=== PATIENT | female | born 1955 | race African-American/Black ===

== ENCOUNTER 2017-11-17 08:52 | Emergency (ER) | payer SELFPAY ==
[2017-11-17] MEDS ORDERED: ALBUTEROL 2.5 MG/3 ML NEB SOL ONE (09:23)
[2017-11-17] MEDS ORDERED: METHYLPREDNISOLONE 125 MG INJ ONE (09:23)
[2017-11-17] MEDS ORDERED: IPRATROPIUM BROM 0.5MG/2.5ML ONE (09:23)
--- NOTE | 2017-11-17 09:52 | RAD REPORT ---
EXAM DESCRIPTION: RAD - Chest Single View - 11/17/2017 9:45 am CLINICAL HISTORY: Cough, shortness of breath. COMPARISON: 10/25/2016 FINDINGS: Portable technique limits examination quality. Mild interstitial pulmonary edema is noted. The heart is mildly prominent in size. No displaced fract ures. IMPRESSION: Mild CHF/ volume overload pattern is suspected.
[2017-11-17 10:31] LABS: Absolute Lymphocytes (CBC) 2.2 K/uL (0.7-4.9); Absolute Monocytes 0.7 K/uL (0.1-1.3); Absolute Neutrophil 4.6 K/uL (1.8-8.0); Basophils % 1.3 % (0-1.3); Eosinophils % 6.4 % (0-4.4); Hematocrit 37.7 % (36.0-45.0); Lymphocytes % 27.1 % (15.3-44.8); MCH 25.3 pg (27.0-35.0); MCV 78.6 fL (80-100); MPV 8.1 fL (7.6-11.3); Monocytes % 8.1 % (3.3-12.3)
[2017-11-17 10:40] LABS: Potassium 3.8 mEq/L (3.6-5.0)
--- NOTE | 2017-11-17 11:04 | ER ---
Nurse's Notes [facility] Name: Bailey Zavala Age: 62 yrs Sex: Female : 1955 Arrival Date: 11/17/2017 Time: 08:55 Bed 16 Private MD: None, None Diagnosis: Asthma;Cough Presentation: 11/17 09:14 Presenting complaint: Patient states: has had pain in legs, hips, back X 2 weeks, has iw hx of arthritis, also has hx of asthma and has had increased SOB and coughing also has swelling in legs, denies hx of CHF. Transition of care: patient was not received from another setting of care. Onset of symptoms was November 01, 2017. Initial Sepsis Screen: Does the patient meet any 2 criteria? No. Patient's initial sepsis screen is negative. Does the patient have a suspected source of infection? No. Patient's initial sepsis screen is negative. Care prior to arrival: None. 09:14 Method Of Arrival: Wheelchair iw 09:14 Acuity: GURPREET 3 iw Triage Assessment: 09:14 General: Appears in no apparent distress. uncomfortable, obese, Behavior is calm, hj cooperative, appropriate for age. Pain: Complains of pain in back, right leg and left leg. EENT: No signs and/or symptoms were reported regarding the EENT system. Neuro: Level of Consciousness is awake, alert, obeys commands, Oriented to person, place, time, situation, Appropriate for age. Cardiovascular: Capillary refill < 3 seconds Patient's skin is warm and dry. Respiratory: Airway is patent Respiratory effort is even, unlabored, Respiratory pattern is regular, symmetrical. GI: No signs and/or symptoms were reported involving the gastrointestinal system. : No signs and/or symptoms were reported regarding the genitourinary system. Derm: No signs and/or symptoms reported regarding the dermatologic system. Musculoskeletal: Circulation, motion, and sensation intact. Range of motion: intact in all extremities, Swelling present in right leg and left leg. Historical: - Allergies: : Iodine (Hives); hj - Home Meds: : Advair Diskus 250-50 mcg/dose Inhl dsdv 1 puff 2 times per day [Active]; albuterol hj sulfate 2.5 mg/0.5 mL Inhl nebu 0.5 mL 4 times per day [Active]; albuterol sulfate 90 mcg/actuation Inhl HFAA 2 puffs every 4 hours [Active]; Breo Ellipta 200-25 mcg/dose inhalation dsdv 1 puff once daily [Active]; Iron CR Oral 320 mg daily [Active]; Lasix 40 mg Oral tab 1 tab once daily [Active]; metformin 500 mg Oral Tb24 1 tab 2 times per day [Active]; potassium chloride 20 mEq Oral TbER 1 tab once daily [Active]; ProAir HFA 90 mcg/actuation inhalation HFAA 1 puff every 4-6 hours [Active]; - PMHx: 09:17 Arthritis; Asthma; Diabetes - NIDDM; hj - PSHx: 09:17 retinal transplant; hj - Immunization history:: Adult Immunizations up to date. - Social history:: Smoking status: Patient/guardian denies using tobacco, Patient/guardian denies using alcohol. Screenin:14 Abuse screen: Denies threats or abuse. Denies injuries from another. Nutritional hj screening: No deficits noted. Tuberculosis screening: No symptoms or risk factors identified. Fall Risk None identified. Assessment: 09:17 Reassessment: see triage assessment;. hj 11:30 Reassessment: Patient and/or family updated on plan of care and expected duration. Pain hj level reassessed. Patient is alert, oriented x 3, equal unlabored respirations, skin warm/dry/pink. D/C instructions given; Patient denies pain at this time. Patient states feeling better. Vital Signs: 09:16 BP 154 / 90; Pulse 89; Resp 22 S; Temp 97.6(TE); Pulse Ox 100% on R/A; iw 09:16 BP 154 / 90; Pulse 88; Resp 18; Temp 97.9(TE); Pulse Ox 100% on R/A; Weight 161.03 kg; hj Height 5 ft. 8 in. (172.72 cm); 11:29 BP 150 / 89; Pulse 85; Resp 18; Pulse Ox 100% on R/A; hj 09:16 Body Mass Index 53.98 (161.03 kg, 172.72 cm) ED Course: 08:55 Patient arrived in ED. mr 08:56 None, None is Private Physician. mr 09:08 Hieu Harper MD is Attending Physician. rn 09:09 Johnathan, Edwar, RN is Primary Nurse. hj 09:15 Arm band placed on left wrist. hj 09:16 Triage completed. iw 09:16 Patient has correct armband on for positive identification. Bed in low position. Call light in reach. Side rails up X2. 09:40 X-ray completed. Portable x-ray completed in exam room. jr1 09:41 XRAY Chest (1 view) In Process Unspecified. EDMS 09:57 EKG done, by composite bond technician. reviewed by Hieu Harper MD. 3 10:15 Initial lab(s) drawn, by ks, sent to lab. Inserted saline lock: 22 gauge in left hj antecubital area, using aseptic technique. Blood collected. 11:26 No provider procedures requiring assistance completed. IV discontinued, intact, hj bleeding controlled, No redness/swelling at site. Pressure dressing applied. Administered Medications: 09:18 Drug: SOLU-Medrol 125 mg Route: IM; Site: left deltoid; 09:28 Follow up: Response: No adverse reaction hj 09:18 Drug: Albuterol 2.5 mg Route: Inhalation; hj 09:18 Drug: AtroVENT Aerosol 0.5 mg Route: Inhalation; Outcome: 11:04 Discharge ordered by . rn 11:26 Discharged to home ambulatory. 11:26 Condition: stable 11:26 Discharge instructions given to patient, Instructed on discharge instructions, follow up and referral plans. medication usage, Demonstrated understanding of instructions, follow-up care, medications, Prescriptions given X 2. 11:30 Patient left the ED. Signatures: Dispatcher [employer] EDPA Edith Bryant mr KimYumiko jr1 Latosha Lopes RN RN iw Nieto, Roman, MD MD rn Joaquin, Henry, RN RN hj Montes, Shakira 3
--- NOTE | 2017-11-17 11:05 | EDPHYS ---
Physician Documentation [facility] Name: Bailey Zavala Age: 62 yrs Sex: Female : 1955 Arrival Date: 11/17/2017 Time: 08:55 Bed 16 Private MD: None, None ED Physician Hieu Harper HPI: 11/17 09:20 This 62 yrs old Black Female presents to ER via Wheelchair with complaints of Leg Pain, rn Back Pain, Asthma Exacerbation. 09:20 The patient has shortness of breath with light activity. Onset: The symptoms/episode rn began/occurred 2 week(s) ago. Duration: The symptoms are intermittent. The patient's shortness of breath is aggravated by coughing, exertion, light activity. Associated signs and symptoms: Pertinent positives: productive cough, Pertinent negatives: fever. Historical: - Allergies: : Iodine (Hives); hj - Home Meds: :17 Advair Diskus 250-50 mcg/dose Inhl dsdv 1 puff 2 times per day [Active]; albuterol hj sulfate 2.5 mg/0.5 mL Inhl nebu 0.5 mL 4 times per day [Active]; albuterol sulfate 90 mcg/actuation Inhl HFAA 2 puffs every 4 hours [Active]; Breo Ellipta 200-25 mcg/dose inhalation dsdv 1 puff once daily [Active]; Iron CR Oral 320 mg daily [Active]; Lasix 40 mg Oral tab 1 tab once daily [Active]; metformin 500 mg Oral Tb24 1 tab 2 times per day [Active]; potassium chloride 20 mEq Oral TbER 1 tab once daily [Active]; ProAir HFA 90 mcg/actuation inhalation HFAA 1 puff every 4-6 hours [Active]; - PMHx: 09:17 Arthritis; Asthma; Diabetes - NIDDM; hj - PSHx: :17 retinal transplant; hj - Immunization history:: Adult Immunizations up to date. - Social history:: Smoking status: Patient/guardian denies using tobacco, Patient/guardian denies using alcohol. ROS: 09:21 Constitutional: Negative for fever, chills, and weight loss, Eyes: Negative for injury, rn pain, redness, and discharge, Neck: Negative for injury, pain, and swelling, Cardiovascular: Negative for chest pain, palpitations, and edema, Respiratory: + sob and cough Abdomen/GI: Negative for abdominal pain, nausea, vomiting, diarrhea, and constipation, Back: Negative for injury and pain, MS/Extremity: + knees/back/hip pain Skin: Negative for injury, rash, and discoloration, Neuro: Negative for headache, weakness, numbness, tingling, and seizure. Exam: 09:21 Constitutional: Overweight woman, laying in bed, smiling Head/Face: Normocephalic, rn atraumatic. Eyes: Pupils equal round and reactive to light, extra-ocular motions intact. Lids and lashes normal. Conjunctiva and sclera are non-icteric and not injected. Cornea within normal limits. Periorbital areas with no swelling, redness, or edema. ENT: Nares patent. No nasal discharge, no septal abnormalities noted. Oropharynx with no redness, swelling, or masses, exudates, or evidence of obstruction, uvula midline. Mucous membranes moist. Cardiovascular: Regular rate and rhythm with a normal S1 and S2. No gallops, murmurs, or rubs. Normal PMI, no JVD. No pulse deficits. Respiratory: Coarse bilateral breath sounds, faint exp wheezing, + mild tachypnea Abdomen/GI: Soft, non-tender, with normal bowel sounds. No distension or tympany. No guarding or rebound. No evidence of tenderness throughout. MS/ Extremity: Pulses equal, no cyanosis. Neurovascular intact. Full, normal range of motion. Equal circumference. Neuro: Awake and alert, GCS 15, oriented to person, place, time, and situation. Cranial nerves II-XII grossly intact. Motor strength 5/5 in all extremities. Sensory grossly intact. Vital Signs: 09:16 BP 154 / 90; Pulse 89; Resp 22 S; Temp 97.6(TE); Pulse Ox 100% on R/A; iw 09:16 BP 154 / 90; Pulse 88; Resp 18; Temp 97.9(TE); Pulse Ox 100% on R/A; Weight 161.03 kg; hj Height 5 ft. 8 in. (172.72 cm); 11:29 BP 150 / 89; Pulse 85; Resp 18; Pulse Ox 100% on R/A; hj 09:16 Body Mass Index 53.98 (161.03 kg, 172.72 cm) MDM: 09:08 Patient medically screened. rn 11:03 Differential diagnosis: Anemia asthma, Pneumothorax pulmonary edema. Data reviewed: rn vital signs, nurses notes, lab test result(s), EKG, radiologic studies, plain films, and as a result, I will discharge patient. Counseling: I had a detailed discussion with the patient and/or guardian regarding: the historical points, exam findings, and any diagnostic results supporting the discharge/admit diagnosis, lab results, radiology results, the need for outpatient follow up, to return to the emergency department if symptoms worsen or persist or if there are any questions or concerns that arise at home. Response to treatment: the patient's symptoms have markedly improved after treatment. Special discussion: I discussed with the patient/guardian in detail that at this point there is no indication for admission to the hospital. It is understood, however, that if the symptoms persist or worsen the patient needs to return immediately for re-evaluation. 11/17 10:04 Order name: CBC with Diff; Complete Time: 10:58 rn 11/17 10:04 Order name: Basic Metabolic Panel; Complete Time: 10:58 rn 11/17 09:18 Order name: XRAY Chest (1 view); Complete Time: 10:00 rn 11/17 10:04 Order name: BNP; Complete Time: 10:58 rn 11/17 10:04 Order name: Troponin (emerg Dept Use Only); Complete Time: 10:58 rn 11/17 09:20 Order name: EKG; Complete Time: 09:20 rn 11/17 09:20 Order name: EKG - Nurse/Tech; Complete Time: 09:44 rn 11/17 10:04 Order name: IV Start; Complete Time: 10:19 rn Administered Medications: :18 Drug: SOLU-Medrol 125 mg Route: IM; Site: left deltoid; 09:28 Follow up: Response: No adverse reaction hj :18 Drug: Albuterol 2.5 mg Route: Inhalation; hj 09:18 Drug: AtroVENT Aerosol 0.5 mg Route: Inhalation; Disposition: 11/17/17 11:04 Discharged to Home. Impression: Asthma, Cough. - Condition is Stable. - Discharge Instructions: Asthma, Acute Bronchospasm. - Prescriptions for Prednisone 20 mg Oral Tablet - take 3 tablet by ORAL route once daily for 5 days; 15 tablet. Zithromax Z- Asad 250 mg Oral Tablet - take 1 tablet by ORAL route as directed for 5 days Day 1 - take two (2) tablets one time. Day 2, 3, 4 , 5 take one (1) tablet once daily.; 6 tablet. - Medication Reconciliation Form, Thank You Letter, Antibiotic Education, Prescription Opioid Use form. - Follow up: Private Physician; When: As needed; Reason: Recheck today's complaints, Re-evaluation by your physician. - Problem is new. - Symptoms have improved. Signatures: Dispatcher [employer] EDIL Hieu Harper MD MD rn Joaquin, Henry, RN RN hj Corrections: (The following items were deleted from the chart) 11:30 11:04 11/17/2017 11:04 Discharged to Home. Impression: Asthma; Cough. Condition is hj Stable. Forms are Medication Reconciliation Form, Thank You Letter, Antibiotic Education, Prescription Opioid Use. Follow up: Private Physician; When: As needed; Reason: Recheck today's complaints, Re-evaluation by your physician. Problem is new. Symptoms have improved. rn
[2017-11-17 11:40] VITALS: BP 150/89; O2SAT 100
[2017-11-17 11:41] VITALS: TEMP 97.6
--- NOTE | 2017-11-17 16:21 | EKG ---
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
== END 2017-11-17 11:30 | disposition home or self-care (01) ==
LOC: ER 08:52
DX: J45.909 Unspecified asthma, uncomplicated (principal); E11.9 Type 2 diabetes mellitus without complications; Z91.048 Other nonmedicinal substance allergy status
CPT/HCPCS: 36415; 71045; 80048; 83880; 84484; 85025; 93005; 96372; 99284; J2930

== ENCOUNTER 2017-12-07 08:58 | Emergency (ER) | payer SELFPAY ==
[2017-12-07] MEDS ORDERED: METHYLPREDNISOLONE 125 MG INJ ONE (09:27)
[2017-12-07] MEDS ORDERED: ALBUTEROL 2.5 MG/3 ML NEB SOL ONE (09:27)
[2017-12-07] MEDS ORDERED: IPRATROPIUM BROM 0.5MG/2.5ML ONE (09:27)
[2017-12-07 09:46] LABS: Absolute Monocytes 0.8 K/uL (0.1-1.3); Absolute Neutrophil 5.8 K/uL (1.8-8.0); Basophils % 0.7 % (0-1.3); Eosinophils % 4.5 % (0-4.4); Hematocrit 38.3 % (36.0-45.0); Lymphocytes % 22.2 % (15.3-44.8); MCH 26.1 pg (27.0-35.0); MCV 78.1 fL (80-100); MPV 7.9 fL (7.6-11.3); Monocytes % 8.4 % (3.3-12.3); RBC Red Blood Cell Count 4.89 M/uL (3.86-4.86)
--- NOTE | 2017-12-07 09:52 | RAD REPORT ---
EXAM DESCRIPTION: [place] Single View12/07/2017 9:37 am CLINICAL HISTORY: Chest pain COMPARISON: November 2017 FINDINGS: Mild interstitial lung opacities probably are chronic. The lungs appear clear of acute in filtrate. The heart is normal size IMPRESSION: No acute abnormalities displayed
[2017-12-07 10:00] LABS: Potassium 3.5 mEq/L (3.6-5.0)
--- NOTE | 2017-12-07 11:11 | ER ---
Nurse's Notes [facility] Name: Bailey Zavala Age: 62 yrs Sex: Female : 1955 Arrival Date: 12/07/2017 Time: 09:02 Bed 3 Private MD: None, None Diagnosis: Asthma;Osteoarthritis, unspecified site Presentation: 12/07 09:21 Risk Assessment: Do you want to hurt yourself or someone else? Patient reports no hb desire to harm self or others. Initial Sepsis Screen: Does the patient meet any 2 criteria? No. Patient's initial sepsis screen is negative. Does the patient have a suspected source of infection? No. Patient's initial sepsis screen is negative. Care prior to arrival: None. 09:21 Presenting complaint: Patient states: SOB x4 days. Transition of care: patient was not jl7 received from another setting of care. Onset of symptoms was December 03, 2017. Care prior to arrival: None. 09:21 Method Of Arrival: Ambulatory jl7 09:21 Acuity: GURPREET 3 jl7 Triage Assessment: 09:20 General: Appears in no apparent distress. uncomfortable, Behavior is calm, cooperative, jl7 appropriate for age. Pain: Complains of pain in bilateral knees and ankles Pain does not radiate. Pain currently is 8 out of 10 on a pain scale. Quality of pain is described as "It's my arthritis." Pain began years ago. Is continuous. EENT: No signs and/or symptoms were reported regarding the EENT system. Neuro: Level of Consciousness is awake, alert, obeys commands, Oriented to person, place, time, situation. Cardiovascular: Heart tones S1 S2 present Patient's skin is warm and dry. Respiratory: Reports shortness of breath since 4-5 days Airway is patent Respiratory effort is even, unlabored, Respiratory pattern is regular, symmetrical, Breath sounds are clear bilaterally. Onset: The symptoms/episode began/occurred at an unknown time. the patient has mild shortness of breath. GI: No signs and/or symptoms were reported involving the gastrointestinal system. : No signs and/or symptoms were reported regarding the genitourinary system. Derm: Skin is dry, Skin is normal, Skin temperature is warm. Musculoskeletal: No signs and/or symptoms reported regarding the musculoskeletal system. Historical: - Allergies: :20 Iodine (Hives); hb - Home Meds: 09:20 Advair Diskus 250-50 mcg/dose Inhl dsdv 1 puff 2 times per day [Active]; albuterol hb sulfate 2.5 mg/0.5 mL Inhl nebu 0.5 mL 4 times per day [Active]; albuterol sulfate 90 mcg/actuation Inhl HFAA 2 puffs every 4 hours [Active]; Breo Ellipta 200-25 mcg/dose inhalation dsdv 1 puff once daily [Active]; Iron CR Oral 320 mg daily [Active]; Lasix 40 mg Oral tab 1 tab once daily [Active]; metformin 500 mg Oral Tb24 1 tab 2 times per day [Active]; potassium chloride 20 mEq Oral TbER 1 tab once daily [Active]; ProAir HFA 90 mcg/actuation inhalation HFAA 1 puff every 4-6 hours [Active]; - PMHx: 09:20 Arthritis; Asthma; Diabetes - NIDDM; hb - PSHx: 09:20 retinal transplant; hb - Immunization history:: Adult Immunizations up to date. - Social history:: Smoking status: Patient/guardian denies using tobacco. - Ebola Screening: : No symptoms or risks identified at this time. - Family history:: not pertinent. - Hospitalizations: : No recent hospitalization is reported. Screenin:18 Abuse screen: Denies threats or abuse. Denies injuries from another. Nutritional hb screening: No deficits noted. Tuberculosis screening: No symptoms or risk factors identified. Fall Risk None identified. Assessment: 09:50 General: see triage assessment. Cardiovascular: Rhythm is regular. jl7 10:49 Reassessment: Patient and/or family updated on plan of care and expected duration. Pain jl7 level reassessed. Patient is alert, oriented x 3, equal unlabored respirations, skin warm/dry/pink. Patient states symptoms have improved. Vital Signs: 09:17 Temp 97.7(TE); hb 09:18 BP 138 / 73; Pulse 89; Resp 20; Pulse Ox 100% on R/A; hb 10:45 BP 136 / 74; Pulse 87; Resp 18; Pulse Ox 98% ; hb ED Course: 09:02 Patient arrived in ED. sb2 09:03 None, None is Private Physician. sb2 09:11 Hieu Harper MD is Attending Physician. rn 09:13 Elaine, Jahala, RN is Primary Nurse. jl7 09:18 Arm band placed on right wrist. hb 09:20 Patient has correct armband on for positive identification. Bed in low position. Call light in reach. Side rails up X 1. 09:22 Triage completed. jl7 09:34 X-ray completed. Portable x-ray completed in exam room. Patient tolerated procedure kp1 well. 09:35 XRAY Chest (1 view) In Process Unspecified. EDMS 09:36 Initial lab(s) drawn, by me, sent to lab. Inserted saline lock: 20 gauge in left 3 antecubital area, using aseptic technique. Blood collected. 11:17 No provider procedures requiring assistance completed. IV discontinued, intact, hb bleeding controlled, No redness/swelling at site. Pressure dressing applied. Administered Medications: 09:25 Drug: Albuterol 2.5 mg Route: Inhalation; jl7 09:25 Drug: AtroVENT Aerosol 0.5 mg Route: Inhalation; jl7 09:50 Drug: SOLU-Medrol 125 mg Route: IVP; Site: left antecubital; jl7 Outcome: 11:10 Discharge ordered by . rn 11:17 Discharged to home ambulatory. hb 11:17 Condition: stable 11:17 Discharge instructions given to patient, Instructed on discharge instructions, follow up and referral plans. medication usage, Demonstrated understanding of instructions, follow-up care, medications, Prescriptions given X 2. 11:22 Patient left the ED. hb Signatures: Dispatcher [employer] EDMS Hieu Harper MD MD rn Baxter, Heather RN RN Avani Hart, RN AMARILYS 7 Francisca Ricardo 1 Joceline Schaefer 3 Kaykay Mancilla 2
--- NOTE | 2017-12-07 11:11 | EDPHYS ---
Physician Documentation [facility] Name: Bailey Zavala Age: 62 yrs Sex: Female : 1955 Arrival Date: 12/07/2017 Time: 09:02 Bed 3 Private MD: None, None ED Physician Hieu Harper HPI: 12/07 09:26 This 62 yrs old Black Female presents to ER via Ambulatory with complaints of Breathing rn Difficulty, Knee Pain, Hip Pain. 09:26 The patient has shortness of breath at rest. Onset: The symptoms/episode began/occurred rn at an unknown time. Duration: The symptoms are intermittent. The patient's shortness of breath is aggravated by exertion, light activity, talking, walking. Associated signs and symptoms: Pertinent positives: non-productive cough, Pertinent negatives: fever, hemoptysis, loss of consciousness, vomiting. Severity of symptoms: At their worst the symptoms were mild in the emergency department the symptoms are unchanged. The patient has experienced similar episodes in the past. The patient has not recently seen a physician. Historical: - Allergies: 09:20 Iodine (Hives); hb - Home Meds: 09:20 Advair Diskus 250-50 mcg/dose Inhl dsdv 1 puff 2 times per day [Active]; albuterol hb sulfate 2.5 mg/0.5 mL Inhl nebu 0.5 mL 4 times per day [Active]; albuterol sulfate 90 mcg/actuation Inhl HFAA 2 puffs every 4 hours [Active]; Breo Ellipta 200-25 mcg/dose inhalation dsdv 1 puff once daily [Active]; Iron CR Oral 320 mg daily [Active]; Lasix 40 mg Oral tab 1 tab once daily [Active]; metformin 500 mg Oral Tb24 1 tab 2 times per day [Active]; potassium chloride 20 mEq Oral TbER 1 tab once daily [Active]; ProAir HFA 90 mcg/actuation inhalation HFAA 1 puff every 4-6 hours [Active]; - PMHx: 09:20 Arthritis; Asthma; Diabetes - NIDDM; hb - PSHx: 09:20 retinal transplant; hb - Immunization history:: Adult Immunizations up to date. - Social history:: Smoking status: Patient/guardian denies using tobacco. - Ebola Screening: : No symptoms or risks identified at this time. - Family history:: not pertinent. - Hospitalizations: : No recent hospitalization is reported. ROS: 09:26 Constitutional: Negative for fever, chills, and weight loss, Eyes: Negative for injury, rn pain, redness, and discharge, Neck: Negative for injury, pain, and swelling, Cardiovascular: Negative for chest pain, palpitations, and edema, Respiratory: Negative for pleuritic chest pain Abdomen/GI: Negative for abdominal pain, nausea, vomiting, diarrhea, and constipation, MS/Extremity: Negative for injury and deformity, Skin: Negative for injury, rash, and discoloration, Neuro: Negative for headache, weakness, numbness, tingling, and seizure. Exam: 09:26 Constitutional: Overweight female, no acute distress Head/Face: Normocephalic, rn atraumatic. Neck: Trachea midline, no thyromegaly or masses palpated, and no cervical lymphadenopathy. Supple, full range of motion without nuchal rigidity, or vertebral point tenderness. No Meningismus. Cardiovascular: Regular rate and rhythm with a normal S1 and S2. No gallops, murmurs, or rubs. Normal PMI, no JVD. No pulse deficits. Respiratory: + diffuse faint exp wheezing, no retractions, mild tachypnea Abdomen/GI: Soft, non-tender, with normal bowel sounds. No distension or tympany. No guarding or rebound. No evidence of tenderness throughout. MS/ Extremity: Pulses equal, no cyanosis. Neurovascular intact. Full, normal range of motion. Equal circumference. 2+ non-pitting edema bilateral lower ext Neuro: Awake and alert, GCS 15, oriented to person, place, time, and situation. Cranial nerves II-XII grossly intact. Motor strength 5/5 in all extremities. Sensory grossly intact. Vital Signs: 09:17 Temp 97.7(TE); hb 09:18 BP 138 / 73; Pulse 89; Resp 20; Pulse Ox 100% on R/A; hb 10:45 BP 136 / 74; Pulse 87; Resp 18; Pulse Ox 98% ; hb MDM: 09:11 Patient medically screened. rn 11:05 Differential diagnosis: asthma, Bronchitis pneumonia, pulmonary edema. Data reviewed: rn vital signs, nurses notes, lab test result(s), EKG, radiologic studies, plain films, and as a result, I will discharge patient. Counseling: I had a detailed discussion with the patient and/or guardian regarding: the historical points, exam findings, and any diagnostic results supporting the discharge/admit diagnosis, lab results, radiology results, the need for outpatient follow up, to return to the emergency department if symptoms worsen or persist or if there are any questions or concerns that arise at home. Medical screen evaluation completed. [facility] emergency medical condition absent. Response to treatment: the patient's symptoms have markedly improved after treatment, and as a result, I will discharge patient. Special discussion: I discussed with the patient/guardian in detail that at this point there is no indication for admission to the hospital. It is understood, however, that if the symptoms persist or worsen the patient needs to return immediately for re-evaluation. Based on the history and exam findings, there is no indication for further emergent testing or inpatient evaluation. I discussed with the patient/guardian the need to see the rough and trueing machine operator for further evaluation of the symptoms. 12/07 09:19 Order name: CBC with Diff; Complete Time: 10:26 rn 12/07 09:19 Order name: Basic Metabolic Panel; Complete Time: 10:26 rn 12/07 09:19 Order name: BNP; Complete Time: 10:26 rn 12/07 09:19 Order name: Troponin (emerg Dept Use Only); Complete Time: 10:26 rn 12/07 09:19 Order name: XRAY Chest (1 view); Complete Time: 09:57 rn 12/07 09:19 Order name: IV Start; Complete Time: 09:36 rn 12/07 09:19 Order name: EKG; Complete Time: 09:19 rn 12/07 09:19 Order name: EKG - Nurse/Tech; Complete Time: 09:42 rn Administered Medications: 09:25 Drug: Albuterol 2.5 mg Route: Inhalation; jl7 09:25 Drug: AtroVENT Aerosol 0.5 mg Route: Inhalation; jl7 09:50 Drug: SOLU-Medrol 125 mg Route: IVP; Site: left antecubital; jl7 Disposition: 12/07/17 11:10 Discharged to Home. Impression: Asthma, Osteoarthritis, unspecified site. - Condition is Stable. - Discharge Instructions: Asthma, Acute Bronchospasm, Asthma Attack Prevention. - Prescriptions for ipratropium bromide 0.02 % Inhalation solution - inhale 2.5 milliliter by INHALATION route 3-4 times daily As needed as needed; 1 box. Prednisone 20 mg Oral Tablet - take 3 tablet by ORAL route once daily for 5 days; 15 tablet. - Medication Reconciliation Form, Thank You Letter, Antibiotic Education, Prescription Opioid Use form. - Follow up: Private Physician; When: As needed; Reason: Recheck today's complaints, Re-evaluation by your physician. - Problem is new. - Symptoms have improved. Signatures: Dispatcher [employer] EDLA Hieu Harper MD MD rn Baxter, Heather, RN RN hb Leal, Jahala, RN RN jl7 Corrections: (The following items were deleted from the chart) 11:22 11:10 12/07/2017 11:10 Discharged to Home. Impression: Asthma; Osteoarthritis, hb unspecified site. Condition is Stable. Forms are Medication Reconciliation Form, Thank You Letter, Antibiotic Education, Prescription Opioid Use. Follow up: Private Physician; When: As needed; Reason: Recheck today's complaints, Re-evaluation by your physician. Problem is new. Symptoms have improved. rn
[2017-12-07 11:25] VITALS: TEMP 97.7
[2017-12-07 11:27] VITALS: BP 136/74; O2SAT 98
--- NOTE | 2017-12-07 13:36 | EKG ---
Test Date: 2017-12-07 Test Time: 09:37:49 Sales Route Driver Helper: MCKAYLA MEASUREMENT RESULTS: Intervals: Rate: 86 WI: 184 QRSD: 76 QT: 374 QTc: 447 [place]: P: 26 WI: 184 QRS: -11 T: 27 INTERPRETIVE STATEMENTS: Normal sinus rhythm Cannot rule out Anterior infarct, age undetermined Abnormal ECG Compared to ECG 11/17/2017 09:44:22 Myocardial infarct finding now present Electronically Signed On 12-07-17 13:36:17 CDT by Phill Rubi
== END 2017-12-07 11:22 | disposition home or self-care (01) ==
LOC: ER 08:58
DX: J45.909 Unspecified asthma, uncomplicated (principal); M19.90 Unspecified osteoarthritis, unspecified site; E11.9 Type 2 diabetes mellitus without complications; Z88.8 Allergy status to other drugs, medicaments and biological substances
CPT/HCPCS: 36415; 71045; 80048; 83880; 84484; 85025; 93005; 96374; 99284; J2930

== ENCOUNTER 2018-01-27 09:54 | Emergency (ER) | payer SELFPAY ==
[2018-01-27] MEDS ORDERED: TRAMADOL HCL 50 MG TAB ONE (10:32)
[2018-01-27] MEDS ORDERED: IPRATROPIUM BROM 0.5MG/2.5ML ONE (10:32)
[2018-01-27] MEDS ORDERED: ALBUTEROL 2.5 MG/3 ML NEB SOL ONE (10:32)
[2018-01-27] MEDS ORDERED: predniSONE 20 MG TAB ONE (10:33)
--- NOTE | 2018-01-27 11:21 | EDPHYS ---
Physician Documentation [facility] Name: Bailey Zavala Age: 62 yrs Sex: Female : 1955 Arrival Date: 01/27/2018 Time: 09:56 Bed 7 Private MD: ED Physician Brandon Goyal HPI: 01/27 10:23 This 62 yrs old Black Female presents to ER via Ambulatory with complaints of jmm Back/Hip/Knee Pain, Asthma Exacerbation. 10:23 The patient presents to the emergency department with wheezing, Current therapy: jmm albuterol inhaler. Onset: The symptoms/episode began/occurred gradually, 2 day(s) ago. Modifying factors: The symptoms are alleviated by inhaler, albuterol, the symptoms are aggravated by. Associated signs and symptoms: Pertinent negatives: fever. This is a 62 year old female with a history of asthma that presents to the ED with cough, and wheezing she attributes to her asthma. Patient also complains of ongoing lower back and hip pain which has worsened since the beginning of her exacerbation. Denies fever or new injury. . Historical: - Allergies: 10:24 Iodine (Hives); ph - Home Meds: 10:24 Advair Diskus 250-50 mcg/dose Inhl dsdv 1 puff 2 times per day [Active]; albuterol ph sulfate 2.5 mg/0.5 mL Inhl nebu 0.5 mL 4 times per day [Active]; albuterol sulfate 90 mcg/actuation Inhl HFAA 2 puffs every 4 hours [Active]; Breo Ellipta 200-25 mcg/dose inhalation dsdv 1 puff once daily [Active]; Iron CR Oral 320 mg daily [Active]; Lasix 40 mg Oral tab 1 tab once daily [Active]; metformin 500 mg Oral Tb24 1 tab 2 times per day [Active]; potassium chloride 20 mEq Oral TbER 1 tab once daily [Active]; ProAir HFA 90 mcg/actuation inhalation HFAA 1 puff every 4-6 hours [Active]; - PMHx: 10:24 Arthritis; Asthma; Diabetes - NIDDM; ph - PSHx: 10:24 retinal transplant; ph - Immunization history:: Adult Immunizations unknown. - Social history:: Smoking status: Patient/guardian denies using tobacco. - Ebola Screening: : No symptoms or risks identified at this time. ROS: 10:23 Constitutional: Negative for fever, chills, and weight loss, Cardiovascular: Negative [facility] for chest pain, palpitations, and edema. 10:23 Respiratory: Positive for shortness of breath. Exam: 10:23 Constitutional: This is a well developed, well nourished patient who is awake, alert, jmm and in no acute distress. Head/Face: atraumatic. Neck: Trachea midline, Supple Chest/axilla: Normal chest wall appearance and motion. Cardiovascular: Regular rate and rhythm. No edema appreciated 10:23 Back: Normal ROM [facility] 10:23 Respiratory: the patient does not display signs of respiratory distress, Respirations: normal, Breath sounds: wheezing: that is mild, is scattered. 10:23 Abdomen/GI: Inspection: obese 10:23 Back: vertebral tenderness, is not appreciated. 10:23 Musculoskeletal/extremity: ROM: intact in all extremities. 10:23 Musculoskeletal/extremity: Extremities: FROM appreciated to the knee and hip joints bilaterally, full dorsalis pedis pulse appreciated bilaterally. , ROM: 10:23 Skin: Appearance: Color: normal in color. 10:23 Neuro: Orientation: is normal, Mentation: is normal, Memory: is normal. 10:23 Psych: Behavior/mood is pleasant, cooperative. Vital Signs: 10:19 BP 117 / 70; Pulse 90; Resp 26; Temp 97.5; Pulse Ox 97% on R/A; ph 11:40 BP 118 / 68; Pulse 100; Resp 22; Temp 97.8; Pulse Ox 98% on R/A; ph MDM: 10:11 Patient medically screened. [facility] 11:19 Data reviewed: vital signs, nurses notes. Counseling: I had a detailed discussion with [facility] the patient and/or guardian regarding: the historical points, exam findings, and any diagnostic results supporting the discharge/admit diagnosis, the need for outpatient follow up, to return to the emergency department if symptoms worsen or persist or if there are any questions or concerns that arise at home. Response to treatment: the patient's symptoms have markedly improved after treatment. Administered Medications: 10:38 Drug: DuoNeb (3:1) (2.5 mg - 0.5 mg) 3 ml Route: Nebulizer; ph 11:39 Follow up: Response: No adverse reaction ph 10:39 Drug: UltRAM 50 mg Route: PO; ph 11:39 Follow up: Response: No adverse reaction ph 10:39 Drug: predniSONE 60 mg Route: PO; ph 11:39 Follow up: Response: No adverse reaction ph Disposition: 01/27/18 11:20 Discharged to Home. Impression: Unspecified asthma with (acute) exacerbation, Pain in unspecified hip, Pain in unspecified knee, Low back pain. - Condition is Stable. - Discharge Instructions: Joint Pain, Asthma, Adult, Chronic Back Pain. - Prescriptions for Prednisone 20 mg Oral Tablet - take 3 tablet by ORAL route once daily for 5 days; 15 tablet. Ultram 50 mg Oral Tablet - take 1 tablet by ORAL route every 6 hours As needed; 12 tablet. - Medication Reconciliation Form, Thank You Letter, Antibiotic Education, Prescription Opioid Use form. - Follow up: Private Physician; When: 2 - 3 days; Reason: Continuance of care. Addendum: 01/30/2018 10:05 Co-signature as Attending Physician, Brandon Goyal MD I agree with the assessment and c martinez plan of care. Signatures: Brandon Goyal MD MD cha Mickail, Joel, PA PA Annie Osorio RN RN ph Corrections: (The following items were deleted from the chart) 01/27 11:41 11:20 01/27/2018 11:20 Discharged to Home. Impression: Unspecified asthma with (acute) ph exacerbation; Pain in unspecified hip; Pain in unspecified knee; Low back pain. Condition is Stable. Forms are Medication Reconciliation Form, Thank You Letter, Antibiotic Education, Prescription Opioid Use. Follow up: Private Physician; When: 2 - 3 days; Reason: Continuance of care. maddie
--- NOTE | 2018-01-27 11:21 | ER ---
Nurse's Notes [facility] Name: Bailey Zavala Age: 62 yrs Sex: Female : 1955 Arrival Date: 01/27/2018 Time: 09:56 Bed 7 Private MD: Diagnosis: Unspecified asthma with (acute) exacerbation;Pain in unspecified hip;Pain in unspecified knee;Low back pain Presentation: 01/27 10:18 Presenting complaint: Patient states: Pt c/o lower back pain, jovan hip pain and jovan knee ph pain, also c/o SOB x 3-4 days that temporarily improves after neb tx then returns, denies fever. Transition of care: patient was not received from another setting of care. Onset of symptoms was January 27, 2018. Risk Assessment: Do you want to hurt yourself or someone else? Patient reports no desire to harm self or others. Initial Sepsis Screen: Does the patient meet any 2 criteria? No. Patient's initial sepsis screen is negative. Does the patient have a suspected source of infection? No. Patient's initial sepsis screen is negative. Care prior to arrival: None. 10:18 Method Of Arrival: Ambulatory ph 10:18 Acuity: GURPREET 4 ph Historical: - Allergies: 10:24 Iodine (Hives); ph - Home Meds: 10:24 Advair Diskus 250-50 mcg/dose Inhl dsdv 1 puff 2 times per day [Active]; albuterol ph sulfate 2.5 mg/0.5 mL Inhl nebu 0.5 mL 4 times per day [Active]; albuterol sulfate 90 mcg/actuation Inhl HFAA 2 puffs every 4 hours [Active]; Breo Ellipta 200-25 mcg/dose inhalation dsdv 1 puff once daily [Active]; Iron CR Oral 320 mg daily [Active]; Lasix 40 mg Oral tab 1 tab once daily [Active]; metformin 500 mg Oral Tb24 1 tab 2 times per day [Active]; potassium chloride 20 mEq Oral TbER 1 tab once daily [Active]; ProAir HFA 90 mcg/actuation inhalation HFAA 1 puff every 4-6 hours [Active]; - PMHx: 10:24 Arthritis; Asthma; Diabetes - NIDDM; ph - PSHx: 10:24 retinal transplant; ph - Immunization history:: Adult Immunizations unknown. - Social history:: Smoking status: Patient/guardian denies using tobacco. - Ebola Screening: : No symptoms or risks identified at this time. Screenin:25 Abuse screen: Denies threats or abuse. Denies injuries from another. Nutritional ph screening: No deficits noted. Tuberculosis screening: No symptoms or risk factors identified. Fall Risk None identified. Assessment: 10:25 General: Appears in no apparent distress. uncomfortable, obese, well groomed, Behavior ph is calm, cooperative, appropriate for age, Denies fever, feeling ill. Pain: Complains of pain in low back, jovan hip, jovan knee. Neuro: Level of Consciousness is awake, alert, obeys commands, Oriented to person, place, time, situation. Cardiovascular: Denies chest pain, lightheadedness, Capillary refill < 3 seconds in bilateral fingers Patient's skin is warm and dry. Respiratory: Reports shortness of breath at rest Airway is patent Respiratory effort is even, unlabored, Respiratory pattern is tachypnea Breath sounds with wheezes bilaterally. GI: No signs and/or symptoms were reported involving the gastrointestinal system. Derm: Skin is intact, is healthy with good turgor, Skin is pink, warm \T\ dry. Musculoskeletal: Circulation, motion, and sensation intact. Range of motion: intact in all extremities. Vital Signs: 10:19 BP 117 / 70; Pulse 90; Resp 26; Temp 97.5; Pulse Ox 97% on R/A; ph 11:40 BP 118 / 68; Pulse 100; Resp 22; Temp 97.8; Pulse Ox 98% on R/A; ph ED Course: 09:56 Patient arrived in ED. as 10:03 Jeffrey Burgess PA is PHCP. jm 10:03 Brandon Goyal MD is Attending Physician. jm 10:09 Annie Zavala RN is Primary Nurse. ph 10:19 Triage completed. ph 10:25 Arm band placed on. ph 10:26 Patient has correct armband on for positive identification. Bed in low position. Call ph light in reach. Side rails up X 1. Pulse ox on. NIBP on. Warm blanket given. 10:54 No provider procedures requiring assistance completed. Patient did not have IV access ph during this emergency room visit. Administered Medications: 10:38 Drug: DuoNeb (3:1) (2.5 mg - 0.5 mg) 3 ml Route: Nebulizer; ph 11:39 Follow up: Response: No adverse reaction ph 10:39 Drug: UltRAM 50 mg Route: PO; ph 11:39 Follow up: Response: No adverse reaction ph 10:39 Drug: predniSONE 60 mg Route: PO; ph 11:39 Follow up: Response: No adverse reaction ph Outcome: 11:20 Discharge ordered by . maddie 11:41 Discharged to home via wheelchair, with family. ph 11:41 Condition: good 11:41 Discharge instructions given to patient, Instructed on discharge instructions, follow up and referral plans. medication usage, Demonstrated understanding of instructions, follow-up care, medications, Prescriptions given X 2. 11:41 Patient left the ED. ph Signatures: Jeffrey Burgess PA PA jmm Martinez, Amelia as Hall, Patricia, RN RN ph
[2018-01-27 11:47] VITALS: BP 118/68; TEMP 97.8; O2SAT 98
== END 2018-01-27 11:41 | disposition home or self-care (01) ==
LOC: ER 09:54
DX: J45.901 Unspecified asthma with (acute) exacerbation (principal); M25.552 Pain in left hip; M25.551 Pain in right hip; M25.562 Pain in left knee; M25.561 Pain in right knee; M54.5 Low back pain
CPT/HCPCS: 94640; 99284; J7512

== ENCOUNTER 2018-03-03 09:55 | Emergency (ER) | payer SELFPAY ==
[2018-03-03] MEDS ORDERED: ALBUTEROL 2.5 MG/3 ML NEB SOL ONE (10:45)
[2018-03-03] MEDS ORDERED: IPRATROPIUM BROM 0.5MG/2.5ML ONE (10:45)
[2018-03-03] MEDS ORDERED: METHYLPREDNISOLONE 125 MG INJ ONE (10:45)
[2018-03-03] MEDS ORDERED: ONDANSETRON 4 MG/2 ML VIAL ONE (11:03)
[2018-03-03 11:10] LABS: Absolute Lymphocytes (CBC) 2.1 K/uL (0.7-4.9); Absolute Monocytes 0.8 K/uL (0.1-1.3); Basophils % 0.3 % (0-1.3); Eosinophils % 3.6 % (0-4.4); Hematocrit 36.4 % (36.0-45.0); MCH 26.6 pg (27.0-35.0); MCV 80.4 fL (80-100); MPV 7.9 fL (7.6-11.3); Monocytes % 8.7 % (3.3-12.3); RBC Red Blood Cell Count 4.53 M/uL (3.86-4.86)
[2018-03-03 11:21] LABS: Potassium 3.9 mmol/L (3.5-5.1)
--- NOTE | 2018-03-03 11:32 | RAD REPORT ---
EXAM DESCRIPTION: Ortiz Pa And Lat (2 Views)03/03/2018 11:24 am CLINICAL HISTORY: COUGH COMPARISON: Chest Single View dated 12/07/2017; FINDINGS: Mild to moderate bilateral interstitial lung opacities are present. The heart is mildly en larged IMPRESSION: Mild CHF
--- NOTE | 2018-03-03 11:33 | RAD REPORT ---
EXAM DESCRIPTION: RAD - Foot Right 2 View - 03/03/2018 11:24 am CLINICAL HISTORY: Right foot pain and swelling FINDINGS: No fracture or dislocation is seen. Mild hallux valgus deformity is seen. Large plantar calcaneal spur is present. The bones are osteoporotic
[2018-03-03] MEDS ORDERED: KETOROLAC 30 MG/ML INJ ONE (11:35)
[2018-03-03 13:00] LABS: NT PRO-BNP 70 pg/mL (<125); Troponin (Emerg Dept Use Only) < 0.02 ng/mL (0.0-0.045)
--- NOTE | 2018-03-03 13:10 | EDPHYS ---
Physician Documentation [facility] Name: Bailey Zavala Age: 62 yrs Sex: Female : 1955 Arrival Date: 03/03/2018 Time: 09:57 Bed 14 Private MD: None, None ED Physician Brandon Goyal HPI: 03/03 11:13 This 62 yrs old Black Female presents to ER via Wheelchair with complaints of Pain All jr8 Over, Asthma Exacerbation. 11:13 The patient has shortness of breath at rest. Onset: The symptoms/episode began/occurred jr8 gradually, 2 week(s) ago. Duration: The symptoms are continuous. The patient's shortness of breath has no apparent modifying factors. Associated signs and symptoms: Pertinent positives: non-productive cough. Severity of symptoms: At their worst the symptoms were mild in the emergency department the symptoms are unchanged. The patient has experienced similar episodes in the past, a few times. The patient has not recently seen a physician. stated that she has chronic arthritic pain as well . Historical: - Allergies: 10:03 Iodine (Hives); aj1 - Home Meds: 10:03 Advair Diskus 250-50 mcg/dose Inhl dsdv 1 puff 2 times per day [Active]; albuterol aj1 sulfate 2.5 mg/0.5 mL Inhl nebu 0.5 mL 4 times per day [Active]; albuterol sulfate 90 mcg/actuation Inhl HFAA 2 puffs every 4 hours [Active]; Breo Ellipta 200-25 mcg/dose inhalation dsdv 1 puff once daily [Active]; Iron CR Oral 320 mg daily [Active]; Lasix 40 mg Oral tab 1 tab once daily [Active]; metformin 500 mg Oral Tb24 1 tab 2 times per day [Active]; potassium chloride 20 mEq Oral TbER 1 tab once daily [Active]; ProAir HFA 90 mcg/actuation inhalation HFAA 1 puff every 4-6 hours [Active]; - PMHx: 10:03 Arthritis; Asthma; Diabetes - NIDDM; aj1 - Immunization history:: Flu vaccine is up to date. - Social history:: Smoking status: Patient/guardian denies using tobacco. - Ebola Screening: : Patient denies travel to an Ebola-affected area in the 21 days before illness onset. ROS: 11:13 Eyes: Negative for injury, pain, redness, and discharge, ENT: Negative for injury, jr8 pain, and discharge, Neck: Negative for injury, pain, and swelling, Cardiovascular: Negative for chest pain, palpitations, and edema, Abdomen/GI: Negative for abdominal pain, nausea, vomiting, diarrhea, and constipation, Back: Negative for injury and pain, MS/Extremity: Negative for injury and deformity, Skin: Negative for injury, rash, and discoloration, Neuro: Negative for headache, weakness, numbness, tingling, and seizure. 11:13 Respiratory: Positive for cough, dyspnea on exertion, shortness of breath, wheezing. Exam: 11:13 Eyes: Pupils equal round and reactive to light, extra-ocular motions intact. Lids and jr8 lashes normal. Conjunctiva and sclera are non-icteric and not injected. Cornea within normal limits. Periorbital areas with no swelling, redness, or edema. ENT: Nares patent. No nasal discharge, no septal abnormalities noted. Tympanic membranes are normal and external auditory canals are clear. Oropharynx with no redness, swelling, or masses, exudates, or evidence of obstruction, uvula midline. Mucous membranes moist. Neck: Trachea midline, no thyromegaly or masses palpated, and no cervical lymphadenopathy. Supple, full range of motion without nuchal rigidity, or vertebral point tenderness. No Meningismus. Cardiovascular: Regular rate and rhythm with a normal S1 and S2. No gallops, murmurs, or rubs. Normal PMI, no JVD. No pulse deficits. Abdomen/GI: Soft, non-tender, with normal bowel sounds. No distension or tympany. No guarding or rebound. No evidence of tenderness throughout. Back: No spinal tenderness. No costovertebral tenderness. Full range of motion. Skin: Warm, dry with normal turgor. Normal color with no rashes, no lesions, and no evidence of cellulitis. MS/ Extremity: Pulses equal, no cyanosis. Neurovascular intact. Full, normal range of motion. Neuro: Awake and alert, GCS 15, oriented to person, place, time, and situation. Cranial nerves II-XII grossly intact. Motor strength 5/5 in all extremities. Sensory grossly intact. Cerebellar exam normal. Normal gait. 11:13 Respiratory: the patient does not display signs of respiratory distress, Respirations: normal, Breath sounds: wheezing: expiratory that is mild, is heard diffusely. Vital Signs: 10:03 BP 140 / 77; Pulse 88; Resp 20; Temp 98.2(TE); Pulse Ox 100% on R/A; Weight 174.63 kg aj1 (R); Height 5 ft. 8 in. (172.72 cm) (R); Pain 8/10; 10:03 Body Mass Index 58.54 (174.63 kg, 172.72 cm) aj1 MDM: 10:14 Patient medically screened. jr8 13:09 Differential diagnosis: asthma, Bronchitis CHF exacerbation, Chronic Obstructive jr8 Pulmonary Disease Myocardial Infarction pneumonia, pulmonary edema, Pulmonary Embolism reactive airway disease. Data reviewed: vital signs, nurses notes, lab test result(s), EKG, radiologic studies, plain films. Data interpreted: Pulse oximetry: on room air is 100 %. Interpretation: normal. Counseling: I had a detailed discussion with the patient and/or guardian regarding: the historical points, exam findings, and any diagnostic results supporting the discharge/admit diagnosis, lab results, radiology results, the need for outpatient follow up, a family practitioner, a casting assistant, to return to the emergency department if symptoms worsen or persist or if there are any questions or concerns that arise at home. Response to treatment: the patient's symptoms have resolved after treatment. 03/03 10:20 Order name: CBC with Diff; Complete Time: :03/03 10:20 Order name: Basic Metabolic Panel; Complete Time: :03/03 10:20 Order name: XRAY Chest Pa And Lat (2 Views); Complete Time: 11:33 03/03 11:34 Order name: NT PRO-BNP; Complete Time: 13:03/03 11:34 Order name: Troponin (emerg Dept Use Only); Complete Time: 13:03/03 10:20 Order name: IV; Complete Time: 11:02 03/03 11:12 Order name: Foot Right 2 View; Complete Time: 11:34 EDMS Administered Medications: 10:45 Drug: SOLU-Medrol 125 mg Route: IVP; Site: left wrist; iw 10:50 Drug: Albuterol - atroVENT (3:1) (2.5 mg - 0.5 mg) 3 ml Route: Nebulizer; em 11:03 Drug: Zofran 4 mg Route: IVP; Site: left wrist; iw 12:12 Drug: TORadol 30 mg Route: IVP; Site: left wrist; iw Disposition: 03/03/18 13:09 Discharged to Home. Impression: Asthma. - Condition is Stable. - Discharge Instructions: Asthma, Acute Bronchospasm. - Prescriptions for ipratropium- albuterol 0.5 mg-3 mg(2.5 mg base)/3 mL Inhalation solution for nebulization - inhale 3 milliliter by NEBULIZATION route 4 times per day; 1 box. Prednisone 20 mg Oral Tablet - take 1 tablet by ORAL route once daily for 5 days; 5 tablet. Mobic 7.5 mg Oral Tablet - take 1 tablet by ORAL route once daily take with food; 20 tablet. - Medication Reconciliation Form, Thank You Letter, Antibiotic Education, Prescription Opioid Use form. - Follow up: Private Physician; When: 5 - 6 days; Reason: Recheck today's complaints, Continuance of care, Re-evaluation by your physician. - Problem is new. - Symptoms have improved. Addendum: 03/07/2018 07:38 Co-signature as Attending Physician, Brandon Goyal MD I agree with the assessment and c martinez plan of care. Signatures: Dispatcher [employer] Sadaf Membreno, AMARILYS RN aj1 Brandon Goyal MD MD cha Munoz, Edgar, SLAB DEPILER OPERATOR SLAB DEPILER OPERATOR em Latosha Lopes RN RN Seth Sheets, AJMES PA jr8 Vanessa Leal eb Corrections: (The following items were deleted from the chart) 03/03 13:30 13:09 03/03/2018 13:09 Discharged to Home. Impression: Asthma. Condition is Stable. eb Forms are Medication Reconciliation Form, Thank You Letter, Antibiotic Education, Prescription Opioid Use. Follow up: Private Physician; When: 5 - 6 days; Reason: Recheck today's complaints, Continuance of care, Re-evaluation by your physician. Problem is new. Symptoms have improved. jr8
--- NOTE | 2018-03-03 13:10 | ER ---
Nurse's Notes [facility] Name: Bailey Zavala Age: 62 yrs Sex: Female : 1955 Arrival Date: 03/03/2018 Time: 09:57 Bed 14 Private MD: None, None Diagnosis: Asthma Presentation: 03/03 09:59 Presenting complaint: Patient states: I'm having pain in my neck, my feet, my back, and aj1 my sides. My arthritis is really bad. My asthma has also been acting up. This has been going on for a week now, I'm taking my meds, but the pain is still really bad. Reports shortness of breath on exertion. Transition of care: patient was not received from another setting of care. Onset of symptoms was February 23, 2018. Risk Assessment: Do you want to hurt yourself or someone else? Patient reports no desire to harm self or others. Initial Sepsis Screen: Does the patient meet any 2 criteria? No. Patient's initial sepsis screen is negative. Does the patient have a suspected source of infection? No. Patient's initial sepsis screen is negative. Care prior to arrival: None. 09:59 Method Of Arrival: Wheelchair aj1 09:59 Acuity: GURPREET 3 aj1 Triage Assessment: 10:03 General: Appears in no apparent distress. uncomfortable, Behavior is calm, cooperative, aj1 appropriate for age. Pain: Complains of pain in anterior aspect of right lateral abdomen, anterior aspect of left lateral abdomen, left hip, right hip, right foot, left foot and neck Pain currently is 8 out of 10 on a pain scale. EENT: Reports ear pain. Neuro: Level of Consciousness is awake, alert, obeys commands, Oriented to person, place, time, situation. Cardiovascular: Patient's skin is warm and dry. Respiratory: Reports shortness of breath on exertion cough that is dry, Airway is patent Respiratory effort is even, unlabored, Respiratory pattern is regular, symmetrical. Historical: - Allergies: 10:03 Iodine (Hives); aj1 - Home Meds: 10:03 Advair Diskus 250-50 mcg/dose Inhl dsdv 1 puff 2 times per day [Active]; albuterol aj1 sulfate 2.5 mg/0.5 mL Inhl nebu 0.5 mL 4 times per day [Active]; albuterol sulfate 90 mcg/actuation Inhl HFAA 2 puffs every 4 hours [Active]; Breo Ellipta 200-25 mcg/dose inhalation dsdv 1 puff once daily [Active]; Iron CR Oral 320 mg daily [Active]; Lasix 40 mg Oral tab 1 tab once daily [Active]; metformin 500 mg Oral Tb24 1 tab 2 times per day [Active]; potassium chloride 20 mEq Oral TbER 1 tab once daily [Active]; ProAir HFA 90 mcg/actuation inhalation HFAA 1 puff every 4-6 hours [Active]; - PMHx: 10:03 Arthritis; Asthma; Diabetes - NIDDM; aj1 - Immunization history:: Flu vaccine is up to date. - Social history:: Smoking status: Patient/guardian denies using tobacco. - Ebola Screening: : Patient denies travel to an Ebola-affected area in the 21 days before illness onset. Screenin:07 Abuse screen: Denies threats or abuse. Denies injuries from another. Nutritional iw screening: No deficits noted. Tuberculosis screening: No symptoms or risk factors identified. Fall Risk IV access (20 points). Assessment: 10:15 General: Appears in no apparent distress. Behavior is calm, cooperative. Pain: iw Complains of pain in left foot and right foot and right hip and left hip. Neuro: Level of Consciousness is awake, alert, obeys commands, Oriented to person, place, time, situation, Moves all extremities. Cardiovascular: Patient's skin is warm and dry. Respiratory: Respiratory effort is even, unlabored, Respiratory pattern is regular. Derm: Skin. Musculoskeletal: Range of motion: intact in all extremities. 11:06 Reassessment: Patient appears in no apparent distress at this time. Patient and/or iw family updated on plan of care and expected duration. Pain level reassessed. Patient is alert, oriented x 3, equal unlabored respirations, skin warm/dry/pink. pt transported to radiology via wheelchair, with tech, breathing tx paused. Vital Signs: 10:03 BP 140 / 77; Pulse 88; Resp 20; Temp 98.2(TE); Pulse Ox 100% on R/A; Weight 174.63 kg aj1 (R); Height 5 ft. 8 in. (172.72 cm) (R); Pain 8/10; 10:03 Body Mass Index 58.54 (174.63 kg, 172.72 cm) aj1 ED Course: 09:57 Patient arrived in ED. mr 09:57 None, None is Private Physician. mr 10:02 Triage completed. aj1 10:03 Arm band placed on Patient placed in an exam room. aj1 10:14 Seth Sheets PA is PHCP. jr8 10:14 Brandon Goyal MD is Attending Physician. jr8 10:15 Patient has correct armband on for positive identification. iw 10:30 No provider procedures requiring assistance completed. Inserted saline lock: 22 gauge iw in left wrist, using aseptic technique. Blood collected. IV inserted by Elias Park LVN. 10:36 Latosha Lopes, RN is Primary Nurse. iw 11:05 Patient moved to radiology via stretcher. jb2 11:21 X-ray completed. Patient tolerated procedure well. Patient moved back from radiology. jb2 11:24 XRAY Chest Pa And Lat (2 Views) In Process Unspecified. EDMS 11:24 Foot Right 2 View In Process Unspecified. EDMS 12:28 Primary Nurse role handed off by Latosha Lopes, AMARILYS sg 12:28 Joseph Machado, RN is Primary Nurse. sg 13:28 IV discontinued, intact, bleeding controlled, No redness/swelling at site. Pressure iw dressing applied. Administered Medications: 10:45 Drug: SOLU-Medrol 125 mg Route: IVP; Site: left wrist; iw 10:50 Drug: Albuterol - atroVENT (3:1) (2.5 mg - 0.5 mg) 3 ml Route: Nebulizer; em 11:03 Drug: Zofran 4 mg Route: IVP; Site: left wrist; iw 12:12 Drug: TORadol 30 mg Route: IVP; Site: left wrist; iw Outcome: 13:09 Discharge ordered by . jr8 13:28 Discharged to home ambulatory. iw 13:28 Condition: good 13:28 Discharge instructions given to patient, Instructed on discharge instructions, follow up and referral plans. medication usage, Demonstrated understanding of instructions, follow-up care, medications, Prescriptions given X 2. 13:30 Patient left the ED. eb Signatures: Dispatcher [employer] Sadaf Membreno RN RN aj1 Joseph Machado, AMARILYS PANDA Edith Bryant Jesse jb2 Elias Park, STOCK SHIPPER STOCK SHIPPER Latosha Rios, AMARILYS RN iw Seth Sheets PA PA jr8 Vanessa Leal
[2018-03-03 13:34] VITALS: BP 140/77; TEMP 98.2; O2SAT 100
== END 2018-03-03 13:30 | disposition home or self-care (01) ==
LOC: ER 09:55
DX: J45.909 Unspecified asthma, uncomplicated (principal); E11.9 Type 2 diabetes mellitus without complications; Z91.048 Other nonmedicinal substance allergy status
CPT/HCPCS: 36415; 71046; 80048; 83880; 84484; 85025; 94640; 96374; 96375; 99284; J2405; J2930

== ENCOUNTER 2018-10-23 17:49 | Emergency (ER) | payer SELFPAY ==
--- OUTSIDE RECORDS SUMMARY | 2018-10-23 17:51 | XMS REPORT ---
:1955 [facility] Address [address] [place] [address] Care Team Providers Name Role Phone Unavailable Unavailable Unavailable Problems This patient has no known problems. Allergies, Adverse Reactions, Alerts This patient has no known allergies or adverse reactions. Medications This patient has no known medications. Results Test Description Test Time Test Comments Text Results Atomic Results Result Comments SCR MAMM BILATERAL BRIGITTE 2018-09-19 09:08:55 - SCR MAMM BILATERAL BRIGITTE CAD CAD DIGITAL DIGITALBILATERAL DIGITAL SCREENING MAMMOGRAM 3D/2D WITH CAD: 09/08/2018CLINICAL: Asymptomatic. Digital breast tomosynthesis was performed in addition to routine CC and MLO views. Current mammographic images were evaluated by either a Letao M-Vu or a [employer] ImageChecker CAD (computer aided detection system). Comparison is made to exam dated 07/29/2016 mammogram - [facility]-Radiology File Room. The tissue of both breasts is predominantly fatty. There is a benign calcification in both breasts. There also are stable masses in the left breast. No suspicious mass, architectural distortion, malignant type calcification, or lymph node abnormality detected. Breast architecture is stable compared to prior exams.IMPRESSION: INCOMPLETE ASSESSMENT: ADDITIONAL IMAGING EVALUATION RECOMMENDEDThere is no mammographic evidence of malignancy. Resume annual screening mammography in one year. Yakov Belcher M.D. et/:09/19/2018 09:08:55 Entry: cc - 09/20/2018 16:06:25Attending Technologist: Mel Pritchard MM, [facility] Link[facility] MammographyImaging Technologist: Virgie Kuo MM, [facility] Mobile Mammographyletter sent: Additional Imaging Mammogram BI-RADS: 0 Indeterminate
[2018-10-23] MEDS ORDERED: KETOROLAC 30 MG/ML INJ ONE (18:57)
[2018-10-23] MEDS ORDERED: ONDANSETRON 4 MG/2 ML VIAL ONE (18:57)
[2018-10-23 19:06] LABS: Absolute Lymphocytes (CBC) 1.2 K/uL (0.7-4.9); Absolute Monocytes 0.3 K/uL (0.1-1.3); Absolute Neutrophil 9.4 K/uL (1.8-8.0); Basophils % 0.6 % (0-1.3); Eosinophils % 1.1 % (0-4.4); Hematocrit 39.8 % (36.0-45.0); Lymphocytes % 10.4 % (15.3-44.8); RBC Red Blood Cell Count 5.08 M/uL (3.86-4.86)
[2018-10-23] MEDS ORDERED: ALBUTEROL 2.5 MG/3 ML NEB SOL ONE (19:06)
[2018-10-23 19:16] LABS: Protime INR 1.05
[2018-10-23 19:26] LABS: ALT/SGPT 66 U/L (12-78); AST/SGOT 115 U/L (15-37); Albumin 3.2 g/dL (3.4-5.0); Alkaline Phosphatase 92 U/L (45-117); BUN Blood Urea Nitrogen 16 mg/dL (7-18); Bicarbonate 31 mmol/L (21-32); Bilirubin Direct 0.6 mg/dL (0-0.2); Bilirubin Total 0.9 mg/dL (0.2-1.0); Glucose Level 115 mg/dL (74-106); NT PRO-BNP 428 pg/mL (<125); Potassium 4.3 mmol/L (3.5-5.1); Protein, Total 7.5 g/dL (6.4-8.2); Sodium Level 144 mmol/L (136-145); Troponin (Emerg Dept Use Only) < 0.02 ng/mL (0.0-0.045)
--- NOTE | 2018-10-23 19:35 | RAD REPORT ---
EXAM DESCRIPTION: RAD - Chest Single View - 10/23/2018 7:01 pm CLINICAL HISTORY: SOB Chest pain. COMPARISON: Chest Pa And Lat (2 Views) dated 03/03/2018; Chest Single View dated 12/07/2017; Chest Sing le View dated 11/17/2017; Chest Single View dated 10/25/2016 FINDINGS: Portable technique limits examination quality. Mild to moderate bilateral pulmonary opacities are present which may represent pulmonary edema or int erstitial pneumonia. The heart is mildly prominent size. No displaced fractures.
[2018-10-23] MEDS ORDERED: MORPHINE 4 MG/ML SYR ONE ×2 (19:53→22:50)
--- NOTE | 2018-10-23 20:09 | RAD REPORT ---
EXAM DESCRIPTION: CT - Chest Abd Pelvis Wo Con - 10/23/2018 7:59 pm CLINICAL HISTORY: Chest and abdomen pain. PAIN COMPARISON: THORAX WO CONTRAST dated 09/03/2010 TECHNIQUE: A limited noncontrast study was performed. All CT scans are performed using dose optimization technique as appropriate and may include automated exposure control or mA/KV adjustment according to patient size. FINDINGS: Substernal thyroid goiter is noted.The lungs demonstrate moderate fibrotic changes with mi ldly reduced lung volumes.No pleural or pericardial effusion.No intrathoracic adenopathy. The liver, spleen, pancreas, adrenal glands and kidneys are within normal limits. The gallbladder is distended. No bowel obstruction, free air, free fluid or abscess. Normal appendix. No pathologic lymphadenopath y in the abdomen or pelvis. Mild lower lumbar degenerative changes. Calcified uterine fibroids noted. IMPRESSION: Prominent gallbladder distension. Fibrotic changes in the lungs. Substernal thyroid goiter.
--- NOTE | 2018-10-23 21:53 | RAD REPORT ---
EXAM DESCRIPTION: US - Abdomen Exam Limited - 10/23/2018 9:45 pm CLINICAL HISTORY: ABD PAIN COMPARISON: Chest Abd Pelvis Wo Con dated 10/23/2018 FINDINGS: The gallbladder demonstrates significant distention. Probable 6 mm nonshadowing stone or p olyp. No pericholecystic fluid or gallbladder wall thickening. The common bile duct is dilated measur ing 11 mm. The liver demonstrates no findings of intrahepatic biliary dilatation. IMPRESSION: Prominent gallbladder distension with dilatation of the CBD. Distal common bile duct st one, stricture or mass is a possibility. Suggest followup MRCP assessment. 6 mm gallbladder polyp versus nonshadowing adherent stone.
[2018-10-23] MEDS ORDERED: METRONIDAZOLE 500mg IVPB 500 MG/100 ML BAG IV ONE (22:36)
[2018-10-23] MEDS ORDERED: Levofloxacin500mg IV 500 MG/100 ML BAG IV ONE (22:36)
--- NOTE | 2018-10-23 22:40 | EDPHYS ---
Physician Documentation [facility] Name: Bailey Zavala Age: 63 yrs Sex: Female : 1955 Arrival Date: 10/23/2018 Time: 17:51 Bed 26 Private MD: None, None ED Physician Julius Small HPI: 10/23 20:57 This 63 yrs old Black Female presents to ER via Ambulatory with complaints of Back wa Pain, Breathing Difficulty, Vomiting. 20:57 The patient presents with abdominal pain in the upper abdomen, back pain. also SOB. wa Onset: The symptoms/episode began/occurred 2 day(s) ago. The symptoms do not radiate. Associated signs and symptoms: Pertinent positives: nausea and vomiting, chest pain, shortness of breath, Pertinent negatives: diarrhea. The symptoms are described as sharp. Modifying factors: The symptoms are alleviated by nothing, the symptoms are aggravated by nothing. Severity of pain: At its worst the pain was moderate in the emergency department the pain is actually worse moderately. The patient has experienced similar episodes in the past, a few times. The patient has not recently seen a physician. states has h/o asthma. . Historical: - Allergies: 18:14 Iodine (Hives); rv - PMHx: 18:14 Arthritis; Asthma; Diabetes - NIDDM; rv - PSHx: 18:14 None; rv - Immunization history:: Adult Immunizations up to date. - Social history:: Smoking status: Patient/guardian denies using tobacco. - Ebola Screening: : No symptoms or risks identified at this time. - Family history:: not pertinent. - Hospitalizations: : No recent hospitalization is reported. ROS: 20:59 Constitutional: Negative for fever, chills, and weight loss, Eyes: Negative for injury, wa pain, redness, and discharge, ENT: Negative for injury, pain, and discharge, Neck: Negative for injury, pain, and swelling, : Negative for injury, bleeding, discharge, and swelling, MS/Extremity: Negative for injury and deformity, Skin: Negative for injury, rash, and discoloration, Neuro: Negative for headache, weakness, numbness, tingling, and seizure, Psych: Negative for depression, anxiety, suicide ideation, homicidal ideation, and hallucinations. 20:59 Cardiovascular: Positive for chest pain, Negative for edema, orthopnea, palpitations. 20:59 Respiratory: Positive for cough, shortness of breath. 20:59 Abdomen/GI: Positive for abdominal pain, nausea and vomiting, Negative for diarrhea. 20:59 All other systems are negative. Exam: 21:00 Constitutional: This is a well developed, well nourished patient who is awake, alert, wa and in no acute distress. Head/Face: Normocephalic, atraumatic. Eyes: Pupils equal round and reactive to light, extra-ocular motions intact. Lids and lashes normal. Conjunctiva and sclera are non-icteric and not injected. Cornea within normal limits. Periorbital areas with no swelling, redness, or edema. ENT: Nares patent. No nasal discharge, no septal abnormalities noted. Tympanic membranes are normal and external auditory canals are clear. Oropharynx with no redness, swelling, or masses, exudates, or evidence of obstruction, uvula midline. Mucous membranes moist. Neck: Trachea midline, no thyromegaly or masses palpated, and no cervical lymphadenopathy. Supple, full range of motion without nuchal rigidity, or vertebral point tenderness. No Meningismus. Chest/axilla: Normal chest wall appearance and motion. Nontender with no deformity. No lesions are appreciated. Back: No spinal tenderness. No costovertebral tenderness. Full range of motion. Skin: Warm, dry with normal turgor. Normal color with no rashes, no lesions, and no evidence of cellulitis. MS/ Extremity: Pulses equal, no cyanosis. Neurovascular intact. Full, normal range of motion. Neuro: Awake and alert, GCS 15, oriented to person, place, time, and situation. Cranial nerves II-XII grossly intact. Motor strength 5/5 in all extremities. Sensory grossly intact. Cerebellar exam normal. Normal gait. 21:00 Cardiovascular: Rate: normal, Rhythm: regular, Pulses: no pulse deficits are appreciated, Heart sounds: normal, Edema: is not appreciated, JVD: is not appreciated. 21:00 Respiratory: the patient does not display signs of respiratory distress, Respirations: normal, Breath sounds: wheezing: that is mild, is scattered, is heard diffusely, Respiratory rate: nml Vital Signs: 18:14 BP 142 / 95 LA Sitting; Pulse 79; Resp 19 S; Temp 97.7(O); Pulse Ox 94% on R/A; Weight rv 176.9 kg; Height 5 ft. 8 in. (172.72 cm); Pain 10/10; 19:36 BP 161 / 92; Pulse 85; Resp 18; Pulse Ox 100% on 2 lpm NC; mg2 23:01 BP 113 / 77; Pulse 90; Resp 18; Temp 98(O); Pulse Ox 99% ; mg2 18:14 Body Mass Index 59.30 (176.90 kg, 172.72 cm) rv MDM: 18:10 Patient medically screened. pa 21:01 Differential diagnosis: acute coronary syndrome, cholecystitis, Cholelithiasis, wa diverticulitis, gastritis, gastroesophageal reflux disease, non-specific abd pain, pancreatitis, Perf. Duodenal Ulcer, Perf. Gastric Ulcer, Pyelonephritis, Ureterolithiasis, urinary tract infection. 21:02 Data reviewed: vital signs, nurses notes. Test interpretation: by ED physician or pa midlevel provider: HR 74. sinus. no zonal ischemic changes. 21:46 Test interpretation: by ED physician or midlevel provider: RUQ US: distended pa gallbladder. 1.1 cm ductal dilatation. 21:56 Response to treatment: the patient's symptoms have mildly improved after treatment. pa Physician consultation: Isaias Julien MD advised by his RESPIRATORY CARE INSTRUCTOR to transfer as they do not do ERCPs. 22:21 Counseling: I had a detailed discussion with the patient and/or guardian regarding: the snw presence of at least one elevated blood pressure reading (>120/80) during this emergency department visit, the need to transfer to another facility, for higher level of care, [facility] does not immediately have the required specialist, Dr. Julien contacted per Dr. Small, no ERCP capability. Plan to transfer pt to higher level of care for GI.. Physician consultation: Dr. Mobley. 22:28 Physician consultation: Dr Baxter was called at 22:29, was contacted at 22:29, regarding snw regarding transfer, to [facility]. 22:35 Physician consultation: Dr. Sahil Baxter kindly accepts pt in transfer. [facility] 10/23 18:43 Order name: Basic Metabolic Panel; Complete Time: 19:38 pa 10/23 18:43 Order name: CBC with Diff; Complete Time: 19:17 pa 10/23 18:43 Order name: LFT's; Complete Time: 19:48 10/23 18:43 Order name: Magnesium; Complete Time: 19:48 10/23 18:43 Order name: NT PRO-BNP; Complete Time: 19:48 10/23 18:43 Order name: PT-INR; Complete Time: 19:48 10/23 18:43 Order name: Troponin (emerg Dept Use Only); Complete Time: 19:48 10/23 18:43 Order name: XRAY Chest (1 view); Complete Time: 19:48 10/23 18:44 Order name: D-Dimer; Complete Time: 19:48 pa 10/23 19:42 Order name: Chest Abd Pelvis Wo Con; Complete Time: 20:55 EDMS 10/23 20:57 Order name: US Abdomen Limited; Complete Time: 21:55 pa 10/23 18:43 Order name: EKG; Complete Time: 18:44 pa 10/23 18:43 Order name: Cardiac monitoring; Complete Time: 18:52 pa 10/23 18:43 Order name: EKG - Nurse/Tech; Complete Time: 18:52 pa 10/23 18:43 Order name: IV Saline Lock; Complete Time: 18:52 pa 10/23 18:43 Order name: Labs collected and sent; Complete Time: 18:52 10/23 18:43 Order name: O2 Per Protocol; Complete Time: 18:52 10/23 18:43 Order name: O2 Sat Monitoring; Complete Time: 18:52 pa Administered Medications: 18:52 Drug: Zofran 4 mg Route: IVP; Site: left antecubital; mg2 19:44 Follow up: Response: No adverse reaction; Marked relief of symptoms mg2 18:52 Drug: TORadol 30 mg Route: IVP; Site: left antecubital; mg2 19:44 Follow up: Response: No adverse reaction; Marked relief of symptoms mg2 18:55 Drug: Albuterol 2.5 mg Route: Inhalation; mg2 21:38 Follow up: Response: No adverse reaction; Marked relief of symptoms mg2 19:44 Drug: morphine 4 mg Route: IVP; Site: left antecubital; mg2 21:38 Follow up: Response: No adverse reaction; Marked relief of symptoms mg2 22:36 Drug: Flagyl 500 mg Volume: 100 ml; Route: IVPB; Rate: 200 ml/hr; Infused Over: 30 mg2 mins; Site: left antecubital; 23:47 Follow up: Response: No adverse reaction; IV Status: Completed infusion; IV Intake: mg2 100ml 23:01 Drug: NS 0.9% 1000 ml Route: IV; Rate: 100 ml/hr; Site: left antecubital; mg2 10/24 00:15 Follow up: Response: No adverse reaction; IV Status: Infusion continued upon transfer; mg2 IV Intake: 100ml 10/23 23:01 Drug: morphine 4 mg Route: IVP; Site: left antecubital; mg2 10/24 00:14 Follow up: Response: No adverse reaction; Marked relief of symptoms mg2 10/23 23:15 Drug: LevaQUIN 500 mg Volume: 100 ml; Route: IVPB; Infused Over: 60 mins; Site: left mg2 antecubital; 10/24 00:15 Follow up: Response: No adverse reaction; IV Status: Infusion continued upon transfer; mg2 IV Intake: 90ml Disposition: 21:15 Co-signature as Attending Physician, Julius Small MD I agree with the assessment and wa plan of care. Disposition: 10/23/18 22:39 Transfer ordered to [facility]. Diagnosis are Choledocolithiasis, Unspecified abdominal pain. - Reason for transfer: Higher level of care. - Accepting physician is Dr. Baxter. - Condition is Stable. - Problem is new. - Symptoms are unchanged. Signatures: Dispatcher [employer] EDNH Stefany Schumacher, CROSSBAR FRAME WIRER-C CROSSBAR FRAME WIRER-Csnw Julius Small MD MD wa Gardose, Michele, RN RN [facility] [place] Jimenez Eduardo RN RN rv Roque, Raymond, AMARILYS RN rr5 Corrections: (The following items were deleted from the chart) 10/23 19:42 19:41 Thorax Wo Con+CT.RAD.BRZ ordered. EDNH EDMS 19:42 19:41 Abdomen Pelvis Wo Con+CT.RAD.BRZ ordered. EDNH EDNH 10/24 00:25 10/23 22:39 10/23/2018 22:39 Transfer ordered to [facility]. rr5 Diagnosis is Choledocolithiasis; Unspecified abdominal pain. Reason for transfer: Higher level of care. Accepting physician is Dr. Baxter. Condition is Stable. Problem is new. Symptoms are unchanged. snw
--- NOTE | 2018-10-23 22:40 | ER ---
Nurse's Notes [facility] Name: Bailey Zavala Age: 63 yrs Sex: Female : 1955 Arrival Date: 10/23/2018 Time: 17:51 Bed 26 Private MD: None, None Diagnosis: Choledocolithiasis;Unspecified abdominal pain Presentation: 10/23 18:11 Presenting complaint: Patient states: VOMITING STARTED 3-4 HOURS AGO. I ATE SOMETHING. rv AND THEN BACK STARTED TO HURT, 10/10 PAIN SCALE. TOOK TYLENOL #3. DID NOT GIVE RELIEF. NO DIARRHEA OR CONSTIPATION. Transition of care: patient was not received from another setting of care. Onset of symptoms was October 23, 2018 at 15:00. Risk Assessment: Do you want to hurt yourself or someone else? Patient reports no desire to harm self or others. Initial Sepsis Screen: Does the patient meet any 2 criteria? No. Patient's initial sepsis screen is negative. Does the patient have a suspected source of infection? No. Patient's initial sepsis screen is negative. Care prior to arrival: None. 18:11 Method Of Arrival: Ambulatory rv 18:11 Acuity: GURPREET 3 rv Triage Assessment: 18:16 General: Appears in no apparent distress. uncomfortable, Behavior is calm, cooperative. rv Pain: Complains of pain in back Pain currently is 10 out of 10 on a pain scale. EENT: No deficits noted. Neuro: Level of Consciousness is awake, alert, obeys commands, Oriented to person, place, time, situation. Cardiovascular: Capillary refill < 3 seconds. Respiratory: Airway is patent. GI: No signs and/or symptoms were reported involving the gastrointestinal system. : No signs and/or symptoms were reported regarding the genitourinary system. Derm: Skin is intact. Musculoskeletal: Reports pain in back. Historical: - Allergies: 18:14 Iodine (Hives); rv - PMHx: 18:14 Arthritis; Asthma; Diabetes - NIDDM; rv - PSHx: 18:14 None; rv - Immunization history:: Adult Immunizations up to date. - Social history:: Smoking status: Patient/guardian denies using tobacco. - Ebola Screening: : No symptoms or risks identified at this time. - Family history:: not pertinent. - Hospitalizations: : No recent hospitalization is reported. Screenin:16 Abuse screen: Denies threats or abuse. Denies injuries from another. Nutritional mg2 screening: No deficits noted. Tuberculosis screening: No symptoms or risk factors identified. 18:19 Fall Risk None identified. rv Assessment: 19:53 Reassessment: sent to ct scan via wheelchair. mg2 23:25 Reassessment: report called to Joyce Avila RN of [facility]. mg2 10/24 00:15 Neuro: No deficits noted. mg2 Vital Signs: 10/23 18:14 BP 142 / 95 LA Sitting; Pulse 79; Resp 19 S; Temp 97.7(O); Pulse Ox 94% on R/A; Weight rv 176.9 kg; Height 5 ft. 8 in. (172.72 cm); Pain 10/10; 19:36 BP 161 / 92; Pulse 85; Resp 18; Pulse Ox 100% on 2 lpm NC; mg2 23:01 BP 113 / 77; Pulse 90; Resp 18; Temp 98(O); Pulse Ox 99% ; mg2 18:14 Body Mass Index 59.30 (176.90 kg, 172.72 cm) rv ED Course: 17:51 Patient arrived in ED. mr 17:51 None, None is Private Physician. mr 18:07 Jimenez Eduardo, AMARILYS is Primary Nurse. rv 18:10 Julius Small MD is Attending Physician. wa 18:13 Triage completed. rv 18:19 Patient has correct armband on for positive identification. Bed in low position. Call rv light in reach. Side rails up X 1. Adult w/ patient. Pulse ox on. NIBP on. 18:19 Patient placed in an exam room, on a stretcher, on pulse oximetry, Patient notified of rv wait time. 18:40 Inserted saline lock: 20 gauge in left antecubital area, using aseptic technique. Blood rv collected. 19:01 XRAY Chest (1 view) In Process Unspecified. EDMS 19:[address] vr 19:44 No provider procedures requiring assistance completed. mg2 19:59 Chest Abd Pelvis Wo Con In Process Unspecified. EDMS 20:00 CT completed. Patient tolerated procedure well. Patient moved back from CT. vr 21:45 US Abdomen Limited In Process Unspecified. EDMS 22:05 Stefany Schumacher FNP-C is PHCP. snw 10/24 00:16 Patient transferred, IV remains in place. mg2 Administered Medications: 10/23 18:52 Drug: Zofran 4 mg Route: IVP; Site: left antecubital; mg2 19:44 Follow up: Response: No adverse reaction; Marked relief of symptoms mg2 18:52 Drug: TORadol 30 mg Route: IVP; Site: left antecubital; mg2 19:44 Follow up: Response: No adverse reaction; Marked relief of symptoms mg2 18:55 Drug: Albuterol 2.5 mg Route: Inhalation; mg2 21:38 Follow up: Response: No adverse reaction; Marked relief of symptoms mg2 19:44 Drug: morphine 4 mg Route: IVP; Site: left antecubital; mg2 21:38 Follow up: Response: No adverse reaction; Marked relief of symptoms mg2 22:36 Drug: Flagyl 500 mg Volume: 100 ml; Route: IVPB; Rate: 200 ml/hr; Infused Over: 30 mg2 mins; Site: left antecubital; 23:47 Follow up: Response: No adverse reaction; IV Status: Completed infusion; IV Intake: mg2 100ml 23:01 Drug: NS 0.9% 1000 ml Route: IV; Rate: 100 ml/hr; Site: left antecubital; mg2 10/24 00:15 Follow up: Response: No adverse reaction; IV Status: Infusion continued upon transfer; mg2 IV Intake: 100ml 10/23 23:01 Drug: morphine 4 mg Route: IVP; Site: left antecubital; mg2 10/24 00:14 Follow up: Response: No adverse reaction; Marked relief of symptoms mg2 10/23 23:15 Drug: LevaQUIN 500 mg Volume: 100 ml; Route: IVPB; Infused Over: 60 mins; Site: left mg2 antecubital; 10/24 00:15 Follow up: Response: No adverse reaction; IV Status: Infusion continued upon transfer; mg2 IV Intake: 90ml Intake: 10/23 23:47 IV: 100ml; Total: 100ml. mg2 10/24 00:15 IV: 100ml; Total: 200ml. mg2 00:15 IV: 90ml; Total: 290ml. mg2 Outcome: 10/23 22:39 ER care complete, transfer ordered by MD. uribe 10/24 00:16 [facility] [facility] [place] [facility] [place] [facility] form completed. mg2 Condition: stable Instructed on the need for transfer, Demonstrated understanding of instructions. 00:25 Patient left the ED. rr5 Signatures: Dispatcher [employer] EDMS Stefany Schumacher, BOTTLE LINE WORKER-C BOTTLE LINE WORKER-Isaiw Ella Bryant mr Velasquez, Julius Box MD MD wa Gardose, Michele, RN RN mg2 Jimenze Eduardo RN RN rv Roque, Raymond, RN RN rr5
[2018-10-23] MEDS ORDERED: NA CHLORIDE 0.9% 1,000 ML ONE (22:50)
[2018-10-24 01:16] VITALS: BP 113/77; TEMP 98; O2SAT 99
--- NOTE | 2018-10-24 07:50 | EKG ---
Test Date: 2018-10-23 Test Time: 18:58:56 Golf Sales Manager: MGG MEASUREMENT RESULTS: Intervals: Rate: 74 NH: 180 QRSD: 82 QT: 394 QTc: 437 [place]: P: 55 NH: 180 QRS: -22 T: 15 INTERPRETIVE STATEMENTS: Normal sinus rhythm Cannot rule out Anterior infarct, age undetermined Abnormal ECG Compared to ECG 12/07/2017 09:37:49 No significant changes Electronically Signed On 10-24-18 07:49:06 CDT by Phill Rubi
== END 2018-10-24 00:25 | disposition short-term general hospital (02) ==
LOC: ER 17:49
DX: K80.50 Calculus of bile duct without cholangitis or cholecystitis without obstruction (principal); J45.909 Unspecified asthma, uncomplicated; E11.9 Type 2 diabetes mellitus without complications; Z88.8 Allergy status to other drugs, medicaments and biological substances
CPT/HCPCS: 36415; 71045; 71250; 74176; 76705; 80048; 80076; 83735; 83880; 84484; 85025; 85379; 85610; 93005; 96365; 96375; 99285; J2405; J7030

== ENCOUNTER 2018-10-31 12:34 | Observation (INO) | payer SELFPAY ==
--- OUTSIDE RECORDS SUMMARY | 2018-10-31 12:56 | XMS REPORT | Clinical Summary ---
:1955 Author Organization [facility] Address [address] [place] [address] Care Team Providers Name Role Phone Pcp, No Primary Care Provider Unavailable Allergies Active Allergy Reactions Severity Noted Date Comments Iodine And Iodide Containing Products Hives High 10/24/2018 Medications Medication Sig Dispensed Refills Start Date End Date Status albuterol HFA Inhale 2 puffs by 0 Active (VENTOLIN HFA) 90 mouth via inhaler mcg/actuation every 4 (four) inhaler hours as needed. BREO ELLIPTA 100-25 Inhale 1 puff by 1 08/29/2018 Active mcg/dose DsDv mouth via inhaler daily. albuterol Take 1 mL by 6 09/20/2018 Active (PROVENTIL) 2.5 nebulization 4 mg/0.5 mL Nebu (four) times nebulizer solution daily. montelukast Take 10 mg by 0 08/29/2018 Active (SINGULAIR) 10 mg mouth daily. tablet metFORMIN Take 500 mg by 0 Active (GLUCOPHAGE) 500 MG mouth 2 (two) tablet times daily. furosemide (LASIX) Take 40 mg by 0 Active 40 MG tablet mouth as needed. potassium chloride Take 10 mEq by 0 08/29/2018 Active (MICRO-K) 10 mEq CR mouth daily. capsule ergocalciferol Take 1 capsule by 1 09/01/2018 Active (ERGOCALCIFEROL) mouth once a 50,000 unit capsule week. ipratropium INHALE 1 vial via 6 10/18/2018 Active (ATROVENT) 0.02 % NEBULIZER EVERY 6 nebulizer solution TO 8 HOURS levoFLOXacin Take 2 tablets 10 tablet 0 10/26/2018 11/01/19 Active (LEVAQUIN) 250 MG (500 mg total) by 19 tablet mouth daily for 5 days. predniSONE Take 1 tablet by 0 08/01/2018 10/27/19 Discontinued (DELTASONE) 10 MG mouth daily. 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 Never 10/24/2018 How many drinks containing alcohol do you have on a typical Not asked day when you are drinking? How often do you have six or more drinks on one occasion? Not asked Sex Assigned at Date Recorded Not on file Job Start Date Occupation Industry Not on file Not on file Not on file Travel History Travel Start Travel End No recent travel history available. Last Filed Vital Signs Vital Sign Reading Time Taken Blood Pressure 132/73 10/26/2018 7:56 AM CDT Pulse 101 10/26/2018 9:32 AM CDT Temperature 36.2 C (97.1 F) 10/26/2018 7:56 AM CDT Respiratory Rate 18 10/26/2018 9:32 AM CDT Oxygen Saturation 98% 10/26/2018 9:32 AM CDT Inhaled Oxygen Concentration - - Weight - - Height - - Body Mass Index - - Plan of Treatment Not on file Procedures Procedure Name Priority Date/Time Associated Comments Diagnosis REPORT OF PROCEDURE - 10/27/2018 11:40 ENDOSCOPY SCAN AM CDT POCT-GLUCOSE METER Routine 10/26/2018 8:00 Results for this AM CDT procedure are in the results section. CBC W/PLT COUNT & AUTO Routine 10/26/2018 4:53 Results for this DIFFERENTIAL AM CDT procedure are in the results section. CBC W/PLT COUNT & AUTO Routine 10/26/2018 4:53 Results for this DIFFERENTIAL AM CDT procedure are in the results section. COMPREHENSIVE METABOLIC Routine 10/26/2018 4:53 Results for this PANEL AM CDT procedure are in the results section. POCT-GLUCOSE METER Routine 10/25/2018 9:37 Results for this PM CDT procedure are in the results section. POCT-GLUCOSE METER Routine 10/25/2018 6:08 Results for this PM CDT procedure are in the results section. CBC W/PLT COUNT & AUTO Routine 10/25/2018 12:31 Results for this DIFFERENTIAL PM CDT procedure are in the results section. COMPREHENSIVE METABOLIC Routine 10/25/2018 12:31 Results for this PANEL PM CDT procedure are in the results section. CBC W/PLT COUNT & AUTO Routine 10/25/2018 12:31 Results for this DIFFERENTIAL PM CDT procedure are in the results section. POCT-GLUCOSE METER Routine 10/25/2018 12:04 Results for this PM CDT procedure are in the results section. POCT-GLUCOSE METER Routine 10/25/2018 5:55 Results for this AM CDT procedure are in the results section. BLOOD CULTURE Routine 10/25/2018 1:19 Results for this AM CDT procedure are in the results section. CBC W/PLT COUNT & AUTO Routine 10/25/2018 1:11 Results for this DIFFERENTIAL AM CDT procedure are in the results section. LIPASE Routine 10/25/2018 1:11 Results for this AM CDT procedure are in the results section. CBC W/PLT COUNT & AUTO Routine 10/25/2018 1:11 Results for this DIFFERENTIAL AM CDT procedure are in the results section. MAGNESIUM Routine 10/25/2018 1:11 Results for this AM CDT procedure are in the results section. COMPREHENSIVE METABOLIC Routine 10/25/2018 1:11 Results for this PANEL AM CDT procedure are in the results section. BLOOD CULTURE Routine 10/25/2018 1:11 Results for this AM CDT procedure are in the results section. POCT-LACTIC ACID, Routine 10/25/2018 12:29 Results for this VENOUS AM CDT procedure are in the results section. POCT-GLUCOSE METER Routine 10/24/2018 11:03 Results for this PM CDT procedure are in the results section. ERCP,BALLOON SWEEPING 10/24/2018 5:30 Gall stones, PM CDT common bile duct ERCP,VISUALIZATION 10/24/2018 5:30 Gall stones, CHOLANGIOSCOPY PM CDT common bile duct ERCP,PAPILLOTOMY 10/24/2018 5:30 Gall stones, PM CDT common bile duct ERCP 10/24/2018 5:30 Gall stones, PM CDT common bile duct PROCEDURE W/ C-ARM 10/24/2018 5:30 Gall stones, PM CDT common bile duct POCT-GLUCOSE METER Routine 10/24/2018 5:17 Results for this PM CDT procedure are in the results section. REPORT OF PROCEDURE - 10/24/2018 3:34 ENDOSCOPY URL PM CDT [place] NEON SIGN SERVICER IN OR 30 Routine 10/24/2018 2:55 Results for this MINUTE INCREMENTS PM CDT procedure are in the results section. POCT-GLUCOSE METER Routine 10/24/2018 1:53 Results for this PM CDT procedure are in the results section. POCT-GLUCOSE METER Routine 10/24/2018 8:47 Results for this AM CDT procedure are in the results section. (CELLAVISION MANUAL CHANA 10/24/2018 8:33 Results for this DIFF) AM CDT procedure are in the results section. CBC W/PLT COUNT & AUTO CHANA 10/24/2018 8:33 Results for this DIFFERENTIAL AM CDT procedure are in the results section. PROTHROMBIN TIME/INR CHANA 10/24/2018 8:33 Results for this AM CDT procedure are in the results section. COMPREHENSIVE METABOLIC CHANA 10/24/2018 8:33 Results for this PANEL AM CDT procedure are in the results section. MAGNESIUM CHANA 10/24/2018 8:33 Results for this AM CDT procedure are in the results section. CBC W/PLT COUNT & AUTO CHANA 10/24/2018 8:33 Results for this DIFFERENTIAL AM CDT procedure are in the results section. after 10/30/2017 Results EKG-SCANNED (10/27/2018 11:40 AM CDT) Narrative Performed At POC-Glucose meter (10/26/2018 8:00 AM CDT)Only the most recent of9 resultswithin the time period is included. POC-Glucose Meter 109Comment: TESTED AT 70 - 110 mg/dL [facility] [address] [facility] [address] Specimen Blood Performing Organization Address City/State/Zipcode Phone Number [facility] [address] [place] [address] [phone] CENTER CBC with platelet count + automated diff (10/26/2018 4:53 AM CDT)Only the most recent of4 resultswithin the time period is included. WBC 9.9 3.5 - 10.5 K/L [facility] RBC 4.20 3.93 - 5.22 M/L [facility] Hemoglobin 10.5 (L) 11.2 - 15.7 GM/DL [facility] Hematocrit 34.0 (L) 34.1 - 44.9 % [facility] MCV 81.0 79.4 - 94.8 fL [facility] MCH 25.0 (L) 25.6 - 32.2 pg [facility] MCHC 30.9 (L) 32.2 - 35.5 GM/DL [facility] RDW 16.3 (H) 11.7 - 14.4 % [facility] Platelets 221 150 - 450 K/CU MM [facility] MPV 9.5 9.4 - 12.3 fL [facility] nRBC 0 0 - 0 /100 WBC [facility] % Neutros 64 % [facility] % Lymphs 17 % [facility] % Monos 14 % [facility] % Eos 4 % [facility] % Baso 0 % [facility] # Neutros 6.32 (H) 1.56 - 6.13 K/L [facility] # Lymphs 1.65 1.18 - 3.74 K/L [facility] # Monos 1.41 (H) 0.24 - 0.36 K/L [facility] # Eos 0.42 (H) 0.04 - 0.36 K/L [facility] # Baso 0.03 0.01 - 0.08 K/L [facility] Immature Granulocytes-Relative 0 0 - 1 % [facility] Specimen Blood Performing Organization Address City/State/Zipcode Phone Number [facility] [address] [place] [address] CENTER Comprehensive metabolic panel (10/26/2018 4:53 AM CDT)Only the most recent of4 resultswithin the time period is included. Protein, Total 6.4 6.0 - 8.3 gm/dL [facility] Albumin 3.2 (L) 3.5 - 5.0 g/dL [facility] Alkaline Phosphatase 91 40 - 150 U/L [facility] Total Bilirubin 0.8 0.2 - 1.2 mg/dL [facility] Sodium 143 136 - 145 meq/L [facility] Potassium 4.1 3.5 - 5.1 meq/L [facility] Chloride 109 (H) 98 - 107 meq/L [facility] CO2 26 22 - 29 meq/L [facility] BUN 11 7 - 21 mg/dL [facility] Creatinine 0.89 0.57 - 1.25 mg/dL [facility] Glucose 119 (H) 70 - 105 mg/dL [facility] Calcium 8.9 8.4 - 10.2 mg/dL [facility] AST 37 (H) 5 - 34 U/L [facility] ALT 59 (H) 6 - 55 U/L [facility] EGFR Comment: INSUFFICIENT mL/min/1.73 sq m [facility] CLINICAL DATA TO [facility] CALCULATE ESTIMATED GFR. Specimen Blood Performing Organization Address City/[facility] Phone Number [address] [address] [place] Blood Culture - Routine (Right Venipuncture) (10/25/2018 1:19 AM CDT)Only the most recent of2 resultswithin the time period is included. Result No growth in 5 days [facility] Specimen Blood Performing Organization Address [facility] Phone Number [address] [address] CENTER Magnesium (10/25/2018 1:11 AM CDT)Only the most recent of2 resultswithin the time period is included. Magnesium 1.7 1.6 - 2.6 mg/dL [facility] Specimen Blood Performing Organization Address [facility] Servicescofl Phone Number [address] [address] [place] Lipase (10/25/2018 1:11 AM CDT) Lipase >1200 (H) 8 - 78 U/L [facility] Specimen Blood Performing Organization Address [facility] Services[facility] Phone Number [address] [address] [phone] [place] POC-Lactic Acid, Venous (10/25/2018 12:29 AM CDT) POC-Lactic Acid, Venous 1.2Comment: TESTED AT 0.9 - 1.7 mmol/L [address] [address] Specimen Blood Performing Organization Address [facility] Services[facility] Phone Number [address] [address] [place] REPORT OF PROCEDURE - ENDOSCOPY URL (10/24/2018 3:34 PM CDT) Narrative Performed At [place] two way radio technician in or 30 minute increments (10/24/2018 2:55 PM CDT) Specimen Narrative Performed At FINAL REPORT GE RIS Examination: ERCP 3 fluoroscopic spot views were obtained during the procedure by the ordering service. Images are nondiagnostic as no radiologist was present at the time of imaging. Fluoroscopic time was 70.6 seconds. Please see the procedure report for details. Signed: Zach Whitley MD Report Verified Date/Time:10/24/2018 22:34:56 Reading Location: [address] Reading Room Procedure Note Interface, External Ris In - 10/24/2018 10:37 PM CDT FINAL REPORT Examination: ERCP 3 fluoroscopic spot views were obtained during the procedure by the ordering service. Images are nondiagnostic as no radiologist was present at the time of imaging. Fluoroscopic time was 70.6 seconds. Please see the procedure report for details. Signed: Zach Whitley MD Report Verified Date/Time: 10/24/2018 22:34:56 Reading Location: [address] Reading Room Performing Organization Address City/State/Zipcode Phone Number GE RIS Manual Differential (10/24/2018 8:33 AM CDT) % Neutros 89 % [facility] % Lymphs 3 % [facility] % Monos 5 % [facility] % Eos 1 % [facility] % Promyelo 1 (H) 0 - 0 % [facility] % Atypical Lymphs 1 (H) 0 - 0 % [facility] # Neutros 18.78 (H) 1.56 - 6.13 K/ul [facility] # Lymphs 0.63 (L) 1.18 - 3.74 K/ul [facility] # Monos 1.06 (H) 0.24 - 0.36 K/uL [facility] # Eos 0.21 0.04 - 0.36 K/uL [facility] # Promyelo 0.21 (H) 0.00 - 0.00 K/uL [facility] # Atypical Lymphs 0.21 (H) 0.00 - 0.00 K/uL [facility] Total Counted 100 [facility] WBC Morphology Normal [facility] Giant Platelet Present [facility] Large Platelet Present [facility] Polychromasia 1+ few [facility] Anisocytosis 2+ moderate [facility] Microcytes 2+ moderate [facility] Poikilocytes 1+ few [facility] Schistocytes 1+ few [facility] Elliptocytes 1+ few [facility] Ovalocytes 1+ few [facility] Tear Drop Cells 1+ few [facility] Platelet Conc Adequate [facility] Specimen Blood Narrative Performed At Received comment: [facility] User comments: Slide comments: WBC: SEGMENTED WITHDOHLE BODIES AND VACUOLES PRESENT Performing Organization Address City/State/Zipcode Phone Number [facility] [address] [place] [address] CENTER Prothrombin time/INR (10/24/2018 8:33 AM CDT) Protime 15.0 (H) 11.7 - 14.7 seconds [facility] INR 1.2 <=5.9 [facility] Specimen Blood Narrative Performed At RECOMMENDED COUMADIN/WARFARIN INR THERAPY [facility] RANGES STANDARD DOSE: 2.0 - 3.0 Includes: PROPHYLAXIS for venous thrombosis, systemic embolization; TREATMENT for venous thrombosis and/or pulmonary embolus. HIGH RISK: Target INR is 2.5-3.5 for patients with mechanical heart valves. Performing Organization Address City/State/Zipcode Phone Number [address] [address] CENTER after 10/30/2017 Advance Directives For more information, please contact:[address] [phone] Code Status Date Activated Date Inactivated Comments Full Code 10/24/2018 4:25 AM 10/26/2018 1:04 PM This code status was determined by: Patient
--- OUTSIDE RECORDS SUMMARY | 2018-10-31 12:57 | XMS REPORT ---
:1955 [facility] [place] [address] Care Team Providers Name Role Phone JERSON TONG Unavailable Unavailable Problems This patient has no known problems. Allergies, Adverse Reactions, Alerts This patient has no known allergies or adverse reactions. Medications This patient has no known medications. Results Test Description Test Time Test Comments Text Results Atomic Results Result Comments BLOOD CULTURE 2018-10-30 08:01:00 Test Item Value Reference Range Comments CULTURE (BEAKER) (test djcf=5839) No growth in 5 days BLOOD [id number] 08:01:00 Test Item Value Reference Range Comments CULTURE (BEAKER) (test kuqw=2575) No growth in 5 days POCT-GLUCOSE [id number] 08:05:00 Test Item Value Reference Range Comments POC-GLUCOSE METER (BEAKER) 109 mg/dL 70-[address] [facility] [address] [facility] (test myhm=6185) [facility] [address] COMPREHENSIVE METABOLIC [id number] 05:49:00 Test Item Value Reference Range Comments TOTAL PROTEIN (BEAKER) 6.4 gm/dL 6.0-8.3 (test bibv=778) ALBUMIN (BEAKER) (test 3.2 g/dL 3.5-5.0 xhaq=2221) ALKALINE PHOSPHATASE 91 U/L 40-150 (BEAKER) (test mnqc=864) BILIRUBIN TOTAL (BEAKER) 0.8 mg/dL 0.2-1.2 (test xwmd=276) SODIUM (BEAKER) (test 143 meq/L 136-145 zrga=077) POTASSIUM (BEAKER) (test 4.1 meq/L 3.5-5.1 pbhi=147) CHLORIDE (BEAKER) (test 109 meq/L 98-107 uhwu=559) CO2 (BEAKER) (test 26 meq/L 22-29 frxi=744) BLOOD UREA NITROGEN 11 mg/dL 7-21 (BEAKER) (test cjle=319) CREATININE (BEAKER) (test 0.89 mg/dL 0.57-1.25 odwr=878) GLUCOSE RANDOM (BEAKER) 119 mg/dL 70-105 (test owqk=479) CALCIUM (BEAKER) (test 8.9 mg/dL 8.4-10.2 tsro=758) AST (SGOT) (BEAKER) (test 37 U/L 5-34 jnaq=063) ALT (SGPT) (BEAKER) (test 59 U/L 6-55 mhto=661) EGFR (BEAKER) (test mL/min/1.73 sq m INSUFFICIENT CLINICAL DATA igsq=1662) TO CALCULATE ESTIMATED GFR. CBC W/PLT COUNT & AUTO [id number] 05:12:00 Test Item Value Reference Range Comments WHITE BLOOD CELL COUNT (BEAKER) (test yyoz=084) 9.9 K/ L 3.5-10.5 RED BLOOD CELL COUNT (BEAKER) (test dcpk=975) 4.20 M/ L 3.93-5.22 HEMOGLOBIN (BEAKER) (test usyp=454) 10.5 GM/DL 11.2-15.7 HEMATOCRIT (BEAKER) (test excl=982) 34.0 % 34.1-44.9 MEAN CORPUSCULAR VOLUME (BEAKER) (test onza=809) 81.0 fL 79.4-94.8 MEAN CORPUSCULAR HEMOGLOBIN (BEAKER) (test 25.0 pg 25.6-32.2 wwbk=427) MEAN CORPUSCULAR HEMOGLOBIN CONC (BEAKER) (test 30.9 GM/DL 32.2-35.5 sktg=914) RED CELL DISTRIBUTION WIDTH (BEAKER) (test 16.3 % 11.7-14.4 wfyq=018) PLATELET COUNT (BEAKER) (test nkje=013) 221 K/CU MM 150-450 MEAN PLATELET VOLUME (BEAKER) (test lhhx=395) 9.5 fL 9.4-12.3 NUCLEATED RED BLOOD CELLS (BEAKER) (test 0 /100 WBC 0-0 wkxn=115) NEUTROPHILS RELATIVE PERCENT (BEAKER) (test 64 % ffhk=908) LYMPHOCYTES RELATIVE PERCENT (BEAKER) (test 17 % bpgx=045) MONOCYTES RELATIVE PERCENT (BEAKER) (test 14 % rxed=181) EOSINOPHILS RELATIVE PERCENT (BEAKER) (test 4 % orih=773) BASOPHILS RELATIVE PERCENT (BEAKER) (test 0 % pnlh=566) NEUTROPHILS ABSOLUTE COUNT (BEAKER) (test 6.32 K/ L 1.56-6.13 cdin=020) LYMPHOCYTES ABSOLUTE COUNT (BEAKER) (test 1.65 K/ L 1.18-3.74 hlpr=203) MONOCYTES ABSOLUTE COUNT (BEAKER) (test 1.41 K/ L 0.24-0.36 kpbz=878) EOSINOPHILS ABSOLUTE COUNT (BEAKER) (test 0.42 K/ L 0.04-0.36 pbum=438) BASOPHILS ABSOLUTE COUNT (BEAKER) (test 0.03 K/ L 0.01-0.08 ebfj=415) IMMATURE GRANULOCYTES-RELATIVE PERCENT (BEAKER) 0 % 0-1 (test hhiq=2565) POCT-GLUCOSE [id number] 21:39:00 Test Item Value Reference Range Comments POC-GLUCOSE METER (BEAKER) 171 mg/dL 70-110 TESTED AT [address] (test vgkq=2413) [place] [id number] POCT-GLUCOSE [id number] 20:41:00 Test Item Value Reference Range Comments POC-GLUCOSE METER (BEAKER) 124 mg/dL 70-110 TESTED AT [address] (test btbs=9744) [place] [id number] COMPREHENSIVE METABOLIC [id number] 13:25:00 Test Item Value Reference Range Comments TOTAL PROTEIN (BEAKER) 6.6 gm/dL 6.0-8.3 Specimen slightly (test nauk=795) hemolyzed ALBUMIN (BEAKER) (test 3.1 g/dL 3.5-5.0 Specimen slightly kmhi=8268) hemolyzed ALKALINE PHOSPHATASE 86 U/L 40-150 (BEAKER) (test wwgn=983) BILIRUBIN TOTAL (BEAKER) 0.8 mg/dL 0.2-1.2 Specimen slightly (test zblo=373) hemolyzed SODIUM (BEAKER) (test 141 meq/L 136-145 hqkv=666) POTASSIUM (BEAKER) (test 4.1 meq/L 3.5-5.1 Specimen slightly jdpr=065) hemolyzed CHLORIDE (BEAKER) (test 106 meq/L 98-107 ezyt=001) CO2 (BEAKER) (test 27 meq/L 22-29 dswc=438) BLOOD UREA NITROGEN 17 mg/dL 7-21 (BEAKER) (test wsuj=096) CREATININE (BEAKER) (test 1.10 mg/dL 0.57-1.25 Specimen slightly kfjs=624) hemolyzed GLUCOSE RANDOM (BEAKER) 181 mg/dL 70-105 (test xhws=732) CALCIUM (BEAKER) (test 8.7 mg/dL 8.4-10.2 hkac=881) AST (SGOT) (BEAKER) (test 63 U/L 5-34 Specimen slightly bdoc=310) hemolyzed ALT (SGPT) (BEAKER) (test 68 U/L 6-55 Specimen slightly wzru=886) hemolyzed EGFR (BEAKER) (test mL/min/1.73 sq m INSUFFICIENT CLINICAL DATA heno=6662) TO CALCULATE ESTIMATED GFR. CBC W/PLT COUNT & AUTO [id number] 13:01:00 Test Item Value Reference Range Comments WHITE BLOOD CELL COUNT (BEAKER) (test akhj=808) 10.0 K/ L 3.5-10.5 RED BLOOD CELL COUNT (BEAKER) (test ledh=833) 4.28 M/ L 3.93-5.22 HEMOGLOBIN (BEAKER) (test oypx=144) 10.7 GM/DL 11.2-15.7 HEMATOCRIT (BEAKER) (test xvcz=971) 34.9 % 34.1-44.9 MEAN CORPUSCULAR VOLUME (BEAKER) (test qlhm=444) 81.5 fL 79.4-94.8 MEAN CORPUSCULAR HEMOGLOBIN (BEAKER) (test 25.0 pg 25.6-32.2 ceqn=401) MEAN CORPUSCULAR HEMOGLOBIN CONC (BEAKER) (test 30.7 GM/DL 32.2-35.5 jxus=522) RED CELL DISTRIBUTION WIDTH (BEAKER) (test 16.6 % 11.7-14.4 aanc=365) PLATELET COUNT (BEAKER) (test dkcv=350) 261 K/CU MM 150-450 MEAN PLATELET VOLUME (BEAKER) (test uodk=472) 10.0 fL 9.4-12.3 NUCLEATED RED BLOOD CELLS (BEAKER) (test 0 /100 WBC 0-0 dlhp=255) NEUTROPHILS RELATIVE PERCENT (BEAKER) (test 67 % jagf=242) LYMPHOCYTES RELATIVE PERCENT (BEAKER) (test 16 % xqrz=980) MONOCYTES RELATIVE PERCENT (BEAKER) (test 13 % ojoq=126) EOSINOPHILS RELATIVE PERCENT (BEAKER) (test 3 % oxzh=729) BASOPHILS RELATIVE PERCENT (BEAKER) (test 0 % dggg=151) NEUTROPHILS ABSOLUTE COUNT (BEAKER) (test 6.73 K/ L 1.56-6.13 oktv=368) LYMPHOCYTES ABSOLUTE COUNT (BEAKER) (test 1.64 K/ L 1.18-3.74 wgmx=606) MONOCYTES ABSOLUTE COUNT (BEAKER) (test 1.29 K/ L 0.24-0.36 nxkh=481) EOSINOPHILS ABSOLUTE COUNT (BEAKER) (test 0.32 K/ L 0.04-0.36 xscj=828) BASOPHILS ABSOLUTE COUNT (BEAKER) (test 0.02 K/ L 0.01-0.08 tpry=148) IMMATURE GRANULOCYTES-RELATIVE PERCENT (BEAKER) 0 % 0-1 (test iypi=6042) POCT-GLUCOSE [id number] 12:43:00 Test Item Value Reference Range Comments POC-GLUCOSE METER (BEAKER) 180 mg/dL 70-110 TESTED AT [address] (test dcor=0053) [place] [id number] POCT-GLUCOSE [id number] 05:58:00 Test Item Value Reference Range Comments POC-GLUCOSE METER (BEAKER) 146 mg/dL 70-110 TESTED AT [address] (test llns=7892) [facility] [address] [id number] 02:30:00 Test Item Value Reference Range Comments LIPASE (BEAKER) (test kfts=333) > U/L 8-78 COMPREHENSIVE METABOLIC [id number] 01:56:00 Test Item Value Reference Range Comments TOTAL PROTEIN (BEAKER) 6.5 gm/dL 6.0-8.3 (test ueje=226) ALBUMIN (BEAKER) (test 3.3 g/dL 3.5-5.0 glou=7089) ALKALINE PHOSPHATASE 90 U/L 40-150 (BEAKER) (test qdnj=646) BILIRUBIN TOTAL (BEAKER) 0.9 mg/dL 0.2-1.2 (test oyqx=355) SODIUM (BEAKER) (test 139 meq/L 136-145 gjog=661) POTASSIUM (BEAKER) (test 4.3 meq/L 3.5-5.1 uhof=591) CHLORIDE (BEAKER) (test 105 meq/L 98-107 pddy=078) CO2 (BEAKER) (test 26 meq/L 22-29 melb=809) BLOOD UREA NITROGEN 16 mg/dL 7-21 (BEAKER) (test irpy=013) CREATININE (BEAKER) (test 1.19 mg/dL 0.57-1.25 wwzc=284) GLUCOSE RANDOM (BEAKER) 185 mg/dL 70-105 (test ueht=988) CALCIUM (BEAKER) (test 9.0 mg/dL 8.4-10.2 kadg=083) AST (SGOT) (BEAKER) (test 57 U/L 5-34 glxk=952) ALT (SGPT) (BEAKER) (test 70 U/L 6-55 mlrp=662) EGFR (BEAKER) (test mL/min/1.73 sq m INSUFFICIENT CLINICAL DATA rqju=4445) TO CALCULATE ESTIMATED GFR. [id number] 01:54:00 Test Item Value Reference Range Comments MAGNESIUM (BEAKER) (test nsbw=035) 1.7 mg/dL 1.6-2.6 CBC W/PLT COUNT & AUTO [id number] 01:46:00 Test Item Value Reference Range Comments WHITE BLOOD CELL COUNT (BEAKER) (test eopi=580) 15.0 K/ L 3.5-10.5 RED BLOOD CELL COUNT (BEAKER) (test quyc=511) 4.27 M/ L 3.93-5.22 HEMOGLOBIN (BEAKER) (test ftlt=486) 10.9 GM/DL 11.2-15.7 HEMATOCRIT (BEAKER) (test lzxa=056) 35.0 % 34.1-44.9 MEAN CORPUSCULAR VOLUME (BEAKER) (test yust=525) 82.0 fL 79.4-94.8 MEAN CORPUSCULAR HEMOGLOBIN (BEAKER) (test 25.5 pg 25.6-32.2 aqza=061) MEAN CORPUSCULAR HEMOGLOBIN CONC (BEAKER) (test 31.1 GM/DL 32.2-35.5 ufhv=431) RED CELL DISTRIBUTION WIDTH (BEAKER) (test 16.4 % 11.7-14.4 bgtv=595) PLATELET COUNT (BEAKER) (test wwxm=269) 281 K/CU MM 150-450 MEAN PLATELET VOLUME (BEAKER) (test itbw=284) 9.8 fL 9.4-12.3 NUCLEATED RED BLOOD CELLS (BEAKER) (test 0 /100 WBC 0-0 hxkh=149) NEUTROPHILS RELATIVE PERCENT (BEAKER) (test 84 % ynbd=277) LYMPHOCYTES RELATIVE PERCENT (BEAKER) (test 8 % wxzm=086) MONOCYTES RELATIVE PERCENT (BEAKER) (test 6 % ioky=719) EOSINOPHILS RELATIVE PERCENT (BEAKER) (test 2 % loli=824) BASOPHILS RELATIVE PERCENT (BEAKER) (test 0 % ejtz=814) NEUTROPHILS ABSOLUTE COUNT (BEAKER) (test 12.50 K/ L 1.56-6.13 avcw=362) LYMPHOCYTES ABSOLUTE COUNT (BEAKER) (test 1.20 K/ L 1.18-3.74 zyow=247) MONOCYTES ABSOLUTE COUNT (BEAKER) (test 0.95 K/ L 0.24-0.36 zysj=868) EOSINOPHILS ABSOLUTE COUNT (BEAKER) (test 0.22 K/ L 0.04-0.36 zdyf=131) BASOPHILS ABSOLUTE COUNT (BEAKER) (test 0.03 K/ L 0.01-0.08 cnve=997) IMMATURE GRANULOCYTES-RELATIVE PERCENT (BEAKER) 0 % 0-1 (test rkip=0794) POCT-LACTIC ACID, [id number] 00:32:00 Test Item Value Reference Range Comments POC-LACTIC ACID, VENOUS 1.2 mmol/L 0.9-1.[address] [facility] [address] [facility] (BEAKER) (test fdvc=8371) [facility] [address] POCT-GLUCOSE [id number] 23:15:00 Test Item Value Reference Range Comments POC-GLUCOSE METER (BEAKER) 122 mg/dL 70-[address] [facility] [address] [facility] (test gbyg=3847) [facility] [address] [place], INSTALLER MOLDING AND TRIM IN OR/30 MINUTE [id number] 22:34:00Intra-op ImagingReason for exam:->ERCPFINAL REPORT Examination : ERCP 3 fluoroscopic spot views were obtained during the procedure by the ordering service. Images are nondiagnostic as no radiologist was present at the time of imaging. Fluoroscopic time was 70.6 seconds. Please see the procedure report for details. Signed: Chiki Whitley MDReport Verified Date/Time : 10/24/2018 22:34:56 Reading Location: [address] Reading Room POCT- GLUCOSE [id number] 18:27:00 Test Item Value Reference Range Comments POC-GLUCOSE METER (BEAKER) 99 mg/dL 70-[address] [facility] [address] [facility] (test bdgr=1972) [facility] [address] POCT-GLUCOSE [id number] 13:55:00 Test Item Value Reference Range Comments POC-GLUCOSE METER (BEAKER) 86 mg/dL 70-110 TESTED AT [address] (test hqce=7282) [facility] [address] COMPREHENSIVE METABOLIC [id number] 09:57:00 Test Item Value Reference Range Comments TOTAL PROTEIN (BEAKER) 6.8 gm/dL 6.0-8.3 (test nhgc=579) ALBUMIN (BEAKER) (test 3.4 g/dL 3.5-5.0 wvci=9093) ALKALINE PHOSPHATASE 88 U/L 40-150 (BEAKER) (test nicf=333) BILIRUBIN TOTAL (BEAKER) 0.8 mg/dL 0.2-1.2 (test vbtt=198) SODIUM (BEAKER) (test 146 meq/L 136-145 zbit=026) POTASSIUM (BEAKER) (test 4.2 meq/L 3.5-5.1 lqrx=987) CHLORIDE (BEAKER) (test 107 meq/L 98-107 ywfy=144) CO2 (BEAKER) (test 33 meq/L 22-29 dnte=692) BLOOD UREA NITROGEN 16 mg/dL 7-21 (BEAKER) (test jggo=188) CREATININE (BEAKER) (test 1.07 mg/dL 0.57-1.25 ecnu=107) GLUCOSE RANDOM (BEAKER) 112 mg/dL 70-105 (test blpm=018) CALCIUM (BEAKER) (test 9.4 mg/dL 8.4-10.2 klza=488) AST (SGOT) (BEAKER) (test 83 U/L 5-34 koee=716) ALT (SGPT) (BEAKER) (test 89 U/L 6-55 kukw=011) EGFR (BEAKER) (test mL/min/1.73 sq m INSUFFICIENT CLINICAL DATA wlsw=9948) TO CALCULATE ESTIMATED GFR. CBC W/PLT COUNT & AUTO [id number] 09:36:00 Test Item Value Reference Range Comments WHITE BLOOD CELL COUNT (BEAKER) (test jhhv=022) 21.1 K/ L 3.5-10.5 RED BLOOD CELL COUNT (BEAKER) (test oloa=320) 4.68 M/ L 3.93-5.22 HEMOGLOBIN (BEAKER) (test lbvx=631) 11.8 GM/DL 11.2-15.7 HEMATOCRIT (BEAKER) (test rwmf=588) 37.9 % 34.1-44.9 MEAN CORPUSCULAR VOLUME (BEAKER) (test ejrp=440) 81.0 fL 79.4-94.8 MEAN CORPUSCULAR HEMOGLOBIN (BEAKER) (test 25.2 pg 25.6-32.2 fhha=363) MEAN CORPUSCULAR HEMOGLOBIN CONC (BEAKER) (test 31.1 GM/DL 32.2-35.5 ejfz=153) RED CELL DISTRIBUTION WIDTH (BEAKER) (test 16.3 % 11.7-14.4 frxq=286) PLATELET COUNT (BEAKER) (test wpwv=249) 262 K/CU MM 150-450 MEAN PLATELET VOLUME (BEAKER) (test swmi=585) 8.9 fL 9.4-12.3 NUCLEATED RED BLOOD CELLS (BEAKER) (test 0 /100 WBC 0-0 edif=087) (CELLAVISION MANUAL DIFF)2018-10-24 09:36:00 Test Item Value Reference Range Comments NEUTROPHILS - REL (CELLAVISION)(BEAKER) (test 89 % eonv=6717) LYMPHOCYTES - REL (CELLAVISION)(BEAKER) (test 3 % pikc=2346) MONOCYTES - REL (CELLAVISION)(BEAKER) (test 5 % dvik=2835) EOSINOPHILS - REL (CELLAVISION)(BEAKER) (test 1 % vida=3664) PROMYELOCYTES - REL (CELLAVSION)(BEAKER) (test 1 % 0-0 njgl=6600) ATYPICAL LYMPHOCYTES - REL (CELLAVISION)(BEAKER) 1 % 0-0 (test zjvm=4790) NEUTROPHILS - ABS (CELLAVISION)(BEAKER) (test 18.78 K/ul 1.56-6.13 ppom=2785) LYMPHOCYTES - ABS (CELLAVISION)(BEAKER) (test 0.63 K/ul 1.18-3.74 efvt=4532) MONOCYTES - ABS (CELLAVISION)(BEAKER) (test 1.06 K/uL 0.24-0.36 riuf=0261) EOSINOPHILS - ABS (CELLAVISION)(BEAKER) (test 0.21 K/uL 0.04-0.36 lzbl=2771) PROMYELOCYTES - ABS (CELLAVISION)(BEAKER) (test 0.21 K/uL 0.00-0.00 zdhg=9173) ATYPICAL LYMPHOCYTES - ABS (CELLAVISION)(BEAKER) 0.21 K/uL 0.00-0.00 (test nkuu=1511) TOTAL COUNTED (BEAKER) (test rpvq=8216) 100 WBC MORPHOLOGY (BEAKER) (test rxrp=089) Normal GIANT PLATELETS (BEAKER) (test nrhy=621) Present LARGE PLT(BEAKER) (test znhq=8425) Present POLYCHROMATOPHILLIC RBCS(BEAKER) (test iqri=524) 1+ few ANISOCYTOSIS (BEAKER) (test ckdj=212) 2+ moderate MICROCYTES (BEAKER) (test cgnj=332) 2+ moderate POIKILOCYTES (BEAKER) (test ddgn=814) 1+ few SCHISTOCYTES (BEAKER) (test pdhl=873) 1+ few ELLIPTOCYTES (BEAKER) (test qchu=148) 1+ few OVALOCYTES (BEAKER) (test vdyg=092) 1+ few TEAR DROP CELLS (BEAKER) (test bjpp=265) 1+ few PLATELET CONCENTRATION (CELLAVISION)(BEAKER) Adequate (test vbcm=3718) Received comment: User comments: Slide comments: WBC: SEGMENTED WITH DOHLE BODIES AND VACUOLES PRESENTPOCT-GLUCOSE [id number] 09:16:00 Test Item Value Reference Range Comments POC-GLUCOSE METER (BEAKER) 99 mg/dL 70-[address] [facility] [address] (test cqlp=7406) [facility] [address] [id number] 09:12:00 Test Item Value Reference Range Comments MAGNESIUM (BEAKER) (test ngpy=855) 1.7 mg/dL 1.6-2.6 PROTHROMBIN [id number] 09:05:00 Test Item Value Reference Range Comments PROTIME (BEAKER) (test zdgf=592) 15.0 seconds 11.7-14.7 INR (BEAKER) (test dahd=301) 1.2 <=5.9 RECOMMENDED COUMADIN/WARFARIN INR THERAPY RANGESSTANDARD DOSE: 2.0 - 3.0 Includes: PROPHYLAXIS forvenous thrombosis, systemic embolization; TREATMENT for venous thrombosis and/or pulmonary embolus.HIGH RISK: Target INR is 2.5-3.5 for patients with mechanical heart valves.SCR MAMM BILATERAL BRIGITTE CAD [id number] 09:08:55 - SCR MAMM BILATERAL BRIGITTE CAD DIGITALBILATERAL DIGITAL SCREENING MAMMOGRAM 3D/2D WITH CAD: 09/08/2018CLINICAL: Asymptomatic. Digital breast tomosynthesis was performed in addition to routine CC and MLOviews. Current mammographic images were evaluated by either a [employer] M-Vu or a [employer] ImageCheckerCAD (computer aided detection system). Comparison is made to exam dated 07/29/2016 mammogram - [facility]-Radiology File Room. The tissue of both [...] evidence of malignancy. Resume annual screening mammography inone year. Yakov Belcher M.D. et/:09/19/2018 09: 08:55 Entry: cc - 09/20/2018 16:06:25Attending Technologist: Mel Pritchard MM, [facility] MammographyImaging Technologist: Virgie Kuo MM, [facility] Mammographyletter sent: Additional Imaging Mammogram BI-RADS: 0 Indeterminate
[2018-10-31] MEDS ORDERED: METHYLPREDNISOLONE 40 MG INJ ONE (13:52)
[2018-10-31] MEDS ORDERED: ALBUTEROL 2.5 MG/3 ML NEB SOL ONE (13:52)
[2018-10-31] MEDS ORDERED: IPRATROPIUM BROM 0.5MG/2.5ML ONE (13:52)
[2018-10-31 14:20] LABS: Absolute Lymphocytes (CBC) 1.7 K/uL (0.7-4.9); Absolute Monocytes 1.2 K/uL (0.1-1.3); Absolute Neutrophil 3.5 K/uL (1.8-8.0); Basophils % 0.7 % (0-1.3); Eosinophils % 8.5 % (0-4.4); Hematocrit 36.9 % (36.0-45.0); Lymphocytes % 24.2 % (15.3-44.8); MPV 8.4 fL (7.6-11.3); Monocytes % 16.8 % (3.3-12.3); RBC Red Blood Cell Count 4.74 M/uL (3.86-4.86)
--- NOTE | 2018-10-31 14:37 | RAD REPORT ---
EXAM DESCRIPTION: RAD - Chest Single View - 10/31/2018 2:22 pm CLINICAL HISTORY: Dyspnea, shortness of breath COMPARISON: October 23, 2018 TECHNIQUE: AP portable chest image was obtained 1405 hours . FINDINGS: Interstitial and patchy alveolar opacities are present in the lower lung jackson. This inte rstitial edema or interstitial pneumonia pattern is not substantially different from October 23. Hear t size is within normal limits. Vasculature within normal limits for portable technique and large bod y habitus. Trachea is midline. No measurable pleural effusion and no pneumothorax. No acute bony abno rmality seen. No acute aortic findings suspected. IMPRESSION: Bilateral lung base interstitial and patchy alveolar opacities similar to comparison. Interstitial edema and interstitial infiltrate are both possible.
[2018-10-31 14:38] LABS: Potassium 3.6 mmol/L (3.5-5.1); Troponin (Emerg Dept Use Only) 0.08 ng/mL (0.0-0.045)
[2018-10-31] MEDS ORDERED: FUROSEMIDE 100 MG/10 ML VIAL IV ONE (15:39)
--- NOTE | 2018-10-31 15:57 | EDPHYS ---
Physician Documentation [facility] Name: Bailey Zavala Age: 63 yrs Sex: Female : 1955 Arrival Date: 10/31/2018 Time: 12:35 Bed 16 Private MD: ED Physician Mendoza Escamilla HPI: 10/31 15:51 This 63 yrs old Black Female presents to ER via Wheelchair with complaints of Fever, gs Shortness Of Breath, Pain All Over. 15:51 The patient has shortness of breath at rest. Onset: The symptoms/episode began/occurred gs 3 day(s) ago. Duration: The symptoms are continuous. The patient's shortness of breath is aggravated by exertion. Associated signs and symptoms: Pertinent positives: non-productive cough. Severity of symptoms: At their worst the symptoms were severe in the emergency department the symptoms are unchanged. The patient has experienced similar episodes in the past, a few times. The patient has not recently seen a physician. Historical: - Allergies: 12:45 Iodine (Hives); tw2 - PMHx: 12:45 Arthritis; Asthma; Diabetes - NIDDM; tw2 - PSHx: 12:45 None; tw2 - Immunization history:: Adult Immunizations up to date. - Social history:: Smoking status: Patient/guardian denies using tobacco. - Ebola Screening: : Patient denies travel to an Ebola-affected area in the 21 days before illness onset. ROS: 15:51 All other systems are negative. gs Exam: 15:51 Head/Face: Normocephalic, atraumatic. Eyes: Pupils equal round and reactive to light, gs extra-ocular motions intact. Lids and lashes normal. Conjunctiva and sclera are non-icteric and not injected. Cornea within normal limits. Periorbital areas with no swelling, redness, or edema. ENT: Nares patent. No nasal discharge, no septal abnormalities noted. Tympanic membranes are normal and external auditory canals are clear. Oropharynx with no redness, swelling, or masses, exudates, or evidence of obstruction, uvula midline. Mucous membranes moist. Neck: Trachea midline, no thyromegaly or masses palpated, and no cervical lymphadenopathy. Supple, full range of motion without nuchal rigidity, or vertebral point tenderness. No Meningismus. Chest/axilla: Normal chest wall appearance and motion. Nontender with no deformity. No lesions are appreciated. 15:51 Abdomen/GI: Soft, non-tender, with normal bowel sounds. No distension or tympany. No guarding or rebound. No evidence of tenderness throughout. Back: No spinal tenderness. No costovertebral tenderness. Full range of motion. Skin: Warm, dry with normal turgor. Normal color with no rashes, no lesions, and no evidence of cellulitis. MS/ Extremity: Pulses equal, no cyanosis. Neurovascular intact. Full, normal range of motion. Neuro: Awake and alert, GCS 15, oriented to person, place, time, and situation. Cranial nerves II-XII grossly intact. Motor strength 5/5 in all extremities. Sensory grossly intact. Cerebellar exam normal. Normal gait. 15:51 Constitutional: The patient appears alert, awake. 15:51 Cardiovascular: Rate: tachycardic, Rhythm: regular, Pulses: no pulse deficits are appreciated, Edema: 2+ edema to level of left midcalf, left ankle, right midcalf and right ankle. 15:51 ECG was reviewed by the Attending Physician. 15:51 Respiratory: moderate respiratory distress is noted, Respirations: tachypnea, Breath sounds: rales, wheezing: Vital Signs: 12:44 BP 147 / 101; Pulse 98; Resp 18; Temp 98.1(O); Pulse Ox 100% on R/A; Weight 172.37 kg tw2 (R); Height 5 ft. 8 in. (172.72 cm) (R); Pain 7/10; 13:44 BP 129 / 87; Pulse 96; Resp 19; Pulse Ox 100% on R/A; rb1 14:44 BP 118 / 65; Pulse 110; Resp 23; Pulse Ox 100% on R/A; rb1 15:40 BP 128 / 76; Pulse 97; Resp 21; Pulse Ox 98% on R/A; rb1 16:40 BP 133 / 91; Pulse 115; Resp 22; Pulse Ox 96% on R/A; rb1 12:44 Body Mass Index 57.78 (172.37 kg, 172.72 cm) tw2 16:40 Pt. had just walked back from the restroom. rb1 MDM: 13:31 Patient medically screened. 15:51 Differential diagnosis: CHF exacerbation, Chronic Obstructive Pulmonary Disease gs Myocardial Infarction pneumonia. Data reviewed: vital signs, nurses notes, lab test result(s), EKG, radiologic studies. Counseling: I had a detailed discussion with the patient and/or guardian regarding: the historical points, exam findings, and any diagnostic results supporting the discharge/admit diagnosis, the need for further work-up and treatment in the hospital. 10/31 13:33 Order name: Flu; Complete Time: 15:21 gs 10/31 13:33 Order name: Basic Metabolic Panel; Complete Time: 15:21 gs 10/31 13:33 Order name: CBC with Diff gs 10/31 13:33 Order name: NT PRO-BNP; Complete Time: 15:21 gs 10/31 13:33 Order name: Troponin (emerg Dept Use Only); Complete Time: 15:21 gs 10/31 17:42 Order name: Glucose, Ancillary Testing; Complete Time: 17:50 EDMS 10/31 13:33 Order name: XRAY Chest (1 view); Complete Time: 15:21 gs 10/31 13:33 Order name: EKG; Complete Time: 13:34 gs 10/31 13:33 Order name: Cardiac monitoring; Complete Time: 14:02 gs 10/31 13:33 Order name: EKG - Nurse/Tech; Complete Time: 14:02 gs 10/31 13:33 Order name: IV Saline Lock; Complete Time: 14:02 gs 10/31 13:33 Order name: Labs collected and sent; Complete Time: 14:03 gs 10/31 13:33 Order name: O2 Per Protocol; Complete Time: 14:03 gs 10/31 13:33 Order name: O2 Sat Monitoring; Complete Time: 14:03 gs EC:51 Rate is 106 beats/min. Rhythm is regular. UT interval is normal. QRS interval is gs normal. QT interval is normal. T waves are Flattened. Clinical impression: NSR w/ Non-specific ST/T Changes. Interpreted by me. Administered Medications: 13:40 Drug: Albuterol 2.5 mg Route: Inhalation; rb1 13:40 Drug: AtroVENT Aerosol 0.5 mg Route: Inhalation; rb1 13:50 Drug: SOLU-Medrol 40 mg Route: IVP; Site: left antecubital; rb1 14:05 Follow up: Response: No adverse reaction rb1 15:35 Drug: Lasix 60 mg Route: IVP; Site: left antecubital; rb1 15:50 Follow up: Response: No adverse reaction rb1 16:16 Drug: Aspirin Chewable Tablet 324 mg Route: PO; rb1 16:39 Follow up: Response: No adverse reaction rb1 Disposition: 15:51 Critical Care:. gs Disposition: 10/31/18 15:56 Hospitalization ordered by Joan Valenzuela for Observation. Preliminary diagnosis is Systolic (congestive) heart failure. - Bed requested for Telemetry/MedSurg (observation). - Status is Observation. rb1 - Condition is Stable. - Problem is an acute exacerbation. - Symptoms have improved. UTI on Admission? No Critical care time excluding procedures: 15:51 Critical care time: Bedside Care: 10 minutes, Consultation: 10 minutes, Family gs Intervention: 10 minutes. Total time: 30 minutes Signatures: Dispatcher [employer] Brenda Young RN RN dw Nakia Estrella, RN RN rb1 Nida Valle RN AMARILYS tw2 Mendoza Escamilla MD MD Corrections: (The following items were deleted from the chart) 16:37 15:56 Hospitalization Ordered by Joan Valenzuela MD for Observation. Preliminary diagnosis dw is Systolic (congestive) heart failure. Bed requested for Telemetry/MedSurg (observation). Status is Observation. Condition is Stable. Problem is an acute exacerbation. Symptoms have improved. UTI on Admission? No. gs 17:52 16:37 10/31/2018 15:56 Hospitalization Ordered by Joan Valenzuela MD for Observation. rb1 Preliminary diagnosis is Systolic (congestive) heart failure. Bed requested for Telemetry/MedSurg (observation). Status is Observation. Condition is Stable. Problem is an acute exacerbation. Symptoms have improved. UTI on Admission? No. dw
--- NOTE | 2018-10-31 15:57 | ER ---
Nurse's Notes [facility] Name: Bailey Zavala Age: 63 yrs Sex: Female : 1955 Arrival Date: 10/31/2018 Time: 12:35 Bed 16 Private MD: Diagnosis: Systolic (congestive) heart failure Presentation: 10/31 12:41 Presenting complaint: Patient states: i think i have been running a fever for 2 days, i tw2 have asthma, i have gallstones and they told me it passed that was last week, and my arthritis in my LEFT foot is more swollen than the right and i feel short of breath. Transition of care: patient was not received from another setting of care. Onset of symptoms was October 31, 2018. Risk Assessment: Do you want to hurt yourself or someone else? Patient reports no desire to harm self or others. Initial Sepsis Screen: Does the patient meet any 2 criteria? No. Patient's initial sepsis screen is negative. Does the patient have a suspected source of infection? No. Patient's initial sepsis screen is negative. Care prior to arrival: None. 12:41 Method Of Arrival: Wheelchair tw2 12:41 Acuity: GURPREET 3 tw2 Triage Assessment: 12:43 General: Appears in no apparent distress. obese, Behavior is calm, cooperative, tw2 appropriate for age. Pain: Complains of pain in "body aches". Respiratory: Reports shortness of breath at rest on exertion cough that is productive, Onset: The symptoms/episode began/occurred 2 days ago, the patient has mild shortness of breath. Historical: - Allergies: 12:45 Iodine (Hives); tw2 - PMHx: 12:45 Arthritis; Asthma; Diabetes - NIDDM; tw2 - PSHx: 12:45 None; tw2 - Immunization history:: Adult Immunizations up to date. - Social history:: Smoking status: Patient/guardian denies using tobacco. - Ebola Screening: : Patient denies travel to an Ebola-affected area in the 21 days before illness onset. Screenin:49 Abuse screen: Denies threats or abuse. Nutritional screening: No deficits noted. rb1 Tuberculosis screening: No symptoms or risk factors identified. Fall Risk None identified. Assessment: 12:49 General: Appears in no apparent distress. comfortable, obese, Behavior is calm, rb1 cooperative. General: Reports fever for 2-3 days, As high as 102 degrees. Pain: Complains of pain in generalized Pain currently is 7 out of 10 on a pain scale. Pain began 2-3 days ago. Neuro: Level of Consciousness is awake, alert, obeys commands, Oriented to person, place, time, situation. Cardiovascular: Capillary refill < 3 seconds is brisk in bilateral fingers. Respiratory: Airway is patent Respiratory effort is even, unlabored, Respiratory pattern is regular, symmetrical. Respiratory: Reports cough that is productive, yellow sputum. GI: No signs and/or symptoms were reported involving the gastrointestinal system. : No signs and/or symptoms were reported regarding the genitourinary system. Derm: Skin is dry, Skin is normal, Skin temperature is warm. Musculoskeletal: Swelling present in right leg and left leg. 12:49 Cardiovascular: Rhythm is regular. rb1 12:49 Respiratory: Breath sounds are diminished bilaterally. in left posterior lower lobe and rb1 right posterior lower lobe. 13:40 Reassessment: Patient appears in no apparent distress at this time. No changes from rb1 previously documented assessment. Family at bedside. 14:40 Reassessment: Patient appears in no apparent distress at this time. Patient and/or rb1 family updated on plan of care and expected duration. Pain level reassessed. Patient is alert, oriented x 3, equal unlabored respirations, skin warm/dry/pink. 15:39 Reassessment: Patient appears in no apparent distress at this time. No changes from rb1 previously documented assessment. 16:30 Reassessment: Patient appears in no apparent distress at this time. Patient and/or rb1 family updated on plan of care and expected duration. Pain level reassessed. Patient is alert, oriented x 3, equal unlabored respirations, skin warm/dry/pink. Family at bedside. 16:42 Reassessment: Dr. Valenzuela at bedside. rb1 16:55 Reassessment: Tried to call report but was left on hold. rb1 17:02 Reassessment: Gave report to AMARILYS Givens. Information from the SBAR was given. All rb1 questions asked and answered. Vital Signs: 12:44 BP 147 / 101; Pulse 98; Resp 18; Temp 98.1(O); Pulse Ox 100% on R/A; Weight 172.37 kg tw2 (R); Height 5 ft. 8 in. (172.72 cm) (R); Pain 7/10; 13:44 BP 129 / 87; Pulse 96; Resp 19; Pulse Ox 100% on R/A; rb1 14:44 BP 118 / 65; Pulse 110; Resp 23; Pulse Ox 100% on R/A; rb1 15:40 BP 128 / 76; Pulse 97; Resp 21; Pulse Ox 98% on R/A; rb1 16:40 BP 133 / 91; Pulse 115; Resp 22; Pulse Ox 96% on R/A; rb1 12:44 Body Mass Index 57.78 (172.37 kg, 172.72 cm) tw2 16:40 Pt. had just walked back from the restroom. rb1 ED Course: 12:35 Patient arrived in ED. as 12:43 Triage completed. tw2 12:44 Arm band placed on. tw2 12:45 Placed in gown. Bed in low position. Call light in reach. Adult w/ patient. tw2 12:46 Nakia Estrella, RN is Primary Nurse. rb1 12:49 Pulse ox on. NIBP on. rb1 12:52 Mendoza Escamilla MD is Attending Physician. gs 13:50 Inserted saline lock: 22 gauge in left antecubital area, using aseptic technique. Blood rb1 collected. 14:03 Flu Sent. rb1 14:23 XRAY Chest (1 view) In Process Unspecified. EDMS 15:56 Joan Valenzuela MD is Hospitalizing Provider. gs 17:15 No provider procedures requiring assistance completed. Patient admitted, IV remains in rb1 place. Administered Medications: 13:40 Drug: Albuterol 2.5 mg Route: Inhalation; rb1 13:40 Drug: AtroVENT Aerosol 0.5 mg Route: Inhalation; rb1 13:50 Drug: SOLU-Medrol 40 mg Route: IVP; Site: left antecubital; rb1 14:05 Follow up: Response: No adverse reaction rb1 15:35 Drug: Lasix 60 mg Route: IVP; Site: left antecubital; rb1 15:50 Follow up: Response: No adverse reaction rb1 16:16 Drug: Aspirin Chewable Tablet 324 mg Route: PO; rb1 16:39 Follow up: Response: No adverse reaction rb1 Outcome: 15:56 Decision to Hospitalize by Provider. gs 17:15 Patient left the ED. rb1 17:15 Admitted to Tele accompanied by tech, family with patient, via wheelchair, room 425, rb1 with chart, Report called to AMARILYS Givens 17:15 Condition: stable 17:15 Instructed on the need for admit. Signatures: Dispatcher [employer] Constance Echevarria Rebecca, RN RN rb1 Nida Valle RN RN tw2 Mendoza Escamilla MD MD gs Corrections: (The following items were deleted from the chart) 19:53 17:52 Patient left the ED. rb1 rb1
[2018-10-31] MEDS ORDERED: ASPIRIN 81 MG CHEWABLE TABLET ONE (16:33)
[2018-10-31] MEDS ORDERED: ONDANSETRON 4 MG/2 ML VIAL IV PRN (17:19)
[2018-10-31] MEDS ORDERED: ACETAMINOPHEN 500 MG TAB PO PRN (17:19)
[2018-10-31] MEDS: FUROSEMIDE 40 MG/4 ML VIAL IV SCH (18:00)
[2018-10-31] MEDS: ENOXAPARIN 40 MG/0.4 ML SQ SCH (18:27)
[2018-10-31] MEDS ORDERED: D50W 25 GM/50 ML SYRINGE IV PRN (18:33)
[2018-10-31] MEDS ORDERED: GLUCAGON 1 MG/VIAL IM PRN (18:33)
[2018-10-31] MEDS: CEFTRIAXONE/SWI 1gm 1 GM/10 ML SYR IVP SCH (18:50)
[2018-10-31] MEDS: AZITHROMYCIN IV 500 MG in NA CHLORIDE 0.9% 250 ML IVPB SCH (18:50)
[2018-10-31] MEDS ORDERED: POTASSIUM CL SA 10 MEQ TAB PO ONE (19:00)
[2018-10-31 19:40] LABS: Blood Morphology Comment NOT SEEN (NOT SEEN); Platelet Estimate ADEQ; Urine White Blood Cell Casts OK
[2018-10-31] MEDS: METOPROLOL TAR 25 MG TAB PO SCH (21:28)
[2018-10-31] MEDS: INSULIN -REGULAR HUMAN 50 UNIT/0.5 ML ML SQ SCH (21:30)
--- NOTE | 2018-10-31 21:39 | EKG ---
Test Date: 2018-10-31 Test Time: 13:42:41 Basket Machine Operator: VANDANA MEASUREMENT RESULTS: Intervals: Rate: 106 CT: 182 QRSD: 78 QT: 332 QTc: 441 [place]: P: 48 CT: 182 QRS: 14 T: -2 INTERPRETIVE STATEMENTS: Sinus tachycardia Nonspecific T wave abnormality Abnormal ECG Compared to ECG 10/23/2018 18:58:56 T-wave abnormality now present Sinus rhythm no longer present Myocardial infarct finding no longer present Electronically Signed On 10-31-18 21:38:20 CDT by Curt Carter
[2018-11-01 04:20] LABS: Absolute Monocytes 0.3 K/uL (0.1-1.3); Absolute Neutrophil 3.6 K/uL (1.8-8.0); Basophils % 0.3 % (0-1.3); Eosinophils % 0.1 % (0-4.4); Hematocrit 36.8 % (36.0-45.0); Lymphocytes % 20.6 % (15.3-44.8); MPV 8.6 fL (7.6-11.3); Monocytes % 5.4 % (3.3-12.3); RBC Red Blood Cell Count 4.75 M/uL (3.86-4.86)
[2018-11-01 04:37] LABS: Albumin 3.1 g/dL (3.4-5.0); Bilirubin Total 0.3 mg/dL (0.2-1.0); Magnesium 1.8 mg/dL (1.8-2.4); Protein, Total 7.4 g/dL (6.4-8.2)
--- NOTE | 2018-11-01 05:05 | HP ---
Date of Admission: 10/31/2018 Code Status: Full code. Chief Complaint: Shortness of breath and peripheral edema. Primary Care Physician: Adelia Eduardo, Elías Eduardo. History Of Present Illness: The patient is a 63-year-old female with past medical history of asthma; congestive heart failure, which patient states had been reversed; diabetes; hypothyroidism; obesity, who was in her usual state of health until several days prior to admission when the patient started having some shortness of breath and worsening peripheral edema. The patient's shortness of breath wa s worse with exertion. The patient's symptoms were constant, moderate, and progressive. She also re ports nonproductive cough and some subjective fevers. The patient therefore came into the ER for fur ther evaluation. The patient's workup revealed normal white blood cell count. Her BNP was elevated at 1288. Her troponin was elevated at 0.08. Her imaging studies showed bilateral lung base intersti tial and patchy alveolar opacities similar to previous interstitial edema and interstitial infiltrate or both possible. The patient was then referred for admission. When seen in the ER, she was awake, alert, oriented x3. Her symptoms had improved slightly with Lasix. Past Medical History: Diabetes, non-insulin requiring; asthma; congestive heart failure that apparen tly had been reversed previously; hypothyroidism. Past Surgical History: Right eye cone vision repair. Allergies: TO IODINE. Medications: List reviewed. Social History: The patient denies any tobacco use, alcohol use, or illicit drug use. The patient i s . Family History: Mother had heart disease, diabetes, and asthma. Father and brother also had diabete s. Brother also had asthma. Review of Systems: An 11-point system reviewed, negative except as per HPI. Physical Examination: Vital Signs: Temperature 98.1, heart rate 98, blood pressure 147/101, respirations 18, O2 of 100% on room air. General: Awake, alert, oriented x3, ill-appearing female, in some mild distress. Morbidly obese, BM I 58.5. HEENT: Normocephalic, atraumatic. PERRLA. EOMI. Moist mucous membranes. Oropharynx is clear. Po or dentition. Conjunctivae anicteric. Neck: Supple. No JVD. Trachea midline. CV: S1, S2. Sinus tachycardia. Peripheral pulses present. No murmurs. Respiratory: Diminished breath sounds, especially at the bases. Some crackles heard. No wheezing o r stridor. No use of accessory muscles. Gastrointestinal: Abdomen is soft, nontender, nondistended. Positive bowel sounds. No guarding or rigidity. Extremities: No clubbing, cyanosis. The patient has 2+ peripheral edema bilaterally. No calf tende rness. Neuro: Cranial nerves 2-12 intact grossly. No focal neurological deficit. Speech is normal. Stren gth is 5/5 bilateral upper and lower extremities. Sensation intact to light touch. Skin: No rashes. Normal skin turgor. Psych: Mood is okay. Affect is full. Insight and judgment are good. Laboratory Data: Sodium 144, potassium 3.6, chloride 107, CO2 30, BUN 4, creatinine 0.97, glucose 89 , calcium 8.8. Troponin 0.08. BNP 1288. WBC 6.9, H and H 12.7 and 36.9, platelets 272, neutrophils 49%. Influenza screen is negative. Chest x-ray shows bilateral lung base interstitial and patchy a lveolar opacities similar to comparison. Interstitial edema and interstitial infiltrate are both pos sible. Assessment: A 63-year-old female with: 1.Acute on chronic congestive heart failure exacerbation, unknown EF. The patient states that her c ongestive heart failure had improved significantly and she was not taking medications for it. She wa s on Lasix previously. We will obtain echocardiogram and start on free fluid and sodium restriction. Monitor I's and O's and daily weights. 2.Acute bronchitis. The patient likely has some acute infiltrates superimposed on the edema. The p atient reports subjective fevers, cough with clear sputum production. We will start on IV antibiotic s. Obtain sputum culture. 3.Diabetes mellitus type 2 non-insulin requiring with hyperglycemia. We will start on sliding scale insulin and monitor blood glucose levels. 4.Morbid obesity. BMI 58.5. 5.Intermittent asthma. We will continue albuterol as needed. Resume home dose of inhalers. 6.Generalized osteoarthritis. 7.Deep venous thrombosis prophylaxis with Lovenox. Plan: Admit the patient to Med-Surg, [facility] as observation. CHERRI Voice ID: [id number]
[2018-11-01] MEDS: INSULIN -REGULAR HUMAN 50 UNIT/0.5 ML ML SQ SCH ×4 (07:30→21:00)
[2018-11-01] MEDS ORDERED: MAGNESIUM SULFATE 1 gm IVPB 1 GM/100 ML BAG IV ONE (08:00)
[2018-11-01] MEDS: ENOXAPARIN 40 MG/0.4 ML SQ SCH (08:17)
[2018-11-01] MEDS: FUROSEMIDE 40 MG/4 ML VIAL IV SCH ×2 (08:18→17:25)
[2018-11-01] MEDS: CEFTRIAXONE/SWI 1gm 1 GM/10 ML SYR IVP SCH (08:18)
[2018-11-01] MEDS: POTASSIUM CL SA 10 MEQ TAB PO SCH (08:18)
[2018-11-01] MEDS: METOPROLOL TAR 25 MG TAB PO SCH ×2 (08:19→21:01)
[2018-11-01] MEDS: LISINOPRIL 10 MG TAB PO SCH (08:19)
[2018-11-01] MEDS: HOME MED 1 EA UNK (Fluticasone/Vilanterol [Breo Ellipta 200-25 Mcg Inh] 1 EACH) IH SCH (08:20)
[2018-11-01] MEDS: MONTELUKAST 10 MG TAB PO SCH (08:20)
[2018-11-01] MEDS: AZITHROMYCIN IV 500 MG in NA CHLORIDE 0.9% 250 ML IVPB SCH (08:55)
[2018-11-01] MEDS: ALBUTEROL 2.5 MG/3 ML NEB SOL IH PRN ×2 (09:00→14:25)
[2018-11-01] MEDS ORDERED: POTASSIUM CHLORIDE 20 MEQ PO SCH (09:00)
[2018-11-01 09:13] LABS: Urine Appearance CLEAR; Urine Bilirubin NEGATIVE (NEG); Urine Blood NEGATIVE (NEG); Urine Color YELLOW; Urine Glucose NEGATIVE (NEG); Urine Protein NEGATIVE (NEG); Urine Urobilinogen 0.2 mg/dL (0.2-1.0); Urine pH 6.5 (5.0-7.0)
[2018-11-01 09:18] LABS: Urine Microscopic Reflex NO UMIC
--- NOTE | 2018-11-01 17:41 | CON ---
Chief Complaint: Shortness of breath. History Of Present Illness: Ms. Zavala has been told in the past she has congestive heart failure mariely t was by an ER doctor, and later when she saw Dr. Ferrari, he did not think she had heart failure and uses Lasix. She has morbid obesity, hypertension. I think her outpatient followup with Dr. Whiteside is fairly sporadic. Medications: Outpatient medications have been albuterol, furosemide, metformin, potassium chloride, Breo Ellipta, and montelukast. Social History: She does not use tobacco. Alcohol use minimal. No illegal drugs. She has lost 29 pounds on a diet in the last 2 months and wants to continue to lose weight. Physical Examination: General: She is 5 feet 8 inches, 369 pounds. Alert, oriented, pleasant, not in distress. HEENT: Normal carotids. No bruit. Lungs: No crackles. Heart: within normal limits. Extremities: 2 to 3+ pitting edema. Impression: The patient probably needs to increase her Lasix. We will do an echocardiogram and see if we can define what kind of edema forming state she has. I suspect it is diastolic dysfunction of the heart and high sodium diet. When she goes home, she really should be on significant doses of Las ix. She has a borderline elevation in troponin, very elevated N-terminal proBNP. So, I suspect this is not an acute coronary syndrome, but volume overload, congestive heart failure, diastolic dysfunction, diuretics and blood pressure control. Restricted sodium intake are a ll likely to be helpful for her. SH/MODL Voice ID: [id number] Report ID: [id number]
[2018-11-02 04:26] VITALS: TEMP 97.5
[2018-11-02 04:38] LABS: Absolute Lymphocytes (CBC) 3.2 K/uL (0.7-4.9); Absolute Monocytes 1.2 K/uL (0.1-1.3); Absolute Neutrophil 4.4 K/uL (1.8-8.0); Basophils % 0.4 % (0-1.3); Hematocrit 35.4 % (36.0-45.0); Lymphocytes % 34.2 % (15.3-44.8); MPV 8.5 fL (7.6-11.3); Monocytes % 12.5 % (3.3-12.3); RBC Red Blood Cell Count 4.58 M/uL (3.86-4.86)
[2018-11-02 04:46] LABS: Bilirubin Total 0.3 mg/dL (0.2-1.0); Magnesium 1.8 mg/dL (1.8-2.4); Potassium 3.4 mmol/L (3.5-5.1); Protein, Total 6.9 g/dL (6.4-8.2)
[2018-11-02 05:21] VITALS: BMI 57.5
[2018-11-02] MEDS: INSULIN -REGULAR HUMAN 50 UNIT/0.5 ML ML SQ SCH (07:30)
[2018-11-02] MEDS: ALBUTEROL 2.5 MG/3 ML NEB SOL IH PRN (08:10)
[2018-11-02] MEDS: CEFTRIAXONE/SWI 1gm 1 GM/10 ML SYR IVP SCH ×2 (09:00)
[2018-11-02] MEDS: MAGNESIUM SULFATE 1 gm IVPB 1 GM/100 ML BAG IV ONE ×2 (09:00→09:07)
[2018-11-02] MEDS ORDERED: POTASSIUM CL SA 10 MEQ TAB PO ONE (09:00)
[2018-11-02] MEDS: HOME MED 1 EA UNK (Fluticasone/Vilanterol [Breo Ellipta 200-25 Mcg Inh] 1 EACH) IH SCH (09:00)
[2018-11-02] MEDS ORDERED: AZITHROMYCIN 250 MG TAB PO SCH (09:00)
[2018-11-02] MEDS: POTASSIUM CL SA 10 MEQ TAB PO SCH (09:07)
[2018-11-02] MEDS: METOPROLOL TAR 25 MG TAB PO SCH (09:07)
[2018-11-02] MEDS: ENOXAPARIN 40 MG/0.4 ML SQ SCH (09:08)
[2018-11-02] MEDS: LISINOPRIL 10 MG TAB PO SCH (09:08)
[2018-11-02] MEDS: FUROSEMIDE 40 MG/4 ML VIAL IV SCH (09:08)
[2018-11-02] MEDS: MONTELUKAST 10 MG TAB PO SCH (09:08)
[2018-11-02 09:09] VITALS: BP 115/55
[2018-11-02] MEDS ORDERED: MAGNESIUM OXIDE 400 MG TAB PO ONE (10:09)
[2018-11-02] MEDS ORDERED: CEFUROXIME 250 MG TAB PO ONE (11:00)
[2018-11-02 12:53] VITALS: O2SAT 97
--- NOTE | 2018-11-02 15:25 | PN ---
Date of Progress Note: 11/01/2018 Seen on 11/01/[address] Rubi for possible diastolic congestive heart failure. The patient today is feeling better. She has diuresed significantly. Her legs showed no edema. Chest still shows ariel e wheezing. She is still having some coughing, but no shortness of breath or fever or chills or ches t pain. Echocardiogram was ordered, but not done because of technical difficulties with the machine. I think nevertheless should she needs to be on beta-blockers, diuresis, probably antibiotics or may be an inhaler for what sounds like bronchitis. She can go home if it is okay with Dr. Valenzuela and I w ill see her in the office in the next couple of weeks. The echo cannot be done here and we could cer tainly do it in the office as an outpatient. She should be also has a stress test as well. Of note, Ms. Zavala does have gallstones as well and she has morbid obesity, but she has lost 25 pounds recent ly and is continuing to try to diet. CAILIN/MICHAEL Voice ID: [id number] Report ID: [id number]
--- NOTE | 2018-11-02 16:40 | DS ---
Date of Discharge: 11/01/2018 [employer] Consultant: Dr. Rubi with Cardiology. Discharge Diagnoses: 1.Acute chronic congestive heart failure exacerbation. 2.Acute bronchitis. 3.Diabetes mellitus type 2 [id number] with hyperglycemia. 4.Morbid obesity, BMI 58. 5.Intermittent asthma. 6.Generalized osteoarthritis. Hospital Course: The patient is a 63-year-old female who comes into the hospital with shortness of b reath and peripheral edema. Chest x-ray showed bilateral lung opacities similar to previous may be i nterstitial edema and interstitial infiltrate. The patient had been reporting some fever, cough, and sputum production. The patient was given Lasix in the ER, felt better. Her BNP was also elevated. The patient's echocardiogram was obtained. She was seen by Cardiology. The patient responded well to IV Lasix. She also was started on antibiotics for her bronchitis. Overall, she did well. Her sy mptoms improved significantly. White count remained stable. Influenza screen was negative. She was not hypoxic, did not require any supplemental oxygen. The patient was able to ambulate without diff iculty. The patient was then cleared for discharge from Cardiology standpoint. Diet: Diabetic diet. Activity: As tolerated. Follow up with primary care physician in 2-3 days. Follow up with cardiolo gist, Dr. Rubi, in 2 weeks. Return to ER for worsening condition. Medications: As per medication reconciliation list. Physical Examination: General: Awake, alert, oriented, in no acute distress. CV: S1, S2. No murmurs. Respiratory: Moving air well bilaterally. Abdomen: Soft, nontender, nondistended. Positive bowel sounds. Extremities: No clubbing, cyanosis, or edema. Neurologic: Nonfocal. SA/MODL Voice ID: [id number] Report ID: [id number]
--- NOTE | 2018-11-02 17:07 | ECHO ---
HEIGHT: 5 ft 8 in WEIGHT: 378 lb 8 oz DATE OF STUDY: 11/02/[address]: Joan Valenzuela MD 2-DIMENSIONAL: YES M.MODE: YES DOPPLER: YES COLOR FLOW: YES TDS: PORTABLE: DEFINITY: BUBBLE STUDY: DIAGNOSIS: CHF CARDIAC HISTORY: CATHERIZATION: NO SURGERY: NO PROSTHETIC VALVE: NO PACEMAKER: NO MEASUREMENTS (cm) DIASTOLIC (NORMALS) SYSTOLIC (NORMALS) IVSd 1.0 (0.6-1.2) LA Diam 3.4 (1.9-4.0) LVEF 70% LVIDd 5.1 (3.5-5.7) LVIDs 3.0 (2.0-3.5) %FS 40% LVPWd 1.0 (0.6-1.2) Ao Diam 2.6 (2.0-3.7) 2 DIMENSIONAL ASSESSMENT: RIGHT ATRIUM: NORMAL LEFT ATRIUM: NORMAL RIGHT VENTRICLE: NORMAL LEFT VENTRICLE: NORMAL TRICUSPID VALVE: NORMAL MITRAL VALVE: NORMAL PULMONIC VALVE: NORMAL AORTIC VALVE: NORMAL PERICARDIAL EFFUSION: NONE AORTIC ROOT: NORMAL LEFT VENTRICULAR WALL MOTION: NORMAL DOPPLER/COLOR FLOW: NORMAL COMMENTS: NORMAL TWO DIMENSIONAL ECHOCARDIOGRAM WITH DOPPLER. TECHNOLOGIST: MAURICE MARTIN
--- NOTE | 2018-11-02 18:07 | PN ---
Date of Progress Note: 11/02/2018 Subjective: The patient is seen and examined. Chart reviewed and case discussed with RN and Dr. Bernardo. The patient overall feels well. No significant shortness of breath. The patient was to be di scharged yesterday; however, echo was incomplete. Echo has now been completed. Medications: List reviewed. Physical Examination: Vital Signs: Temperature 97.5, heart rate 82, blood pressure 115/55, respirations 20, O2 100% on matty m air. General: Awake, alert, oriented x3. No acute distress. Morbidly obese female, BMI 57. CV: S1, S2. No murmurs. Respiratory: Moving air well bilaterally. No wheezing. Abdomen: Soft, nontender, nondistended. Positive bowel sounds. Extremities: No clubbing or cyanosis. Pedal edema present. Neurologic: Nonfocal. Laboratory Data: Sodium 144, potassium 3.4, chloride 108, CO2 of 31, BUN 13, creatinine 0.92, glucos e 115, calcium 8.7, magnesium 1.8. WBC 9.3, H and H 11.6 and 35.4, platelets 292, neutrophils 47%. Assessment And Plan: A 63-year-old female with: 1.Acute on chronic congestive heart failure exacerbation with unknown ejection fraction, likely [place] tolic dysfunction. 2.Acute bronchitis, improved with antibiotics. 3.Diabetes mellitus type 2 non-insulin requiring with hyperglycemia, stable. 4.Morbid obesity. BMI greater than 50. 5.Intermittent asthma, on albuterol p.r.n. 6.Generalized osteoarthritis. Plan: Discharge home. Further workup and evaluation outpatient with Cardiology. Elevated troponin level likely related to congestive heart failure. /MODL Voice ID: [id number] Report ID: [id number]
== END 2018-11-02 12:35 | disposition home or self-care (01) ==
LOC: ER 12:34 → ERHOLD 16:10 → 4TH 17:09
PROVIDERS: ADMIT Family Medicine; ATTEND Family Medicine
DX: I11.0 Hypertensive heart disease with heart failure (principal); I50.9 Heart failure, unspecified; J20.9 Acute bronchitis, unspecified; E11.65 Type 2 diabetes mellitus with hyperglycemia; E66.01 Morbid (severe) obesity due to excess calories; Z68.43 Body mass index [BMI] 50.0-59.9, adult; J45.20 Mild intermittent asthma, uncomplicated; M15.9 Polyosteoarthritis, unspecified
CPT/HCPCS: 36415; 71045; 80048; 80053; 81003; 82962; 83735; 83880; 84484; 85025; 87086; 87088; 87804; 93005; 93306; 94760; 96374; 96375; 99285; G0378; J0456; J0696; J1650; J1940; J2920; J3475

== ENCOUNTER 2020-10-04 12:04 | Emergency (ER) | payer OTHER ==
--- OUTSIDE RECORDS SUMMARY | 2020-10-04 12:08 | XMS REPORT | Continuity of Care Document ---
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 [facility] - fever fever 00:00: Medical 00 [place] Morbid Morbid Disease Active [facility] obesity obesity 4-24 [facility] - 00:[facility]: Medical 00 [place] Choledocho Choledocho Disease Active [facility]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 lithiasis 4-23 [facility] - 00:00: Medical 00 Center Allergies, Adverse Reactions, Alerts Allergy Allergy Status Severity Reaction(s) Onset Inactive Treating Comm ents Source Name Type Date Date Clinician Iodine Propensi Active Hives [facility] And ty to 4-23 [facility] - Iodide adverse 00:00: Medical Containi reaction 00 Center ng s Products Social History Social Habit Start Date Stop Date Quantity Comments Source Sex Assigned At [facility] - [facility] History SDOH [facility] - Alcohol Std Drinks Medica l Center History SDKY [facility] - Alcohol Binge Medical Chasity ter Tobacco use and 2018-10-25 2018-10-25 Never used [facility] - exposure 00:00:00 00:00:00 Medical Center Alcohol intake 2018-10-25 2018-10-25 Current [facility] Lauren es - 00:00:00 00:00:00 non-drinker of Medical Ce nter alcohol (finding) History SDOH 2018-10-24 2018-10-[address] [facility] - Alcohol Frequency 00:00:00 00:00:00 Medical Center Smoking Status Start Date Stop Date Source Never smoker [facility] ed[facility] Center Medications Ordered Filled Start Stop Current Ordering Indication Dosage Frequency Signature Comments Components Source Medication Medication Date Date Medication? Clinician (SIG) Name Name albuterol Yes 2{puff} Inhale [address] HFA 4-25 puffs by [facility] - (VENTOLIN 11:04: mouth via Med ical HFA) 90 00 inhaler Center mcg/actuati every 4 on inhaler (four) hours as needed. metFORMIN Yes 500mg Q.5D Take [address] [address] (GLUCOPHAGE 4-25 mg by [facility] - ) 500 MG 11:04: mouth 2 Medica l tablet 00 (two) Center times daily. furosemide Yes 40mg Take [address] (LASIX) 40 4-25 by mouth [facility] - MG tablet 11:04: as needed. Me dical 00 Center ipratropium Yes INHALE [address] (ATROVENT) 4-17 vial via [facility] - 0.02 % 00:00: NEBULIZER Medica l nebulizer 00 EVERY 6 TO Cent er solution 8 HOURS albuterol Yes 1mL Q.25D Take [address] (PROVENTIL) 3-20 by [facility] - 2.5 mg/0.5 00:00: nebulizati edical mL Nebu 00 on 4 Center nebulizer (four) solution times daily. ergocalcife Yes 1{capsu Q7D Take [address] rol 3-01 le} capsule by [facility] - (ERGOCALCIF 00:00: mouth once Medical AUSTYN) 00 a week. Center 50,000 unit capsule BREO Yes 1{puff} QD Inhale [address] ELLIPTA 2-26 puff by [facility] - 100-25 00:00: mouth via Medica l mcg/dose 00 inhaler Center DsDv daily. montelukast Yes 10mg QD Take [address] (SINGULAIR) 2-26 by mouth Luke s - 10 mg 00:00: daily. Medical tablet 00 Center potassium Yes 10meq QD Take [address] chloride 2-26 mEq by [facility] - (MICRO-K) 00:00: mouth Medical 10 mEq CR 00 daily. Center capsule Procedures This patient has no known procedures. Plan of Care Planned Activity Planned Date Details Comments Source Future Scheduled 2020-03-04 INFLUENZA VACCINE (#1) [facility] - Test 00:00:00 [code = INFLUENZA Medical Ce nter VACCINE (#1)] Future Scheduled 2019 PNEUMOCOCCAL 65+ YRS [facility] - Test 00:00:00 (1 of 1 - Medical Center [id number] PCV13) [code = PNEUMOCOCCAL 65+ YRS (1 of 1 - [id number] PCV13)] Future Scheduled [address] [facility] - Test 00:00:00 (procedure) [code = [facility] [id number]] Future Scheduled [address] [facility] - Test 00:00:00 malignant neoplasm of [facility] cervix (procedure) [code = 272295704] Future Scheduled [address] [facility] [facility] - Test 00:00:00 malignant neoplasm of [facility] breast (procedure) [code = 259482126] Future Scheduled [address] [facility] [address] [facility] - Test 00:00:00 malignant neoplasm of [facility] colon (procedure) [code = 362587415] Results Test Description Test Time Test Comments Results Result Comments Source BLOOD CULTURE 2018-10-30 08:01:00 Test Item Value Reference Range Interpretation Comme nts CULTURE (BEAKER) (test code = 1095) No growth in 5 days BLOOD [id number] 08:01:00 Test Item Value Reference Range Interpretation Comments CULTURE (BEAKER) (test No growth in 5 days code = 1095) POCT-GLUCOSE [id number] 08:05:00 Test Item Value Reference Range Interpretation Comments POC-GLUCOSE METER 109 mg/dL 70-110 TESTED AT [facility] 6720 (BEAKER) (test code = [place] 1538) [id number] COMPREHENSIVE METABOLIC [id number] 05:49:00 Test Item Value Reference Range Interpretation Comments TOTAL PROTEIN 6.4 gm/dL 6.0-8.3 (BEAKER) (test code = 770) ALBUMIN (BEAKER) 3.2 g/dL 3.5-5.0 L (test code = 1145) ALKALINE PHOSPHATASE 91 U/L 40-150 (BEAKER) (test code = 346) BILIRUBIN TOTAL 0.8 mg/dL 0.2-1.2 (BEAKER) (test code = 377) SODIUM (BEAKER) 143 meq/L 136-145 (test code = 381) POTASSIUM (BEAKER) 4.1 meq/L 3.5-5.1 (test code = 379) CHLORIDE (BEAKER) 109 meq/L 98-107 H (test code = 382) CO2 (BEAKER) (test 26 meq/L 22-29 code = 355) BLOOD UREA NITROGEN 11 mg/dL 7-21 (BEAKER) (test code = 354) CREATININE (BEAKER) 0.89 mg/dL 0.57-1.25 (test code = 358) GLUCOSE RANDOM 119 mg/dL 70-105 H (BEAKER) (test code = 652) CALCIUM (BEAKER) 8.9 mg/dL 8.4-10.2 (test code = 697) AST (SGOT) (BEAKER) 37 U/L 5-34 H (test code = 353) ALT (SGPT) (BEAKER) 59 U/L 6-55 H (test code = 347) EGFR (BEAKER) (test mL/min/1.73 INSUFFIC IENT code = 1092) sq m CLINICAL DATA T O CALCULATE ESTIM ATED GFR. CBC W/PLT COUNT & AUTO [id number] 05:12:00 Test Item Value Reference Range Interpretation Comments WHITE BLOOD CELL COUNT (BEAKER) 9.9 K/ L 3.5-10.5 (test code = 775) RED BLOOD CELL COUNT (BEAKER) 4.20 M/ L 3.93-5.22 (test code = 761) HEMOGLOBIN (BEAKER) (test code = 10.5 GM/DL 11.2-15.7 L 410) HEMATOCRIT (BEAKER) (test code = 34.0 % 34.1-44.9 L 411) MEAN CORPUSCULAR VOLUME (BEAKER) 81.0 fL 79.4-94.8 (test code = 753) MEAN CORPUSCULAR HEMOGLOBIN 25.0 pg 25.6-32.2 L (BEAKER) (test code = 751) MEAN CORPUSCULAR HEMOGLOBIN CONC 30.9 GM/DL 32.2-35.5 L (BEAKER) (test code = 752) RED CELL DISTRIBUTION WIDTH 16.3 % 11.7-14.4 H (BEAKER) (test code = 412) PLATELET COUNT (BEAKER) (test 221 K/CU MM 150-450 code = 756) MEAN PLATELET VOLUME (BEAKER) 9.5 fL 9.4-12.3 (test code = 754) NUCLEATED RED BLOOD CELLS 0 /100 WBC 0-0 (BEAKER) (test code = 413) NEUTROPHILS RELATIVE PERCENT 64 % (BEAKER) (test code = 429) LYMPHOCYTES RELATIVE PERCENT 17 % (BEAKER) (test code = 430) MONOCYTES RELATIVE PERCENT 14 % (BEAKER) (test code = 431) EOSINOPHILS RELATIVE PERCENT 4 % (BEAKER) (test code = 432) BASOPHILS RELATIVE PERCENT 0 % (BEAKER) (test code = 437) NEUTROPHILS ABSOLUTE COUNT 6.32 K/ L 1.56-6.13 H (BEAKER) (test code = 670) LYMPHOCYTES ABSOLUTE COUNT 1.65 K/ L 1.18-3.74 (BEAKER) (test code = 414) MONOCYTES ABSOLUTE COUNT (BEAKER) 1.41 K/ L 0.24-0.36 H (test code = 415) EOSINOPHILS ABSOLUTE COUNT 0.42 K/ L 0.04-0.36 H (BEAKER) (test code = 416) BASOPHILS ABSOLUTE COUNT (BEAKER) 0.03 K/ L 0.01-0.08 (test code = 417) IMMATURE GRANULOCYTES-RELATIVE 0 % 0-1 PERCENT (BEAKER) (test code = 2801) POCT-GLUCOSE [id number] 21:39:00 Test Item Value Reference Range Interpretation Comments POC-GLUCOSE METER 171 mg/dL 70-110 H TESTED AT [facility] [address] [facility] (test code = [place] 1538) [id number] POCT-GLUCOSE [id number] 20:41:00 Test Item Value Reference Range Interpretation Comments POC-GLUCOSE METER 124 mg/dL 70-110 H TESTED AT [facility] [address] [facility] (test code = [place] 1538) [id number] COMPREHENSIVE METABOLIC [id number] 13:25:00 Test Item Value Reference Range Interpretation Comments TOTAL PROTEIN 6.6 gm/dL 6.0-8.3 Specimen sligh tly (BEAKER) (test code hemolyze d = 770) ALBUMIN (BEAKER) 3.1 g/dL 3.5-5.0 L Specimen sl ightly (test code = 1145) hemolyzed ALKALINE PHOSPHATASE 86 U/L 40-150 (BEAKER) (test code = 346) BILIRUBIN TOTAL 0.8 mg/dL 0.2-1.2 Specimen sli ghtly (BEAKER) (test code hemolyze d = 377) SODIUM (BEAKER) 141 meq/L 136-145 (test code = 381) POTASSIUM (BEAKER) 4.1 meq/L 3.5-5.1 Specimen slightly (test code = 379) hemolyzed CHLORIDE (BEAKER) 106 meq/L 98-107 (test code = 382) CO2 (BEAKER) (test 27 meq/L 22-29 code = 355) BLOOD UREA NITROGEN 17 mg/dL 7-21 (BEAKER) (test code = 354) CREATININE (BEAKER) 1.10 mg/dL 0.57-1.25 Specimen slightly (test code = 358) hemolyzed GLUCOSE RANDOM 181 mg/dL 70-105 H (BEAKER) (test code = 652) CALCIUM (BEAKER) 8.7 mg/dL 8.4-10.2 (test code = 697) AST (SGOT) (BEAKER) 63 U/L 5-34 H Specimen slightly (test code = 353) hemolyzed ALT (SGPT) (BEAKER) 68 U/L 6-55 H Specimen slightly (test code = 347) hemolyzed EGFR (BEAKER) (test mL/min/1.73 INSUFFIC IENT code = 1092) sq m CLINICAL DATA T O CALCULATE ESTIM ATED GFR. CBC W/PLT COUNT & AUTO [id number] 13:01:00 Test Item Value Reference Range Interpretation Comments WHITE BLOOD CELL COUNT (BEAKER) 10.0 K/ L 3.5-10.5 (test code = 775) RED BLOOD CELL COUNT (BEAKER) 4.28 M/ L 3.93-5.22 (test code = 761) HEMOGLOBIN (BEAKER) (test code = 10.7 GM/DL 11.2-15.7 L 410) HEMATOCRIT (BEAKER) (test code = 34.9 % 34.1-44.9 411) MEAN CORPUSCULAR VOLUME (BEAKER) 81.5 fL 79.4-94.8 (test code = 753) MEAN CORPUSCULAR HEMOGLOBIN 25.0 pg 25.6-32.2 L (BEAKER) (test code = 751) MEAN CORPUSCULAR HEMOGLOBIN CONC 30.7 GM/DL 32.2-35.5 L (BEAKER) (test code = 752) RED CELL DISTRIBUTION WIDTH 16.6 % 11.7-14.4 H (BEAKER) (test code = 412) PLATELET COUNT (BEAKER) (test 261 K/CU MM 150-450 code = 756) MEAN PLATELET VOLUME (BEAKER) 10.0 fL 9.4-12.3 (test code = 754) NUCLEATED RED BLOOD CELLS 0 /100 WBC 0-0 (BEAKER) (test code = 413) NEUTROPHILS RELATIVE PERCENT 67 % (BEAKER) (test code = 429) LYMPHOCYTES RELATIVE PERCENT 16 % (BEAKER) (test code = 430) MONOCYTES RELATIVE PERCENT 13 % (BEAKER) (test code = 431) EOSINOPHILS RELATIVE PERCENT 3 % (BEAKER) (test code = 432) BASOPHILS RELATIVE PERCENT 0 % (BEAKER) (test code = 437) NEUTROPHILS ABSOLUTE COUNT 6.73 K/ L 1.56-6.13 H (BEAKER) (test code = 670) LYMPHOCYTES ABSOLUTE COUNT 1.64 K/ L 1.18-3.74 (BEAKER) (test code = 414) MONOCYTES ABSOLUTE COUNT (BEAKER) 1.29 K/ L 0.24-0.36 H (test code = 415) EOSINOPHILS ABSOLUTE COUNT 0.32 K/ L 0.04-0.36 (BEAKER) (test code = 416) BASOPHILS ABSOLUTE COUNT (BEAKER) 0.02 K/ L 0.01-0.08 (test code = 417) IMMATURE GRANULOCYTES-RELATIVE 0 % 0-1 PERCENT (BEAKER) (test code = 2801) POCT-GLUCOSE [id number] 12:43:00 Test Item Value Reference Range Interpretation Comments POC-GLUCOSE METER 180 mg/dL 70-110 H TESTED AT [facility] 67[address] (BEAKER) (test code = [place] 1538) [id number] POCT-GLUCOSE [id number] 05:58:00 Test Item Value Reference Range Interpretation Comments POC-GLUCOSE METER 146 mg/dL 70-110 H TESTED AT [facility] 67[address] (BEAKER) (test code = [place] 1538) [id number] 02:30:00 Test Item Value Reference Range Interpretation Comments LIPASE (BEAKER) (test code = 749) > U/L 8-78 H COMPREHENSIVE METABOLIC [id number] 01:56:00 Test Item Value Reference Range Interpretation Comments TOTAL PROTEIN 6.5 gm/dL 6.0-8.3 (BEAKER) (test code = 770) ALBUMIN (BEAKER) 3.3 g/dL 3.5-5.0 L (test code = 1145) ALKALINE PHOSPHATASE 90 U/L 40-150 (BEAKER) (test code = 346) BILIRUBIN TOTAL 0.9 mg/dL 0.2-1.2 (BEAKER) (test code = 377) SODIUM (BEAKER) 139 meq/L 136-145 (test code = 381) POTASSIUM (BEAKER) 4.3 meq/L 3.5-5.1 (test code = 379) CHLORIDE (BEAKER) 105 meq/L 98-107 (test code = 382) CO2 (BEAKER) (test 26 meq/L 22-29 code = 355) BLOOD UREA NITROGEN 16 mg/dL 7-21 (BEAKER) (test code = 354) CREATININE (BEAKER) 1.19 mg/dL 0.57-1.25 (test code = 358) GLUCOSE RANDOM 185 mg/dL 70-105 H (BEAKER) (test code = 652) CALCIUM (BEAKER) 9.0 mg/dL 8.4-10.2 (test code = 697) AST (SGOT) (BEAKER) 57 U/L 5-34 H (test code = 353) ALT (SGPT) (BEAKER) 70 U/L 6-55 H (test code = 347) EGFR (BEAKER) (test mL/min/1.73 INSUFFIC IENT code = 1092) sq m CLINICAL DATA T O CALCULATE ESTIM ATED GFR. [id number] 01:54:00 Test Item Value Reference Range Interpretation Comments MAGNESIUM (BEAKER) (test code = 1.7 mg/dL 1.6-2.6 627) CBC W/PLT COUNT & AUTO [id number] 01:46:00 Test Item Value Reference Range Interpretation Comments WHITE BLOOD CELL COUNT (BEAKER) 15.0 K/ L 3.5-10.5 H (test code = 775) RED BLOOD CELL COUNT (BEAKER) 4.27 M/ L 3.93-5.22 (test code = 761) HEMOGLOBIN (BEAKER) (test code = 10.9 GM/DL 11.2-15.7 L 410) HEMATOCRIT (BEAKER) (test code = 35.0 % 34.1-44.9 411) MEAN CORPUSCULAR VOLUME (BEAKER) 82.0 fL 79.4-94.8 (test code = 753) MEAN CORPUSCULAR HEMOGLOBIN 25.5 pg 25.6-32.2 L (BEAKER) (test code = 751) MEAN CORPUSCULAR HEMOGLOBIN CONC 31.1 GM/DL 32.2-35.5 L (BEAKER) (test code = 752) RED CELL DISTRIBUTION WIDTH 16.4 % 11.7-14.4 H (BEAKER) (test code = 412) PLATELET COUNT (BEAKER) (test 281 K/CU MM 150-450 code = 756) MEAN PLATELET VOLUME (BEAKER) 9.8 fL 9.4-12.3 (test code = 754) NUCLEATED RED BLOOD CELLS 0 /100 WBC 0-0 (BEAKER) (test code = 413) NEUTROPHILS RELATIVE PERCENT 84 % (BEAKER) (test code = 429) LYMPHOCYTES RELATIVE PERCENT 8 % (BEAKER) (test code = 430) MONOCYTES RELATIVE PERCENT 6 % (BEAKER) (test code = 431) EOSINOPHILS RELATIVE PERCENT 2 % (BEAKER) (test code = 432) BASOPHILS RELATIVE PERCENT 0 % (BEAKER) (test code = 437) NEUTROPHILS ABSOLUTE COUNT 12.50 K/ L 1.56-6.13 H (BEAKER) (test code = 670) LYMPHOCYTES ABSOLUTE COUNT 1.20 K/ L 1.18-3.74 (BEAKER) (test code = 414) MONOCYTES ABSOLUTE COUNT (BEAKER) 0.95 K/ L 0.24-0.36 H (test code = 415) EOSINOPHILS ABSOLUTE COUNT 0.22 K/ L 0.04-0.36 (BEAKER) (test code = 416) BASOPHILS ABSOLUTE COUNT (BEAKER) 0.03 K/ L 0.01-0.08 (test code = 417) IMMATURE GRANULOCYTES-RELATIVE 0 % 0-1 PERCENT (BANNER) (test code = 2801) POCT-LACTIC ACID, [id number] 00:32:00 Test Item Value Reference Range Interpretation Comments POC-LACTIC ACID, 1.2 mmol/L 0.9-1.7 TESTED AT [facility] [address] ([facility]) ([facility] [place] code = 2805) [address] POCT-GLUCOSE [id number] 23:15:00 Test Item Value Reference Range Interpretation Comments POC-GLUCOSE METER 122 mg/dL 70-110 H TESTED AT [place] [address] ([facility]) (test code = [facility] Marcella [facility] 1538) [address] [place], COMMUNITY HEALTH COORDINATOR IN OR/30 MINUTE [id number] 22:34:00Intra-op ImagingReason for exam:->ERCPFINAL REPORT Examination: ERCP 3 fluoroscopic spot views were obtained during the procedure by the ordering service. Images are nondiagnostic as no radiologist was present at the time of imaging. Fluoroscopic time was 70.6 seconds. Please see the procedure report for details. Signed: Zach Whitley MDRepsantos Verified Date/Time: 10/24/2018 22:34:56 Reading Location: [address] Reading Room POCT- GLUCOSE [id number] 18:27:00 Test Item Value Reference Range Interpretation Comments POC-GLUCOSE METER 99 mg/dL 70-110 TESTED AT [place] [address] ([facility]) (test code = [place] [facility] [address] 1538) POCT-GLUCOSE [id number] 13:55:00 Test Item Value Reference Range Interpretation Comments POC-GLUCOSE METER 86 mg/dL 70-110 TESTED AT [place] [address] ([facility]) (test code = [facility] Marcella [facility] [address] 1538) COMPREHENSIVE METABOLIC [id number] 09:57:00 Test Item Value Reference Range Interpretation Comments TOTAL PROTEIN 6.8 gm/dL 6.0-8.3 ([facility]ANNER) (test code = 770) ALBUMIN ([facility]) 3.4 g/dL 3.5-5.0 L (test code = 1145) ALKALINE PHOSPHATASE 88 U/L 40-150 (BEAKER) (test code = 346) BILIRUBIN TOTAL 0.8 mg/dL 0.2-1.2 (BEAKER) (test code = 377) SODIUM (BEAKER) 146 meq/L 136-145 H (test code = 381) POTASSIUM (BEAKER) 4.2 meq/L 3.5-5.1 (test code = 379) CHLORIDE (BEAKER) 107 meq/L 98-107 (test code = 382) CO2 (BEAKER) (test 33 meq/L 22-29 H code = 355) BLOOD UREA NITROGEN 16 mg/dL 7-21 (BEAKER) (test code = 354) CREATININE (BEAKER) 1.07 mg/dL 0.57-1.25 (test code = 358) GLUCOSE RANDOM 112 mg/dL 70-105 H (BEAKER) (test code = 652) CALCIUM (BEAKER) 9.4 mg/dL 8.4-10.2 (test code = 697) AST (SGOT) (BEAKER) 83 U/L 5-34 H (test code = 353) ALT (SGPT) (BEAKER) 89 U/L 6-55 H (test code = 347) EGFR (BEAKER) (test mL/min/1.73 INSUFFIC IENT code = 1092) sq m CLINICAL DATA T O CALCULATE ESTIM ATED GFR. CBC W/PLT COUNT & AUTO [id number] 09:36:00 Test Item Value Reference Range Interpretation Comments WHITE BLOOD CELL COUNT (BEAKER) 21.1 K/ L 3.5-10.5 H (test code = 775) RED BLOOD CELL COUNT (BEAKER) 4.68 M/ L 3.93-5.22 (test code = 761) HEMOGLOBIN (BEAKER) (test code = 11.8 GM/DL 11.2-15.7 410) HEMATOCRIT (BEAKER) (test code = 37.9 % 34.1-44.9 411) MEAN CORPUSCULAR VOLUME (BEAKER) 81.0 fL 79.4-94.8 (test code = 753) MEAN CORPUSCULAR HEMOGLOBIN 25.2 pg 25.6-32.2 L (BEAKER) (test code = 751) MEAN CORPUSCULAR HEMOGLOBIN CONC 31.1 GM/DL 32.2-35.5 L (BEAKER) (test code = 752) RED CELL DISTRIBUTION WIDTH 16.3 % 11.7-14.4 H (BEAKER) (test code = 412) PLATELET COUNT (BEAKER) (test 262 K/CU MM 150-450 code = 756) MEAN PLATELET VOLUME (BEAKER) 8.9 fL 9.4-12.3 L (test code = 754) NUCLEATED RED BLOOD CELLS 0 /100 WBC 0-0 (BEAKER) (test code = 413) (CELLAVISION MANUAL DIFF)[id number] 09:36:00 Test Item Value Reference Range Interpretation Comments NEUTROPHILS - REL 89 % (CELLAVISION)(BEAKER) (test code = 2816) LYMPHOCYTES - REL 3 % (CELLAVISION)(BEAKER) (test code = 2817) MONOCYTES - REL 5 % (CELLAVISION)(BEAKER) (test code = 2818) EOSINOPHILS - REL 1 % (CELLAVISION)(BEAKER) (test code = 2819) PROMYELOCYTES - REL 1 % 0-0 H (CELLAVSION)(BEAKER) (test code = 2825) ATYPICAL LYMPHOCYTES - REL 1 % 0-0 H (CELLAVISION)(BEAKER) (test code = 2829) NEUTROPHILS - ABS 18.78 K/ul 1.56-6.13 H (CELLAVISION)(BEAKER) (test code = 2830) LYMPHOCYTES - ABS 0.63 K/ul 1.18-3.74 L (CELLAVISION)(BEAKER) (test code = 2831) MONOCYTES - ABS 1.06 K/uL 0.24-0.36 H (CELLAVISION)(BEAKER) (test code = 2832) EOSINOPHILS - ABS 0.21 K/uL 0.04-0.36 (CELLAVISION)(BEAKER) (test code = 2834) PROMYELOCYTES - ABS 0.21 K/uL 0.00-0.00 H (CELLAVISION)(BEAKER) (test code = 2838) ATYPICAL LYMPHOCYTES - ABS 0.21 K/uL 0.00-0.00 H (CELLAVISION)(BEAKER) (test code = 2858) TOTAL COUNTED (BEAKER) (test code 100 = 1351) WBC MORPHOLOGY (BEAKER) (test Normal code = 487) GIANT PLATELETS (BEAKER) (test Present code = 313) LARGE PLT(BEAKER) (test code = Present 2156) POLYCHROMATOPHILLIC RBCS(BEAKER) 1+ few (test code = 478) ANISOCYTOSIS (BEAKER) (test code 2+ moderate = 961) MICROCYTES (BEAKER) (test code = 2+ moderate 965) POIKILOCYTES (BEAKER) (test code 1+ few = 966) SCHISTOCYTES (BEAKER) (test code 1+ few = 765) ELLIPTOCYTES (BEAKER) (test code 1+ few = 962) OVALOCYTES (BEAKER) (test code = 1+ few 477) TEAR DROP CELLS (BEAKER) (test 1+ few code = 481) PLATELET CONCENTRATION Adequate (CELLAVISION)(BEAKER) (test code = 3438) Received comment: User comments: Slide comments: WBC: SEGMENTED WITH DOHLE BODIES AND VACUOLES PRESENTPOCT-GLUCOSE [id number] 09:16:00 Test Item Value Reference Range Interpretation Comments POC-GLUCOSE METER 99 mg/dL 70-110 TESTED AT [facility] 6720 (BEAKER) (test code = [place] [address] 1538) [id number] 09:12:00 Test Item Value Reference Range Interpretation Comments MAGNESIUM (BEAKER) (test code = 1.7 mg/dL 1.6-2.6 627) PROTHROMBIN TIME/[id number] 09:05:00 Test Item Value Reference Range Interpretation Comments PROTIME (BEAKER) (test code = 15.0 seconds 11.7-14.7 H 759) INR (BEAKER) (test code = 370) 1.2 <=5.9 RECOMMENDED COUMADIN/WARFARIN INR THERAPY RANGESSTANDARD DOSE: 2.0 - 3.0 Includes: PROPHYLAXIS forvenous thrombosis, systemic embolization; TREATMENT for venous thrombosis and/or pulmonary embolus.HIGH RISK: Target INR is 2.5-3.5 for patients with mechanical heart valves.SCR MAMM BILATERAL BRIGITTE CAD DIGITAL 2018-09-19 09:08:55 - SCR MAMM BILATERAL BRIGITTE CAD DIGITALBILATERAL DIGITAL SCREENING MAMMOGRAM 3D/2D WITH CAD: 09/08/2018CLINICAL: Asymptomatic. Digital breast tomosynthesis was performed in addition to routine CC and MLOviews. Current mammographic images were evaluated by either a [employer] M-Vu or a [employer] ImageCheckerCAD (computer aided detection system). Comparison is made to exam dated 07/29/2016 mammogram - [facility]-Radiology File Room. The tissue of both breasts [...] mammography inone year. Yakov Belcher M.D. et/:09/19/2018 09:08:55 Entry: cc - 09/20/2018 16:06:25Attending Technologist: Mel Pritchard MM, [facility] [place] [facility] MammographyImaging Technologist: Virgie Kuo MM, [facility] [place] [facility] Mammographyletter sent: Additional Imaging Mammogram BI-RADS: 0 Indeterminate
[2020-10-04] MEDS ORDERED: LEVALBUTEROL 1.25 MG/3 ML NEB ONE (12:59)
[2020-10-04] MEDS ORDERED: METHYLPREDNISOLONE 125 MG INJ ONE (12:59)
[2020-10-04 13:15] LABS: Basophils % 1.3 % (0-1.3); Hematocrit 36.7 % (36.0-45.0); Lymphocytes % 23.6 % (15.3-44.8); RBC Red Blood Cell Count 4.61 M/uL (3.86-4.86)
[2020-10-04] MEDS ORDERED: FAMOTIDINE 20 MG/2 ML VIAL IV ONE (13:17)
[2020-10-04] MEDS ORDERED: ONDANSETRON 4 MG/2 ML VIAL ONE (13:17)
[2020-10-04 13:29] LABS: Potassium 3.7 mmol/L (3.5-5.1)
--- NOTE | 2020-10-04 14:24 | RAD REPORT ---
EXAM DESCRIPTION: [facility] Single View10/04/2020 1:25 pm CLINICAL HISTORY: Shortness of breath COMPARISON: 2019 FINDINGS: Mild bilateral pulmonary opacities appear unchanged likely chronic. The lungs appear clear of acute infiltrate. The heart is normal size IMPRESSION: No acute abnormalities displayed
--- NOTE | 2020-10-04 14:25 | ER ---
Nurse's Notes [facility] Name: Bailey Zavala Age: 65 yrs Sex: Female : 1955 Arrival Date: 10/04/2020 Time: 12:06 Bed 19 Private MD: Julius Leyva E Diagnosis: Unspecified asthma with (acute) exacerbation Presentation: 10/04 12:20 Chief complaint: Patient states: sob and difficulty breathing x3 days history of zb asthma. denies cough, fever, chills, or sx of covid. Pt has had both of her covid vaccination and flu vaccination this year. Coronavirus screen: At this time, the client does not indicate any symptoms associated with coronavirus-19. Ebola Screen: No symptoms or risks identified at this time. Initial Sepsis Screen: Does the patient meet any 2 criteria? No. Patient's initial sepsis screen is negative. Does the patient have a suspected source of infection? No. Patient's initial sepsis screen is negative. Risk Assessment: Do you want to hurt yourself or someone else? Patient reports no desire to harm self or others. Onset of symptoms was October 01, 2020. 12:20 Method Of Arrival: Wheelchair zb 12:20 Acuity: GURPREET 3 zb Triage Assessment: 12:24 General: Appears in no apparent distress. Behavior is calm, cooperative, appropriate zb for age. Pain: Denies pain. Neuro: Level of Consciousness is awake, alert, obeys commands, Oriented to person, place, time. Cardiovascular: Reports shortness of breath, Denies chest pain, diaphoresis, nausea, vomiting, Capillary refill < 3 seconds Patient's skin is warm and dry. Respiratory: Reports shortness of breath at rest Airway is patent Respiratory effort is shallow, Respiratory pattern is tachypnea Breath sounds with crackles in left posterior lower lobe and right posterior lower lobe Breath sounds with wheezes bilaterally. Onset: The symptoms/episode began/occurred 3 days ago , the patient has moderate shortness of breath. GI: Abdomen is round obese. Derm: Skin is intact, is healthy with good turgor, Skin is dry, Skin is normal, Skin temperature is warm. Musculoskeletal: Range of motion: intact in all extremities. Historical: - Allergies: 12:24 Iodine (Hives); zb - PMHx: 12:24 Arthritis; Asthma; Diabetes - NIDDM; right eye surgery; zb - PSHx: 12:24 None; zb - Immunization history:: Adult Immunizations up to date. - Social history:: Smoking status: Patient denies any tobacco usage or history of. Screenin:28 Abuse screen: Denies threats or abuse. Denies injuries from another. Nutritional zb screening: No deficits noted. Tuberculosis screening: No symptoms or risk factors identified. Fall Risk None identified. Assessment: 12:27 Reassessment: ECP at bedside. see triage for assessment. zb 12:50 Reassessment: patient started to experience nausea. notified ECP and medication given. zb 13:00 Reassessment: Patient appears in no apparent distress at this time. Patient and/or zb family updated on plan of care and expected duration. Pain level reassessed. Patient is alert, oriented x 3, equal unlabored respirations, skin warm/dry/pink. Patient states feeling better. 14:02 Reassessment: Patient appears in no apparent distress at this time. Patient and/or zb family updated on plan of care and expected duration. Pain level reassessed. Patient is alert, oriented x 3, equal unlabored respirations, skin warm/dry/pink. pt appears better. talking on the phone with family at this time. 14:16 Reassessment: ECP at bedside discussing care. zb 14:48 Cardiovascular: Rhythm is sinus tachycardia. zb Vital Signs: 12:20 BP 156 / 85; Pulse 111; Resp 24; Temp 97.9; Pulse Ox 94% on R/A; Weight 176.9 kg; zb Height 5 ft. 8 in. (172.72 cm); Pain 0/10; 13:15 BP 134 / 82; Pulse 98; Resp 16; Pulse Ox 99% on 15% Nebulizer Mask; zb 13:58 BP 143 / 93; Pulse 94; Resp 18; Pulse Ox 99% 1 lpm ; zb 12:20 Body Mass Index 59.30 (176.90 kg, 172.72 cm) zb ED Course: 12:06 Patient arrived in ED. am2 12:06 Julius Leyva MD is Private Physician. am2 12:15 Francia Valerio RN is Primary Nurse. zb 12:15 Brandon Livingston PA is PHCP. cp 12:15 Mireya Yap MD is Attending Physician. cp 12:23 Triage completed. zb 12:28 Patient has correct armband on for positive identification. Bed in low position. Call zb light in reach. Pulse ox on. NIBP on. Door closed. Noise minimized. 12:30 Inserted saline lock: 20 gauge in right antecubital area, using aseptic technique. zb Blood collected. 13:25 XRAY Chest (1 view) In Process Unspecified. EDMS 14:47 No provider procedures requiring assistance completed. IV discontinued, intact, zb bleeding controlled, No redness/swelling at site. Pressure dressing applied. 14:48 Arm band placed on. zb Administered Medications: 12:50 Drug: Xopenex (3) 1.25 mg Route: Inhalation; zb 13:20 Follow up: Response: No adverse reaction; Marked relief of symptoms zb 12:50 Drug: SOLU-Medrol 125 mg Route: IVP; Site: right antecubital; zb 14:16 Follow up: Response: No adverse reaction; Marked relief of symptoms zb 13:13 Drug: Zofran (Ondansetron) 4 mg Route: IVP; Site: right antecubital; zb 14:16 Follow up: Response: No adverse reaction; Marked relief of symptoms; Nausea is decreasedzb 13:13 Drug: Pepcid (famotidine) 20 mg Route: IVP; Site: right antecubital; zb 14:16 Follow up: Response: No adverse reaction zb Outcome: 14:25 Discharge ordered by MD. cp 14:48 Discharged to home via wheelchair. zb 14:48 Condition: stable 14:48 Discharge instructions given to patient, Instructed on discharge instructions, follow up and referral plans. medication usage, Demonstrated understanding of instructions, follow-up care, medications, Prescriptions given X 2. 14:48 Patient left the ED. zb Signatures: Dispatcher [employer] EDMS Brandon Livingston PA PA cp Moreno, Amanda am2 Brown, Zipporah, RN RN zb Corrections: (The following items were deleted from the chart) 13:11 12:24 Respiratory: Reports shortness of breath at rest Breath sounds with wheezes zb bilaterally. Onset: The symptoms/episode began/occurred 3 days ago , the patient has moderate shortness of breath zb
--- NOTE | 2020-10-04 14:25 | EDPHYS ---
Physician Documentation [facility] Name: Bailey Zavala Age: 65 yrs Sex: Female : 1955 Arrival Date: 10/04/2020 Time: 12:06 Bed 19 Private MD: Julius Leyva E ED Physician Mireya Yap HPI: 10/04 12:35 This 65 yrs old Black Female presents to ER via Wheelchair with complaints of Asthma cp Exacerbation, Breathing Difficulty, Cough. 12:35 The patient presents to the emergency department with wheezing, Current therapy: cp albuterol inhaler, that began weather, the patient was reported to have audible wheezing, non-productive cough, trouble breathing. Onset: The symptoms/episode began/occurred 3 day(s) ago. Associated signs and symptoms: Pertinent negatives: chest pain, fever, headache, vomiting. 12:35 Patient reports receiving both doses of COVID vaccination. cp Historical: - Allergies: 12:24 Iodine (Hives); zb - PMHx: 12:24 Arthritis; Asthma; Diabetes - NIDDM; right eye surgery; zb - PSHx: 12:24 None; zb - Immunization history:: Adult Immunizations up to date. - Social history:: Smoking status: Patient denies any tobacco usage or history of. ROS: 12:40 Constitutional: Negative for body aches, chills, fever, poor PO intake. cp 12:40 Eyes: Negative for injury, pain, redness, and discharge. cp 12:40 Cardiovascular: Positive for edema, Negative for chest pain, palpitations. 12:40 Respiratory: Positive for cough, shortness of breath, wheezing. 12:40 Abdomen/GI: Negative for abdominal pain, nausea, vomiting, and diarrhea. 12:40 Skin: Negative for rash. 12:40 Neuro: Negative for altered mental status, dizziness, headache, weakness. 12:40 All other systems are negative. Exam: 12:45 Constitutional: The patient appears in no acute distress, alert, awake, cp non-diaphoretic, non-toxic, well developed, well nourished, obese. 12:45 Head/Face: Normocephalic, atraumatic. cp 12:45 Eyes: Periorbital structures: appear normal, Conjunctiva: normal, no exudate, no injection, Sclera: no appreciated abnormality, Lids and lashes: appear normal, bilaterally. 12:45 ENT: External ear(s): are unremarkable, Nose: is normal, Mouth: Lips: moist, Oral mucosa: moist, Posterior pharynx: Airway: no evidence of obstruction, patent. 12:45 Chest/axilla: Inspection: normal, Palpation: is normal, no crepitus, no tenderness. 12:45 Cardiovascular: Rate: tachycardic, Rhythm: regular, Edema: ankle edema, that is very mild, JVD: is not appreciated. 12:45 Respiratory: the patient does not display signs of respiratory distress, Respirations: labored breathing, that is mild, Breath sounds: decreased breath sounds, are not appreciated, stridor, is not appreciated, wheezing: that is mild, is heard diffusely. 12:45 Abdomen/GI: Exam negative for discomfort, distension, guarding, Inspection: obese 12:45 Back: pain, is absent, ROM is normal. 12:45 Neuro: Orientation: to person, place \T\ time. Mentation: is normal, Motor: moves all fours, strength is normal. 12:49 ECG was reviewed by the Attending Physician. cp Vital Signs: 12:20 BP 156 / 85; Pulse 111; Resp 24; Temp 97.9; Pulse Ox 94% on R/A; Weight 176.9 kg; zb Height 5 ft. 8 in. (172.72 cm); Pain 0/10; 13:15 BP 134 / 82; Pulse 98; Resp 16; Pulse Ox 99% on 15% Nebulizer Mask; zb 13:58 BP 143 / 93; Pulse 94; Resp 18; Pulse Ox 99% 1 lpm ; zb 12:20 Body Mass Index 59.30 (176.90 kg, 172.72 cm) zb MDM: 12:28 Patient medically screened. cp 13:00 Differential diagnosis: acute asthma, reactive airway, CHF, URI. cp 14:02 Test interpretation: by ED physician or midlevel provider: chest xray negative for cp infiltrates. 14:25 Data reviewed: vital signs, nurses notes, lab test result(s), EKG, radiologic studies, cp plain films. 14:25 Counseling: I had a detailed discussion with the patient and/or guardian regarding: the cp historical points, exam findings, and any diagnostic results supporting the discharge/admit diagnosis, lab results, radiology results, the need for outpatient follow up, a family practitioner, to return to the emergency department if symptoms worsen or persist or if there are any questions or concerns that arise at home. Response to treatment: the patient's symptoms have markedly improved after treatment, and as a result, I will discharge patient. 10/04 12:31 Order name: CBC with Diff; Complete Time: 13:33 cp 10/04 13:33 Interpretation: Normal except: HGB 11.8; MCV 79.6; MCH 25.6; RDW 16.6; EOSINOPHIL % 5.7.cp 10/04 12:31 Order name: BMP; Complete Time: 13:33 cp 10/04 13:33 Interpretation: Normal except: CL 108; GLUC 119; GFR 74. cp 10/04 12:31 Order name: BNP; Complete Time: 13:33 cp 10/04 12:33 Order name: XRAY Chest (1 view) cp 10/04 12:31 Order name: IV; Complete Time: 13:01 cp 10/04 12:32 Order name: EKG; Complete Time: 12:32 cp 10/04 12:32 Order name: EKG - Nurse/Tech; Complete Time: 12:59 cp EC:49 Rate is 99 beats/min. Rhythm is regular. [place] interval is normal. QRS interval is normal. cp QT interval is normal. T waves are Inverted in lead aVR. Interpreted by me. Reviewed by me. Administered Medications: 12:50 Drug: Xopenex (3) 1.25 mg Route: Inhalation; zb 13:20 Follow up: Response: No adverse reaction; Marked relief of symptoms zb 12:50 Drug: SOLU-Medrol 125 mg Route: IVP; Site: right antecubital; zb 14:16 Follow up: Response: No adverse reaction; Marked relief of symptoms zb 13:13 Drug: Zofran (Ondansetron) 4 mg Route: IVP; Site: right antecubital; zb 14:16 Follow up: Response: No adverse reaction; Marked relief of symptoms; Nausea is decreasedzb 13:13 Drug: Pepcid (famotidine) 20 mg Route: IVP; Site: right antecubital; zb 14:16 Follow up: Response: No adverse reaction zb Disposition: 10/04/20 14:25 Discharged to Home. Impression: Unspecified asthma with (acute) exacerbation. - Condition is Stable. - Discharge Instructions: Asthma, Adult. - Prescriptions for Prednisone 20 mg Oral Tablet - take 3 tablet by ORAL route once daily for 5 days; 15 tablet. Albuterol Sulfate 2.5 mg /3 mL (0.083 %) Inhalation Solution for Nebulization - inhale 1 unit by NEBULIZATION route every 8 hours As needed; 1 box. - Medication Reconciliation Form, Thank You Letter, Antibiotic Education, Prescription Opioid Use form. - Follow up: Private Physician; When: 1 - 2 days; Reason: Recheck today's complaints. - Problem is an acute exacerbation. - Symptoms have improved. Addendum: 10/05/2020 18:42 Co-signature as Attending Physician, Mireya Yap MD. m a2 Signatures: Dispatcher [employer] EDMS Brandon Livingston PA PA cp Alzahri, Mohammad, MD MD ma2 Francia Valerio RN RN zb Corrections: (The following items were deleted from the chart) 10/04 14:48 14:25 10/04/2020 14:25 Discharged to Home. Impression: Unspecified asthma with (acute) zb exacerbation. Condition is Stable. Forms are Medication Reconciliation Form, Thank You Letter, Antibiotic Education, Prescription Opioid Use. Follow up: Private Physician; When: 1 - 2 days; Reason: Recheck today's complaints. Problem is an acute exacerbation. Symptoms have improved. cp
[2020-10-04 18:44] VITALS: TEMP 97.9
[2020-10-04 18:46] VITALS: O2SAT 99
[2020-10-04 18:47] VITALS: BP 143/93
--- NOTE | 2020-10-06 08:58 | EKG ---
Test Date: 2020-10-04 Test Time: 12:43:51 Chef German: SOLEDAD MEASUREMENT RESULTS: Intervals: Rate: 99 ND: 150 QRSD: 78 QT: 358 QTc: 459 [place]: P: 56 ND: 150 QRS: -16 T: 40 INTERPRETIVE STATEMENTS: Normal sinus rhythm Low voltage QRS Borderline ECG Compared to ECG 10/31/2018 13:42:41 Low QRS voltage now present Sinus tachycardia no longer present T-wave abnormality no longer present Electronically Signed On 10-06-20 08:55:27 CDT by Curt Carter
== END 2020-10-04 14:48 | disposition home or self-care (01) ==
LOC: ER 12:04
DX: J45.901 Unspecified asthma with (acute) exacerbation (principal); M19.90 Unspecified osteoarthritis, unspecified site; E11.9 Type 2 diabetes mellitus without complications
CPT/HCPCS: 93005; 85025; 80048; 36415; 83880; 71045; 96375; 96374; 99285; J2930; J2405

== ENCOUNTER 2021-01-05 09:44 | Emergency (ER) | payer OTHER ==
--- OUTSIDE RECORDS SUMMARY | 2021-01-05 10:16 | XMS REPORT | Continuity of Care Document ---
:1955 Author Organization [facility] Address [address] [place] [address] Care Team Providers Name Role Phone SANTI TONG Attending Clinician Unavailable SANTI TONG Admitting Clinician Unavailable Problems This patient has no known problems. Allergies, Adverse Reactions, Alerts This patient has no known allergies or adverse reactions. Medications This patient has no known medications. Procedures This patient has no known procedures. Results Test Description Test Time Test Comments Results Result Comments Source BLOOD CULTURE 2018-10-30 08:01:00 Test Item Value Reference Range Interpretation Comme nts CULTURE (BEAKER) (test code = 1095) No growth in 5 days BLOOD [id number] 08:01:00 Test Item Value Reference Range Interpretation Comments CULTURE (BEAKER) (test No growth in 5 days code = 1095) POCT-GLUCOSE [id number] 08:05:00 Test Item Value Reference Range Interpretation Comments POC-GLUCOSE METER 109 mg/dL 70-[address] [facility] 6720 (BEAKER) (test code = [place] R [facility] 1538) [id number] COMPREHENSIVE METABOLIC [id number] 05:49:00 Test Item Value Reference Range Interpretation [...] ATED GFR. CBC W/PLT COUNT & AUTO [id number] 05:12:00 Test Item Value Reference Range Interpretation [...] PERCENT (BEAKER) (test code = 2801) POCT-GLUCOSE [id number] 21:39:00 Test Item Value Reference Range Interpretation Comments POC-GLUCOSE METER 171 mg/dL 70-110 H TESTED AT [place] [address] [facility] (test code = [facility] 1538) [address] POCT-GLUCOSE [id number] 20:41:00 Test Item Value Reference Range Interpretation Comments POC-GLUCOSE METER 124 mg/dL 70-[address] [facility] 67 ([facility]) (test code = [facility] 1538) [address] COMPREHENSIVE METABOLIC [id number] 13:25:00 Test Item Value Reference Range Interpretation [...] ATED GFR. CBC W/PLT COUNT & AUTO [id number] 13:01:00 Test Item Value Reference Range Interpretation [...] % 0-1 PERCENT (BEAKER) (test code = 2807) POCT-GLUCOSE [id number] 12:43:00 Test Item Value Reference Range Interpretation Comments POC-GLUCOSE METER 180 mg/dL 70-110 H TESTED AT [place] [address] ([facility]) (test code = [place] [facility] 1538) [address] POCT-GLUCOSE [id number] 05:58:00 Test Item Value Reference Range Interpretation Comments POC-GLUCOSE METER 146 mg/dL 70-[address] [facility] 6720 ([facility]) (test code = [place] [facility] 1538) [address] [id number] 02:30:00 Test Item Value Reference Range Interpretation Comments LIPASE (BEAKER) (test code = 749) > U/L 8-78 H COMPREHENSIVE METABOLIC [id number] 01:56:00 Test Item Value Reference Range Interpretation [...] DATA T O CALCULATE ESTIM ATED GFR. [id number] 01:54:00 Test Item Value Reference Range Interpretation Comments MAGNESIUM (BEAKER) (test code = 1.7 mg/dL 1.6-2.6 627) CBC W/PLT COUNT & AUTO [id number] 01:46:00 Test Item Value Reference Range Interpretation [...] 0-1 PERCENT (BEAKER) (test code = 2801) POCT-LACTIC ACID, [id number] 00:32:00 Test Item Value Reference Range Interpretation Comments POC-LACTIC ACID, 1.2 mmol/L 0.9-1.7 TESTED AT [facility] [address] (BEAKER) (test [place] code = 2805) [id number] POCT-GLUCOSE [id number] 23:15:00 Test Item Value Reference Range Interpretation Comments POC-GLUCOSE METER 122 mg/dL 70-110 H TESTED AT [place] [address] ([facility]) (test code = [place] [facility] 1538) [address] [place], LEARNING DEVELOPMENT SPECIALIST IN OR/30 MINUTE [id number] 22:34:00Intra-op ImagingReason for exam:->ERCPFINAL REPORT Examination: ERCP 3 fluoroscopic spot views were obtained during the procedure by the ordering service. Images are nondiagnostic as no radiologist was present at the time of imaging. Fluoroscopic time was 70.6 seconds. Please see the procedure report for details. Signed: Chiki Whitley Verified Date/Time: 10/24/2018 22:34:56 Reading Location: [address] Reading Room POCT- GLUCOSE [id number] 18:27:00 Test Item Value Reference Range Interpretation Comments POC-GLUCOSE METER 99 mg/dL 70-110 TESTED AT [place] [address] ([facility]) ([facility] [place] [facility] [address] 1538) POCT-GLUCOSE [id number] 13:55:00 Test Item Value Reference Range Interpretation Comments POC-GLUCOSE METER 86 mg/dL 70-110 TESTED AT [place] [address] ([facility]) (test [facility] = [facility] [place] [facility] [address] 1538) COMPREHENSIVE METABOLIC [id number] 09:57:00 Test Item Value Reference Range Interpretation Comments TOTAL PROTEIN 6.8 gm/dL 6.0-8.3 (BEAKER) (test code = 770) ALBUMIN (BEAKER) 3.4 g/dL 3.5-5.0 L (test code = [...] ATED GFR. CBC W/PLT COUNT & AUTO [id number] 09:36:00 Test Item Value Reference Range Interpretation [...] SEGMENTED WITH DOHLE BODIES AND VACUOLES PRESENTPOCT-GLUCOSE [id number] 09:16:00 Test Item Value Reference Range Interpretation Comments POC-GLUCOSE METER 99 mg/dL 70-[address] [facility] 6720 (BEAKER) (test code = [place] [address] 1538) [id number] 09:12:00 Test Item Value Reference Range Interpretation Comments MAGNESIUM (BEAKER) (test code = 1.7 mg/dL 1.6-2.6 627) PROTHROMBIN [id number] 09:05:00 Test Item Value Reference Range Interpretation [...] mammographic images were evaluated by either a [employer] or a [employer] Image[employer]erCAD (computer aided detection system). Comparison is made to exam dated 07/29/2016 mammogram - [facility]-Radiology File Room. The tissue of both [...] year. Yakov Belcher M.D. et/:09/19/2018 09:08:55 Entry: - 09/20/2018 16:06:25Attending Technologist: Mel Pritchard MM, [facility] MammographyImaging Technologist: Virgie Kuo MM, [facility] Mammographyletter sent: Additional Imaging Mammogram BI-RADS: 0 Indeterminate
[2021-01-05] MEDS ORDERED: METHYLPREDNISOLONE 125 MG INJ ONE (10:51)
[2021-01-05] MEDS ORDERED: MAGNESIUM SULFATE 1 gm IVPB 1 GM/100 ML BAG IV ONE (10:52)
[2021-01-05] MEDS ORDERED: ONDANSETRON 4 MG/2 ML VIAL ONE (10:52)
--- NOTE | 2021-01-05 10:55 | RAD REPORT ---
EXAM DESCRIPTION: RAD - Chest Single View - 01/05/2021 10:41 am CLINICAL HISTORY: COUGH COMPARISON: October 04 TECHNIQUE: AP portable chest image was obtained 01/05/2021 10:41 am . FINDINGS: Lung volumes are very low large body habitus further limits the examination. No dense mass or consolidations seen. Interstitial opacification is seen in both lower lung jackson could be atelec tasis, mild interstitial infiltrate or artifact of the exam limitations. Heart and vasculature are no rmal. No measurable pleural effusion and no pneumothorax. No acute bony abnormality seen. No acute ao rtic findings suspected. IMPRESSION: Significantly limited chest examination without acute cardiopulmonary process. Interstitial prominence could be edema, infiltrate or atelectasis.
[2021-01-05 11:10] LABS: Absolute Lymphocytes (CBC) 1.9 K/uL (0.7-4.9); Basophils % 0.6 % (0-1.3); Hematocrit 34.9 % (36.0-45.0); Lymphocytes % 22.1 % (15.3-44.8); MPV 8.1 fL (7.6-11.3); RBC Red Blood Cell Count 4.33 M/uL (3.86-4.86)
[2021-01-05 11:38] LABS: Potassium 3.6 mmol/L (3.5-5.1)
--- NOTE | 2021-01-05 12:01 | ER ---
Nurse's Notes [facility] Name: Bailey Zavala Age: 65 yrs Sex: Female : 1955 Arrival Date: 01/05/2021 Time: 09:48 Bed 8 Private MD: Diagnosis: Unspecified asthma with (acute) exacerbation Presentation: 01/05 09:56 Chief complaint: Patient states: "I got wet then I accidently turned on the fan and now jl7 my allergies are acting up and it's going to mess with my asthma." Reports SOB x 2 days, also arthritis pain to left knee. Coronavirus screen: Client denies travel out of the [place] in the last 14 days. shortness of breath, Client presents with at least one sign or symptom that may indicate coronavirus-19. Standard/surgical mask placed on the client. Provider contacted for isolation considerations. Ebola Screen: No symptoms or risks identified at this time. Initial Sepsis Screen: Does the patient meet any 2 criteria? No. Patient's initial sepsis screen is negative. Does the patient have a suspected source of infection? No. Patient's initial sepsis screen is negative. Risk Assessment: Do you want to hurt yourself or someone else? Patient reports no desire to harm self or others. Onset of symptoms was January 03, 2021. 09:56 Method Of Arrival: Ambulatory [facility] 09:56 Acuity: GURPREET 3 jl7 Triage Assessment: 09:59 General: Appears in no apparent distress. uncomfortable, Behavior is calm, cooperative. jl7 Pain: Denies pain. Respiratory: Airway is patent Respiratory effort is even, unlabored, Respiratory pattern is regular, symmetrical. Historical: - Allergies: 09:59 Iodine (Hives); jl7 09:59 toothpaste; jl7 - PMHx: 09:59 Arthritis; Asthma; Diabetes - NIDDM; right eye surgery; jl7 - Immunization history:: Adult Immunizations up to date, Client reports receiving the 2nd dose of the Covid vaccine. - Social history:: Smoking status: Patient denies any tobacco usage or history of. Screenin:20 Abuse screen: Denies threats or abuse. Denies injuries from another. Nutritional ph screening: No deficits noted. Tuberculosis screening: No symptoms or risk factors identified. Fall Risk None identified. Assessment: 10:20 General: Appears in no apparent distress. Behavior is calm, cooperative, appropriate kg for age, quiet. Pain: Complains of pain in Head, chest, Ears. Neuro: No deficits noted. Cardiovascular: No deficits noted. Cardiovascular: Heart tones S1 S2. Respiratory: Reports shortness of breath cough that is Congestion Airway is patent Trachea midline Respiratory effort is even, unlabored, relaxed, Respiratory pattern is regular, Breath sounds are clear bilaterally. GI: No deficits noted. : No deficits noted. : No deficits noted. EENT: No deficits noted. Derm: No deficits noted. Musculoskeletal: No deficits noted. Vital Signs: 09:56 BP 151 / 79; Pulse 105; Resp 19; Temp 98.7; Pulse Ox 96% on R/A; Weight 172.37 kg; jl7 Height 5 ft. 8 in. (172.72 cm); Pain 0/10; 10:30 BP 113 / 75; Pulse 95; Resp 20; Pulse Ox 92% ; kg 10:45 BP 149 / 89; Pulse 104; Resp 21; Pulse Ox 93% on R/A; kg 11:00 BP 113 / 75; Pulse 95; Resp 20; Pulse Ox 92% on R/A; kg 11:30 BP 128 / 79; Pulse 82; Resp 20; Pulse Ox 93% on R/A; kg 12:19 BP 138 / 87; Pulse 84; Resp 18; Temp 98.5; Pulse Ox 100% on Nebulizer Mask; ph 09:56 Body Mass Index 57.78 (172.37 kg, 172.72 cm) jl7 ED Course: 09:48 Patient arrived in ED. as 09:59 Triage completed. jl7 09:59 Arm band placed on right wrist. jl7 10:01 Miya Chiu FNP-C is PHCP. kb 10:01 Brandon Goyal MD is Attending Physician. kb 10:07 Vanessa Amaya, AMARILYS is Primary Nurse. kg 10:41 Chest Single View In Process Unspecified. EDMS 12:20 Patient has correct armband on for positive identification. Placed in gown. Bed in low ph position. Call light in reach. Side rails up X 1. Pulse ox on. NIBP on. Door closed. Noise minimized. 12:20 No provider procedures requiring assistance completed. IV discontinued, intact, ph bleeding controlled, No redness/swelling at site. Pressure dressing applied. Administered Medications: 10:39 Drug: SOLU-Medrol (methylPrednisoLONE) 125 mg Route: IVP; Site: right antecubital; kg 12:07 Follow up: Response: No adverse reaction kg 10:40 Drug: Zofran (Ondansetron) 4 mg Route: IVP; Site: right antecubital; kg 12:08 Follow up: Response: No adverse reaction kg 10:40 Drug: Magnesium Sulfate 1 grams Route: IVPB; Infused Over: 30 mins; Site: right kg antecubital; 11:10 Follow up: Response: No adverse reaction; IV Status: Completed infusion; IV Intake: kg 100ml 11:57 Drug: AtroVENT (ipratropium) Aerosol 0.5 mg Route: Inhalation; kg 12:08 Follow up: Response: No adverse reaction; Marked relief of symptoms kg 11:57 Drug: Xopenex (levalbuterol) (3) 1.25 mg Route: Inhalation; kg 12:08 Follow up: Response: No adverse reaction; Marked relief of symptoms kg Intake: 11:10 IV: 100ml; Total: 100ml. kg Outcome: 12:01 Discharge ordered by . kb 12:20 Discharged to home via wheelchair, with significant other. ph 12:20 Condition: good 12:20 Discharge instructions given to patient, Instructed on discharge instructions, follow up and referral plans. medication usage, Demonstrated understanding of instructions, follow-up care, medications, Prescriptions given X 2. 12:24 Patient left the ED. ph Signatures: Dispatcher [employer] EDVA Miya Chiu FNP-C FNP-Ckb Martinez, Amelia as Hall, Patricia RN AMARILYS Avani Elaine RN RN jl7 Vanessa Amaya RN RN kg
--- NOTE | 2021-01-05 12:01 | EDPHYS ---
Physician Documentation [facility] Name: Bailey Zavala Age: 65 yrs Sex: Female : 1955 Arrival Date: 01/05/2021 Time: 09:48 Bed 8 Private MD: ED Physician Brandon Goyal HPI: 01/05 11:58 This 65 yrs old Black Female presents to ER via Ambulatory with complaints of Allergy kb Symptoms, Asthma Exacerbation, Ear Pain, Knee Pain. 11:58 The patient presents to the emergency department with wheezing, Current therapy: kb albuterol nebs. Onset: The symptoms/episode began/occurred 2 day(s) ago. Modifying factors: The symptoms are alleviated by nothing, the symptoms are aggravated by nothing. Associated signs and symptoms: The patient has no apparent associated signs or symptoms. Severity of symptoms: At their worst the symptoms were mild moderate in the emergency department the symptoms are unchanged. The patient has experienced similar episodes in the past. The patient has not recently seen a physician. Pt reports cough, shortness of breath and wheezing for 2 days. States she did all of the things that normally work at home without relief. "when it gets to this point I know I need to come in for steroids and antibiotics." States she got hot, then wet and slept under a fan which triggers this.. Historical: - Allergies: 09:59 Iodine (Hives); jl7 09:59 toothpaste; jl7 - PMHx: 09:59 Arthritis; Asthma; Diabetes - NIDDM; right eye surgery; jl7 - Immunization history:: Adult Immunizations up to date, Client reports receiving the 2nd dose of the Covid vaccine. - Social history:: Smoking status: Patient denies any tobacco usage or history of. ROS: 11:56 Constitutional: Negative for fever, chills, and weight loss. kb 11:56 Respiratory: Positive for cough, shortness of breath, wheezing. 11:56 All other systems are negative. Exam: 11:56 Constitutional: This is a well developed, well nourished patient who is awake, alert, kb and in no acute distress. Head/Face: Normocephalic, atraumatic. ENT: Moist Mucous membranes Cardiovascular: Regular rate and rhythm with a normal S1 and S2. No gallops, murmurs, or rubs. No pulse deficits. Skin: Warm, dry with normal turgor. Normal color. MS/ Extremity: Pulses equal, no cyanosis. Neurovascular intact. Full, normal range of motion. Neuro: Awake and alert, GCS 15, oriented to person, place, time, and situation. Moves all extremities. Normal gait. Psych: Awake, alert, with orientation to person, place and time. Behavior, mood, and affect are within normal limits. 11:56 Respiratory: the patient does not display signs of respiratory distress, Respirations: labored breathing, that is mild, Breath sounds: wheezing: expiratory that is mild, is heard in the left posterior lower lobe and right posterior lower lobe. Vital Signs: 09:56 BP 151 / 79; Pulse 105; Resp 19; Temp 98.7; Pulse Ox 96% on R/A; Weight 172.37 kg; jl7 Height 5 ft. 8 in. (172.72 cm); Pain 0/10; 10:30 BP 113 / 75; Pulse 95; Resp 20; Pulse Ox 92% ; kg 10:45 BP 149 / 89; Pulse 104; Resp 21; Pulse Ox 93% on R/A; kg 11:00 BP 113 / 75; Pulse 95; Resp 20; Pulse Ox 92% on R/A; kg 11:30 BP 128 / 79; Pulse 82; Resp 20; Pulse Ox 93% on R/A; kg 12:19 BP 138 / 87; Pulse 84; Resp 18; Temp 98.5; Pulse Ox 100% on Nebulizer Mask; ph 09:56 Body Mass Index 57.78 (172.37 kg, 172.72 cm) jl7 MDM: 10:01 Patient medically screened. kb 11:47 Data reviewed: vital signs, nurses notes. Data interpreted: Pulse oximetry: on room air kb is 94 %. Interpretation: normal. Counseling: I had a detailed discussion with the patient and/or guardian regarding: the historical points, exam findings, and any diagnostic results supporting the discharge/admit diagnosis, lab results, radiology results, the need for outpatient follow up, a family practitioner, to return to the emergency department if symptoms worsen or persist or if there are any questions or concerns that arise at home. ED course: Pt reports she is feeling a little better. states it normally takes a course of antibiotics and steroids to get her back to normal. 01/05 10:06 Order name: CBC with Diff kb 01/05 10:06 Order name: Basic Metabolic Panel 01/05 10:06 Order name: CBC with Automated Diff; Complete Time: 11:13 EDMS 01/05 10:06 Order name: Basic Metabolic Panel; Complete Time: 11:40 EDMS 01/05 10:26 Order name: Chest Single View; Complete Time: 11:01 EDMS 01/05 10:06 Order name: IV Start; Complete Time: 10:48 kb Administered Medications: 10:39 Drug: SOLU-Medrol (methylPrednisoLONE) 125 mg Route: IVP; Site: right antecubital; kg 12:07 Follow up: Response: No adverse reaction kg 10:40 Drug: Zofran (Ondansetron) 4 mg Route: IVP; Site: right antecubital; kg 12:08 Follow up: Response: No adverse reaction kg 10:40 Drug: Magnesium Sulfate 1 grams Route: IVPB; Infused Over: 30 mins; Site: right kg antecubital; 11:10 Follow up: Response: No adverse reaction; IV Status: Completed infusion; IV Intake: kg 100ml 11:57 Drug: AtroVENT (ipratropium) Aerosol 0.5 mg Route: Inhalation; kg 12:08 Follow up: Response: No adverse reaction; Marked relief of symptoms kg 11:57 Drug: Xopenex (levalbuterol) (3) 1.25 mg Route: Inhalation; kg 12:08 Follow up: Response: No adverse reaction; Marked relief of symptoms kg Disposition: 13:26 Co-signature as Attending Physician, Brandon Goyal MD I agree with the assessment and ashvin plan of care. Disposition Summary: 01/05/21 12:01 Discharge Ordered Location: Home kb Condition: Stable kb Diagnosis - Unspecified asthma with (acute) exacerbation kb Followup: kb - With: Private Physician - When: 2 - 3 days - Reason: Recheck today's complaints, Continuance of care, Re-evaluation by your physician Followup: kb - With: Emergency Department - When: As needed - Reason: Worsening of condition Discharge Instructions: - Discharge Summary Sheet kb - Asthma, Adult, Qrgv-[id number] kb Forms: - Medication Reconciliation Form kb - Thank You Letter kb - Antibiotic Education kb - Prescription Opioid Use kb Prescriptions: - Prednisone 20 mg Oral Tablet - take 1 tablet by ORAL route once daily for 5 days; 5 tablet; Refills: 0, kb Product Selection Permitted - Zithromax 500 mg Oral Tablet - take 1 tablet by ORAL route once daily for 5 days; 5 tablet; Refills: 0, kb Product Selection Permitted Signatures: Dispatcher [employer] Miya Boone, PUMP MECHANIC-C PUMP MECHANIC-Brandon Jones MD MD cha Leal, Jahala, RN RN jl7 Vanessa Amaya RN RN kg Corrections: (The following items were deleted from the chart) 10:25 10:07 Chest Single View+RAD.RAD.BRZ ordered. EDMS ATIFMS
[2021-01-05] MEDS ORDERED: LEVALBUTEROL 1.25 MG/3 ML NEB ONE (12:11)
[2021-01-05] MEDS ORDERED: IPRATROPIUM BROM 0.5MG/2.5ML ONE (12:12)
[2021-01-05 12:36] VITALS: BP 138/87; TEMP 98.5; O2SAT 100
== END 2021-01-05 12:24 | disposition home or self-care (01) ==
LOC: ER 09:44
DX: J45.901 Unspecified asthma with (acute) exacerbation (principal); Z91.048 Other nonmedicinal substance allergy status
CPT/HCPCS: 96365; 85025; 80048; 36415; 71045; 96375; 99284; J3475; J2930; J2405

== ENCOUNTER 2021-07-09 13:00 | Emergency (ER) | payer OTHER ==
--- OUTSIDE RECORDS SUMMARY | 2021-07-09 13:04 | XMS REPORT | Continuity of Care Document ---
:1955 Author Organization [facility] Address [address] [place] [address] Care Team Providers Name Role Phone SANTI [...] 1095) No growth in 5 days BLOOD [id number] 08:01:00 Test Item Value Reference Range Interpretation Comments CULTURE (BEAKER) (test No growth in 5 days code = 1095) POCT-GLUCOSE [id number] 08:05:00 Test Item Value Reference Range Interpretation Comments POC-GLUCOSE METER 109 mg/dL 70-[address] [facility] 6720 (BEAKER) (test code = [facility] R [facility] 1538) [address] COMPREHENSIVE METABOLIC [id number] 05:49:00 Test Item Value Reference Range Interpretation [...] ATED GFR. CBC W/PLT COUNT & AUTO [id number] 05:12:00 Test Item Value Reference Range Interpretation [...] PERCENT (BEAKER) (test code = 2801) POCT-GLUCOSE [id number] 21:39:00 Test Item Value Reference Range Interpretation Comments POC-GLUCOSE METER 171 mg/dL 70-110 H TESTED AT [place] [address] [facility] (test code = [facility] 1538) [address] POCT-GLUCOSE [id number] 20:41:00 Test Item Value Reference Range Interpretation Comments POC-GLUCOSE METER 124 mg/dL 70-[address] [facility] 67 ([facility]) (test code = [facility] 1538) [address] COMPREHENSIVE METABOLIC [id number] 13:25:00 Test Item Value Reference Range Interpretation [...] ATED GFR. CBC W/PLT COUNT & AUTO [id number] 13:01:00 Test Item Value Reference Range Interpretation [...] PERCENT (BEAKER) (test code = 2801) POCT-GLUCOSE [id number] 12:43:00 Test Item Value Reference Range Interpretation Comments POC-GLUCOSE METER 180 mg/dL 70-110 H TESTED AT [place] [address] ([facility]) (test code = [place] 1538) [address] POCT-GLUCOSE [id number] 05:58:00 Test Item Value Reference Range Interpretation Comments POC-GLUCOSE METER 146 mg/dL 70-[address] [facility] 6720 ([facility]) (test code = [place] 1538) [address] [id number] 02:30:00 Test Item Value Reference Range Interpretation Comments LIPASE (BEAKER) (test code = 749) > U/L 8-78 H COMPREHENSIVE METABOLIC [id number] 01:56:00 Test Item Value Reference Range Interpretation [...] DATA T O CALCULATE ESTIM ATED GFR. [id number] 01:54:00 Test Item Value Reference Range Interpretation Comments MAGNESIUM (BEAKER) (test code = 1.7 mg/dL 1.6-2.6 627) CBC W/PLT COUNT & AUTO [id number] 01:46:00 Test Item Value Reference Range Interpretation [...] (BEAKER) (test code = 2801) POCT-LACTIC ACID, [id number] 00:32:00 Test Item Value Reference Range Interpretation Comments POC-LACTIC ACID, 1.2 mmol/L 0.9-1.7 TESTED AT [facility] [address] (BEAKER) (test [place] code = 2805) [address] POCT-GLUCOSE [id number] 23:15:00 Test Item Value Reference Range Interpretation Comments POC-GLUCOSE METER 122 mg/dL 70-110 H TESTED AT [place] [address] ([facility]) (test code = [place] [facility] 1538) [address] [place], RELOCATION DIRECTOR IN OR/30 MINUTE [id number] 22:34:00Intra-op ImagingReason for exam:->ERCPFINAL REPORT Examination: ERCP 3 fluoroscopic spot views were obtained during the procedure by the ordering service. Images are nondiagnostic as no radiologist was present at the time of imaging. Fluoroscopic time was 70.6 seconds. Please see the procedure report for details. Signed: Chiki Whitley Verified Date/Time: 10/24/2018 22:34:56 Reading Location: [address] Reading Room POCT- GLUCOSE [id number] 18:27:00 Test Item Value Reference Range Interpretation Comments POC-GLUCOSE METER 99 mg/dL 70-110 TESTED AT [place] [address] ([facility]) (test code = [place] [facility] [address] 1538) POCT-GLUCOSE [id number] 13:55:00 Test Item Value Reference Range Interpretation Comments POC-GLUCOSE METER 86 mg/dL 70-110 TESTED AT [place] [address] ([facility]) (test code = [place] [facility] [address] 1538) COMPREHENSIVE METABOLIC [id number] 09:57:00 Test Item Value Reference Range Interpretation [...] ATED GFR. CBC W/PLT COUNT & AUTO [id number] 09:36:00 Test Item Value Reference Range Interpretation [...] SEGMENTED WITH DOHLE BODIES AND VACUOLES PRESENTPOCT-GLUCOSE [id number] 09:16:00 Test Item Value Reference Range Interpretation Comments POC-GLUCOSE METER 99 mg/dL 70-[address] [facility] 6720 (BEAKER) (test code = [place] [address] 1538) [id number] 09:12:00 Test Item Value Reference Range Interpretation Comments MAGNESIUM (BEAKER) (test code = 1.7 mg/dL 1.6-2.6 627) PROTHROMBIN [id number] 09:05:00 Test Item Value Reference Range Interpretation [...] mammographic images were evaluated by either a [employer] M-Vu or a [employer] ImageCheckerCAD (computer aided detection system). Comparison is made to exam dated 07/29/2016 mammogram - [facility]-Radiology File Room. The tissue of [...] 09/20/2018 16:06:25Attending Technologist: Mel Pritchard MM, [facility] MammographyImaging Technologist: Virgie Kuo MM, [facility] Mammographyletter sent: Additional Imaging Mammogram BI-RADS: 0 Indeterminate
[2021-07-09 17:06] LABS: SARS-COV-2 RT PCR POSITIVE (NEGATIVE)
--- NOTE | 2021-07-09 17:15 | EDPHYS ---
Physician Documentation [facility] Name: Bailey Zavala Age: 66 yrs Sex: Female : 1955 Arrival Date: 07/09/2021 Time: 13:05 Bed 10 Private MD: ED Physician Mireya Yap HPI: 07/09 17:13 This 66 yrs old Black Female presents to ER via Wheelchair with complaints of Ear Pain, ma2 Asthma Exacerbation. 17:13 Onset: The symptoms/episode began/occurred gradually, 2 day(s) ago. Associated signs ma2 and symptoms: Pertinent negatives: lightheadedness, sinus trouble, sore throat, tinnitus. Severity of symptoms: At their worst the symptoms were mild in the emergency department the symptoms are unchanged. The patient has not experienced similar symptoms in the past. Historical: - Allergies: 14:56 Iodine (Hives); vg1 14:56 toothpaste; vg1 - Home Meds: 14:56 Pro Air [Active]; Albuterol Inhl [Active]; Trulicity [Active]; vg1 - PMHx: 14:56 Arthritis; Asthma; Diabetes - NIDDM; right eye surgery; vg1 - Immunization history:: Client reports receiving the 2nd dose of the Covid vaccine. - Social history:: Smoking status: Patient denies any tobacco usage or history of. - Family history:: not pertinent. ROS: 17:13 Constitutional: Negative for fever, chills, and weight loss. ma2 17:13 All other systems are negative. Exam: 17:13 Constitutional: This is a well developed, well nourished patient who is awake, alert, ma2 and in no acute distress. ENT: Nares patent. No nasal discharge, no septal abnormalities noted. Tympanic membranes are normal and external auditory canals are clear. Oropharynx with no redness, swelling, or masses, exudates, or evidence of obstruction, uvula midline. Mucous membranes moist. Neck: Trachea midline, no thyromegaly or masses palpated, and no cervical lymphadenopathy. Supple, full range of motion without nuchal rigidity, or vertebral point tenderness. No Meningismus. Chest/axilla: Normal chest wall appearance and motion. Nontender with no deformity. No lesions are appreciated. Cardiovascular: Regular rate and rhythm with a normal S1 and S2. No gallops, murmurs, or rubs. Normal PMI, no JVD. No pulse deficits. Respiratory: Lungs have equal breath sounds bilaterally, clear to auscultation and percussion. No rales, rhonchi or wheezes noted. No increased work of breathing, no retractions or nasal flaring. Abdomen/GI: Soft, non-tender, with normal bowel sounds. No distension or tympany. No guarding or rebound. No evidence of tenderness throughout. Vital Signs: 14:50 BP 150 / 86; Pulse 88; Resp 18; Temp 99.2(O); Pulse Ox 98% ; Weight 176.9 kg; Height 5 vg1 ft. 7 in. (170.18 cm); Pain 10/10; 14:50 Body Mass Index 61.08 (176.90 kg, 170.18 cm) vg1 MDM: 17:06 Patient medically screened. ma2 17:13 Differential diagnosis: Acute bronchitis, pneumonia versus. Differential diagnosis: ma2 Covid. Data reviewed: vital signs, nurses notes, EMS record. Counseling: I had a detailed discussion with the patient and/or guardian regarding: the historical points, exam findings, and any diagnostic results supporting the discharge/admit diagnosis, the presence of at least one elevated blood pressure reading (>120/80) during this emergency department visit, the need for outpatient follow up. Response to treatment: the patient's symptoms have markedly improved after treatment. 07/09 15:00 Order name: COVID-19/FLU A+B (Document "Date of Onset" if Symptomatic); Complete Time: vg1 17:07 Administered Medications: 17:35 Drug: AZITHromycin 500 mg Route: PO; iw 18:00 Follow up: Response: No adverse reaction iw 17:36 Not Given (Duplicate Order): MethylPREDNISolone Sodium Succinate 125 mg IM once iw 17:36 Drug: SOLU-Medrol (methylPrednisoLONE) 125 mg Route: IVP; Site: left antecubital; iw 18:00 Follow up: Response: No adverse reaction iw Disposition Summary: 07/09/21 17:15 Discharge Ordered Location: Home ma2 Condition: Stable ma2 Diagnosis - Coronavirus infection, unspecified ma2 Followup: ma2 - With: Private Physician - When: Tomorrow - Reason: Continuance of care Discharge Instructions: - Discharge Summary Sheet ma2 - COVID-19 ma2 Forms: - Medication Reconciliation Form ma2 - Thank You Letter ma2 - Antibiotic Education ma2 - Prescription Opioid Use ma2 Prescriptions: - Atrovent HFA 17 mcg/actuation Inhalation HFA aerosol inhaler - inhale 2 puff by INHALATION route 4 times per day; 2 Pump; Refills: 0, Product ma2 Selection Permitted - Zofran 4 mg Oral Tablet - take 1 tablet by ORAL route every 12 hours As needed; 20 tablet; Refills: 0, ma2 Product Selection Permitted - Tessalon Perles 100 mg Oral Capsule - take 1 capsule by ORAL route every 8 hours As needed; 15 capsule; Refills: 0, ma2 Product Selection Permitted - Albuterol Sulfate 2.5 mg /3 mL (0.083 %) Inhalation Solution for Nebulization - inhale 1 unit by NEBULIZATION route every 8 hours As needed; 1 box; Refills: 0, ma2 Product Selection Permitted - Zithromax Z-Asad 250 mg Oral Tablet - take 1 tablet by ORAL route as directed for 5 days Day 1 - take two (2) tablets ma2 one time. Day 2, 3, 4 , 5 take one (1) tablet once daily.; 6 tablet; Refills: 0, Product Selection Permitted Signatures: Dispatcher [employer] Latosha Martel, RN AMARILYS iw Mireya Yap MD MD ma2 Harmony Rodriguez RN RN vg1
--- NOTE | 2021-07-09 17:15 | ER ---
Nurse's Notes [facility] Name: Bailey Zavala Age: 66 yrs Sex: Female : 1955 Arrival Date: 07/09/2021 Time: 13:05 Bed 10 Private MD: Diagnosis: Coronavirus infection, unspecified Presentation: 07/09 14:50 Chief complaint: Patient states: cough, Left ear pain, and asthma 'flare ups' x 2 day. vg1 States nausea, denies V/D. Coronavirus screen: Vaccine status: Patient reports receiving the 2nd dose of the covid vaccine. Client denies travel out of the [place] in the last 14 days. Client presents with at least one sign or symptom that may indicate coronavirus-19. Standard/surgical mask placed on the client. Ebola Screen: Patient negative for fever greater than or equal to 101.5 degrees Fahrenheit, and additional compatible Ebola Virus Disease symptoms. Initial Sepsis Screen: Does the patient meet any 2 criteria? No. Patient's initial sepsis screen is negative. Does the patient have a suspected source of infection? No. Patient's initial sepsis screen is negative. Risk Assessment: Do you want to hurt yourself or someone else? Patient reports no desire to harm self or others. Onset of symptoms was July 07, 2021. 14:50 Method Of Arrival: Wheelchair vg1 14:50 Acuity: GURPREET 3 vg1 Triage Assessment: 14:56 General: Appears in no apparent distress. comfortable, Behavior is calm, cooperative. vg1 Pain: Complains of pain in left ear and chest Pain currently is 10 out of 10 on a pain scale. Pain began 2-3 days ago. Neuro: Level of Consciousness is awake, alert, obeys commands, Oriented to person, place, time, situation. Respiratory: Reports cough that is productive, pain with cough. Historical: - Allergies: 14:56 Iodine (Hives); vg1 14:56 toothpaste; vg1 - Home Meds: 14:56 Pro Air [Active]; Albuterol Inhl [Active]; Trulicity [Active]; vg1 - PMHx: 14:56 Arthritis; Asthma; Diabetes - NIDDM; right eye surgery; vg1 - Immunization history:: Client reports receiving the 2nd dose of the Covid vaccine. - Social history:: Smoking status: Patient denies any tobacco usage or history of. - Family history:: not pertinent. Vital Signs: 14:50 BP 150 / 86; Pulse 88; Resp 18; Temp 99.2(O); Pulse Ox 98% ; Weight 176.9 kg; Height 5 vg1 ft. 7 in. (170.18 cm); Pain 10/10; 14:50 Body Mass Index 61.08 (176.90 kg, 170.18 cm) vg1 ED Course: 13:05 Patient arrived in ED. ds1 14:55 Triage completed. vg1 14:56 Arm band placed on. vg1 15:02 COVID swab sent to lab. Flu and/or RSV swab sent to lab. vg1 16:52 Mireya Yap MD is Attending Physician. ma2 17:14 Latosha Lopes, RN is Primary Nurse. iw Administered Medications: 17:35 Drug: AZITHromycin 500 mg Route: PO; iw 18:00 Follow up: Response: No adverse reaction iw 17:36 Not Given (Duplicate Order): MethylPREDNISolone Sodium Succinate 125 mg IM once iw 17:36 Drug: SOLU-Medrol (methylPrednisoLONE) 125 mg Route: IVP; Site: left antecubital; iw 18:00 Follow up: Response: No adverse reaction iw Outcome: 17:15 Discharge ordered by . ma2 17:45 Patient left the ED. iw Signatures: Anne Marie Tomas ds1 Latosha Lopes, RN RN iw Mireya Yap MD MD ma2 Harmony Rodriguez RN RN vg1
[2021-07-09] MEDS ORDERED: METHYLPREDNISOLONE 125 MG INJ ONE (17:21)
[2021-07-09] MEDS ORDERED: AZITHROMYCIN 250 MG TAB ONE (17:21)
[2021-07-09 17:49] VITALS: BP 150/86; TEMP 99.2; O2SAT 98
== END 2021-07-09 17:45 | disposition home or self-care (01) ==
LOC: ER 13:00
DX: U07.1 COVID-19 (principal); J45.909 Unspecified asthma, uncomplicated; E11.9 Type 2 diabetes mellitus without complications; Z91.048 Other nonmedicinal substance allergy status
CPT/HCPCS: 0240U; 96374; 99283; J2930

== ENCOUNTER 2022-05-22 11:21 | Emergency (ER) | payer OTHER ==
--- OUTSIDE RECORDS SUMMARY | 2022-05-22 11:40 | XMS REPORT | Continuity of Care Document ---
:1955 Author Organization [facility] t Address [address] [place] [address] Care Team Providers Name Role Phone No, Pcp [facility] Primary Care Physician Unavailable Mathew Lewis MD Attending Clinician MATHEW LEWIS Attending Clinician Unavailable Only, Adc Test Attending Clinician Unavailable Pob, [facility] Lab Main Attending Clinician Unavailable Doctor Unassigned, [place] Attending Clinician Unavailable JERSON TONG Attending Clinician Unavailable Mathew Lewis MD Admitting Clinician MATHEW LEWIS Admitting Clinician Unavailable JERSON TONG Admitting Clinician Unavailable Payers Payer Name Policy Type Policy Number Effective Date Expiration Date S ource Problems Condition Condition Condition Status Onset Resolution Last Treating Co mments Source Name Details Category Date Date Treatment Clinician Date 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[facility]24 [facility] fever fever [facility] 00 [place] Morbid Morbid Disease Active [facility] obesity obesity 4-24 [facility] 00 [place] Chol[place]o Choledocho Disease Active [facility] lithiasis lithiasis 4-23 [facility] 00[facility] 00 Center Allergies, Adverse Reactions, Alerts Allergy Allergy Status Severity Reaction(s) Onset Inactive Treating Comm ents Source Name Type Date Date Clinician n Propensi Active ty to 6-17 adverse 00:00: reaction 00 to drug Iodine Propensi Active Strong - ty to 3-04 Oral adverse 00:00: reaction 00 to drug Iodine Propensi Active ty to 3-01 adverse 00:00: reaction 00 to drug Iodine Propensi Active Hives [facility] to 10-24 [facility] Iodide adverse 00:[facility]: Medical [facility]i reaction 00 Center ng s Products Iodine Propensi Active Unknown - Unknown Univ ers ty to See comments 09-27 ity of adverse 00:00: [place] reaction 00 Medical s Branch IODINE DRUG Active Unknown-Cmnt Univ ers INGREDI 09-27 ity of 00:00: [place] 00 Medical Branch Social History Social Habit Start Date Stop Date Quantity Comments Source History SDOH [facility]d [facility] Drinks History SDOH [facility] Alcohol Binge Medical [facility] History SDOH [facility] Alcohol Comment Medical C enter Exposure to 2022-02-02 2022-02-12 Not sure [facility] SARS-CoV-2 00:00:00 13:47:00 [facility] (event) Branch Alcohol intake 2018-10-25 2018-10-[address] [address] [facility] 00:00:00 00:00:00 non-drinker of Medical Ce nter alcohol (finding) Tobacco use and 2018-10-24 2018-10-[address] [facility] [address] [facility] exposure 00:00:00 00:00:00 Medical Center History SDOH 2018-10-24 2018-10-[address] [facility] Alcohol Frequency 00:00:00 00:00:00 [facility] Sex Assigned At [address] [facility] 00:00:00 00:00:00 [facility] Smoking Status Start Date Stop Date Source Never smoked tobacco [facility] Medications Ordered Filled Start Stop Current Ordering Indication Dosage Frequency Signature Comments Components Source Medication Medication Date Date Medication? Clinician (SIG) Name Name Dose 2021-07 No Unknown 07-11 00:00: 00 ATROVENT 2021-07 No HFA 17 0-27 MCG/ACT 00:00: AERS 00 Dose 2021-07 No Unknown 0-24 00:00: 00 PREDNISONE 2021-07 No 10 MG TABS 0-24 00:00: 00 FUROSEMIDE 2021-07 No 20 20 MG TABS 0-24 00:00: 00 Dose 2-1 No Unknown 0-24 00:00: 00 PREDNISONE 2022-1 No 10 MG TABS 0-24 00:00: 00 FUROSEMIDE 2-1 No 20 20 MG TABS 0-24 00:00: 00 Dose 2022-1 No 250 Unknown 0-21 00:00: 00 Dose 2022-1 No 250 Unknown 0-21 00:00: 00 TAKE 1 2-1 No 10 TABLET BY 0-14 MOUTH ONCE 00:00: DAILY 00 TAKE 1 2-1 No 10 TABLET BY 0-14 MOUTH ONCE 00:00: DAILY 00 TAKE 1 2-1 No 10 TABLET BY 0-14 MOUTH ONCE 00:00: DAILY 00 TAKE 1 2-1 No TABLET 0-06 DAILY. 00:00: 00 TAKE 1 2-1 No TABLET 0-06 DAILY. 00:00: 00 TAKE 1 2-1 No TABLET 0-06 DAILY. 00:00: 00 INJECT 0.25 2022-0 No MG UNDER 9-20 THE SKIN 00:00: ONCE A WEEK 00 FOR THE FIRST MONTH, AND INCREASE TO 0.5 MG UNDER THE SKIN ONCE A WEEK THEREAFTER INJECT 0.25 2022-0 No MG UNDER 9-20 THE SKIN 00:00: ONCE A WEEK 00 FOR THE FIRST MONTH, AND INCREASE TO 0.5 MG UNDER THE SKIN ONCE A WEEK THEREAFTER INJECT 0.25 2022-0 No MG UNDER 9-20 THE SKIN 00:00: ONCE A WEEK 00 FOR THE FIRST MONTH, AND INCREASE TO 0.5 MG UNDER THE SKIN ONCE A WEEK THEREAFTER Dose 2022-0 No Unknown 9-20 00:00: 00 INHALE 2 2022-0 No PUFFS TWICE 9-16 DAILY FOR 00:00: 30 DAYS 00 INHALE 2 2022-0 No PUFFS TWICE 9-16 DAILY FOR 00:00: 30 DAYS 00 INHALE 2 2022-0 No PUFFS TWICE 9-16 DAILY FOR 00:00: 30 DAYS 00 INHALE 2 2022-0 No PUFFS TWICE 9-16 DAILY FOR 00:00: 30 DAYS 00 Dose 2022-0 No Unknown 9- 00:00: 00 Dose 2022-0 No Unknown 9- 00:00: 00 Dose 2022-0 No Unknown 9- 00:00: 00 Dose 2022-0 No Unknown 9- 00:00: 00 Dose 2022-0 No Unknown 03-16 00:00: 00 Dose 2022-0 No Unknown 03-16 00:00: 00 Dose 2022-0 No Unknown 03-16 00:00: 00 Dose 2022-0 No Unknown 03-16 00:00: 00 Dose 2022-0 No Unknown 03-16 00:00: 00 Dose 2022-0 No Unknown 03-16 00:00: 00 Dose 2022-0 No Unknown 03-16 00:00: 00 Dose 2022-0 No Unknown 03-16 00:00: 00 Dose 2022-0 No Unknown 03-15 00:00: 00 Dose 2022-0 No Unknown 03-15 00:00: 00 Dose 2022-0 No Unknown 03-15 00:00: 00 Dose 2022-0 No Unknown 03-15 00:00: 00 IBUPROFEN 2022-0 No 800 800 MG TABS 03-11 00:00: 00 Dose 2022-0 No Unknown 03-11 00:00: 00 IBUPROFEN 2022-0 No 800 800 MG TABS 03-11 00:00: 00 Dose 2022-0 No Unknown 03-11 00:00: 00 IBUPROFEN 2022-0 No 800 800 MG TABS 03-11 00:00: 00 Dose 2022-0 No Unknown 03-11 00:00: 00 IBUPROFEN 2022-0 No 800 800 MG TABS 03-11 00:00: 00 Dose 2022-0 No Unknown 03-11 00:00: 00 TAKE 1 2-0 No 500 TABLET BY 8-19 MOUTH ONCE 00:00: DAILY FOR 7 DAYS TAKE 1 2-0 No 500 TABLET BY 8-19 MOUTH ONCE 00:00: DAILY FOR 7 DAYS TAKE 1 2022-0 No 500 TABLET BY 8-19 MOUTH ONCE 00:00: DAILY FOR 7 00 DAYS TAKE 1 2-0 No 500 TABLET BY 8-19 MOUTH ONCE 00:00: DAILY FOR 7 DAYS TAKE 1 2-0 No 500 TABLET BY 8-19 MOUTH ONCE 00:00: DAILY FOR 7 00 DAYS Dose 2022-0 No 7 Unknown 8-18 00:00: 00 Dose 2022-0 No 7 Unknown 8-18 00:00: 00 Dose 2022-0 No 7 Unknown 8-18 00:00: 00 Dose 2022-0 No 7 Unknown 8 00:00: 00 Dose 2021-0 No 7 Unknown 02-18 00:00: 00 neomycin-po 2021-0 Yes PRN, Univer s lymyxin-dex 02-17 Starting ity of amethasone 15:16: on Wed [place] (MAXITROL) 00 02/17/22 at [facility] ical 3.5 1016, Branch mg/g-10,000 Until unit/g-0.1 Discontinu % ed, ophthalmic Routine, ointment Intra-op neomycin-po 2021- No PRN, Unive rs lymyxin-dex 02-17 Starting ity of amethasone 15:16: 18:10 [place] ([place] 00 :28 02/17/22 at [facility] ical 3.5 1016, Branch mg/g-10,000 Until Tue unit/g-0.1 02/17/22 at % 1310, ophthalmic Routine, ointment Intra-op sodium Yes PRN, Univers chloride 02-17 Starting ity of (NS) 15:10: on Tue [place] injection 00 02/17/22 at [facility] 1010, Branch Until Discontinu ed, Routine, Intra-op dexamethaso 2021- No PRN, Unive rs ne 02-17 Starting ity of (DECADRON 15:10: 15:38 on Tue [place] PHOSPHATE) 00 :54 02/17/22 at [facility] ical injection 1010, Branch Until Tue02/17/22 at 1038, Routine, Intra-op ceFAZolin 2021- No PRN, Univers (ANCEF) 02-17 Starting ity of injection 15:10: 15:38 on Tue [place] 00 :54 02/17/22 at Medical 1010, Branch Until Tue02/17/22 at 1038, CHANA, Intra-op sodium 2021- No PRN, Univers chloride 02-17 Starting ity of (NS) 15:10: 18:10 on Wed [place] injection 00 :28 02/17/22 at [facility] 1010, Branch Until Tue02/17/22 at 1310, Routine, Intra-op carbachoL 0 2021- No PRN, Univers (MIOSTAT) 02-17 Starting ity o f 0.01 % 15:07: 15:38 on Tue [place] intraocular 00 :54 02/17/22 at Pr dical injection 1007, Branch Until Tue02/17/22 at 1038, Routine, Intra-op EPINEPHrine 2021- No PRN, Unive rs 1:1,000 (1 02-17 Starting ity of mg/mL) 14:45: 15:38 on Tue [place] (ADRENALIN) 00 :54 02/17/22 at Pr dical injection 0945, Branch Until Tue02/17/22 at 1038, Routine, Intra-op chondroitin 2021- No PRN, Unive rs sulf-sod 02-17 Starting ity of hyaluronate 14:45: 15:38 on Tue [place] (DUOVISC 00 :54 02/17/22 at Medic al VISCO 0945, Branch ELASTIC) Until Tue intraocular 02/17/22 at injection 1038, Routine, Intra-op balanced 2021- No PRN, Univers salt irrig 02-17 Starting ity of soln comb1 14:45: 15:38 [place] (BSS PLUS) 00 :54 02/17/22 at [facility] ical ophthalmic 0945, Branch solution Until Tue 500 mL bag 02/17/22 at 1038, Routine, Intra-op water for 2021- No PRN, Univers irrigation 02-17 Starting ity of irrigation 14:41: 15:38 [place] Tue [place] solution 00 :54 02/17/22 at Medic al 0941, Branch Until Tue02/17/22 at 1038, Routine, Intra-op Hyaluronida 2021- No PRN, Unive rs se, Human 02-17 Starting ity o f Recomb. 14:35: 15:38 on Tue [place] (HYLENEX) 00 :54 02/17/22 at [facility] irineo injection 0935, Branch Until Tue02/17/22 at 1038, Routine, Intra-op eye block 2021- No PRN, Univers syringe 11 02-17 Starting ity of mL 14:35: 15:38 on Tue [place] 00 :54 02/17/22 at [facility] 0935, Branch Until Tue02/17/22 at 1038, Intra-op tropicamide 2021- No 1[drp] 1 Drop, Univers (MYDRIACYL) 02-17 Right Eye, i ty of 1 % 13:00: 12:57 ONCE, 1 [place] ophthalmic 00 :00 dose, On Medic al drops 1 Tue Branch Drop 02/17/22 at 0800, Routine, DSU Pre-op phenylephri 2021- No 1[drp] 1 Drop, Univers ne 02-17 Right Eye, ity of (CHARLES-SYNEPH 13:00: 12:57 [place] 1 [place] 2.5 % 00 :00 dose, On Medi irineo ophthalmic Wed Branch drops 02/17/22 at Drop 0800, Routine, DSU Pre-op cyclopentol 2021- No 1[drp] 1 Drop, Univers ate 02-17 Right Eye, ity of (CYCLOGYL) 13:00: 12:58 ONCE, 1 [place] 1 % 00 :00 dose, On Medical ophthalmic Wed Branch drops 02/17/22 at Drop 0800, Routine, DSU Pre-op lactated 2021- No 1000mL at 42 Unive rs ringers IV 02-17 mL/hr, ity of infusion 13:00: 12:56 1,000 mL, [place] 1,000 mL 00 :00 IV Medical Infusion, Branch ONCE, 1 dose, On Tue02/17/22 at 0800, Routine, DSU Pre-op ketorolac 2021- No 1[drp] 1 Drop, Un gela (ACULAR) 02-17 Right Eye, ity of 0.5 % 13:00: 12:57 ONCE, 1 [place] ophthalmic 00 :00 dose, On Medic al solution 1 Tue Branch Drop 02/17/22 at 0800, Routine, DSU Pre-op tropicamide 2021- No 1[drp] 1 Drop, Univers (MYDRIACYL) 02-17 Right Eye, i ty of 1 % 13:00: 12:57 ONCE, 1 [place] ophthalmic 00 :00 dose, On Medic al drops 1 Tue Branch Drop 02/17/22 at 0800, Routine, DSU Pre-op phenylephri 2021- No 1[drp] 1 Drop, Univers ne 02-17 Right Eye, ity of (CHARLES-SYNEPH 13:00: 12:57 ONCE, 1 [place] 2.5 % 00 :00 dose, On Medi irineo ophthalmic Wed Branch drops 1 02/17/22 at Drop 0800, Routine, DSU Pre-op cyclopentol 2021- No 1[drp] 1 Drop, Univers ate 02-17 Right Eye, ity of (CYCLOGYL) 13:00: 12:58 ONCE, 1 [place] 1 % 00 :00 dose, On Medical ophthalmic Wed Branch drops 1 02/17/22 at Drop 0800, Routine, DSU Pre-op lactated No 1000mL at 42 Unive rs ringers IV 02-17 mL/hr, ity of infusion 13:00: 12:56 1,000 mL, [place] 1,000 mL 00 :00 IV Medical Infusion, Branch ONCE, 1 dose, On Tue02/17/22 at 0800, Routine, DSU Pre-op ketorolac 2021- No 1[drp] 1 Drop, Un gela (ACULAR) 02-17 Right Eye, ity of 0.5 % 13:00: 12:57 ONCE, 1 [place] ophthalmic 00 :00 dose, On Medic al solution 1 Tue Branch Drop 02/17/22 at 0800, Routine, DSU Pre-op FLUTICASONE Yes Inhale 2 Un gela /SALMETEROL 02-17 (two) ity of (ADVAIR HFA 11:10: times [place] INHALE) 26 daily. Medical Branch ipratropium Yes 1{ampul Inhale 1 Univers -albuteroL 8-17 e} Ampule as ity of 0.5 mg-3 11:10: needed. [place] mg(2.5 mg 26 Medical base)/3 mL Branch nebulizer solution fluticasone Yes 1{puff} Inhale 1 Univers /umeclidin/ 02-17 Puff as ity o f vilanter 11:10: needed. [place] (TRELEGY 26 Medical ELLIPTA Branch INHALE) furosemide Yes 40mg Take 40 mg U nivers 40 mg 8-17 by mouth ity of tablet 11:10: daily. [address] Branch metFORMIN Yes 500mg Take 500 Uni vers (GLUCOPHAGE 8-17 mg by ity of ) 500 mg 11:10: mouth 2 [place] tablet 26 (two) Medical times Branch daily with meals. albuterol Yes 2{puff} Inhale 2 U nivers 90 8-17 Puffs ity of mcg/actuati 11:10: every 6 [place] on inhaler 26 (six) Medical hours as Branch needed for Wheezing or Shortness of Breath. ALBUTEROL Yes Inhale as Uni vers INHALE 8-17 needed. ity of 11:10: [address] FLUTICASONE Yes Inhale 2 Un gela /SALMETEROL 8-17 (two) ity of (ADVAIR HFA 11:10: times [place] INHALE) 26 daily. Medical Branch ipratropium Yes 1{ampul Inhale 1 Univers -albuteroL 8-17 e} Ampule as ity of 0.5 mg-3 11:10: needed. [place] mg(2.5 mg 26 Medical base)/3 mL Branch nebulizer solution fluticasone Yes 1{puff} Inhale 1 Univers /umeclidin/ 8-17 Puff as ity o f vilanter 11:10: needed. [place] (TRELEGY 26 Medical ELLIPTA Branch INHALE) furosemide Yes 40mg Take 40 mg U nivers 40 mg 8-17 by mouth ity of tablet 11:10: daily. [address] metFORMIN Yes 500mg Take 500 Uni vers (GLUCOPHAGE 8-17 mg by ity of ) 500 mg 11:10: mouth 2 [place] tablet 26 (two) Medical times Branch daily with meals. albuterol Yes 2{puff} Inhale 2 U nivers 90 8-17 Puffs ity of mcg/actuati 11:10: every 6 [place] on inhaler 26 (six) Medical hours as Branch needed for Wheezing or Shortness of Breath. ALBUTEROL Yes Inhale as Uni vers INHALE 8-17 needed. ity of 11:10: [address] INHALE 2 2-0 No PUFFS TWICE 8-17 DAILY FOR 00:00: 30 DAYS 00 INJECT 0.25 2022-0 No 2 MG UNDER 8-17 THE SKIN 00:00: ONCE A WEEK 00 FOR THE FIRST MONTH, AND INCREASE TO 0.5 MG UNDER THE SKIN ONCE A WEEK THEREAFTER INHALE 2 2022-0 No PUFFS TWICE 8-17 DAILY FOR 00:00: 30 DAYS 00 INJECT 0.25 2022-0 No 2 MG UNDER 8-17 THE SKIN 00:00: ONCE A WEEK 00 FOR THE FIRST MONTH, AND INCREASE TO 0.5 MG UNDER THE SKIN ONCE A WEEK THEREAFTER INHALE 2 2022-0 No PUFFS TWICE 8-17 DAILY FOR 00:00: 30 DAYS 00 INJECT 0.25 2022-0 No 2 MG UNDER 8-17 THE SKIN 00:00: ONCE A WEEK 00 FOR THE FIRST MONTH, AND INCREASE TO 0.5 MG UNDER THE SKIN ONCE A WEEK THEREAFTER INHALE 2 2-0 No PUFFS TWICE 8-17 DAILY FOR 00:00: 30 DAYS 00 INJECT 0.25 2022-0 No 2 MG UNDER 8-17 THE SKIN 00:00: ONCE A WEEK 00 FOR THE FIRST MONTH, AND INCREASE TO 0.5 MG UNDER THE SKIN ONCE A WEEK THEREAFTER INHALE 2 2-0 No PUFFS TWICE 8-17 DAILY FOR 00:00: 30 DAYS 00 INJECT 0.25 2022-0 No 2 MG UNDER 8-17 THE SKIN 00:00: ONCE A WEEK 00 FOR THE FIRST MONTH, AND INCREASE TO 0.5 MG UNDER THE SKIN ONCE A WEEK THEREAFTER &lt 2022-0 No 500 8-16 00:00: 00 &lt 2022-0 No 500 8-16 00:00: 00 &lt 2022-0 No 500 8-16 00:00: 00 &lt 2022-0 No 500 8-16 00:00: 00 &lt 2022-0 No 500 8-16 00:00: 00 ipratropium 2021-0 Yes 1{ampul Inhale 1 Univers -albuteroL 02-12 e} Ampule as ity of 0.5 mg-3 13:45: needed. [place] mg(2.5 mg 17 Medical base)/3 mL Branch nebulizer solution fluticasone 2021-0 Yes 1{puff} Inhale 1 Univers /umeclidin/ 8-12 Puff as ity o f vilanter 13:45: needed. [place] (TRELEGY 17 Medical ELLIPTA Branch INHALE) furosemide 0 Yes 40mg Take 40 mg U nivers 40 mg 8-12 by mouth ity of tablet 13:37: daily. [place] 23 Medical Branch metFORMIN 2021-0 Yes 500mg Take 500 Uni vers (GLUCOPHAGE 8-12 mg by ity of ) 500 mg 13:37: mouth 2 [place] tablet 23 (two) Medical times Branch daily with meals. albuterol Yes 2{puff} Inhale 2 U nivers 90 8-12 Puffs ity of mcg/actuati 13:37: every 6 [place] on inhaler 23 (six) Medical hours as Branch needed for Wheezing or Shortness of Breath. ALBUTEROL 0 Yes Inhale as Uni vers INHALE 8-12 needed. ity of 13:37: [place] 23 Medical Branch FLUTICASONE 0 Yes Inhale 2 Un gela /SALMETEROL 8-12 (two) ity of (ADVAIR HFA 13:37: times [place] INHALE) 23 daily. Medical Branch INHALE 3ML 2021-0 No (1 VIAL) 8-11 VIA 00:00: NEBULIZER 00 EVERY 6 HOURS NEEDED &lt 2022-0 No 8-11 00:00: 00 INHALE 3ML 2021-0 No (1 VIAL) 8-11 VIA 00:00: NEBULIZER 00 EVERY 6 HOURS NEEDED &lt 2022-0 No 8-11 00:00: 00 INHALE 3ML 2021-0 No (1 VIAL) 8-11 VIA 00:00: NEBULIZER 00 EVERY 6 HOURS NEEDED &lt 2022-0 No 8-11 00:00: 00 INHALE 3ML 2021-0 No (1 VIAL) 8-11 VIA 00:00: NEBULIZER 00 EVERY 6 HOURS NEEDED &lt 2022-0 No 8-11 00:00: 00 INHALE 3ML 2021-0 No (1 VIAL) 8-11 VIA 00:00: NEBULIZER 00 EVERY 6 HOURS NEEDED &lt 2022-0 No 8-11 00:00: 00 RYBELSUS 14 2021-0 Yes 1{tbl} Take 1 Un gela mg Tab 8-05 tablet by ity of 00:00: mouth [place] 00 daily. Medical Branch [facility] 14 Yes 1{tbl} Take 1 Un gela mg Tab 8-05 tablet by ity of 00:00: mouth 00 daily. Medical Branch [facility] 14 Yes 1{tbl} Take 1 Un gela mg Tab 8-05 tablet by ity of 00:00: mouth 00 daily. Medical Branch TAKE 1 0 No 800 TABLET BY 8-03 MOUTH THREE 00:00: TIMES DAILY 00 WITH FOOD NEEDED FOR PAIN TAKE 0 No 800 TABLET BY 8-03 MOUTH THREE 00:00: TIMES DAILY 00 WITH FOOD NEEDED FOR PAIN TAKE 0 No 800 TABLET BY 8-03 MOUTH THREE 00:00: TIMES DAILY 00 WITH FOOD NEEDED FOR PAIN TAKE 0 No 800 TABLET BY 8-03 MOUTH THREE 00:00: TIMES DAILY 00 WITH FOOD NEEDED FOR PAIN TAKE 0 No 800 TABLET BY 8-03 MOUTH THREE 00:00: TIMES DAILY 00 WITH FOOD NEEDED FOR PAIN &lt 2022-0 No 10 8- 00:00: 00 &lt 2022-0 No 10 8- 00:00: 00 &lt 2022-0 No 10 8- 00:00: 00 &lt 2022-0 No 10 8- 00:00: 00 &lt 2022-0 No 10 8- 00:00: 00 Dose 2022-0 No 20 Unknown 01-29 00:00: 00 Dose 2-0 No 20 Unknown 01-29 00:00: 00 Dose 2022-0 No 20 Unknown 01-29 00:00: 00 Dose 2022-0 No 20 Unknown 01-29 00:00: 00 Dose 2022-0 No 20 Unknown 01-29 00:00: 00 Dose 2022-0 No 4 Unknown 01-21 00:00: 00 &lt 2022-0 No 250 7- 00:00: 00 Dose 2022-0 No 4 Unknown 01-21 00:00: 00 &lt 2022-0 No 250 7- 00:00: 00 Dose 2022-0 No 4 Unknown 01-21 00:00: 00 &lt 2022-0 No 250 7- 00:00: 00 Dose 2022-0 No 4 Unknown 7-21 00:00: 00 &lt 2022-0 No 250 7-21 00:00: 00 Dose 2-0 No 4 Unknown 7-21 00:00: 00 &lt 2022-0 No 250 7-21 00:00: 00 montelukast 2021-0 Yes 10mg Take 10 mg Univers 10 mg 7-14 by mouth ity of tablet 00:00: in the [place] 00 morning. Medical Branch montelukast 2021-0 Yes 10mg Take 10 mg Univers 10 mg 7-14 by mouth ity of tablet 00:00: in the [place] 00 morning. Medical Branch montelukast 2021-0 Yes 10mg Take 10 mg Univers 10 mg 7-14 by mouth ity of tablet 00:00: in the [place] 00 morning. Medical Branch ProAir HFA 2021-0 No 12mcg/a 90 7-14 ctuatio mcg/actuati 00:00: n on aerosol 00 inhaler montelukast 2021-0 No 1mg 10 mg 7-14 tablet 00:00: 00 benzonatate 2021-0 No 1mg 200 mg 7-14 capsule 00:00: 00 &lt 2021-0 No 10 7-14 00:00: 00 Dose 2021-0 No Unknown 7-14 00:00: 00 Dose 2021-0 No Unknown 7-14 00:00: 00 TAKE 2 2021-0 No 250 TABLETS BY 7-14 MOUTH ON 00:00: DAY 1, AND 00 THEN TAKE 1 TABLET BY MOUTH ONCE A DAY ON DAY 2 THROUGH DAY 5 Dose 2021-0 No Unknown 7-14 00:00: 00 INHALE 1 2021-0 No PUFF BY 7-14 MOUTH ONCE 00:00: DAILY 00 INHALE 1 2021-0 No PUFF BY 7-14 MOUTH ONCE 00:00: DAILY 00 &lt 2-0 No 20 7-14 00:00: 00 ProAir HFA 2021-0 No 12mcg/a 90 7-14 ctuatio mcg/actuati 00:00: n on aerosol 00 inhaler montelukast 2021-0 No 1mg 10 mg 7-14 tablet 00:00: 00 benzonatate 2-0 No 1mg 200 mg 7-14 capsule 00:00: 00 &lt 2-0 No 10 7-14 00:00: 00 Dose 2-0 No Unknown 7-14 00:00: 00 Dose 2-0 No Unknown 7-14 00:00: 00 TAKE 2 2-0 No 250 TABLETS BY 7-14 MOUTH ON 00:00: DAY 1, AND 00 THEN TAKE 1 TABLET BY MOUTH ONCE A DAY ON DAY 2 THROUGH DAY 5 Dose 2-0 No Unknown 7-14 00:00: 00 INHALE 1 2021-0 No PUFF BY 7-14 MOUTH ONCE 00:00: DAILY 00 INHALE 1 2021-0 No PUFF BY 7-14 MOUTH ONCE 00:00: DAILY 00 &lt 2-0 No 20 7-14 00:00: 00 ProAir HFA 2021-0 No 12mcg/a 90 7-14 ctuatio mcg/actuati 00:00: n on aerosol 00 inhaler montelukast 2021-0 No 1mg 10 mg 7-14 tablet 00:00: 00 benzonatate 2021-0 No 1mg 200 mg 7-14 capsule 00:00: 00 &lt 2-0 No 10 7-14 00:00: 00 Dose 2-0 No Unknown 7-14 00:00: 00 Dose 2021-0 No Unknown 7-14 00:00: 00 TAKE 2 2021-0 No 250 TABLETS BY 7-14 MOUTH ON 00:00: DAY 1, AND 00 THEN TAKE 1 TABLET BY MOUTH ONCE A DAY ON DAY 2 THROUGH DAY 5 Dose 2021-0 No Unknown 7-14 00:00: 00 INHALE 1 2021-0 No PUFF BY 7-14 MOUTH ONCE 00:00: DAILY 00 INHALE 1 2021-0 No PUFF BY 7-14 MOUTH ONCE 00:00: DAILY 00 &lt 2-0 No 20 7-14 00:00: 00 ProAir HFA 2021-0 No 12mcg/a 90 7-14 ctuatio mcg/actuati 00:00: n on aerosol 00 inhaler montelukast 2021-0 No 1mg 10 mg 7-14 tablet 00:00: 00 benzonatate 2-0 No 1mg 200 mg 7-14 capsule 00:00: 00 &lt 2-0 No 10 7-14 00:00: 00 Dose 2-0 No Unknown 7-14 00:00: 00 Dose 2-0 No Unknown 7-14 00:00: 00 TAKE 2 2-0 No 250 TABLETS BY 7-14 MOUTH ON 00:00: DAY 1, AND 00 THEN TAKE 1 TABLET BY MOUTH ONCE A DAY ON DAY 2 THROUGH DAY 5 Dose 2-0 No Unknown 7-14 00:00: 00 INHALE 1 2-0 No PUFF BY 7-14 MOUTH ONCE 00:00: DAILY 00 INHALE 1 2021-0 No PUFF BY 7-14 MOUTH ONCE 00:00: DAILY 00 &lt 2022-0 No 20 7-14 00:00: 00 ProAir HFA 2021-0 No 12mcg/a 90 7-14 ctuatio mcg/actuati 00:00: n on aerosol 00 inhaler montelukast 2021-0 No 1mg 10 mg 7-14 tablet 00:00: 00 benzonatate 2021-0 No 1mg 200 mg 7-14 capsule 00:00: 00 &lt 2-0 No 10 7-14 00:00: 00 Dose 2-0 No Unknown 7-14 00:00: 00 Dose 2-0 No Unknown 7-14 00:00: 00 TAKE 2 2021-0 No 250 TABLETS BY 7-14 MOUTH ON 00:00: DAY 1, AND 00 THEN TAKE 1 TABLET BY MOUTH ONCE A DAY ON DAY 2 THROUGH DAY 5 Dose 2-0 No Unknown 7-14 00:00: 00 INHALE 1 2-0 No PUFF BY 7-14 MOUTH ONCE 00:00: DAILY 00 INHALE 1 2021-0 No PUFF BY 7-14 MOUTH ONCE 00:00: DAILY 00 &lt 2-0 No 20 7-14 00:00: 00 ProAir HFA 2-0 No 12mcg/a 90 7-14 ctuatio mcg/actuati 00:00: n on aerosol 00 inhaler montelukast 2021-0 No 1mg 10 mg 7-14 tablet 00:00: 00 benzonatate 2-0 No 1mg 200 mg 7-14 capsule 00:00: 00 &lt 2022-0 No 10 7-14 00:00: 00 Dose 2-0 No Unknown 7-14 00:00: 00 Dose 2-0 No Unknown 7-14 00:00: 00 TAKE 2 2-0 No 250 TABLETS BY 7-14 MOUTH ON 00:00: DAY 1, AND 00 THEN TAKE 1 TABLET BY MOUTH ONCE A DAY ON DAY 2 THROUGH DAY 5 Dose 2-0 No Unknown 714 00:00: 00 INHALE 1 2-0 No PUFF BY 7-14 MOUTH ONCE 00:00: DAILY 00 INHALE 1 2-0 No PUFF BY 7-14 MOUTH ONCE 00:00: DAILY 00 &lt 2022-0 No 20 714 00:00: 00 INHALE 3ML 2-0 No (1 VIAL) 7-13 VIA 00:00: NEBULIZER 00 EVERY 6 HOURS NEEDED INSTILL 1 2021-0 No DROP INTO 7-13 RIGHT EYE 00:00: ONCE DAILY 00 TAKE 1 2021-0 No 500 TABLET BY 7-13 MOUTH ONCE 00:00: DAILY 00 TAKE 1 2021-0 No 800 TABLET BY 7-13 MOUTH THREE 00:00: TIMES DAILY 00 WITH FOOD NEEDED FOR PAIN Dose 2-0 No Unknown 01-13 00:00: 00 INHALE 3ML 2-0 No (1 VIAL) 713 VIA 00:00: NEBULIZER 00 EVERY 6 HOURS NEEDED INSTILL 1 2021-0 No DROP INTO 7-13 RIGHT EYE 00:00: ONCE DAILY 00 TAKE 1 2021-0 No 500 TABLET BY 7-13 MOUTH ONCE 00:00: DAILY 00 TAKE 1 2-0 No 800 TABLET BY 7-13 MOUTH THREE 00:00: TIMES DAILY 00 WITH FOOD NEEDED FOR PAIN Dose 2-0 No Unknown 01-13 00:00: 00 INHALE 3ML 2-0 No (1 VIAL) 713 VIA 00:00: NEBULIZER 00 EVERY 6 HOURS NEEDED INSTILL 1 2-0 No DROP INTO 7-13 RIGHT EYE 00:00: ONCE DAILY 00 TAKE 1 2-0 No 500 TABLET BY 7-13 MOUTH ONCE 00:00: DAILY 00 TAKE 1 2-0 No 800 TABLET BY 7-13 MOUTH THREE 00:00: TIMES DAILY 00 WITH FOOD NEEDED FOR PAIN Dose 2-0 No Unknown 01-13 00:00: 00 INHALE 3ML 2-0 No (1 VIAL) 7-13 VIA 00:00: NEBULIZER 00 EVERY 6 HOURS NEEDED INSTILL 1 2-0 No DROP INTO 7-13 RIGHT EYE 00:00: ONCE DAILY 00 TAKE 1 2-0 No 500 TABLET BY 7-13 MOUTH ONCE 00:00: DAILY 00 TAKE 1 2-0 No 800 TABLET BY 7-13 MOUTH THREE 00:00: TIMES DAILY 00 WITH FOOD NEEDED FOR PAIN Dose 2-0 No Unknown 7 00:00: 00 INHALE 3ML 2-0 No (1 VIAL) 13 VIA 00:00: NEBULIZER 00 EVERY 6 HOURS NEEDED INSTILL 1 2021-0 No DROP INTO 7-13 RIGHT EYE 00:00: ONCE DAILY 00 TAKE 1 2-0 No 500 TABLET BY 7-13 MOUTH ONCE 00:00: DAILY 00 TAKE 1 2-0 No 800 TABLET BY 7-13 MOUTH THREE 00:00: TIMES DAILY 00 WITH FOOD NEEDED FOR PAIN Dose 2-0 No Unknown 01-13 00:00: 00 INHALE 3ML 2-0 No (1 VIAL) 01-13 VIA 00:00: NEBULIZER 00 EVERY 6 HOURS NEEDED INSTILL 1 2021-0 No DROP INTO -13 RIGHT EYE 00:00: ONCE DAILY 00 TAKE 1 2-0 No 500 TABLET BY 7-13 MOUTH ONCE 00:00: DAILY 00 TAKE 1 2-0 No 800 TABLET BY 7-13 MOUTH THREE 00:00: TIMES DAILY 00 WITH FOOD NEEDED FOR PAIN Dose 2-0 No Unknown 01-13 00:00: 00 Dose 2022-0 No Unknown 01-11 00:00: 00 Dose 2022-0 No Unknown 01-11 00:00: 00 Dose 2022-0 No Unknown 7 00:00: 00 Dose 2022-0 No Unknown 01-11 00:00: 00 Bromfed DM 2-0 No 10mg/5 2 mg-30 7-11 mL mg-10 mg/5 00:00: mL oral 00 syrup Bromfed DM 2-0 No 10mg/5 2 mg-30 7-11 mL mg-10 mg/5 00:00: mL oral 00 syrup &lt 2-0 No 7 - 00:00: 00 INHALE 3ML 2-0 No (1 VIAL) 01-08 VIA 00:00: NEBULIZER 00 EVERY 6 HOURS NEEDED USE 1 TO 2 2021-0 No SPRAY(S) IN - EACH 00:00: NOSTRIL 00 ONCE DAILY &lt 2022-0 No 7 01-08 00:00: 00 INHALE 3ML 2022-0 No (1 VIAL) 01-08 VIA 00:00: NEBULIZER 00 EVERY 6 HOURS NEEDED USE 1 TO 2 2022-0 No SPRAY(S) IN 01-08 EACH 00:00: NOSTRIL 00 ONCE DAILY &lt 2022-0 No 7 01-08 00:00: 00 INHALE 3ML 2022-0 No (1 VIAL) 01-08 VIA 00:00: NEBULIZER 00 EVERY 6 HOURS NEEDED USE 1 TO 2 2022-0 No SPRAY(S) IN 01-08 EACH 00:00: NOSTRIL 00 ONCE DAILY &lt 2022-0 No 7 01-08 00:00: 00 INHALE 3ML 2022-0 No (1 VIAL) 01-08 VIA 00:00: NEBULIZER 00 EVERY 6 HOURS NEEDED USE 1 TO 2 2022-0 No SPRAY(S) IN 01-08 EACH 00:00: NOSTRIL 00 ONCE DAILY &lt 2022-0 No 7 01-08 00:00: 00 INHALE 3ML 2022-0 No (1 VIAL) 01-08 VIA 00:00: NEBULIZER 00 EVERY 6 HOURS NEEDED USE 1 TO 2 2022-0 No SPRAY(S) IN 01-08 EACH 00:00: NOSTRIL 00 ONCE DAILY &lt 2022-0 No 7 01-08 00:00: 00 INHALE 3ML 2022-0 No (1 VIAL) 01-08 VIA 00:00: NEBULIZER 00 EVERY 6 HOURS NEEDED USE 1 TO 2 2022-0 No SPRAY(S) IN 01-08 EACH 00:00: NOSTRIL 00 ONCE DAILY &lt 2022-0 No 01-07 00:00: 00 TAKE 2022-0 No 4 DIRECTED ON 01-07 PACKAGE 00:00: 00 INSTILL 1 2022-0 No DROP INTO 01-07 RIGHT EYE 00:00: ONCE DAILY 00 &lt 2022-0 No 01-07 00:00: 00 TAKE 2022-0 No 4 DIRECTED ON 01-07 PACKAGE 00:00: 00 INSTILL 1 2022-0 No DROP INTO 01-07 RIGHT EYE 00:00: ONCE DAILY 00 &lt 2022-0 No 01-07 00:00: 00 TAKE 2022-0 No 4 DIRECTED ON 01-07 PACKAGE 00:00: 00 INSTILL 1 2021-0 No DROP INTO 7-07 RIGHT EYE 00:00: ONCE DAILY 00 &lt 2022-0 No 01-07 00:00: 00 TAKE 2-0 No 4 DIRECTED ON 01-07 PACKAGE 00:00: 00 INSTILL 1 2-0 No DROP INTO 7-07 RIGHT EYE 00:00: ONCE DAILY 00 &lt 2022-0 No 01-07 00:00: 00 TAKE 2022-0 No 4 DIRECTED ON 01-07 PACKAGE 00:00: 00 INSTILL 1 2-0 No DROP INTO 7-07 RIGHT EYE 00:00: ONCE DAILY 00 &lt 2022-0 No 01-07 00:00: 00 TAKE 2-0 No 4 DIRECTED ON 01-07 PACKAGE 00:00: 00 INSTILL 1 2021-0 No DROP INTO 7-07 RIGHT EYE 00:00: ONCE DAILY 00 USE 1 TO 2 2021-0 No SPRAY(S) IN 01-05 EACH 00:00: NOSTRIL 00 ONCE DAILY &lt 2022-0 No 7- 00:00: 00 TAKE 1 2-0 No 800 TABLET BY 7-05 MOUTH THREE 00:00: TIMES DAILY 00 WITH FOOD NEEDED FOR PAIN &lt 2-0 No 500 01-05 00:00: 00 TAKE 1 2-0 No 500 TABLET BY 7-05 MOUTH ONCE 00:00: DAILY 00 &lt 2022-0 No 7- 00:00: 00 INHALE 1 2-0 No PUFF BY 7-05 MOUTH ONCE 00:00: DAILY 00 Dose 2022-0 No Unknown 7 00:00: 00 TAKE 1 2-0 No CAPSULE BY 7-05 MOUTH ONCE 00:00: DAILY 00 TAKE 2 2022-0 No 20 TABLETS BY 7-05 MOUTH DAILY 00:00: 00 &lt 2022-0 No 7-05 00:00: 00 Dose 2022-0 No Unknown 7 00:00: 00 &lt 2022-0 No 250 7 00:00: 00 USE 1 TO 2 2022-0 No SPRAY(S) IN 7- EACH 00:00: NOSTRIL 00 ONCE DAILY &lt 2022-0 No 7- 00:00: 00 TAKE 1 2-0 No 800 TABLET BY 7-05 MOUTH THREE 00:00: TIMES DAILY 00 WITH FOOD NEEDED FOR PAIN &lt 2022-0 No 500 7-05 00:00: 00 TAKE 1 2022-0 No 500 TABLET BY 7-05 MOUTH ONCE 00:00: DAILY 00 &lt 2022-0 No 7-05 00:00: 00 INHALE 1 2022-0 No PUFF BY 7-05 MOUTH ONCE 00:00: DAILY 00 Dose 2022-0 No Unknown 7- 00:00: 00 TAKE 1 2022-0 No CAPSULE BY 7-05 MOUTH ONCE 00:00: DAILY 00 TAKE 2 2022-0 No 20 TABLETS BY 7-05 MOUTH DAILY 00:00: 00 &lt 2022-0 No 7-05 00:00: 00 Dose 2022-0 No Unknown 7- 00:00: 00 &lt 2022-0 No 250 7- 00:00: 00 USE 1 TO 2 2022-0 No SPRAY(S) IN 7- EACH 00:00: NOSTRIL 00 ONCE DAILY &lt 2022-0 No 7-05 00:00: 00 TAKE 1 2022-0 No 800 TABLET BY 7-05 MOUTH THREE 00:00: TIMES DAILY 00 WITH FOOD NEEDED FOR PAIN &lt 2022-0 No 500 7- 00:00: 00 TAKE 1 2022-0 No 500 TABLET BY 7-05 MOUTH ONCE 00:00: DAILY 00 &lt 2022-0 No 7-05 00:00: 00 INHALE 1 2022-0 No PUFF BY 7-05 MOUTH ONCE 00:00: DAILY 00 Dose 2022-0 No Unknown 7- 00:00: 00 TAKE 1 2022-0 No CAPSULE BY 7-05 MOUTH ONCE 00:00: DAILY 00 TAKE 2 2022-0 No 20 TABLETS BY 7-05 MOUTH DAILY 00:00: 00 &lt 2022-0 No 7-05 00:00: 00 Dose 2022-0 No Unknown 7- 00:00: 00 &lt 2022-0 No 250 7- 00:00: 00 USE 1 TO 2 2022-0 No SPRAY(S) IN 7-05 EACH 00:00: NOSTRIL 00 ONCE DAILY &lt 2022-0 No 7-05 00:00: 00 TAKE 1 2022-0 No 800 TABLET BY 7-05 MOUTH THREE 00:00: TIMES DAILY 00 WITH FOOD NEEDED FOR PAIN &lt 2022-0 No 500 7-05 00:00: 00 TAKE 1 2022-0 No 500 TABLET BY 7-05 MOUTH ONCE 00:00: DAILY 00 &lt 2022-0 No 7-05 00:00: 00 INHALE 1 2022-0 No PUFF BY 7-05 MOUTH ONCE 00:00: DAILY 00 Dose 2022-0 No Unknown 7- 00:00: 00 TAKE 1 2022-0 No CAPSULE BY 7-05 MOUTH ONCE 00:00: DAILY 00 TAKE 2 2022-0 No 20 TABLETS BY 7-05 MOUTH DAILY 00:00: 00 &lt 2022-0 No 7-05 00:00: 00 Dose 2022-0 No Unknown 7- 00:00: 00 &lt 2022-0 No 250 7- 00:00: 00 USE 1 TO 2 2022-0 No SPRAY(S) IN - EACH 00:00: NOSTRIL 00 ONCE DAILY &lt 2022-0 No 7-05 00:00: 00 TAKE 1 2022-0 No 800 TABLET BY 7-05 MOUTH THREE 00:00: TIMES DAILY 00 WITH FOOD NEEDED FOR PAIN &lt 2022-0 No 500 7-05 00:00: 00 TAKE 1 2022-0 No 500 TABLET BY 7-05 MOUTH ONCE 00:00: DAILY 00 &lt 2022-0 No 7-05 00:00: 00 INHALE 1 2022-0 No PUFF BY 7-05 MOUTH ONCE 00:00: DAILY 00 Dose 2022-0 No Unknown 7- 00:00: 00 TAKE 1 2022-0 No CAPSULE BY 7-05 MOUTH ONCE 00:00: DAILY 00 TAKE 2 2022-0 No 20 TABLETS BY 7-05 MOUTH DAILY 00:00: 00 &lt 2022-0 No 7-05 00:00: 00 Dose 2022-0 No Unknown 7- 00:00: 00 &lt 2022-0 No 250 7- 00:00: 00 USE 1 TO 2 2022-0 No SPRAY(S) IN 7-05 EACH 00:00: NOSTRIL 00 ONCE DAILY &lt 2022-0 No 7-05 00:00: 00 TAKE 1 2022-0 No 800 TABLET BY 7-05 MOUTH THREE 00:00: TIMES DAILY 00 WITH FOOD NEEDED FOR PAIN &lt 2022-0 No 500 7- 00:00: 00 TAKE 1 2022-0 No 500 TABLET BY 7-05 MOUTH ONCE 00:00: DAILY 00 &lt 2022-0 No 7-05 00:00: 00 INHALE 1 2022-0 No PUFF BY 7-05 MOUTH ONCE 00:00: DAILY 00 Dose 2022-0 No Unknown 7- 00:00: 00 TAKE 1 2022-0 No CAPSULE BY 7-05 MOUTH ONCE 00:00: DAILY 00 TAKE 2 2022-0 No 20 TABLETS BY 7-05 MOUTH DAILY 00:00: 00 &lt 2022-0 No 7- 00:00: 00 Dose 2022-0 No Unknown 7 00:00: 00 &lt 2022-0 No 250 7- 00:00: 00 azithromyci 2022-0 No 1mg n 250 mg 7- tablet 00:00: 00 Bromfed DM 2-0 No 10mg/5 2 mg-30 7- mL mg-10 mg/5 00:00: mL oral 00 syrup &lt 2022-0 No 7- 00:00: 00 USE 1 TO 2 2022-0 No SPRAY(S) IN 01-01 EACH 00:00: NOSTRIL 00 ONCE DAILY azithromyci 2-0 No 1mg n 250 mg - tablet 00:00: 00 Bromfed DM 2022-0 No 10mg/5 2 mg-30 7- mL mg-10 mg/5 00:00: mL oral 00 syrup &lt 2022-0 No 7- 00:00: 00 USE 1 TO 2 2022-0 No SPRAY(S) IN 01-01 EACH 00:00: NOSTRIL 00 ONCE DAILY azithromyci 2-0 No 1mg n 250 mg 7- tablet 00:00: 00 Bromfed DM 2022-0 No 10mg/5 2 mg-30 7- mL mg-10 mg/5 00:00: mL oral 00 syrup &lt 2022-0 No 7- 00:00: 00 USE 1 TO 2 2022-0 No SPRAY(S) IN 01-01 EACH 00:00: NOSTRIL 00 ONCE DAILY azithromyci 2022-0 No 1mg n 250 mg 7- tablet 00:00: 00 Bromfed DM 2021-0 No 10mg/5 2 mg-30 7- mL mg-10 mg/5 00:00: mL oral 00 syrup &lt 2021-0 No 7- 00:00: 00 USE 1 TO 2 2021-0 No SPRAY(S) IN 01-01 EACH 00:00: NOSTRIL 00 ONCE DAILY azithromyci 2021-0 No 1mg n 250 mg 01-01 tablet 00:00: 00 Bromfed DM 2021-0 No 10mg/5 2 mg-30 - mL mg-10 mg/5 00:00: mL oral 00 syrup &lt 2021-0 No - 00:00: 00 USE 1 TO 2 2021-0 No SPRAY(S) IN 01-01 EACH 00:00: NOSTRIL 00 ONCE DAILY azithromyci 2021-0 No 1mg n 250 mg 01-01 tablet 00:00: 00 Bromfed DM 0 No 10mg/5 2 mg-30 - mL mg-10 mg/5 00:00: mL oral 00 syrup &lt 2021-0 No - 00:00: 00 USE 1 TO 2 2021-0 No SPRAY(S) IN 01-01 EACH 00:00: NOSTRIL 00 ONCE DAILY ipratropium Yes 1{ampul Inhale 1 [facility] -albuteroL 01-01 e} Ampule as ity of 0.5 mg-3 00:00: needed. [place] mg(2.5 mg 00 [facility])/3 mL [facility] nebulizer solution ipratropium Yes 1{ampul Inhale 1 [facility] -albuteroL 01-01 e} Ampule as ity of 0.5 mg-3 00:00: needed. [place] mg(2.5 mg 00 [facility])/3 mL [facility] nebulizer solution ipratropium Yes 1{ampul Inhale 1 [facility] -albuteroL 01-01 e} Ampule as [facility] of 0.5 mg-3 00:00: needed. [place] mg(2.5 mg 00 [facility])/3 mL [facility] nebulizer solution TAKE 1 No CAPSULE BY 6-29 MOUTH ONCE 00:00: DAILY 00 TAKE No DIRECTED ON - PACKAGE 00:00: 00 TAKE 1 2-0 No CAPSULE BY 6-29 MOUTH ONCE 00:00: DAILY 00 TAKE 2022-0 No DIRECTED ON - PACKAGE 00:00: 00 TAKE 1 2022-0 No CAPSULE BY 6-29 MOUTH ONCE 00:00: DAILY 00 TAKE 2022-0 No DIRECTED ON 12-30 PACKAGE 00:00: 00 TAKE 1 2-0 No CAPSULE BY 6-29 MOUTH ONCE 00:00: DAILY 00 TAKE 2022-0 No DIRECTED ON - PACKAGE 00:00: 00 TAKE 1 2-0 No CAPSULE BY 6-29 MOUTH ONCE 00:00: DAILY 00 TAKE 2022-0 No DIRECTED ON - PACKAGE 00:00: 00 TAKE 1 2-0 No CAPSULE BY 6-29 MOUTH ONCE 00:00: DAILY 00 TAKE 2022-0 No DIRECTED ON 12-30 PACKAGE 00:00: 00 Dose 2-0 No Unknown 12-29 00:00: 00 TAKE 1 2-0 No TABLET BY 6-28 MOUTH THREE 00:00: TIMES DAILY 00 WITH FOOD NEEDED FOR PAIN &lt 2022-0 No -28 00:00: 00 TAKE 1 2-0 No TABLET BY 6-28 MOUTH ONCE 00:00: DAILY 00 TAKE 2 2022-0 No TABLETS BY 6-28 MOUTH ON 00:00: DAY 1, AND 00 THEN TAKE 1 TABLET BY MOUTH ONCE A DAY ON DAY 2 THROUGH DAY 5 TAKE 1 2022-0 No TABLET BY 6-28 MOUTH THREE 00:00: TIMES DAILY 00 WITH FOOD NEEDED FOR PAIN Dose 2022-0 No Unknown 12-29 00:00: 00 Dose 2022-0 No Unknown 12-29 00:00: 00 TAKE 1 2022-0 No TABLET BY 6-28 MOUTH THREE 00:00: TIMES DAILY 00 WITH FOOD NEEDED FOR PAIN &lt 2022-0 No -28 00:00: 00 TAKE 1 2022-0 No TABLET BY 6-28 MOUTH ONCE 00:00: DAILY 00 TAKE 2 2022-0 No TABLETS BY 6-28 MOUTH ON 00:00: DAY 1, AND 00 THEN TAKE 1 TABLET BY MOUTH ONCE A DAY ON DAY 2 THROUGH DAY 5 TAKE 1 2022-0 No TABLET BY 6-28 MOUTH THREE 00:00: TIMES DAILY 00 WITH FOOD NEEDED FOR PAIN Dose 2022-0 No Unknown 12-29 00:00: 00 Dose 2022-0 No Unknown 12-29 00:00: 00 TAKE 1 2022-0 No TABLET BY 6-28 MOUTH THREE 00:00: TIMES DAILY 00 WITH FOOD NEEDED FOR PAIN &lt 2022-0 No 12-29 00:00: 00 TAKE 1 2022-0 No TABLET BY 6-28 MOUTH ONCE 00:00: DAILY 00 TAKE 2 2022-0 No TABLETS BY 6-28 MOUTH ON 00:00: DAY 1, AND 00 THEN TAKE 1 TABLET BY MOUTH ONCE A DAY ON DAY 2 THROUGH DAY 5 TAKE 1 2022-0 No TABLET BY 6-28 MOUTH THREE 00:00: TIMES DAILY 00 WITH FOOD NEEDED FOR PAIN Dose 2022-0 No Unknown 12-29 00:00: 00 Dose 2022-0 No Unknown 12-29 00:00: 00 TAKE 1 2022-0 No TABLET BY 6-28 MOUTH THREE 00:00: TIMES DAILY 00 WITH FOOD NEEDED FOR PAIN &lt 2022-0 No 12-29 00:00: 00 TAKE 1 2022-0 No TABLET BY 6-28 MOUTH ONCE 00:00: DAILY 00 TAKE 2 2022-0 No TABLETS BY 6-28 MOUTH ON 00:00: DAY 1, AND 00 THEN TAKE 1 TABLET BY MOUTH ONCE A DAY ON DAY 2 THROUGH DAY 5 TAKE 1 2022-0 No TABLET BY 6-28 MOUTH THREE 00:00: TIMES DAILY 00 WITH FOOD NEEDED FOR PAIN Dose 2022-0 No Unknown 12-29 00:00: 00 Dose 2022-0 No Unknown 12-29 00:00: 00 TAKE 1 2022-0 No TABLET BY 6-28 MOUTH THREE 00:00: TIMES DAILY 00 WITH FOOD NEEDED FOR PAIN &lt 2022-0 No 12-29 00:00: 00 TAKE 1 2022-0 No TABLET BY 6-28 MOUTH ONCE 00:00: DAILY 00 TAKE 2 2022-0 No TABLETS BY 6-28 MOUTH ON 00:00: DAY 1, AND 00 THEN TAKE 1 TABLET BY MOUTH ONCE A DAY ON DAY 2 THROUGH DAY 5 TAKE 1 2022-0 No TABLET BY 6-28 MOUTH THREE 00:00: TIMES DAILY 00 WITH FOOD NEEDED FOR PAIN Dose 2022-0 No Unknown 12-29 00:00: 00 Dose 2022-0 No Unknown 12-29 00:00: 00 TAKE 1 2022-0 No TABLET BY 6-28 MOUTH THREE 00:00: TIMES DAILY 00 WITH FOOD NEEDED FOR PAIN &lt 2-0 No - 00:00: 00 TAKE 1 2022-0 No TABLET BY 6-28 MOUTH ONCE 00:00: DAILY 00 TAKE 2 2022-0 No TABLETS BY 6-28 MOUTH ON 00:00: DAY 1, AND 00 THEN TAKE 1 TABLET BY MOUTH ONCE A DAY ON DAY 2 THROUGH DAY 5 TAKE 1 2022-0 No TABLET BY 6-28 MOUTH THREE 00:00: TIMES DAILY 00 WITH FOOD NEEDED FOR PAIN Dose 2021-0 No Unknown 12-29 00:00: 00 OZEMPIC 2021-0 Yes .25mg inject [facility] 0.25 mg or 6-27 0.25 mg ity of 0.5 mg(2 00:[place]/1.[place] 00 [facility] PnIj weekly. [facility] OZEMPIC 2021-0 Yes .25mg inject [facility] 0.25 mg or 6-27 0.25 mg ity of 0.5 mg(2 00:[place]/1[place] mL[place] 00 [facility] PnIj weekly. [facility] OZEMPIC 0 Yes .25mg inject [facility] 0.25 mg or 6-27 0.25 mg ity of 0.5 mg(2 00:[place]/1.[place] mL[place] 00 skin [facility] PnIj weekly. [facility] &lt 2022-0 No 6-24 00:00: 00 &lt 2022-0 No 6-24 00:00: 00 &lt 2022-0 No 6-24 00:00: 00 INHALE 1 2022-0 No PUFF BY 6-24 MOUTH ONCE 00:00: DAILY 00 TAKE 1 2022-0 No TABLET BY 6-24 MOUTH DAILY 00:00: 00 &lt 2022-0 No 6-24 00:00: 00 &lt 2022-0 No 6-24 00:00: 00 TAKE 1 2022-0 No TABLET BY 6-24 MOUTH EVERY 00:00: DAY 00 INHALE 2 2022-0 No PUFFS TWICE 6-24 DAILY FOR 00:00: 30 DAYS 00 TAKE 2 2022-0 No TABLETS BY 6-24 MOUTH ON 00:00: DAY 1, AND 00 THEN TAKE 1 TABLET BY MOUTH ONCE A DAY ON DAY 2 THROUGH DAY 5 &lt 2022-0 No 6-24 00:00: 00 &lt 2022-0 No 6-24 00:00: 00 TAKE 2 2022-0 No TABLETS BY 6-24 MOUTH DAILY 00:00: 00 INHALE 1 2022-0 No PUFF BY 6-24 MOUTH ONCE 00:00: DAILY 00 &lt 2022-0 No 6-24 00:00: 00 TAKE 1 2022-0 No TABLET BY 6-24 MOUTH DAILY 00:00: 00 &lt 2022-0 No 6-24 00:00: 00 TAKE 1 2022-0 No CAPSULE BY 6-24 MOUTH ONCE 00:00: DAILY 00 &lt 2022-0 No 6-24 00:00: 00 &lt 2022-0 No 6-24 00:00: 00 INHALE 3ML 2022-0 No (1 VIAL) 6-24 VIA 00:00: NEBULIZER 00 EVERY 6 HOURS NEEDED INJECT 0.25 2022-0 No MG UNDER 6-24 THE SKIN 00:00: ONCE A WEEK 00 FOR THE FIRST MONTH, AND INCREASE TO 0.5 MG UNDER THE SKIN ONCE A WEEK THEREAFTER &lt 2022-0 No 6-24 00:00: 00 &lt 2022-0 No 6-24 00:00: 00 &lt 2022-0 No 6-24 00:00: 00 &lt 2022-0 No 6-24 00:00: 00 INHALE 1 2022-0 No PUFF BY 6-24 MOUTH ONCE 00:00: DAILY 00 TAKE 1 2022-0 No TABLET BY 6-24 MOUTH DAILY 00:00: 00 &lt 2022-0 No 6-24 00:00: 00 &lt 2022-0 No 6-24 00:00: 00 TAKE 1 2022-0 No TABLET BY 6-24 MOUTH EVERY 00:00: DAY 00 INHALE 2 2022-0 No PUFFS TWICE 6-24 DAILY FOR 00:00: 30 DAYS 00 TAKE 2 2022-0 No TABLETS BY 6-24 MOUTH ON 00:00: DAY 1, AND 00 THEN TAKE 1 TABLET BY MOUTH ONCE A DAY ON DAY 2 THROUGH DAY 5 &lt 2022-0 No 6-24 00:00: 00 &lt 2022-0 No 6-24 00:00: 00 TAKE 2 2022-0 No TABLETS BY 6-24 MOUTH DAILY 00:00: 00 INHALE 1 2022-0 No PUFF BY 6-24 MOUTH ONCE 00:00: DAILY 00 &lt 2022-0 No 6-24 00:00: 00 TAKE 1 2022-0 No TABLET BY 6-24 MOUTH DAILY 00:00: 00 &lt 2022-0 No 6-24 00:00: 00 TAKE 1 2022-0 No CAPSULE BY 6-24 MOUTH ONCE 00:00: DAILY 00 &lt 2022-0 No 6-24 00:00: 00 &lt 2022-0 No 6-24 00:00: 00 INHALE 3ML 2022-0 No (1 VIAL) 6-24 VIA 00:00: NEBULIZER 00 EVERY 6 HOURS NEEDED INJECT 0.25 2022-0 No MG UNDER 6-24 THE SKIN 00:00: ONCE A WEEK 00 FOR THE FIRST MONTH, AND INCREASE TO 0.5 MG UNDER THE SKIN ONCE A WEEK THEREAFTER &lt 2022-0 No 6-24 00:00: 00 &lt 2022-0 No 6-24 00:00: 00 &lt 2022-0 No 6-24 00:00: 00 &lt 2022-0 No 6-24 00:00: 00 INHALE 1 2022-0 No PUFF BY 6-24 MOUTH ONCE 00:00: DAILY 00 TAKE 1 2022-0 No TABLET BY 6-24 MOUTH DAILY 00:00: 00 &lt 2022-0 No 6-24 00:00: 00 &lt 2022-0 No 6-24 00:00: 00 TAKE 1 2022-0 No TABLET BY 6-24 MOUTH EVERY 00:00: DAY 00 INHALE 2 2022-0 No PUFFS TWICE 6-24 DAILY FOR 00:00: 30 DAYS 00 TAKE 2 2022-0 No TABLETS BY 6-24 MOUTH ON 00:00: DAY 1, AND 00 THEN TAKE 1 TABLET BY MOUTH ONCE A DAY ON DAY 2 THROUGH DAY 5 &lt 2022-0 No 6-24 00:00: 00 &lt 2022-0 No 6-24 00:00: 00 TAKE 2 2022-0 No TABLETS BY 6-24 MOUTH DAILY 00:00: 00 INHALE 1 2022-0 No PUFF BY 6-24 MOUTH ONCE 00:00: DAILY 00 &lt 2022-0 No 6-24 00:00: 00 &lt 2022-0 No 6-24 00:00: 00 &lt 2022-0 No 6-24 00:00: 00 INHALE 1 2022-0 No PUFF BY 6-24 MOUTH ONCE 00:00: DAILY 00 TAKE 1 2022-0 No TABLET BY 6-24 MOUTH DAILY 00:00: 00 &lt 2022-0 No 6-24 00:00: 00 &lt 2022-0 No 6-24 00:00: 00 &lt 2022-0 No 6-24 00:00: 00 TAKE 1 2022-0 No TABLET BY 6-24 MOUTH EVERY 00:00: DAY 00 INHALE 2 2022-0 No PUFFS TWICE 6-24 DAILY FOR 00:00: 30 DAYS 00 TAKE 2 2022-0 No TABLETS BY 6-24 MOUTH ON 00:00: DAY 1, AND 00 THEN TAKE 1 TABLET BY MOUTH ONCE A DAY ON DAY 2 THROUGH DAY 5 &lt 2022-0 No 6-24 00:00: 00 &lt 2022-0 No 6-24 00:00: 00 TAKE 2 2022-0 No TABLETS BY 6-24 MOUTH DAILY 00:00: 00 INHALE 1 2022-0 No PUFF BY 6-24 MOUTH ONCE 00:00: DAILY 00 &lt 2022-0 No 6-24 00:00: 00 TAKE 1 2022-0 No TABLET BY 6-24 MOUTH DAILY 00:00: 00 &lt 2022-0 No 6-24 00:00: 00 TAKE 1 2022-0 No TABLET BY 6-24 MOUTH DAILY 00:00: 00 TAKE 1 2022-0 No CAPSULE BY 6-24 MOUTH ONCE 00:00: DAILY 00 &lt 2022-0 No 6-24 00:00: 00 &lt 2022-0 No 6-24 00:00: 00 INHALE 3ML 2022-0 No (1 VIAL) 6-24 VIA 00:00: NEBULIZER 00 EVERY 6 HOURS NEEDED INJECT 0.25 2022-0 No MG UNDER 6-24 THE SKIN 00:00: ONCE A WEEK 00 FOR THE FIRST MONTH, AND INCREASE TO 0.5 MG UNDER THE SKIN ONCE A WEEK THEREAFTER &lt 2022-0 No 6-24 00:00: 00 &lt 2022-0 No 6-24 00:00: 00 TAKE 1 2022-0 No CAPSULE BY 6-24 MOUTH ONCE 00:00: DAILY 00 &lt 2022-0 No 6-24 00:00: 00 &lt 2022-0 No 6-24 00:00: 00 INHALE 3ML 2022-0 No (1 VIAL) 6-24 VIA 00:00: NEBULIZER 00 EVERY 6 HOURS NEEDED INJECT 0.25 2022-0 No MG UNDER 6-24 THE SKIN 00:00: ONCE A WEEK 00 FOR THE FIRST MONTH, AND INCREASE TO 0.5 MG UNDER THE SKIN ONCE A WEEK THEREAFTER &lt 2022-0 No 6-24 00:00: 00 &lt 2022-0 No 6-24 00:00: 00 &lt 2022-0 No 6-24 00:00: 00 &lt 2022-0 No 6-24 00:00: 00 INHALE 1 2022-0 No PUFF BY 6-24 MOUTH ONCE 00:00: DAILY 00 TAKE 1 2022-0 No TABLET BY 6-24 MOUTH DAILY 00:00: 00 &lt 2022-0 No 6-24 00:00: 00 &lt 2022-0 No 6-24 00:00: 00 TAKE 1 2022-0 No TABLET BY 6-24 MOUTH EVERY 00:00: DAY 00 INHALE 2 2022-0 No PUFFS TWICE 6-24 DAILY FOR 00:00: 30 DAYS 00 TAKE 2 2022-0 No TABLETS BY 6-24 MOUTH ON 00:00: DAY 1, AND 00 THEN TAKE 1 TABLET BY MOUTH ONCE A DAY ON DAY 2 THROUGH DAY 5 &lt 2022-0 No 6-24 00:00: 00 &lt 2022-0 No 6-24 00:00: 00 TAKE 2 2022-0 No TABLETS BY 6-24 MOUTH DAILY 00:00: 00 INHALE 1 2022-0 No PUFF BY 6-24 MOUTH ONCE 00:00: DAILY 00 &lt 2022-0 No 6-24 00:00: 00 TAKE 1 2022-0 No TABLET BY 6-24 MOUTH DAILY 00:00: 00 &lt 2022-0 No 6-24 00:00: 00 TAKE 1 2022-0 No CAPSULE BY 6-24 MOUTH ONCE 00:00: DAILY 00 &lt 2022-0 No 6-24 00:00: 00 &lt 2022-0 No 6-24 00:00: 00 INHALE 3ML 2022-0 No (1 VIAL) 6-24 VIA 00:00: NEBULIZER 00 EVERY 6 HOURS NEEDED INJECT 0.25 2022-0 No MG UNDER 6-24 THE SKIN 00:00: ONCE A WEEK 00 FOR THE FIRST MONTH, AND INCREASE TO 0.5 MG UNDER THE SKIN ONCE A WEEK THEREAFTER &lt 2022-0 No 6-24 00:00: 00 &lt 2022-0 No 6-24 00:00: 00 &lt 2022-0 No 6-24 00:00: 00 &lt 2022-0 No 6-24 00:00: 00 INHALE 1 2022-0 No PUFF BY 6-24 MOUTH ONCE 00:00: DAILY 00 TAKE 1 2022-0 No TABLET BY 6-24 MOUTH DAILY 00:00: 00 &lt 2022-0 No 6-24 00:00: 00 &lt 2022-0 No 6-24 00:00: 00 TAKE 1 2022-0 No TABLET BY 6-24 MOUTH EVERY 00:00: DAY 00 INHALE 2 2022-0 No PUFFS TWICE 6-24 DAILY FOR 00:00: 30 DAYS 00 TAKE 2 2022-0 No TABLETS BY 6-24 MOUTH ON 00:00: DAY 1, AND 00 THEN TAKE 1 TABLET BY MOUTH ONCE A DAY ON DAY 2 THROUGH DAY 5 &lt 2022-0 No 6-24 00:00: 00 &lt 2022-0 No 6-24 00:00: 00 TAKE 2 2022-0 No TABLETS BY 6-24 MOUTH DAILY 00:00: 00 INHALE 1 2022-0 No PUFF BY 6-24 MOUTH ONCE 00:00: DAILY 00 &lt 2022-0 No 6-24 00:00: 00 TAKE 1 2022-0 No TABLET BY 6-24 MOUTH DAILY 00:00: 00 &lt 2022-0 No 6-24 00:00: 00 TAKE 1 2022-0 No CAPSULE BY 6-24 MOUTH ONCE 00:00: DAILY 00 &lt 2022-0 No 6-24 00:00: 00 &lt 2022-0 No 6-24 00:00: 00 INHALE 3ML 2022-0 No (1 VIAL) -24 VIA 00:00: NEBULIZER 00 EVERY 6 HOURS NEEDED INJECT 0.25 2022-0 No MG UNDER 6-24 THE SKIN 00:00: ONCE A WEEK 00 FOR THE FIRST MONTH, AND INCREASE TO 0.5 MG UNDER THE SKIN ONCE A WEEK THEREAFTER &lt 2022-0 No 6-24 00:00: 00 TAKE 1 2022-0 No TABLET BY 6-20 MOUTH THREE 00:00: TIMES DAILY 00 NEEDED WITH FOOD FOR PAIN &lt 2022-0 No 6-20 00:00: 00 TAKE 1 2022-0 No TABLET BY 6-20 MOUTH THREE 00:00: TIMES DAILY 00 NEEDED WITH FOOD FOR PAIN &lt 2022-0 No 6-20 00:00: 00 TAKE 1 2022-0 No TABLET BY 6-20 MOUTH THREE 00:00: TIMES DAILY 00 NEEDED WITH FOOD FOR PAIN &lt 2022-0 No 6-20 00:00: 00 TAKE 1 2022-0 No TABLET BY 6-20 MOUTH THREE 00:00: TIMES DAILY 00 NEEDED WITH FOOD FOR PAIN &lt 2022-0 No 6-20 00:00: 00 TAKE 1 2-0 No TABLET BY 6-20 MOUTH THREE 00:00: TIMES DAILY 00 NEEDED WITH FOOD FOR PAIN &lt 2022-0 No 6-20 00:00: 00 TAKE 1 2022-0 No TABLET BY 6-20 MOUTH THREE 00:00: TIMES DAILY 00 NEEDED WITH FOOD FOR PAIN &lt 2022-0 No 6-20 00:00: 00 TAKE 2022-0 No DIRECTED ON 6-17 PACKAGE 00:00: 00 TAKE 2022-0 No DIRECTED ON 6-17 PACKAGE 00:00: 00 TAKE 2022-0 No DIRECTED ON 6-17 PACKAGE 00:00: 00 TAKE 2022-0 No DIRECTED ON 6-17 PACKAGE 00:00: 00 TAKE 2022-0 No DIRECTED ON 6-17 PACKAGE 00:00: 00 TAKE 2022-0 No DIRECTED ON 6-17 PACKAGE 00:00: 00 atenoloL-ch 2021-0 Yes 1.5{tbl Take 1.5 [facility] lorthalidon 5-24 } tablets by [facility] y of e 50-25 mg 00:00: mouth in [place] as per tablet 00 the Medical morning. Branch atenoloL-ch 2-0 Yes 1.5{tbl Take 1.5 [facility] lorthalidon 5-24 } tablets by it y of e 50-25 mg 00:00: mouth in [place] as per tablet 00 the Medical morning. Branch atenoloL-ch 2021-0 Yes 1.5{tbl Take 1.5 [facility] lorthalidon 5-24 } tablets by it y of e 50-25 mg 00:00: mouth in [place] as per tablet 00 the Medical morning. Branch ipratropium 2-0 No 3mg 0.5 5-03 base)/3 mg-albutero 00:00: mL l 3 mg (2.5 00 mg base)/3 mL nebulizatio n soln lidocaine 4 2021-0 No 1% % topical 5-03 patch 00:00: 00 chlorthalid 2-0 No 1mg one 50 mg 5-03 tablet 00:00: 00 atenolol 50 2021-0 No 1mg mg tablet 11-03 00:00: 00 Zyrtec 10 2021-0 No 1mg mg tablet 11-03 00:00: 00 benzonatate 2-0 No 1mg 100 mg 5-03 capsule 00:00: 00 ipratropium 2-0 No 3mg 0.5 5-03 base)/3 mg-albutero 00:00: mL l 3 mg (2.5 00 mg base)/3 mL nebulizatio n soln lidocaine 4 2021-0 No 1% % topical 5-03 patch 00:00: 00 chlorthalid 2-0 No 1mg one 50 mg 5-03 tablet 00:00: 00 atenolol 50 2-0 No 1mg mg tablet 11-03 00:00: 00 Zyrtec 10 2021-0 No 1mg mg tablet 11-03 00:00: 00 benzonatate 2022-0 No 1mg 100 mg 5-03 capsule 00:00: 00 ipratropium 2022-0 No 3mg 0.5 5-03 base)/3 mg-albutero 00:00: mL l 3 mg (2.5 00 mg base)/3 mL nebulizatio n soln lidocaine 4 2021-0 No 1% % topical 5-03 patch 00:00: 00 chlorthalid 2022-0 No 1mg one 50 mg 5-03 tablet 00:00: 00 atenolol 50 2-0 No 1mg mg tablet 11-03 00:00: 00 Zyrtec 10 2021-0 No 1mg mg tablet 11-03 00:00: 00 benzonatate 2-0 No 1mg 100 mg -03 capsule 00:00: 00 ipratropium 2-0 No 3mg 0.5 5-03 base)/3 mg-albutero 00:00: mL l 3 mg (2.5 00 mg base)/3 mL nebulizatio n soln lidocaine 4 2021-0 No 1% % topical -03 patch 00:00: 00 chlorthalid 2-0 No 1mg one 50 mg 5-03 tablet 00:00: 00 atenolol 50 2021-0 No 1mg mg tablet 11-03 00:00: 00 Zyrtec 10 2021-0 No 1mg mg tablet 11-03 00:00: 00 benzonatate 2-0 No 1mg 100 mg 11-03 capsule 00:00: 00 ipratropium 2-0 No 3mg 0.5 5-03 base)/3 mg-albutero 00:00: mL l 3 mg (2.5 00 mg base)/3 mL nebulizatio n soln lidocaine 4 2021-0 No 1% % topical -03 patch 00:00: 00 chlorthalid 2-0 No 1mg one 50 mg 5-03 tablet 00:00: 00 atenolol 50 2-0 No 1mg mg tablet 11-03 00:00: 00 Zyrtec 10 2021-0 No 1mg mg tablet 11-03 00:00: 00 benzonatate 2-0 No 1mg 100 mg -03 capsule 00:00: 00 ipratropium 2-0 No 3mg 0.5 5-03 base)/3 mg-albutero 00:00: mL l 3 mg (2.5 00 mg base)/3 mL nebulizatio n soln lidocaine 4 2021-0 No 1% % topical 5-03 patch 00:00: 00 chlorthalid 2-0 No 1mg one 50 mg 5-03 tablet 00:00: 00 atenolol 50 2-0 No 1mg mg tablet 11-03 00:00: 00 Zyrtec 10 2021-0 No 1mg mg tablet 5-03 00:00: 00 benzonatate 2022-0 No 1mg 100 mg 5-03 capsule 00:00: 00 Dose 2022-0 No Unknown 4-12 00:00: 00 Dose 2022-0 No Unknown 4-12 00:00: 00 Dose 2022-0 No Unknown 4-12 00:00: 00 Dose 2022-0 No Unknown 4-12 00:00: 00 Dose 2022-0 No Unknown 4-12 00:00: 00 Dose 2022-0 No Unknown 4-12 00:00: 00 Dose 2022-0 No Unknown 4-12 00:00: 00 Dose 2022-0 No Unknown 4-12 00:00: 00 Dose 2022-0 No Unknown 4-12 00:00: 00 Dose 2022-0 No Unknown 4-12 00:00: 00 Dose 2022-0 No Unknown 4-12 00:00: 00 Dose 2022-0 No Unknown 4-12 00:00: 00 Dose 2022-0 No Unknown 4-12 00:00: 00 Dose 2022-0 No Unknown 4-12 00:00: 00 Dose 2022-0 No Unknown 4-12 00:00: 00 Dose 2022-0 No Unknown 4-12 00:00: 00 Dose 2022-0 No Unknown 4-12 00:00: 00 Dose 2022-0 No Unknown 4-12 00:00: 00 Dose 2022-0 No Unknown 4-12 00:00: 00 Dose 2022-0 No Unknown 4-12 00:00: 00 Dose 2022-0 No Unknown 4-12 00:00: 00 Dose 2022-0 No Unknown 4-12 00:00: 00 Dose 2022-0 No Unknown 4-12 00:00: 00 Dose 2022-0 No Unknown 4-12 00:00: 00 Dose 2022-0 No Unknown 4-12 00:00: 00 Dose 2022-0 No Unknown 4-12 00:00: 00 Dose 2022-0 No Unknown 4-12 00:00: 00 Dose 2022-0 No Unknown 4-12 00:00: 00 Dose 2022-0 No Unknown 4-12 00:00: 00 Dose 2022-0 No Unknown 4-12 00:00: 00 Dose 2022-0 No Unknown 4-12 00:00: 00 Dose 2022-0 No Unknown 4-12 00:00: 00 Dose 2022-0 No Unknown 4-12 00:00: 00 Dose 2022-0 No Unknown 4-12 00:00: 00 Dose 2022-0 No Unknown 4-12 00:00: 00 Dose 2022-0 No Unknown 4-12 00:00: 00 Dose 2022-0 No Unknown 4-12 00:00: 00 Dose 2022-0 No Unknown 4-12 00:00: 00 Dose 2022-0 No Unknown 4-12 00:00: 00 Dose 2022-0 No Unknown 4-12 00:00: 00 Dose 2022-0 No Unknown 4-12 00:00: 00 Dose 2022-0 No Unknown 4-12 00:00: 00 Dose 2022-0 No Unknown 4-12 00:00: 00 Dose 2022-0 No Unknown 4-12 00:00: 00 Dose 2022-0 No Unknown 4-12 00:00: 00 Dose 2022-0 No Unknown 4-12 00:00: 00 Dose 2022-0 No Unknown 4-12 00:00: 00 Dose 2022-0 No Unknown 4-12 00:00: 00 Dose 2022-0 No Unknown 4-12 00:00: 00 Dose 2022-0 No Unknown 4-12 00:00: 00 Dose 2022-0 No Unknown 4-12 00:00: 00 Dose 2022-0 No Unknown 4-12 00:00: 00 Dose 2022-0 No Unknown 4-12 00:00: 00 Dose 2022-0 No Unknown 4-12 00:00: 00 Dose 2022-0 No Unknown 4-12 00:00: 00 Dose 2022-0 No Unknown 4-12 00:00: 00 Dose 2022-0 No Unknown 4-12 00:00: 00 Dose 2022-0 No Unknown 4-12 00:00: 00 Dose 2022-0 No Unknown 4-12 00:00: 00 Dose 2022-0 No Unknown 4-12 00:00: 00 Dose 2022-0 No Unknown 4-12 00:00: 00 Dose 2022-0 No Unknown 4-12 00:00: 00 Dose 2022-0 No Unknown 4-12 00:00: 00 Dose 2022-0 No Unknown 4-12 00:00: 00 Dose 2022-0 No Unknown 4-12 00:00: 00 Dose 2022-0 No Unknown 4-12 00:00: 00 Dose 2022-0 No Unknown 4-12 00:00: 00 Dose 2022-0 No Unknown 4-12 00:00: 00 Dose 2022-0 No Unknown 4-12 00:00: 00 Dose 2022-0 No Unknown 4-12 00:00: 00 Dose 2022-0 No Unknown 4-12 00:00: 00 Dose 2022-0 No Unknown 4-12 00:00: 00 Dose 2022-0 No Unknown 4-12 00:00: 00 Dose 2022-0 No Unknown 4-12 00:00: 00 Dose 2022-0 No Unknown 4-12 00:00: 00 Dose 2022-0 No Unknown 4-12 00:00: 00 Dose 2022-0 No Unknown 4-12 00:00: 00 Dose 2022-0 No Unknown 4-12 00:00: 00 Dose 2022-0 No Unknown 4-12 00:00: 00 Dose 2022-0 No Unknown 4-12 00:00: 00 Dose 2022-0 No Unknown 4-12 00:00: 00 Dose 2022-0 No Unknown 4-12 00:00: 00 Dose 2022-0 No Unknown 4-12 00:00: 00 Dose 2022-0 No Unknown 4-12 00:00: 00 Dose 2022-0 No Unknown 4-12 00:00: 00 Dose 2022-0 No Unknown 4-12 00:00: 00 Dose 2022-0 No Unknown 4-12 00:00: 00 Dose 2022-0 No Unknown 4-12 00:00: 00 Dose 2022-0 No Unknown 4-12 00:00: 00 Dose 2022-0 No Unknown 4-12 00:00: 00 Dose 2022-0 No Unknown 4-12 00:00: 00 Dose 2022-0 No Unknown 4-12 00:00: 00 Dose 2022-0 No Unknown 4-12 00:00: 00 Dose 2022-0 No Unknown 4-12 00:00: 00 Dose 2022-0 No Unknown 4-12 00:00: 00 Dose 2022-0 No Unknown 4-12 00:00: 00 Dose 2022-0 No Unknown 4-12 00:00: 00 Dose 2022-0 No Unknown 4-12 00:00: 00 Dose 2022-0 No Unknown 4-12 00:00: 00 Dose 2022-0 No Unknown 4-12 00:00: 00 Dose 2022-0 No Unknown 4-12 00:00: 00 Dose 2022-0 No Unknown 4-12 00:00: 00 Dose 2022-0 No Unknown 4-12 00:00: 00 Dose 2022-0 No Unknown 4-12 00:00: 00 Dose 2022-0 No Unknown 4-12 00:00: 00 Dose 2022-0 No Unknown 4-12 00:00: 00 Dose 2022-0 No Unknown 4-12 00:00: 00 Dose 2022-0 No Unknown 4-12 00:00: 00 Dose 2022-0 No Unknown 4-12 00:00: 00 Dose 2022-0 No Unknown 4-12 00:00: 00 Dose 2022-0 No Unknown 4-12 00:00: 00 Dose 2022-0 No Unknown 4-12 00:00: 00 Dose 2022-0 No Unknown 4-12 00:00: 00 Dose 2022-0 No Unknown 4-12 00:00: 00 Dose 2022-0 No Unknown 4-12 00:00: 00 Dose 2022-0 No Unknown 4-12 00:00: 00 Dose 2022-0 No Unknown 4-12 00:00: 00 Dose 2022-0 No Unknown 4-12 00:00: 00 Dose 2022-0 No Unknown 4-12 00:00: 00 Dose 2022-0 No Unknown 4-12 00:00: 00 Dose 2022-0 No Unknown 4-12 00:00: 00 Dose 2022-0 No Unknown 4-12 00:00: 00 Dose 2022-0 No Unknown 4-12 00:00: 00 Dose 2022-0 No Unknown 4-12 00:00: 00 Dose 2022-0 No Unknown 4-12 00:00: 00 Dose 2022-0 No Unknown 4-12 00:00: 00 Dose 2022-0 No Unknown 4-12 00:00: 00 Dose 2022-0 No Unknown 4-12 00:00: 00 Dose 2022-0 No Unknown 4-12 00:00: 00 Dose 2022-0 No Unknown 4-12 00:00: 00 Dose 2022-0 No Unknown 4-12 00:00: 00 Dose 2022-0 No Unknown 4-12 00:00: 00 Zyrtec 10 2-0 No 1mg mg tablet 4-08 00:00: 00 atenolol 50 2022-0 No 1mg mg tablet 4-08 00:00: 00 chlorthalid 2022-0 No 1mg one 50 mg 4-08 tablet 00:00: 00 Dose 2022-0 No Unknown 4-08 00:00: 00 Dose 2022-0 No Unknown 4-08 00:00: 00 Zyrtec 10 2-0 No 1mg mg tablet 4-08 00:00: 00 atenolol 50 2022-0 No 1mg mg tablet 4- 00:00: 00 chlorthalid 2022-0 No 1mg one 50 mg 4-08 tablet 00:00: 00 Dose 2022-0 No Unknown 4- 00:00: 00 Dose 2022-0 No Unknown 4- 00:00: 00 Zyrtec 10 2-0 No 1mg mg tablet 4- 00:00: 00 atenolol 50 2022-0 No 1mg mg tablet 4- 00:00: 00 chlorthalid 2022-0 No 1mg one 50 mg 4-08 tablet 00:00: 00 Dose 2022-0 No Unknown 4-08 00:00: 00 Dose 2022-0 No Unknown 4- 00:00: 00 Zyrtec 10 2-0 No 1mg mg tablet 4- 00:00: 00 atenolol 50 2022-0 No 1mg mg tablet 4- 00:00: 00 chlorthalid 2022-0 No 1mg one 50 mg 4-08 tablet 00:00: 00 Dose 2022-0 No Unknown 4-08 00:00: 00 Dose 2022-0 No Unknown 4- 00:00: 00 Zyrtec 10 2-0 No 1mg mg tablet 4- 00:00: 00 atenolol 50 2022-0 No 1mg mg tablet 4- 00:00: 00 chlorthalid 2022-0 No 1mg one 50 mg 4-08 tablet 00:00: 00 Dose 2022-0 No Unknown 4-08 00:00: 00 Dose 2022-0 No Unknown 4-08 00:00: 00 Zyrtec 10 2022-0 No 1mg mg tablet 4-08 00:00: 00 atenolol 50 2-0 No 1mg mg tablet 4 00:00: 00 chlorthalid 2022-0 No 1mg one 50 mg 4-08 tablet 00:00: 00 Dose 2022-0 No Unknown 4-08 00:00: 00 Dose 2022-0 No Unknown 4-08 00:00: 00 metformin 2022-0 No 1mg 500 mg 3-19 tablet 00:00: 00 metformin 2022-0 No 1mg 500 mg 3-19 tablet 00:00: 00 metformin 2022-0 No 1mg 500 mg 3-19 tablet 00:00: 00 metformin 2022-0 No 1mg 500 mg 3-19 tablet 00:00: 00 metformin 2022-0 No 1mg 500 mg 3-19 tablet 00:00: 00 metformin 2022-0 No 1mg 500 mg 3-19 tablet 00:00: 00 furosemide 2022-0 No 1mg 20 mg 3-07 tablet 00:00: 00 potassium 2022-0 No 1mEq chloride ER 3-07 10 mEq 00:00: capsule,ext 00 ended release furosemide 2022-0 No 1mg 20 mg 3-07 tablet 00:00: 00 potassium 2022-0 No 1mEq chloride ER 3-07 10 mEq 00:00: capsule,ext 00 ended release furosemide 2022-0 No 1mg 20 mg 3-07 tablet 00:00: 00 potassium 2022-0 No 1mEq chloride ER 3-07 10 mEq 00:00: capsule,ext 00 ended release furosemide 2022-0 No 1mg 20 mg 3-07 tablet 00:00: 00 potassium 2022-0 No 1mEq chloride ER 3-07 10 mEq 00:00: capsule,ext 00 ended release furosemide 2022-0 No 1mg 20 mg 3-07 tablet 00:00: 00 potassium 2022-0 No 1mEq chloride ER 3-07 10 mEq 00:00: capsule,ext 00 ended release furosemide 2022-0 No 1mg 20 mg 3-07 tablet 00:00: 00 potassium 2022-0 No 1mEq chloride ER 3-07 10 mEq 00:00: capsule,ext 00 ended release ProAir HFA 2-0 No 12mcg/a 90 3-04 ctuatio mcg/actuati 00:00: n on aerosol 00 inhaler ipratropium 2021-0 No 3mg 0.5 3-04 base)/3 mg-albutero 00:00: mL l 3 mg (2.5 00 mg base)/3 mL nebulizatio n soln ibuprofen 2021-0 No 1mg 800 mg 3-04 tablet 00:00: 00 Dose 2021-0 No Unknown 3-04 00:00: 00 Dose 2021-0 No Unknown 3-04 00:00: 00 Dose 2021-0 No Unknown 3-04 00:00: 00 Dose 2021-0 No Unknown 3-04 00:00: 00 Dose 2021-0 No Unknown 3-04 00:00: 00 Dose 2021-0 No Unknown 3-04 00:00: 00 Dose 2021-0 No Unknown 3-04 00:00: 00 Dose 2021-0 No Unknown 3-04 00:00: 00 Dose 2021-0 No Unknown 3-04 00:00: 00 Dose 2021-0 No Unknown 3-04 00:00: 00 Dose 2021-0 No Unknown 3-04 00:00: 00 Dose 2021-0 No Unknown 3-04 00:00: 00 Dose 2021-0 No Unknown 3-04 00:00: 00 Dose 2021-0 No Unknown 3-04 00:00: 00 Dose 2021-0 No Unknown 3-04 00:00: 00 ProAir HFA 2021-0 No 12mcg/a 90 3-04 ctuatio mcg/actuati 00:00: n on aerosol 00 inhaler ipratropium 0 No 3mg 0.5 3-04 base)/3 mg-albutero 00:00: mL l 3 mg (2.5 00 mg base)/3 mL nebulizatio n soln ibuprofen 2021-0 No 1mg 800 mg 3-04 tablet 00:00: 00 Dose 2021-0 No Unknown 3-04 00:00: 00 Dose 2021-0 No Unknown 3-04 00:00: 00 Dose 2021-0 No Unknown 3-04 00:00: 00 Dose 2021-0 No Unknown 3-04 00:00: 00 Dose 2021-0 No Unknown 3-04 00:00: 00 Dose 2021-0 No Unknown 3-04 00:00: 00 Dose 2021-0 No Unknown 3-04 00:00: 00 Dose 2022-0 No Unknown 3-04 00:00: 00 Dose 2022-0 No Unknown 3-04 00:00: 00 Dose 2-0 No Unknown 3-04 00:00: 00 Dose 2-0 No Unknown 3-04 00:00: 00 Dose 2022-0 No Unknown 3-04 00:00: 00 Dose 2022-0 No Unknown 3-04 00:00: 00 Dose 2-0 No Unknown 3-04 00:00: 00 Dose 2-0 No Unknown 3-04 00:00: 00 ProAir HFA 2-0 No 12mcg/a 90 3-04 ctuatio mcg/actuati 00:00: n on aerosol 00 inhaler ipratropium 2021-0 No 3mg 0.5 3-04 base)/3 mg-albutero 00:00: mL l 3 mg (2.5 00 mg base)/3 mL nebulizatio n soln ibuprofen 2021-0 No 1mg 800 mg 3-04 tablet 00:00: 00 Dose 2-0 No Unknown 3-04 00:00: 00 Dose 2-0 No Unknown 3-04 00:00: 00 Dose 2-0 No Unknown 3-04 00:00: 00 Dose 2-0 No Unknown 3-04 00:00: 00 Dose 2-0 No Unknown 3-04 00:00: 00 Dose 2-0 No Unknown 3-04 00:00: 00 Dose 2-0 No Unknown 3-04 00:00: 00 Dose 2-0 No Unknown 3-04 00:00: 00 Dose 2022-0 No Unknown 3-04 00:00: 00 Dose 2022-0 No Unknown 3-04 00:00: 00 Dose 2-0 No Unknown 3-04 00:00: 00 Dose 2022-0 No Unknown 3-04 00:00: 00 Dose 2-0 No Unknown 3-04 00:00: 00 Dose 2-0 No Unknown 3-04 00:00: 00 Dose 2022-0 No Unknown 3-04 00:00: 00 ProAir HFA 2-0 No 12mcg/a 90 3-04 ctuatio mcg/actuati 00:00: n on aerosol 00 inhaler ipratropium 2021-0 No 3mg 0.5 3-04 base)/3 mg-albutero 00:00: mL l 3 mg (2.5 00 mg base)/3 mL nebulizatio n soln ibuprofen 2021-0 No 1mg 800 mg 3-04 tablet 00:00: 00 Dose 2021-0 No Unknown 3-04 00:00: 00 Dose 2021-0 No Unknown 3-04 00:00: 00 Dose 2021-0 No Unknown 3-04 00:00: 00 Dose 2021-0 No Unknown 3-04 00:00: 00 Dose 2021-0 No Unknown 3-04 00:00: 00 Dose 2021-0 No Unknown 3-04 00:00: 00 Dose 2021-0 No Unknown 3-04 00:00: 00 Dose 2021-0 No Unknown 3-04 00:00: 00 Dose 2021-0 No Unknown 3-04 00:00: 00 Dose 2021-0 No Unknown 3-04 00:00: 00 Dose 2021-0 No Unknown 3-04 00:00: 00 Dose 2021-0 No Unknown 3-04 00:00: 00 Dose 2021-0 No Unknown 3-04 00:00: 00 Dose 2021-0 No Unknown 3-04 00:00: 00 Dose 2021-0 No Unknown 3-04 00:00: 00 ProAir HFA 2021-0 No 12mcg/a 90 3-04 ctuatio mcg/actuati 00:00: n on aerosol 00 inhaler ipratropium 2021-0 No 3mg 0.5 3-04 base)/3 mg-albutero 00:00: mL l 3 mg (2.5 00 mg base)/3 mL nebulizatio n soln ibuprofen 2021-0 No 1mg 800 mg 3-04 tablet 00:00: 00 Dose 2021-0 No Unknown 3-04 00:00: 00 Dose 2021-0 No Unknown 3-04 00:00: 00 Dose 2021-0 No Unknown 3-04 00:00: 00 Dose 2021-0 No Unknown 3-04 00:00: 00 Dose 2021-0 No Unknown 3-04 00:00: 00 Dose 2021-0 No Unknown 3-04 00:00: 00 Dose 2021-0 No Unknown 3-04 00:00: 00 Dose 2022-0 No Unknown 3-04 00:00: 00 Dose 2022-0 No Unknown 3-04 00:00: 00 Dose 2-0 No Unknown 3-04 00:00: 00 Dose 2022-0 No Unknown 3-04 00:00: 00 Dose 2022-0 No Unknown 3-04 00:00: 00 Dose 2022-0 No Unknown 3-04 00:00: 00 Dose 2-0 No Unknown 3-04 00:00: 00 Dose 2022-0 No Unknown 3-04 00:00: 00 ProAir HFA 2021-0 No 12mcg/a 90 3-04 ctuatio mcg/actuati 00:00: n on aerosol 00 inhaler ipratropium 2021-0 No 3mg 0.5 3-04 base)/3 mg-albutero 00:00: mL l 3 mg (2.5 00 mg base)/3 mL nebulizatio n soln ibuprofen 2021-0 No 1mg 800 mg 3-04 tablet 00:00: 00 Dose 2022-0 No Unknown 3-04 00:00: 00 Dose 2022-0 No Unknown 3-04 00:00: 00 Dose 2-0 No Unknown 3-04 00:00: 00 Dose 2-0 No Unknown 3-04 00:00: 00 Dose 2-0 No Unknown 3-04 00:00: 00 Dose 2-0 No Unknown 3-04 00:00: 00 Dose 2-0 No Unknown 3-04 00:00: 00 Dose 2-0 No Unknown 3-04 00:00: 00 Dose 2022-0 No Unknown 3-04 00:00: 00 Dose 2022-0 No Unknown 3-04 00:00: 00 Dose 2022-0 No Unknown 3-04 00:00: 00 Dose 2022-0 No Unknown 3-04 00:00: 00 Dose 2-0 No Unknown 3-04 00:00: 00 Dose 2022-0 No Unknown 3-04 00:00: 00 Dose 2022-0 No Unknown 3-04 00:00: 00 Dose 2022-0 No Unknown 2-23 00:00: 00 Dose 2022-0 No Unknown 2-23 00:00: 00 Dose 2022-0 No Unknown 2-23 00:00: 00 Dose 2022-0 No Unknown 2-23 00:00: 00 Dose 2022-0 No Unknown 2-23 00:00: 00 Dose 2-0 No Unknown 2-23 00:00: 00 Dose 2-0 No Unknown 2-23 00:00: 00 Dose 2022-0 No Unknown 2-23 00:00: 00 Dose 2022-0 No Unknown 2-23 00:00: 00 Dose 2022-0 No Unknown 2-23 00:00: 00 Dose 2022-0 No Unknown 2-23 00:00: 00 Dose 2-0 No Unknown 2-23 00:00: 00 Dose 2-0 No Unknown 2-23 00:00: 00 Dose 2-0 No Unknown 2-23 00:00: 00 Dose 2-0 No Unknown 2-23 00:00: 00 Dose 2-0 No Unknown 2-23 00:00: 00 Dose 2-0 No Unknown 2-23 00:00: 00 Dose 2-0 No Unknown 2-23 00:00: 00 Dose 2-0 No Unknown 2-23 00:00: 00 Dose 2-0 No Unknown 2-23 00:00: 00 Dose 2-0 No Unknown 2-23 00:00: 00 Dose 2-0 No Unknown 2-23 00:00: 00 Dose 2-0 No Unknown 2-23 00:00: 00 Dose 2-0 No Unknown 2-23 00:00: 00 Flonase 2-0 No 12mcg/a Allergy 2-19 ctuatio Relief 50 00:00: n mcg/actuati 00 on nasal spray,suspe nsion Flonase 2021-0 No 12mcg/a Allergy 2-19 ctuatio Relief 50 00:00: n mcg/actuati 00 on nasal spray,suspe nsion Flonase 2021-0 No 12mcg/a Allergy 2-19 ctuatio Relief 50 00:00: n mcg/actuati 00 on nasal spray,suspe nsion Flonase 2021-0 No 12mcg/a Allergy 2-19 ctuatio Relief 50 00:00: n mcg/actuati 00 on nasal spray,suspe nsion Flonase 2021-0 No 12mcg/a Allergy 2-19 ctuatio Relief 50 00:00: n mcg/actuati 00 on nasal spray,suspe nsion Flonase 2-0 No 12mcg/a Allergy 2-19 ctuatio Relief 50 00:00: n mcg/actuati 00 on nasal spray,suspe nsion metformin 2022-0 No 1mg 500 mg 2-08 tablet 00:00: 00 metformin 2022-0 No 1mg 500 mg 2-08 tablet 00:00: 00 metformin 2022-0 No 1mg 500 mg 2-08 tablet 00:00: 00 metformin 2022-0 No 1mg 500 mg 2-08 tablet 00:00: 00 metformin 2022-0 No 1mg 500 mg 2-08 tablet 00:00: 00 metformin 2022-0 No 1mg 500 mg 2-08 tablet 00:00: 00 Augmentin 2022-0 No 1mg 875 mg-125 2-01 mg tablet 00:00: 00 prednisone 2022-0 No mg 20 mg 2-01 tablet 00:00: 00 benzonatate 2022-0 No 1mg 100 mg 2-01 capsule 00:00: 00 Augmentin 2022-0 No 1mg 875 mg-125 2-01 mg tablet 00:00: 00 prednisone 2022-0 No mg 20 mg 2-01 tablet 00:00: 00 benzonatate 2022-0 No 1mg 100 mg 2-01 capsule 00:00: 00 Augmentin 2022-0 No 1mg 875 mg-125 2-01 mg tablet 00:00: 00 prednisone 2022-0 No mg 20 mg 2-01 tablet 00:00: 00 benzonatate 2022-0 No 1mg 100 mg 2-01 capsule 00:00: 00 Augmentin 2022-0 No 1mg 875 mg-125 2-01 mg tablet 00:00: 00 prednisone 2022-0 No mg 20 mg 2-01 tablet 00:00: 00 benzonatate 2022-0 No 1mg 100 mg 2-01 capsule 00:00: 00 Augmentin 2022-0 No 1mg 875 mg-125 2-01 mg tablet 00:00: 00 prednisone 2022-0 No mg 20 mg 2-01 tablet 00:00: 00 benzonatate 2022-0 No 1mg 100 mg 2-01 capsule 00:00: 00 Augmentin 2022-0 No 1mg 875 mg-125 2-01 mg tablet 00:00: 00 prednisone 2022-0 No mg 20 mg 2-01 tablet 00:00: 00 benzonatate 2022-0 No 1mg 100 mg 2-01 capsule 00:00: 00 montelukast 2022-0 No 1mg 10 mg 1-13 tablet 00:00: 00 montelukast 2022-0 No 1mg 10 mg 1-13 tablet 00:00: 00 montelukast 2022-0 No 1mg 10 mg 1-13 tablet 00:00: 00 montelukast 2022-0 No 1mg 10 mg 1-13 tablet 00:00: 00 montelukast 2022-0 No 1mg 10 mg 1-13 tablet 00:00: 00 montelukast 2022-0 No 1mg 10 mg 1-13 tablet 00:00: 00 prednisone 2022-0 No mg 20 mg 1-10 tablet 00:00: 00 azithromyci 2022-0 No mg n 250 mg 1-10 tablet 00:00: 00 benzonatate 2022-0 No 1mg 100 mg 1-10 capsule 00:00: 00 prednisone 2022-0 No mg 20 mg 1-10 tablet 00:00: 00 azithromyci 2022-0 No mg n 250 mg 1-10 tablet 00:00: 00 benzonatate 2022-0 No 1mg 100 mg 1-10 capsule 00:00: 00 prednisone 2022-0 No mg 20 mg 1-10 tablet 00:00: 00 azithromyci 2022-0 No mg n 250 mg 1-10 tablet 00:00: 00 benzonatate 2022-0 No 1mg 100 mg 1-10 capsule 00:00: 00 prednisone 2022-0 No mg 20 mg 1-10 tablet 00:00: 00 azithromyci 2022-0 No mg n 250 mg 1-10 tablet 00:00: 00 benzonatate 2022-0 No 1mg 100 mg 1-10 capsule 00:00: 00 prednisone 2022-0 No mg 20 mg 1-10 tablet 00:00: 00 azithromyci 2022-0 No mg n 250 mg 1-10 tablet 00:00: 00 benzonatate 2022-0 No 1mg 100 mg 1-10 capsule 00:00: 00 prednisone 2022-0 No mg 20 mg 1-10 tablet 00:00: 00 azithromyci 2-0 No mg n 250 mg 1-10 tablet 00:00: 00 benzonatate 2-0 No 1mg 100 mg 1-10 capsule 00:00: 00 metformin 2-0 No 1mg 500 mg 1-01 tablet 00:00: 00 metformin 2-0 No 1mg 500 mg 1-01 tablet 00:00: 00 metformin 2-0 No 1mg 500 mg 1-01 tablet 00:00: 00 metformin 2-0 No 1mg 500 mg 1-01 tablet 00:00: 00 metformin 2-0 No 1mg 500 mg 1-01 tablet 00:00: 00 metformin 2-0 No 1mg 500 mg 1-01 tablet 00:00: 00 ipratropium 2020-07 No 3mg 0.5 1-27 base)/3 mg-albutero 00:00: mL l 3 mg (2.5 00 mg base)/3 mL nebulizatio n soln prednisone 2020-07 No 2mg 20 mg 1-27 tablet 00:00: 00 ipratropium 1 No 3mg 0.5 1-27 base)/3 mg-albutero 00:00: mL l 3 mg (2.5 00 mg base)/3 mL nebulizatio n soln prednisone 2020-07 No 2mg 20 mg 1-27 tablet 00:00: 00 Dose 2020-1 No Unknown 07-30 00:00: 00 Dose 2020-1 No Unknown 07-30 00:00: 00 ipratropium 2020-1 No 3mg 0.5 1-27 base)/3 mg-albutero 00:00: mL l 3 mg (2.5 00 mg base)/3 mL nebulizatio n soln prednisone 2020- No 2mg 20 mg 1-27 tablet 00:00: 00 Dose 2020-1 No Unknown 07-30 00:00: 00 ipratropium 2020-1 No 3mg 0.5 1-27 base)/3 mg-albutero 00:00: mL l 3 mg (2.5 00 mg base)/3 mL nebulizatio n soln prednisone 2020- No 2mg 20 mg 1-27 tablet 00:00: 00 Dose 2020-1 No Unknown 07-30 00:00: 00 ipratropium 1-1 No 3mg 0.5 -27 base)/3 mg-albutero 00:00: mL l 3 mg (2.5 00 mg base)/3 mL nebulizatio n soln prednisone 2020-1 No 2mg 20 mg -27 tablet 00:00: 00 Dose 2020-1 No Unknown 07-30 00:00: 00 ipratropium 1-1 No 3mg 0.5 -27 base)/3 mg-albutero 00:00: mL l 3 mg (2.5 00 mg base)/3 mL nebulizatio n soln prednisone 2020- No 2mg 20 mg -27 tablet 00:00: 00 Dose 2020-1 No Unknown 07-30 00:00: 00 prednisone 1-0 No 2mg 20 mg 7-09 tablet 00:00: 00 furosemide 2021-0 No 1mg 20 mg 7-09 tablet 00:00: 00 montelukast 2021-0 No 1mg 10 mg 7-09 tablet 00:00: 00 potassium 2021-0 No 1mEq chloride ER 7-09 10 mEq 00:00: capsule,ext 00 ended release prednisone 1-0 No 2mg 20 mg 7-09 tablet 00:00: 00 furosemide 2021-0 No 1mg 20 mg 7-09 tablet 00:00: 00 montelukast 2021-0 No 1mg 10 mg 7-09 tablet 00:00: 00 potassium 2021-0 No 1mEq chloride ER 7-09 10 mEq 00:00: capsule,ext 00 ended release prednisone 2021-0 No 2mg 20 mg 7-09 tablet 00:00: 00 furosemide 2021-0 No 1mg 20 mg 7-09 tablet 00:00: 00 montelukast 2021-0 No 1mg 10 mg 7-09 tablet 00:00: 00 potassium 2021-0 No 1mEq chloride ER 7-09 10 mEq 00:00: capsule,ext 00 ended release prednisone 2021-0 No 2mg 20 mg 7-09 tablet 00:00: 00 furosemide 2021-0 No 1mg 20 mg 7-09 tablet 00:00: 00 montelukast 2021-0 No 1mg 10 mg 7-09 tablet 00:00: 00 potassium 2021-0 No 1mEq chloride ER 7-09 10 mEq 00:00: capsule,ext 00 ended release prednisone 2021-0 No 2mg 20 mg 7-09 tablet 00:00: 00 furosemide 2021-0 No 1mg 20 mg 7-09 tablet 00:00: 00 montelukast 2021-0 No 1mg 10 mg 7-09 tablet 00:00: 00 potassium 2021-0 No 1mEq chloride ER 7-09 10 mEq 00:00: capsule,ext 00 ended release prednisone 2021-0 No 2mg 20 mg 7-09 tablet 00:00: 00 furosemide 2021-0 No 1mg 20 mg 7-09 tablet 00:00: 00 montelukast 2021-0 No 1mg 10 mg 7-09 tablet 00:00: 00 potassium 2021-0 No 1mEq chloride ER 7-09 10 mEq 00:00: capsule,ext 00 ended release ipratropium 2021-0 No 3mg 0.5 6-23 base)/3 mg-albutero 00:00: mL l 3 mg (2.5 00 mg base)/3 mL nebulizatio n soln ipratropium 1-0 No 3mg 0.5 6-23 base)/3 mg-albutero 00:00: mL l 3 mg (2.5 00 mg base)/3 mL nebulizatio n soln ipratropium 2021-0 No 3mg 0.5 6-23 base)/3 mg-albutero 00:00: mL l 3 mg (2.5 00 mg base)/3 mL nebulizatio n soln ipratropium 2021-0 No 3mg 0.5 6-23 base)/3 mg-albutero 00:00: mL l 3 mg (2.5 00 mg base)/3 mL nebulizatio n soln ipratropium 2021-0 No 3mg 0.5 6-23 base)/3 mg-albutero 00:00: mL l 3 mg (2.5 00 mg base)/3 mL nebulizatio n soln ipratropium 2021-0 No 3mg 0.5 6-23 base)/3 mg-albutero 00:00: mL l 3 mg (2.5 00 mg base)/3 mL nebulizatio n soln prednisone 2021-0 No 2mg 20 mg 5-13 tablet 00:00: 00 prednisone 2021-0 No 2mg 20 mg 5-13 tablet 00:00: 00 prednisone 2021-0 No 2mg 20 mg 5-13 tablet 00:00: 00 prednisone 2021-0 No 2mg 20 mg 5-13 tablet 00:00: 00 prednisone 2021-0 No 2mg 20 mg 5-13 tablet 00:00: 00 prednisone 2021-0 No 2mg 20 mg 5-13 tablet 00:00: 00 ibuprofen 2021-0 No 1mg 600 mg 4-26 tablet 00:00: 00 ibuprofen 2021-0 No 1mg 600 mg 4-26 tablet 00:00: 00 ibuprofen 2021-0 No 1mg 600 mg 4-26 tablet 00:00: 00 ibuprofen 2021-0 No 1mg 600 mg 4-26 tablet 00:00: 00 ibuprofen 2021-0 No 1mg 600 mg 4-26 tablet 00:00: 00 ibuprofen 2021-0 No 1mg 600 mg 4-26 tablet 00:00: 00 ipratropium 2021-0 No 3mg 0.5 2-24 base)/3 mg-albutero 00:00: mL l 3 mg (2.5 00 mg base)/3 mL nebulizatio n soln prednisone 2021-0 No 2mg 20 mg 2-24 tablet 00:00: 00 prednisone 2021-0 No 2mg 20 mg 2-24 tablet 00:00: 00 ibuprofen 2021-0 No 1mg 600 mg 2-24 tablet 00:00: 00 ipratropium 2021-0 No 3mg 0.5 2-24 base)/3 mg-albutero 00:00: mL l 3 mg (2.5 00 mg base)/3 mL nebulizatio n soln prednisone 2021-0 No 2mg 20 mg 2-24 tablet 00:00: 00 prednisone 2021-0 No 2mg 20 mg 2-24 tablet 00:00: 00 ibuprofen 2021-0 No 1mg 600 mg 2-24 tablet 00:00: 00 ipratropium 2021-0 No 3mg 0.5 2-24 base)/3 mg-albutero 00:00: mL l 3 mg (2.5 00 mg base)/3 mL nebulizatio n soln prednisone 2021-0 No 2mg 20 mg 2-24 tablet 00:00: 00 prednisone 2021-0 No 2mg 20 mg 2-24 tablet 00:00: 00 ibuprofen 2021-0 No 1mg 600 mg 2-24 tablet 00:00: 00 ipratropium 2021-0 No 3mg 0.5 2-24 base)/3 mg-albutero 00:00: mL l 3 mg (2.5 00 mg base)/3 mL nebulizatio n soln prednisone 2021-0 No 2mg 20 mg 2-24 tablet 00:00: 00 prednisone 2021-0 No 2mg 20 mg 2-24 tablet 00:00: 00 ibuprofen 2021-0 No 1mg 600 mg 2-24 tablet 00:00: 00 ipratropium 2021-0 No 3mg 0.5 2-24 base)/3 mg-albutero 00:00: mL l 3 mg (2.5 00 mg base)/3 mL nebulizatio n soln prednisone 2021-0 No 2mg 20 mg 2-24 tablet 00:00: 00 prednisone 2021-0 No 2mg 20 mg 2-24 tablet 00:00: 00 ibuprofen 2021-0 No 1mg 600 mg 2-24 tablet 00:00: 00 ipratropium 2021-0 No 3mg 0.5 2-24 base)/3 mg-albutero 00:00: mL l 3 mg (2.5 00 mg base)/3 mL nebulizatio n soln prednisone 2021-0 No 2mg 20 mg 2-24 tablet 00:00: 00 prednisone 2021-0 No 2mg 20 mg 2-24 tablet 00:00: 00 ibuprofen 2021-0 No 1mg 600 mg 2-24 tablet 00:00: 00 prednisone 2021-0 No 2mg 20 mg 1-02 tablet 00:00: 00 gabapentin 2021-0 No 1mg 300 mg 1-02 capsule 00:00: 00 prednisone 2021-0 No 2mg 20 mg 1-02 tablet 00:00: 00 gabapentin 2021-0 No 1mg 300 mg 1-02 capsule 00:00: 00 prednisone 2021-0 No 2mg 20 mg 1-02 tablet 00:00: 00 gabapentin 2021-0 No 1mg 300 mg 1-02 capsule 00:00: 00 prednisone 2021-0 No 2mg 20 mg 1-02 tablet 00:00: 00 gabapentin 2021-0 No 1mg 300 mg 1-02 capsule 00:00: 00 prednisone 2021-0 No 2mg 20 mg 1-02 tablet 00:00: 00 gabapentin 2021-0 No 1mg 300 mg 1-02 capsule 00:00: 00 prednisone 2021-0 No 2mg 20 mg 1-02 tablet 00:00: 00 gabapentin 2021-0 No 1mg 300 mg 1-02 capsule 00:00: 00 ProAir HFA 2019-1 No 12mcg/a 90 1-30 ctuatio mcg/actuati 00:00: n on aerosol 00 inhaler ipratropium 2019-07 No 3mg 0.5 1-30 base)/3 mg-albutero 00:00: mL l 3 mg (2.5 00 mg base)/3 mL nebulizatio n soln montelukast 2019-07 No 1mg 10 mg 1-30 tablet 00:00: 00 prednisone 2019- No 2mg 20 mg 1-30 tablet 00:00: 00 ProAir HFA 2019-07 No 12mcg/a 90 1-30 ctuatio mcg/actuati 00:00: n on aerosol 00 inhaler ipratropium 2019-07 No 3mg 0.5 1-30 base)/3 mg-albutero 00:00: mL l 3 mg (2.5 00 mg base)/3 mL nebulizatio n soln montelukast 2019-07 No 1mg 10 mg 1-30 tablet 00:00: 00 prednisone 2019- No 2mg 20 mg 1-30 tablet 00:00: 00 ProAir HFA 2019-07 No 12mcg/a 90 1-30 ctuatio mcg/actuati 00:00: n on aerosol 00 inhaler ipratropium 2019-07 No 3mg 0.5 1-30 base)/3 mg-albutero 00:00: mL l 3 mg (2.5 00 mg base)/3 mL nebulizatio n soln montelukast 2019- No 1mg 10 mg 1-30 tablet 00:00: 00 prednisone 2019- No 2mg 20 mg 1-30 tablet 00:00: 00 ProAir HFA 2019-07 No 12mcg/a 90 1-30 ctuatio mcg/actuati 00:00: n on aerosol 00 inhaler ipratropium 2019-07 No 3mg 0.5 1-30 base)/3 mg-albutero 00:00: mL l 3 mg (2.5 00 mg base)/3 mL nebulizatio n rah montelukast 2019-07 No 1mg 10 mg 1-30 tablet 00:00: 00 prednisone 2019-07 No 2mg 20 mg 1-30 tablet 00:00: 00 ProAir HFA 2019-07 No 12mcg/a 90 1-30 ctuatio mcg/actuati 00:00: n on aerosol 00 inhaler ipratropium 2019-07 No 3mg 0.5 1-30 base)/3 mg-albutero 00:00: mL l 3 mg (2.5 00 mg base)/3 mL nebulizatio n jarrettn montelukast 2019-07 No 1mg 10 mg 1-30 tablet 00:00: 00 prednisone 2019-07 No 2mg 20 mg 1-30 tablet 00:00: 00 ProAir HFA 2019-07 No 12mcg/a 90 1-30 ctuatio mcg/actuati 00:00: n on aerosol 00 inhaler ipratropium 2019-07 No 3mg 0.5 1-30 base)/3 mg-albutero 00:00: mL l 3 mg (2.5 00 mg base)/3 mL nebulizatio n rah montelukast 2019-07 No 1mg 10 mg 1-30 tablet 00:00: 00 prednisone 2019-07 No 2mg 20 mg 1-30 tablet 00:00: 00 ProAir HFA 2019-07 No 12mcg/a 90 1-28 ctuatio mcg/actuati 00:00: n on aerosol 00 inhaler ProAir HFA 2019-07 No 12mcg/a 90 1-28 ctuatio mcg/actuati 00:00: n on aerosol 00 inhaler ProAir HFA 2019-07 No 12mcg/a 90 1-28 ctuatio mcg/actuati 00:00: n on aerosol 00 inhaler ProAir HFA 2019-07 No 12mcg/a 90 1-28 ctuatio mcg/actuati 00:00: n on aerosol 00 inhaler ProAir HFA 2020-1 No 12mcg/a 90 1-28 ctuatio mcg/actuati 00:00: n on aerosol 00 inhaler ProAir HFA 2020-1 No 12mcg/a 90 1-28 ctuatio mcg/actuati 00:00: n on aerosol 00 inhaler prednisone 2020-1 No 2mg 20 mg 0-29 tablet 00:00: 00 prednisone 2020-1 No 2mg 20 mg 0-29 tablet 00:00: 00 prednisone 2020-1 No 2mg 20 mg 0-29 tablet 00:00: 00 prednisone 2020-1 No 2mg 20 mg 0-29 tablet 00:00: 00 prednisone 2020-1 No 2mg 20 mg 0-29 tablet 00:00: 00 prednisone 2020-1 No 2mg 20 mg 0-29 tablet 00:00: 00 ProAir HFA 2020-0 No 12mcg/a 90 8-17 ctuatio mcg/actuati 00:00: n on aerosol 00 inhaler prednisone 2020-0 No 2mg 20 mg 8-17 tablet 00:00: 00 ProAir HFA 2020-0 No 12mcg/a 90 8-17 ctuatio mcg/actuati 00:00: n on aerosol 00 inhaler prednisone 2020-0 No 2mg 20 mg 8-17 tablet 00:00: 00 ProAir HFA 2020-0 No 12mcg/a 90 8-17 ctuatio mcg/actuati 00:00: n on aerosol 00 inhaler prednisone 2020-0 No 2mg 20 mg 8-17 tablet 00:00: 00 ProAir HFA 2020-0 No 12mcg/a 90 8-17 ctuatio mcg/actuati 00:00: n on aerosol 00 inhaler prednisone 2020-0 No 2mg 20 mg 8-17 tablet 00:00: 00 ProAir HFA 2020-0 No 12mcg/a 90 8-17 ctuatio mcg/actuati 00:00: n on aerosol 00 inhaler prednisone 2020-0 No 2mg 20 mg 8-17 tablet 00:00: 00 ProAir HFA 2020-0 No 12mcg/a 90 8-17 ctuatio mcg/actuati 00:00: n on aerosol 00 inhaler prednisone 2020-0 No 2mg 20 mg 8-17 tablet 00:00: 00 ProAir HFA 2020-0 No 12mcg/a 90 7-14 ctuatio mcg/actuati 00:00: n on aerosol 00 inhaler Breo 2020-0 No 1mcg/do Ellipta 100 7-14 se mcg-25 00:00: mcg/dose 00 powder for inhalation prednisone 2020-0 No 2mg 20 mg 7-14 tablet 00:00: 00 gabapentin 2020-0 No 1mg 300 mg 7-14 capsule 00:00: 00 ProAir HFA 2020-0 No 12mcg/a 90 7-14 ctuatio mcg/actuati 00:00: n on aerosol 00 inhaler Breo 2020-0 No 1mcg/do Ellipta 100 7-14 se mcg-25 00:00: mcg/dose 00 powder for inhalation prednisone 2020-0 No 2mg 20 mg 7-14 tablet 00:00: 00 gabapentin 2020-0 No 1mg 300 mg 7-14 capsule 00:00: 00 ProAir HFA 2020-0 No 12mcg/a 90 7-14 ctuatio mcg/actuati 00:00: n on aerosol 00 inhaler Breo 2020-0 No 1mcg/do Ellipta 100 7-14 se mcg-25 00:00: mcg/dose 00 powder for inhalation prednisone 2020-0 No 2mg 20 mg 7-14 tablet 00:00: 00 gabapentin 2020-0 No 1mg 300 mg 7-14 capsule 00:00: 00 ProAir HFA 2020-0 No 12mcg/a 90 7-14 ctuatio mcg/actuati 00:00: n on aerosol 00 inhaler Breo 2020-0 No 1mcg/do Ellipta 100 7-14 se mcg-25 00:00: mcg/dose 00 powder for inhalation prednisone 2020-0 No 2mg 20 mg 7-14 tablet 00:00: 00 gabapentin 2020-0 No 1mg 300 mg 7-14 capsule 00:00: 00 ProAir HFA 2020-0 No 12mcg/a 90 7-14 ctuatio mcg/actuati 00:00: n on aerosol 00 inhaler Breo 2020-0 No 1mcg/do Ellipta 100 7-14 se mcg-25 00:00: mcg/dose 00 powder for inhalation prednisone 2020-0 No 2mg 20 mg 7-14 tablet 00:00: 00 gabapentin 2020-0 No 1mg 300 mg 7-14 capsule 00:00: 00 ProAir HFA 2020-0 No 12mcg/a 90 7-14 ctuatio mcg/actuati 00:00: n on aerosol 00 inhaler Breo 2020-0 No 1mcg/do Ellipta 100 7-14 se mcg-25 00:00: mcg/dose 00 powder for inhalation prednisone 2020-0 No 2mg 20 mg 7-14 tablet 00:00: 00 gabapentin 2020-0 No 1mg 300 mg 7-14 capsule 00:00: 00 albuterol 2020-0 No 3mg/0.5 sulfate 5-05 mL concentrate 00:00: 2.5 mg/0.5 00 mL solution for nebulizatio n albuterol 2020-0 No 3mg/0.5 sulfate 5-05 mL concentrate 00:00: 2.5 mg/0.5 00 mL solution for nebulizatio n albuterol 2020-0 No 3mg/0.5 sulfate 5-05 mL concentrate 00:00: 2.5 mg/0.5 00 mL solution for nebulizatio n albuterol 2020-0 No 3mg/0.5 sulfate 5-05 mL concentrate 00:00: 2.5 mg/0.5 00 mL solution for nebulizatio n albuterol 2020-0 No 3mg/0.5 sulfate 5-05 mL concentrate 00:00: 2.5 mg/0.5 00 mL solution for nebulizatio n albuterol 2020-0 No 3mg/0.5 sulfate 5-05 mL concentrate 00:00: 2.5 mg/0.5 00 mL solution for nebulizatio n Ventolin 2020-0 No 12mcg/a HFA 90 3-30 ctuatio mcg/actuati 00:00: n on aerosol 00 inhaler Ventolin 2020-0 No 12mcg/a HFA 90 3-30 ctuatio mcg/actuati 00:00: n on aerosol 00 inhaler Ventolin 2020-0 No 12mcg/a HFA 90 3-30 ctuatio mcg/actuati 00:00: n on aerosol 00 inhaler Ventolin 2020-0 No 12mcg/a HFA 90 3-30 ctuatio mcg/actuati 00:00: n on aerosol 00 inhaler Ventolin 2020-0 No 12mcg/a HFA 90 3-30 ctuatio mcg/actuati 00:00: n on aerosol 00 inhaler Ventolin 2020-0 No 12mcg/a HFA 90 3-30 ctuatio mcg/actuati 00:00: n on aerosol 00 inhaler ipratropium 2020-0 No 1mg 0.5 3-21 base)/3 mg-albutero 00:00: mL l 3 mg (2.5 00 mg base)/3 mL nebulizatio n soln ipratropium 2020-0 No 3mg 0.5 3-21 base)/3 mg-albutero 00:00: mL l 3 mg (2.5 00 mg base)/3 mL nebulizatio n soln prednisone 2020-0 No 2mg 20 mg 3-21 tablet 00:00: 00 amoxicillin 2020-0 No 1mg 500 mg 3-21 tablet 00:00: 00 albuterol 2020-0 No 1mg/0.5 sulfate 3-21 mL concentrate 00:00: 2.5 mg/0.5 00 mL solution for nebulizatio n albuterol 2020-0 No 3mg/0.5 sulfate 3-21 mL concentrate 00:00: 2.5 mg/0.5 00 mL solution for nebulizatio n ipratropium 2020-0 No 1mg 0.5 3-21 base)/3 mg-albutero 00:00: mL l 3 mg (2.5 00 mg base)/3 mL nebulizatio n soln ipratropium 2020-0 No 3mg 0.5 3-21 base)/3 mg-albutero 00:00: mL l 3 mg (2.5 00 mg base)/3 mL nebulizatio n soln prednisone 2020-0 No 2mg 20 mg 3-21 tablet 00:00: 00 amoxicillin 2020-0 No 1mg 500 mg 3-21 tablet 00:00: 00 albuterol 2020-0 No 1mg/0.5 sulfate 3-21 mL concentrate 00:00: 2.5 mg/0.5 00 mL solution for nebulizatio n albuterol 2020-0 No 3mg/0.5 sulfate 3-21 mL concentrate 00:00: 2.5 mg/0.5 00 mL solution for nebulizatio n ipratropium 2020-0 No 1mg 0.5 3-21 base)/3 mg-albutero 00:00: mL l 3 mg (2.5 00 mg base)/3 mL nebulizatio n soln ipratropium 2020-0 No 3mg 0.5 3-21 base)/3 mg-albutero 00:00: mL l 3 mg (2.5 00 mg base)/3 mL nebulizatio n soln prednisone 2020-0 No 2mg 20 mg 3-21 tablet 00:00: 00 amoxicillin 2020-0 No 1mg 500 mg 3-21 tablet 00:00: 00 albuterol 2020-0 No 1mg/0.5 sulfate 3-21 mL concentrate 00:00: 2.5 mg/0.5 00 mL solution for nebulizatio n albuterol 2020-0 No 3mg/0.5 sulfate 3-21 mL concentrate 00:00: 2.5 mg/0.5 00 mL solution for nebulizatio n ipratropium 2020-0 No 1mg 0.5 3-21 base)/3 mg-albutero 00:00: mL l 3 mg (2.5 00 mg base)/3 mL nebulizatio n soln ipratropium 2020-0 No 3mg 0.5 3-21 base)/3 mg-albutero 00:00: mL l 3 mg (2.5 00 mg base)/3 mL nebulizatio n soln prednisone 2020-0 No 2mg 20 mg 3-21 tablet 00:00: 00 amoxicillin 2020-0 No 1mg 500 mg 3-21 tablet 00:00: 00 albuterol 2020-0 No 1mg/0.5 sulfate 3-21 mL concentrate 00:00: 2.5 mg/0.5 00 mL solution for nebulizatio n albuterol 2020-0 No 3mg/0.5 sulfate 3-21 mL concentrate 00:00: 2.5 mg/0.5 00 mL solution for nebulizatio n ipratropium 2020-0 No 1mg 0.5 3-21 base)/3 mg-albutero 00:00: mL l 3 mg (2.5 00 mg base)/3 mL nebulizatio n soln ipratropium 2020-0 No 3mg 0.5 3-21 base)/3 mg-albutero 00:00: mL l 3 mg (2.5 00 mg base)/3 mL nebulizatio n soln prednisone 2020-0 No 2mg 20 mg 3-21 tablet 00:00: 00 amoxicillin 2020-0 No 1mg 500 mg 3-21 tablet 00:00: 00 albuterol 2020-0 No 1mg/0.5 sulfate 3-21 mL concentrate 00:00: 2.5 mg/0.5 00 mL solution for nebulizatio n albuterol 2020-0 No 3mg/0.5 sulfate 3-21 mL concentrate 00:00: 2.5 mg/0.5 00 mL solution for nebulizatio n ipratropium 2020-0 No 1mg 0.5 3-21 base)/3 mg-albutero 00:00: mL l 3 mg (2.5 00 mg base)/3 mL nebulizatio n soln ipratropium 2020-0 No 3mg 0.5 3-21 base)/3 mg-albutero 00:00: mL l 3 mg (2.5 00 mg base)/3 mL nebulizatio n soln prednisone 2020-0 No 2mg 20 mg 3-21 tablet 00:00: 00 amoxicillin 2020-0 No 1mg 500 mg 3-21 tablet 00:00: 00 albuterol 2020-0 No 1mg/0.5 sulfate 3-21 mL concentrate 00:00: 2.5 mg/0.5 00 mL solution for nebulizatio n albuterol 2020-0 No 3mg/0.5 sulfate 3-21 mL concentrate 00:00: 2.5 mg/0.5 00 mL solution for nebulizatio n prednisone 2020-0 No 1mg 20 mg 3-09 tablet 00:00: 00 prednisone 2020-0 No 1mg 20 mg 3-09 tablet 00:00: 00 prednisone 2020-0 No 1mg 20 mg 3-09 tablet 00:00: 00 prednisone 2020-0 No 1mg 20 mg 3-09 tablet 00:00: 00 prednisone 2020-0 No 1mg 20 mg 3-09 tablet 00:00: 00 prednisone 2020-0 No 1mg 20 mg 3-09 tablet 00:00: 00 ProAir HFA 2020-0 No 1mcg/ac 90 3-02 tuation mcg/actuati 00:00: on aerosol 00 inhaler Breo 2020-0 No 1mcg/do Ellipta 100 3-02 se mcg-25 00:00: mcg/dose 00 powder for inhalation ipratropium 2020-0 No 1mg 0.5 3-02 base)/3 mg-albutero 00:00: mL l 3 mg (2.5 00 mg base)/3 mL nebulizatio n soln montelukast 2020-0 No 1mg 10 mg 3-02 tablet 00:00: 00 Glucosamine 2020-0 No 1mg 500 mg 3-02 tablet 00:00: 00 furosemide 2020-0 No 1mg 20 mg 3-02 tablet 00:00: 00 Vitamin D2 2020-0 No 1(50,00 1,250 mcg 3-02 0 unit) (50,000 00:00: unit) 00 capsule ProAir HFA 2020-0 No 1mcg/ac 90 3-02 tuation mcg/actuati 00:00: on aerosol 00 inhaler Breo 2020-0 No 1mcg/do Ellipta 100 3-02 se mcg-25 00:00: mcg/dose 00 powder for inhalation ipratropium 2020-0 No 1mg 0.5 3-02 base)/3 mg-albutero 00:00: mL l 3 mg (2.5 00 mg base)/3 mL nebulizatio n soln montelukast 2020-0 No 1mg 10 mg 3-02 tablet 00:00: 00 Glucosamine 2020-0 No 1mg 500 mg 3-02 tablet 00:00: 00 furosemide 2020-0 No 1mg 20 mg 3-02 tablet 00:00: 00 Vitamin D2 2020-0 No 1(50,00 1,250 mcg 3-02 0 unit) (50,000 00:00: unit) 00 capsule ProAir HFA 2020-0 No 1mcg/ac 90 3-02 tuation mcg/actuati 00:00: on aerosol 00 inhaler Breo 2020-0 No 1mcg/do Ellipta 100 3-02 se mcg-25 00:00: mcg/dose 00 powder for inhalation ipratropium 2020-0 No 1mg 0.5 3-02 base)/3 mg-albutero 00:00: mL l 3 mg (2.5 00 mg base)/3 mL nebulizatio n soln montelukast 2020-0 No 1mg 10 mg 3-02 tablet 00:00: 00 Glucosamine 2020-0 No 1mg 500 mg 3-02 tablet 00:00: 00 furosemide 2020-0 No 1mg 20 mg 3-02 tablet 00:00: 00 Vitamin D2 2020-0 No 1(50,00 1,250 mcg 3-02 0 unit) (50,000 00:00: unit) 00 capsule ProAir HFA 2020-0 No 1mcg/ac 90 3-02 tuation mcg/actuati 00:00: on aerosol 00 inhaler Breo 2020-0 No 1mcg/do Ellipta 100 3-02 se mcg-25 00:00: mcg/dose 00 powder for inhalation ipratropium 2020-0 No 1mg 0.5 3-02 base)/3 mg-albutero 00:00: mL l 3 mg (2.5 00 mg base)/3 mL nebulizatio n soln montelukast 2020-0 No 1mg 10 mg 3-02 tablet 00:00: 00 Glucosamine 2020-0 No 1mg 500 mg 3-02 tablet 00:00: 00 furosemide 2020-0 No 1mg 20 mg 3-02 tablet 00:00: 00 Vitamin D2 2020-0 No 1(50,00 1,250 mcg 3-02 0 unit) (50,000 00:00: unit) 00 capsule ProAir HFA 2020-0 No 1mcg/ac 90 3-02 tuation mcg/actuati 00:00: on aerosol 00 inhaler Breo 2020-0 No 1mcg/do Ellipta 100 3-02 se mcg-25 00:00: mcg/dose 00 powder for inhalation ipratropium 2020-0 No 1mg 0.5 3-02 base)/3 mg-albutero 00:00: mL l 3 mg (2.5 00 mg base)/3 mL nebulizatio n soln ProAir HFA 2020-0 No 1mcg/ac 90 3-02 tuation mcg/actuati 00:00: on aerosol 00 inhaler montelukast 2020-0 No 1mg 10 mg 3-02 tablet 00:00: 00 Glucosamine 2020-0 No 1mg 500 mg 3-02 tablet 00:00: 00 furosemide 2020-0 No 1mg 20 mg 3-02 tablet 00:00: 00 Vitamin D2 2020-0 No 1(50,00 1,250 mcg 3-02 0 unit) (50,000 00:00: unit) 00 capsule Breo 2020-0 No 1mcg/do Ellipta 100 3-02 se mcg-25 00:00: mcg/dose 00 powder for inhalation ipratropium 2020-0 No 1mg 0.5 3-02 base)/3 mg-albutero 00:00: mL l 3 mg (2.5 00 mg base)/3 mL nebulizatio n soln montelukast 2020-0 No 1mg 10 mg 3-02 tablet 00:00: 00 Glucosamine 2020-0 No 1mg 500 mg 3-02 tablet 00:00: 00 furosemide 2020-0 No 1mg 20 mg 3-02 tablet 00:00: 00 Vitamin D2 2020-0 No 1(50,00 1,250 mcg 3-02 0 unit) (50,000 00:00: unit) 00 capsule ProAir HFA 2020-0 No 1mcg/ac 90 2-03 tuation mcg/actuati 00:00: on aerosol 00 inhaler prednisone 2020-0 No 1mg 5 mg tablet 2-03 00:00: 00 azithromyci 2020-0 No mg n 250 mg 2-03 tablet 00:00: 00 potassium 2020-0 No 1mEq chloride ER 2-03 10 mEq 00:00: capsule,ext 00 ended release ProAir HFA 2020-0 No 1mcg/ac 90 2-03 tuation mcg/actuati 00:00: on aerosol 00 inhaler prednisone 2020-0 No 1mg 5 mg tablet 2-03 00:00: 00 azithromyci 2020-0 No mg n 250 mg 2-03 tablet 00:00: 00 potassium 2020-0 No 1mEq chloride ER 2-03 10 mEq 00:00: capsule,ext 00 ended release ProAir HFA 2020-0 No 1mcg/ac 90 2-03 tuation mcg/actuati 00:00: on aerosol 00 inhaler prednisone 2020-0 No 1mg 5 mg tablet 2-03 00:00: 00 azithromyci 2020-0 No mg n 250 mg 2-03 tablet 00:00: 00 potassium 2020-0 No 1mEq chloride ER 2-03 10 mEq 00:00: capsule,ext 00 ended release ProAir HFA 2020-0 No 1mcg/ac 90 2-03 tuation mcg/actuati 00:00: on aerosol 00 inhaler prednisone 2020-0 No 1mg 5 mg tablet 2-03 00:00: 00 azithromyci 2020-0 No mg n 250 mg 2-03 tablet 00:00: 00 potassium 2020-0 No 1mEq chloride ER 2-03 10 mEq 00:00: capsule,ext 00 ended release ProAir HFA 2020-0 No 1mcg/ac 90 2-03 tuation mcg/actuati 00:00: on aerosol 00 inhaler prednisone 2020-0 No 1mg 5 mg tablet 2-03 00:00: 00 azithromyci 2020-0 No mg n 250 mg 2-03 tablet 00:00: 00 potassium 2020-0 No 1mEq chloride ER 2-03 10 mEq 00:00: capsule,ext 00 ended release ProAir HFA 2020-0 No 1mcg/ac 90 2-03 tuation mcg/actuati 00:00: on aerosol 00 inhaler prednisone 2020-0 No 1mg 5 mg tablet 2-03 00:00: 00 azithromyci 2020-0 No mg n 250 mg 2-03 tablet 00:00: 00 potassium 2020-0 No 1mEq chloride ER 2-03 10 mEq 00:00: capsule,ext 00 ended release ipratropium 2020-0 No 1mg 0.5 2-01 base)/3 mg-albutero 00:00: mL l 3 mg (2.5 00 mg base)/3 mL nebulizatio n soln montelukast 2020-0 No 1mg 10 mg 2-01 tablet 00:00: 00 prednisone 2020-0 No 1mg 20 mg 2-01 tablet 00:00: 00 ipratropium 2020-0 No 1mg 0.5 2-01 base)/3 mg-albutero 00:00: mL l 3 mg (2.5 00 mg base)/3 mL nebulizatio n soln montelukast 2020-0 No 1mg 10 mg 2-01 tablet 00:00: 00 prednisone 2020-0 No 1mg 20 mg 2-01 tablet 00:00: 00 ipratropium 2020-0 No 1mg 0.5 2-01 base)/3 mg-albutero 00:00: mL l 3 mg (2.5 00 mg base)/3 mL nebulizatio n soln montelukast 2020-0 No 1mg 10 mg 2-01 tablet 00:00: 00 prednisone 2020-0 No 1mg 20 mg 2-01 tablet 00:00: 00 ipratropium 2020-0 No 1mg 0.5 2-01 base)/3 mg-albutero 00:00: mL l 3 mg (2.5 00 mg base)/3 mL nebulizatio n soln montelukast 2020-0 No 1mg 10 mg 2-01 tablet 00:00: 00 prednisone 2020-0 No 1mg 20 mg 2-01 tablet 00:00: 00 ipratropium 2020-0 No 1mg 0.5 2-01 base)/3 mg-albutero 00:00: mL l 3 mg (2.5 00 mg base)/3 mL nebulizatio n soln montelukast 2020-0 No 1mg 10 mg 2-01 tablet 00:00: 00 prednisone 2020-0 No 1mg 20 mg 2-01 tablet 00:00: 00 ipratropium 2020-0 No 1mg 0.5 2-01 base)/3 mg-albutero 00:00: mL l 3 mg (2.5 00 mg base)/3 mL nebulizatio n soln montelukast 2020-0 No 1mg 10 mg 2-01 tablet 00:00: 00 prednisone 2020-0 No 1mg 20 mg 2-01 tablet 00:00: 00 ProAir HFA 2020-0 No 1mcg/ac 90 1-03 tuation mcg/actuati 00:00: on aerosol 00 inhaler loratadine 2020-0 No 1mg 10 mg 1-03 tablet 00:00: 00 Medrol 2020-0 No 1mg (Asad) 4 mg 1-03 tablets in 00:00: a dose pack 00 azithromyci 2020-0 No 1mg n 250 mg 1-03 tablet 00:00: 00 ProAir HFA 2020-0 No 1mcg/ac 90 1-03 tuation mcg/actuati 00:00: on aerosol 00 inhaler loratadine 2020-0 No 1mg 10 mg 1-03 tablet 00:00: 00 Medrol 2020-0 No 1mg (Asad) 4 mg 1-03 tablets in 00:00: a dose pack 00 azithromyci 2020-0 No 1mg n 250 mg 1-03 tablet 00:00: 00 ProAir HFA 2020-0 No 1mcg/ac 90 1-03 tuation mcg/actuati 00:00: on aerosol 00 inhaler loratadine 2020-0 No 1mg 10 mg 1-03 tablet 00:00: 00 Medrol 2020-0 No 1mg (Asad) 4 mg 1-03 tablets in 00:00: a dose pack 00 azithromyci 2020-0 No 1mg n 250 mg 1-03 tablet 00:00: 00 ProAir HFA 2020-0 No 1mcg/ac 90 1-03 tuation mcg/actuati 00:00: on aerosol 00 inhaler loratadine 2020-0 No 1mg 10 mg 1-03 tablet 00:00: 00 Medrol 2020-0 No 1mg (Asad) 4 mg 1-03 tablets in 00:00: a dose pack 00 azithromyci 2020-0 No 1mg n 250 mg 1-03 tablet 00:00: 00 ProAir HFA 2020-0 No 1mcg/ac 90 1-03 tuation mcg/actuati 00:00: on aerosol 00 inhaler loratadine 2020-0 No 1mg 10 mg 1-03 tablet 00:00: 00 Medrol 2020-0 No 1mg (Asad) 4 mg 1-03 tablets in 00:00: a dose pack 00 azithromyci 2020-0 No 1mg n 250 mg 1-03 tablet 00:00: 00 ProAir HFA 2020-0 No 1mcg/ac 90 1-03 tuation mcg/actuati 00:00: on aerosol 00 inhaler loratadine 2020-0 No 1mg 10 mg 1-03 tablet 00:00: 00 Medrol 2020-0 No 1mg (Asad) 4 mg 1-03 tablets in 00:00: a dose pack 00 azithromyci 2020-0 No 1mg n 250 mg 1-03 tablet 00:00: 00 ProAir HFA 2019-1 No 1mcg/ac 90 2-16 tuation mcg/actuati 00:00: on aerosol 00 inhaler ipratropium 2019-1 No 1mg 0.5 2-16 base)/3 mg-albutero 00:00: mL l 3 mg (2.5 00 mg base)/3 mL nebulizatio n soln prednisone 2019- No mg 10 mg 2-16 tablet 00:00: 00 ProAir HFA 2018- No 1mcg/ac 90 2-16 tuation mcg/actuati 00:00: on aerosol 00 inhaler ipratropium 2018- No 1mg 0.5 2-16 base)/3 mg-albutero 00:00: mL l 3 mg (2.5 00 mg base)/3 mL nebulizatio n soln prednisone 2018- No mg 10 mg 2-16 tablet 00:00: 00 ProAir HFA 2018- No 1mcg/ac 90 2-16 tuation mcg/actuati 00:00: on aerosol 00 inhaler ipratropium 2018- No 1mg 0.5 2-16 base)/3 mg-albutero 00:00: mL l 3 mg (2.5 00 mg base)/3 mL nebulizatio n soln prednisone 2018- No mg 10 mg 2-16 tablet 00:00: 00 ProAir HFA 2018-07 No 1mcg/ac 90 2-16 tuation mcg/actuati 00:00: on aerosol 00 inhaler ipratropium 2018- No 1mg 0.5 2-16 base)/3 mg-albutero 00:00: mL l 3 mg (2.5 00 mg base)/3 mL nebulizatio n soln prednisone 2018- No mg 10 mg 2-16 tablet 00:00: 00 ProAir HFA 2018- No 1mcg/ac 90 2-16 tuation mcg/actuati 00:00: on aerosol 00 inhaler ipratropium 2018- No 1mg 0.5 2-16 base)/3 mg-albutero 00:00: mL l 3 mg (2.5 00 mg base)/3 mL nebulizatio n soln prednisone 2019- No mg 10 mg 2-16 tablet 00:00: 00 ProAir HFA 2018- No 1mcg/ac 90 2-16 tuation mcg/actuati 00:00: on aerosol 00 inhaler ipratropium 2018- No 1mg 0.5 2-16 base)/3 mg-albutero 00:00: mL l 3 mg (2.5 00 mg base)/3 mL nebulizatio n soln prednisone 2018- No mg 10 mg 2-16 tablet 00:00: 00 metformin 2018- No 1mg 500 mg 1-18 tablet 00:00: 00 metformin 2018- No 1mg 500 mg 1-18 tablet 00:00: 00 metformin 2018- No 1mg 500 mg 1-18 tablet 00:00: 00 metformin 2018- No 1mg 500 mg 1-18 tablet 00:00: 00 metformin 2018- No 1mg 500 mg 1-18 tablet 00:00: 00 metformin 2018- No 1mg 500 mg 1-18 tablet 00:00: 00 Breo 2018-07 No 1mcg/do Ellipta 100 0-22 se mcg-25 00:00: mcg/dose 00 powder for inhalation prednisone 2018- No mg 10 mg 0-22 tablet 00:00: 00 azithromyci 2018-07 No mg n 250 mg 0-22 tablet 00:00: 00 Breo 2018-07 No 1mcg/do Ellipta 100 0-22 se mcg-25 00:00: mcg/dose 00 powder for inhalation prednisone 2018-07 No mg 10 mg 0-22 tablet 00:00: 00 azithromyci 2018- No mg n 250 mg 0-22 tablet 00:00: 00 Breo 2018-07 No 1mcg/do Ellipta 100 0-22 se mcg-25 00:00: mcg/dose 00 powder for inhalation prednisone 2018- No mg 10 mg 0-22 tablet 00:00: 00 azithromyci 2018- No mg n 250 mg 0-22 tablet 00:00: 00 Bre 2018-07 No 1mcg/do Ellipta 100 0-22 se mcg-25 00:00: mcg/dose 00 powder for inhalation prednisone 2018- No mg 10 mg 0-22 tablet 00:00: 00 azithromyci 2018- No mg n 250 mg 0-22 tablet 00:00: 00 Bre 2018-07 No 1mcg/do Ellipta 100 0-22 se mcg-25 00:00: mcg/dose 00 powder for inhalation prednisone 2018- No mg 10 mg 0-22 tablet 00:00: 00 azithromyci 2018-07 No mg n 250 mg 0-22 tablet 00:00: 00 Breo 2019-1 No 1mcg/do Ellipta 100 0-22 se mcg-25 00:00: mcg/dose 00 powder for inhalation prednisone 2019-1 No mg 10 mg 0-22 tablet 00:00: 00 azithromyci 2019-1 No mg n 250 mg 0-22 tablet 00:00: 00 Glucosamine 2019-0 No 1mg 500 mg 9-16 tablet 00:00: 00 prednisone 2019-0 No 1mg 5 mg tablet 916 00:00: 00 furosemide 2019-0 No 1mg 20 mg 9-16 tablet 00:00: 00 potassium 2019-0 No 1mEq chloride ER 9-16 10 mEq 00:00: capsule,ext 00 ended release Vitamin D2 2019-0 No 1(50,00 1,250 mcg 9-16 0 unit) (50,000 00:00: unit) 00 capsule ipratropium 2019-0 No 25% bromide 9-16 0.02 % 00:00: solution 00 for inhalation Glucosamine 2019-0 No 1mg 500 mg 9-16 tablet 00:00: 00 prednisone 2019-0 No 1mg 5 mg tablet 916 00:00: 00 furosemide 2019-0 No 1mg 20 mg 9-16 tablet 00:00: 00 potassium 2019-0 No 1mEq chloride ER 9-16 10 mEq 00:00: capsule,ext 00 ended release Vitamin D2 2019-0 No 1(50,00 1,250 mcg 9-16 0 unit) (50,000 00:00: unit) 00 capsule ipratropium 2019-0 No 25% bromide 9-16 0.02 % 00:00: solution 00 for inhalation Glucosamine 2019-0 No 1mg 500 mg 9-16 tablet 00:00: 00 prednisone 2019-0 No 1mg 5 mg tablet 916 00:00: 00 furosemide 2019-0 No 1mg 20 mg 9-16 tablet 00:00: 00 potassium 2019-0 No 1mEq chloride ER 9-16 10 mEq 00:00: capsule,ext 00 ended release Vitamin D2 2019-0 No 1(50,00 1,250 mcg 9-16 0 unit) (50,000 00:00: unit) 00 capsule ipratropium 2019-0 No 25% bromide 9-16 0.02 % 00:00: solution 00 for inhalation Glucosamine 2019-0 No 1mg 500 mg 9-16 tablet 00:00: 00 prednisone 2019-0 No 1mg 5 mg tablet 9-16 00:00: 00 furosemide 2019-0 No 1mg 20 mg 9-16 tablet 00:00: 00 potassium 2019-0 No 1mEq chloride ER 9-16 10 mEq 00:00: capsule,ext 00 ended release Vitamin D2 2019-0 No 1(50,00 1,250 mcg 9-16 0 unit) (50,000 00:00: unit) 00 capsule ipratropium 2019-0 No 25% bromide 9-16 0.02 % 00:00: solution 00 for inhalation Glucosamine 2019-0 No 1mg 500 mg 9-16 tablet 00:00: 00 prednisone 2019-0 No 1mg 5 mg tablet 9-16 00:00: 00 furosemide 2019-0 No 1mg 20 mg 9-16 tablet 00:00: 00 potassium 2019-0 No 1mEq chloride ER 9-16 10 mEq 00:00: capsule,ext 00 ended release Vitamin D2 2019-0 No 1(50,00 1,250 mcg 9-16 0 unit) (50,000 00:00: unit) 00 capsule ipratropium 2019-0 No 25% bromide 9-16 0.02 % 00:00: solution 00 for inhalation Glucosamine 2019-0 No 1mg 500 mg 9-16 tablet 00:00: 00 prednisone 2019-0 No 1mg 5 mg tablet 9-16 00:00: 00 furosemide 2019-0 No 1mg 20 mg 9-16 tablet 00:00: 00 potassium 2019-0 No 1mEq chloride ER 9-16 10 mEq 00:00: capsule,ext 00 ended release Vitamin D2 2019-0 No 1(50,00 1,250 mcg 9-16 0 unit) (50,000 00:00: unit) 00 capsule ipratropium 2019-0 No 25% bromide 9-16 0.02 % 00:00: solution 00 for inhalation amoxicillin 2019-0 No 1mg 500 mg 7-30 capsule 00:00: 00 amoxicillin 2019-0 No 1mg 500 mg 7-30 capsule 00:00: 00 amoxicillin 2019-0 No 1mg 500 mg 7-30 capsule 00:00: 00 amoxicillin 2019-0 No 1mg 500 mg 7-30 capsule 00:00: 00 amoxicillin 2019-0 No 1mg 500 mg 7-30 capsule 00:00: 00 amoxicillin 2019-0 No 1mg 500 mg 7-30 capsule 00:00: 00 prednisone 2019-0 No 1mg 20 mg 7- tablet 00:00: 00 prednisone 2019-0 No 1mg 5 mg tablet 01-29 00:00: 00 ipratropium 2019-0 No 25% bromide 7 0.02 % 00:00: solution 00 for inhalation albuterol 2019-0 No 1mg/0.5 sulfate 729 mL concentrate 00:00: 2.5 mg/0.5 00 mL solution for nebulizatio n prednisone 2019-0 No 1mg 20 mg 7- tablet 00:00: 00 prednisone 2019-0 No 1mg 5 mg tablet 01-29 00:00: 00 ipratropium 2019-0 No 25% bromide 01-29 0.02 % 00:00: solution 00 for inhalation albuterol 2019-0 No 1mg/0.5 sulfate 7 mL concentrate 00:00: 2.5 mg/0.5 00 mL solution for nebulizatio n prednisone 2019-0 No 1mg 20 mg - tablet 00:00: 00 prednisone 2019-0 No 1mg 5 mg tablet 01-29 00:00: 00 ipratropium 2019-0 No 25% bromide 01-29 0.02 % 00:00: solution 00 for inhalation albuterol 2019-0 No 1mg/0.5 sulfate 01-29 mL concentrate 00:00: 2.5 mg/0.5 00 mL solution for nebulizatio n prednisone 2019-0 No 1mg 20 mg - tablet 00:00: 00 prednisone 2019-0 No 1mg 5 mg tablet 01-29 00:00: 00 ipratropium 2019-0 No 25% bromide 01-29 0.02 % 00:00: solution 00 for inhalation albuterol 2019-0 No 1mg/0.5 sulfate 729 mL concentrate 00:00: 2.5 mg/0.5 00 mL solution for nebulizatio n prednisone 2019-0 No 1mg 20 mg 7-29 tablet 00:00: 00 prednisone 2019-0 No 1mg 5 mg tablet 01-29 00:00: 00 ipratropium 2019-0 No 25% bromide 01-29 0.02 % 00:00: solution 00 for inhalation albuterol 2019-0 No 1mg/0.5 sulfate 729 mL concentrate 00:00: 2.5 mg/0.5 00 mL solution for nebulizatio n prednisone 0 No 1mg 20 mg 01-29 tablet 00:00: 00 prednisone 0 No 1mg 5 mg tablet 01-29 00:00: 00 ipratropium 2018-0 No 25% bromide 01-29 0.02 % 00:00: solution 00 for inhalation albuterol No 1mg/0.5 sulfate 01-29 mL concentrate 00:00: 2.5 mg/0.5 00 mL solution for nebulizatio n prednisone No 1mg 5 mg tablet 6 00:00: 00 Vitamin D2 20190 No 1unit 50,000 unit 6-10 capsule 00:00: 00 prednisone 0 No 1mg 5 mg tablet 6 00:00: 00 Vitamin D2 0 No 1unit 50,000 unit 6-10 capsule 00:00: 00 prednisone 0 No 1mg 5 mg tablet 610 00:00: 00 Vitamin D2 0 No 1unit 50,000 unit 6-10 capsule 00:00: 00 prednisone 20190 No 1mg 5 mg tablet 610 00:00: 00 Vitamin D2 0 No 1unit 50,000 unit 6-10 capsule 00:00: 00 prednisone 2019-0 No 1mg 5 mg tablet 610 00:00: 00 Vitamin D2 2018-0 No 1unit 50,000 unit 6-10 capsule 00:00: 00 prednisone 0 No 1mg 5 mg tablet 610 00:00: 00 Vitamin D2 2018-0 No 1unit 50,000 unit 6-10 capsule 00:00: 00 albuterol 0 Yes 2{puff} Inhale [address] [facility] HFA 4-25 puffs by [facility] (VENTOLIN 11:04: mouth via Med ical HFA) 90 00 inhaler [facility] mcg/actuati every 4 on inhaler (four) hours as needed. metFORMIN Yes 500mg Q.5D Take [address] [facility] (GLUCOPHAGE 4-25 mg by [facility] ) 500 MG 11:04: mouth 2 [facility] tablet 00 (two) Center times daily. furosemide Yes 40mg Take [address] [facility] (LASIX) 40 4-25 by [facility] MG tablet 11:04: as needed. Me dical 00 Center albuterol Yes 2{puff} Inhale [address] HFA 4-25 puffs by [facility] (VENTOLIN 11:04: mouth via Med ical HFA) 90 00 inhaler Center mcg/actuati every 4 on inhaler (four) hours as needed. metFORMIN 2018- Yes 500mg Q.5D Take [address] [facility] (GLUCOPHAGE 4-25 mg by [facility] ) 500 MG 11:04: mouth 2 [facility] tablet 00 (two) Center times daily. furosemide Yes 40mg Take [address] [facility] (LASIX) 40 4-25 [facility] tablet 11:04: as needed. Pr dical 00 Center ipratropium Yes INHALE [address] [facility] [address] [facility] (ATROVENT) 4-17 vial [facility] 0.02 % 00:00: NEBULIZER Medica l nebulizer 00 EVERY 6 TO Cent er solution 8 HOURS ipratropium Yes INHALE [address] [facility] [address] [facility] (ATROVENT) 4-17 vial [facility] 0.02 % 00:00: NEBULIZER Medica l nebulizer 00 EVERY 6 TO Cent er solution 8 HOURS albuterol Yes 1mL Q.25D Take [address] [facility] (PROVENTIL) 3-20 [facility] 2.5 mg/0.5 00:00: nebulizati M edical mL Nebu 00 on 4 Center nebulizer (four) solution times daily. albuterol Yes 1mL Q.25D Take [address] [facility] (PROVENTIL) 3-20 [facility] 2.[facility] mg/0.5 00:00: nebulizati M edical mL Nebu 00 on 4 Center nebulizer (four) solution times daily. prednisone 0 No 1mg 5 mg tablet 3- 00:00: 00 prednisone 2019-0 No 1mg 5 mg tablet 3- 00:00: 00 prednisone 2019-0 No 1mg 5 mg tablet 3- 00:00: 00 prednisone 2019-0 No 1mg 5 mg tablet 3- 00:00: 00 prednisone 2018-0 No 1mg 5 mg tablet 3- 00:00: 00 prednisone 2018-0 No 1mg 5 mg tablet 3- 00:00: 00 ergocalcife 2018-0 Yes 1{capsu Q7D Take [address] [facility] rol 3- le} capsule by [facility] (ERGOCALCIF 00:00: mouth once Medical [facility]) 00 a week. Center 50,000 unit capsule ProAir HFA 2019-0 No 1mcg/ac 90 3- tuation mcg/actuati 00:00: on aerosol 00 inhaler prednisone 2019-0 No 1mg 5 mg tablet 3 00:00: 00 Vitamin D2 2019-0 No 1unit 50,000 unit 3- capsule 00:00: 00 ipratropium 2019-0 No 1% bromide 3-01 0.02 % 00:00: solution 00 for inhalation albuterol 2019-0 No 1mg/0.5 sulfate 3-01 mL concentrate 00:00: 2.5 mg/0.5 00 mL solution for nebulizatio n ProAir HFA 2019-0 No 1mcg/ac 90 3 tuation mcg/actuati 00:00: on aerosol 00 inhaler prednisone 2019-0 No 1mg 5 mg tablet 09-01 00:00: 00 Vitamin D2 2019-0 No 1unit 50,000 unit 3 capsule 00:00: 00 ipratropium 2019-0 No 1% bromide 3-01 0.02 % 00:00: solution 00 for inhalation albuterol 2019-0 No 1mg/0.5 sulfate 3-01 mL concentrate 00:00: 2.5 mg/0.5 00 mL solution for nebulizatio n ProAir HFA 2019-0 No 1mcg/ac 90 3 tuation mcg/actuati 00:00: on aerosol 00 inhaler prednisone 2019-0 No 1mg 5 mg tablet 09-01 00:00: 00 Vitamin D2 2019-0 No 1unit 50,000 unit 3- capsule 00:00: 00 ipratropium 2019-0 No 1% bromide 3-01 0.02 % 00:00: solution 00 for inhalation albuterol 2019-0 No 1mg/0.5 sulfate 3-01 mL concentrate 00:00: 2.5 mg/0.5 00 mL solution for nebulizatio n ProAir HFA 2019-0 No 1mcg/ac 90 3-01 tuation mcg/actuati 00:00: on aerosol 00 inhaler prednisone 2019-0 No 1mg 5 mg tablet 3 00:00: 00 Vitamin D2 0 No 1unit 50,000 unit 3- capsule 00:00: 00 ipratropium 2018-0 No 1% bromide 3-01 0.02 % 00:00: solution 00 for inhalation albuterol No 1mg/0.5 sulfate 3-01 mL concentrate 00:00: 2.5 mg/0.5 00 mL solution for nebulizatio n ProAir HFA No 1mcg/ac 90 3 tuation mcg/actuati 00:00: on aerosol 00 inhaler prednisone No 1mg 5 mg tablet 09-01 00:00: 00 Vitamin D2 No 1unit 50,000 unit 3 capsule 00:00: 00 ipratropium 0 No 1% bromide 3 0.02 % 00:00: solution 00 for inhalation albuterol No 1mg/0.5 sulfate 3-01 mL concentrate 00:00: 2.5 mg/0.5 00 mL solution for nebulizatio n ProAir HFA No 1mcg/ac 90 3-01 tuation mcg/actuati 00:00: on aerosol 00 inhaler prednisone 0 No 1mg 5 mg tablet 09-01 00:00: 00 Vitamin D2 0 No 1unit 50,000 unit 3 capsule 00:00: 00 ipratropium 0 No 1% bromide 3 0.02 % 00:00: solution 00 for inhalation albuterol No 1mg/0.5 sulfate 3-01 mL concentrate 00:00: 2.5 mg/0.5 00 mL solution for nebulizatio n ergocalcife Yes 1{capsu Q7D Take [address] [facility] rol 3- le} [facility] (ERGOCALCIF 00:00: mouth once Medical [facility]) 00 a week. [place] 50,000 unit capsule montelukast Yes 10mg QD Take [address] [facility] (SINGULAIR) 2-26 [facility] 10 mg 00:00: daily. Medical tablet 00 Center potassium Yes 10meq QD Take [address] [facility] chloride 2-26 mEq by [facility] (MICRO-K) 00:00: mouth Medical 10 mEq CR 00 daily. Center capsule BREO 2019-0 Yes 1{puff} QD Inhale [address] [facility] ELLIPTA 2-26 puff by [facility] 100-25 00:00: mouth via Medica l mcg/dose 00 inhaler Center DsDv daily. montelukast 2019-0 Yes 10mg QD Take [address] [facility] (SINGULAIR) 2-26 by [facility] 10 mg 00:00: daily. Medical tablet 00 Center potassium 2018-0 Yes 10meq QD Take [address] [facility] chloride 2-26 mEq by [facility] (MICRO-K) 00:00: mouth Medical 10 mEq CR 00 daily. [place] capsule furosemide 2019-0 No 1mg 20 mg 2-26 tablet 00:00: 00 metformin 2019-0 No 1mg 500 mg 2-26 tablet 00:00: 00 potassium 2019-0 No 1mEq chloride ER 2-26 10 mEq 00:00: capsule,ext 00 ended release furosemide 2019-0 No 1mg 20 mg 2-26 tablet 00:00: 00 metformin 2019-0 No 1mg 500 mg 2-26 tablet 00:00: 00 potassium 2019-0 No 1mEq chloride ER 2-26 10 mEq 00:00: capsule,ext 00 ended release furosemide 2019-0 No 1mg 20 mg 2-26 tablet 00:00: 00 metformin 2019-0 No 1mg 500 mg 2-26 tablet 00:00: 00 potassium 2019-0 No 1mEq chloride ER 2-26 10 mEq 00:00: capsule,ext 00 ended release furosemide 2019-0 No 1mg 20 mg 2-26 tablet 00:00: 00 metformin 2019-0 No 1mg 500 mg 2-26 tablet 00:00: 00 potassium 2019-0 No 1mEq chloride ER 2-26 10 mEq 00:00: capsule,ext 00 ended release furosemide 2019-0 No 1mg 20 mg 2-26 tablet 00:00: 00 metformin 2019-0 No 1mg 500 mg 2-26 tablet 00:00: 00 potassium 2019-0 No 1mEq chloride ER 2-26 10 mEq 00:00: capsule,ext 00 ended release furosemide 2019-0 No 1mg 20 mg 2-26 tablet 00:00: 00 metformin 2019-0 No 1mg 500 mg 2-26 tablet 00:00: 00 potassium 2019-0 No 1mEq chloride ER 2-26 10 mEq 00:00: capsule,ext 00 ended release BREO 2019-0 Yes 1{puff} QD Inhale [address] [facility] ELLIPTA 2-26 puff [facility] 00:[facility]: mouth via Medica l mcg/dose 00 inhaler Center DsDv daily. Ventolin 2019-0 No 1mcg/ac HFA 90 1-29 tuation mcg/actuati 00:00: on aerosol 00 inhaler prednisone 2019-0 No mg 10 mg 1-29 tablet 00:00: 00 furosemide 2019-0 No 1mg 20 mg 1-29 tablet 00:00: 00 potassium 2019-0 No 1mEq chloride ER 1-29 10 mEq 00:00: capsule,ext 00 ended release ipratropium 2019-0 No 1% bromide 1-29 0.02 % 00:00: solution 00 for inhalation albuterol 2019-0 No 1mg/0.5 sulfate 1-29 mL concentrate 00:00: 2.5 mg/0.5 00 mL solution for nebulizatio n Ventolin 2019-0 No 1mcg/ac HFA 90 1-29 tuation mcg/actuati 00:00: on aerosol 00 inhaler prednisone 2019-0 No mg 10 mg 1-29 tablet 00:00: 00 furosemide 2019-0 No 1mg 20 mg 1-29 tablet 00:00: 00 potassium 2019-0 No 1mEq chloride ER 1-29 10 mEq 00:00: capsule,ext 00 ended release ipratropium 2019-0 No 1% bromide 1-29 0.02 % 00:00: solution 00 for inhalation albuterol 2019-0 No 1mg/0.5 sulfate 1-29 mL concentrate 00:00: 2.5 mg/0.5 00 mL solution for nebulizatio n Ventolin 2019-0 No 1mcg/ac HFA 90 1-29 tuation mcg/actuati 00:00: on aerosol 00 inhaler prednisone 2019-0 No mg 10 mg 1-29 tablet 00:00: 00 furosemide 2019-0 No 1mg 20 mg 1-29 tablet 00:00: 00 potassium 2019-0 No 1mEq chloride ER 1-29 10 mEq 00:00: capsule,ext 00 ended release ipratropium 2019-0 No 1% bromide 1-29 0.02 % 00:00: solution 00 for inhalation albuterol 2019-0 No 1mg/0.5 sulfate 1-29 mL concentrate 00:00: 2.5 mg/0.5 00 mL solution for nebulizatio n Ventolin 2019-0 No 1mcg/ac HFA 90 1-29 tuation mcg/actuati 00:00: on aerosol 00 inhaler prednisone 2019-0 No mg 10 mg 1-29 tablet 00:00: 00 furosemide 2019-0 No 1mg 20 mg 1-29 tablet 00:00: 00 potassium 2019-0 No 1mEq chloride ER 1-29 10 mEq 00:00: capsule,ext 00 ended release ipratropium 2019-0 No 1% bromide 1-29 0.02 % 00:00: solution 00 for inhalation albuterol 2019-0 No 1mg/0.5 sulfate 1-29 mL concentrate 00:00: 2.5 mg/0.5 00 mL solution for nebulizatio n Ventolin 2019-0 No 1mcg/ac HFA 90 1-29 tuation mcg/actuati 00:00: on aerosol 00 inhaler prednisone 2019-0 No mg 10 mg 1-29 tablet 00:00: 00 furosemide 2019-0 No 1mg 20 mg 1-29 tablet 00:00: 00 potassium 2019-0 No 1mEq chloride ER 1-29 10 mEq 00:00: capsule,ext 00 ended release ipratropium 2019-0 No 1% bromide 1-29 0.02 % 00:00: solution 00 for inhalation albuterol 2019-0 No 1mg/0.5 sulfate 1-29 mL concentrate 00:00: 2.5 mg/0.5 00 mL solution for nebulizatio n Ventolin 2019-0 No 1mcg/ac HFA 90 1-29 tuation mcg/actuati 00:00: on aerosol 00 inhaler prednisone 2019-0 No mg 10 mg 1-29 tablet 00:00: 00 furosemide 2019-0 No 1mg 20 mg 1-29 tablet 00:00: 00 potassium 2019-0 No 1mEq chloride ER 1-29 10 mEq 00:00: capsule,ext 00 ended release ipratropium 2019-0 No 1% bromide 1-29 0.02 % 00:00: solution 00 for inhalation albuterol 2019-0 No 1mg/0.5 sulfate 1-29 mL concentrate 00:00: 2.5 mg/0.5 00 mL solution for nebulizatio n Ventolin 2018-1 No 1mcg/ac HFA 90 2-03 tuation mcg/actuati 00:00: on aerosol 00 inhaler prednisone 2017-07 No mg 10 mg 2-03 tablet 00:00: 00 furosemide 2017- No 1mg 20 mg 2-03 tablet 00:00: 00 metformin 2017- No 1mg 500 mg 2-03 tablet 00:00: 00 Vitamin D2 2017-07 No 1unit 50,000 unit 2-03 capsule 00:00: 00 ipratropium 2017-07 No 1% bromide 2-03 0.02 % 00:00: solution 00 for inhalation albuterol 2017-07 No 1mg/0.5 sulfate 2-03 mL concentrate 00:00: 2.5 mg/0.5 00 mL solution for nebulizatio n Ventolin 2017-07 No 1mcg/ac HFA 90 2-03 tuation mcg/actuati 00:00: on aerosol 00 inhaler prednisone 2017-07 No mg 10 mg 2-03 tablet 00:00: 00 furosemide 2017-07 No 1mg 20 mg 2-03 tablet 00:00: 00 metformin 2017-07 No 1mg 500 mg 2-03 tablet 00:00: 00 Vitamin D2 2017-07 No 1unit 50,000 unit 2-03 capsule 00:00: 00 ipratropium 2017-07 No 1% bromide 2-03 0.02 % 00:00: solution 00 for inhalation albuterol 2017-07 No 1mg/0.5 sulfate 2-03 mL concentrate 00:00: 2.5 mg/0.5 00 mL solution for nebulizatio n Ventolin 2017-07 No 1mcg/ac HFA 90 2-03 tuation mcg/actuati 00:00: on aerosol 00 inhaler prednisone 2017-07 No mg 10 mg 2-03 tablet 00:00: 00 furosemide 2017-07 No 1mg 20 mg 2-03 tablet 00:00: 00 metformin 2017-07 No 1mg 500 mg 2-03 tablet 00:00: 00 Vitamin D2 2017-07 No 1unit 50,000 unit 2-03 capsule 00:00: 00 ipratropium 2017- No 1% bromide 2-03 0.02 % 00:00: solution 00 for inhalation albuterol 2017-07 No 1mg/0.5 sulfate 2-03 mL concentrate 00:00: 2.5 mg/0.5 00 mL solution for nebulizatio n Ventolin 2017-07 No 1mcg/ac HFA 90 2-03 tuation mcg/actuati 00:00: on aerosol 00 inhaler prednisone 2017- No mg 10 mg 2-03 tablet 00:00: 00 furosemide 2017- No 1mg 20 mg 2-03 tablet 00:00: 00 metformin 2017-07 No 1mg 500 mg 2-03 tablet 00:00: 00 Vitamin D2 2017-07 No 1unit 50,000 unit 2-03 capsule 00:00: 00 ipratropium 2017-07 No 1% bromide 2-03 0.02 % 00:00: solution 00 for inhalation albuterol 2017-07 No 1mg/0.5 sulfate 2-03 mL concentrate 00:00: 2.5 mg/0.5 00 mL solution for nebulizatio n Ventolin 2017-07 No 1mcg/ac HFA 90 2-03 tuation mcg/actuati 00:00: on aerosol 00 inhaler prednisone 2017-07 No mg 10 mg 2-03 tablet 00:00: 00 furosemide 2017-07 No 1mg 20 mg 2-03 tablet 00:00: 00 metformin 2017-07 No 1mg 500 mg 2-03 tablet 00:00: 00 Vitamin D2 2017-07 No 1unit 50,000 unit 2-03 capsule 00:00: 00 ipratropium 2017- No 1% bromide 2-03 0.02 % 00:00: solution 00 for inhalation albuterol 2017-07 No 1mg/0.5 sulfate 2-03 mL concentrate 00:00: 2.5 mg/0.5 00 mL solution for nebulizatio n Ventolin 2017-07 No 1mcg/ac HFA 90 2-03 tuation mcg/actuati 00:00: on aerosol 00 inhaler prednisone 2017-07 No mg 10 mg 2-03 tablet 00:00: 00 furosemide 2017-07 No 1mg 20 mg 2-03 tablet 00:00: 00 metformin 2017-07 No 1mg 500 mg 2-03 tablet 00:00: 00 Vitamin D2 2017- No 1unit 50,000 unit 2-03 capsule 00:00: 00 ipratropium 2017- No 1% bromide 2-03 0.02 % 00:00: solution 00 for inhalation albuterol 2017-07 No 1mg/0.5 sulfate 2-03 mL concentrate 00:00: 2.5 mg/0.5 00 mL solution for nebulizatio n Ventolin 2017-07 No 1mcg/ac HFA 90 1-19 tuation mcg/actuati 00:00: on aerosol 00 inhaler Ventolin 2017-07 No 1mcg/ac HFA 90 1-19 tuation mcg/actuati 00:00: on aerosol 00 inhaler Ventolin 2017-07 No 1mcg/ac HFA 90 1-19 tuation mcg/actuati 00:00: on aerosol 00 inhaler Ventolin 2017-07 No 1mcg/ac HFA 90 1-19 tuation mcg/actuati 00:00: on aerosol 00 inhaler Ventolin 2017-07 No 1mcg/ac HFA 90 1-19 tuation mcg/actuati 00:00: on aerosol 00 inhaler Ventolin 2017-07 No 1mcg/ac HFA 90 1-19 tuation mcg/actuati 00:00: on aerosol 00 inhaler prednisone 2017-07 No mg 10 mg 1-05 tablet 00:00: 00 ipratropium 2017-07 No 1% bromide 1-05 0.02 % 00:00: solution 00 for inhalation albuterol 2017-07 No 1mg/0.5 sulfate 1-05 mL concentrate 00:00: 2.5 mg/0.5 00 mL solution for nebulizatio n prednisone 2017-07 No mg 10 mg 1-05 tablet 00:00: 00 ipratropium 2017-07 No 1% bromide 1-05 0.02 % 00:00: solution 00 for inhalation albuterol 2017-07 No 1mg/0.5 sulfate 1-05 mL concentrate 00:00: 2.5 mg/0.5 00 mL solution for nebulizatio n prednisone 2017-07 No mg 10 mg 1-05 tablet 00:00: 00 ipratropium 2017-07 No 1% bromide 1-05 0.02 % 00:00: solution 00 for inhalation albuterol 2017-07 No 1mg/0.5 sulfate 1-05 mL concentrate 00:00: 2.5 mg/0.5 00 mL solution for nebulizatio n prednisone 2017-07 No mg 10 mg 1-05 tablet 00:00: 00 ipratropium 2017-07 No 1% bromide 1-05 0.02 % 00:00: solution 00 for inhalation albuterol 2017-07 No 1mg/0.5 sulfate 1-05 mL concentrate 00:00: 2.5 mg/0.5 00 mL solution for nebulizatio n prednisone 2017-07 No mg 10 mg 1-05 tablet 00:00: 00 ipratropium 2017-07 No 1% bromide 1-05 0.02 % 00:00: solution 00 for inhalation albuterol 2017-07 No 1mg/0.5 sulfate 1-05 mL concentrate 00:00: 2.5 mg/0.5 00 mL solution for nebulizatio n prednisone 2017-07 No mg 10 mg 1-05 tablet 00:00: 00 ipratropium 2017-07 No 1% bromide 1-05 0.02 % 00:00: solution 00 for inhalation albuterol 2017-07 No 1mg/0.5 sulfate 1-05 mL concentrate 00:00: 2.5 mg/0.5 00 mL solution for nebulizatio n prednisone 2017-07 No 1mg 10 mg 0-15 tablet 00:00: 00 amoxicillin 2017-07 No 1mg 500 mg 0-15 tablet 00:00: 00 albuterol 2017-07 No 1/3 mL sulfate 2.5 0-15 (0.083 mg/3 mL 00:00: %) (0.083 %) 00 solution for nebulizatio n prednisone 2017-07 No 1mg 10 mg 0-15 tablet 00:00: 00 amoxicillin 2017-07 No 1mg 500 mg 0-15 tablet 00:00: 00 albuterol 2017-07 No 1/3 mL sulfate 2.5 0-15 (0.083 mg/3 mL 00:00: %) (0.083 %) 00 solution for nebulizatio n prednisone 2017-07 No 1mg 10 mg 0-15 tablet 00:00: 00 amoxicillin 2017-07 No 1mg 500 mg 0-15 tablet 00:00: 00 albuterol 2017-07 No 1/3 mL sulfate 2.5 0-15 (0.083 mg/3 mL 00:00: %) (0.083 %) 00 solution for nebulizatio n prednisone 2017-07 No 1mg 10 mg 0-15 tablet 00:00: 00 amoxicillin 2017-07 No 1mg 500 mg 0-15 tablet 00:00: 00 albuterol 2017-07 No 1/3 mL sulfate 2.5 0-15 (0.083 mg/3 mL 00:00: %) (0.083 %) 00 solution for nebulizatio n prednisone 2017-07 No 1mg 10 mg 0-15 tablet 00:00: 00 amoxicillin 2017-07 No 1mg 500 mg 0-15 tablet 00:00: 00 albuterol 2017-07 No 1/3 mL sulfate 2.5 0-15 (0.083 mg/3 mL 00:00: %) (0.083 %) 00 solution for nebulizatio n prednisone 2017-07 No 1mg 10 mg 0-15 tablet 00:00: 00 amoxicillin 2017-07 No 1mg 500 mg 0-15 tablet 00:00: 00 albuterol 2017-07 No 1/3 mL sulfate 2.5 0-15 (0.083 mg/3 mL 00:00: %) (0.083 %) 00 solution for nebulizatio n ProAir HFA 2017-07 No 2mcg/ac 90 0-01 tuation mcg/actuati 00:00: on aerosol 00 inhaler meloxicam 2017-07 No 1mg 15 mg 0-01 tablet 00:00: 00 metformin 2017-07 No 1mg 500 mg 0-01 tablet 00:00: 00 amoxicillin 2017-07 No 1mg 500 mg 0-01 tablet 00:00: 00 prednisone 2017-07 No 1mg 20 mg 0-01 tablet 00:00: 00 ipratropium 2017-07 No 1% bromide 0-01 0.02 % 00:00: solution 00 for inhalation ProAir HFA 2017-07 No 2mcg/ac 90 0-01 tuation mcg/actuati 00:00: on aerosol 00 inhaler meloxicam 2017-07 No 1mg 15 mg 0-01 tablet 00:00: 00 metformin 2017-07 No 1mg 500 mg 0-01 tablet 00:00: 00 amoxicillin 2017-07 No 1mg 500 mg 0-01 tablet 00:00: 00 prednisone 2017-07 No 1mg 20 mg 0-01 tablet 00:00: 00 ipratropium 2017-07 No 1% bromide 0-01 0.02 % 00:00: solution 00 for inhalation ProAir HFA 2017-07 No 2mcg/ac 90 0-01 tuation mcg/actuati 00:00: on aerosol 00 inhaler ProAir HFA 2018- No 2mcg/ac 90 0-01 tuation mcg/actuati 00:00: on aerosol 00 inhaler meloxicam 2018-1 No 1mg 15 mg 0-01 tablet 00:00: 00 metformin 2018-1 No 1mg 500 mg 0-01 tablet 00:00: 00 amoxicillin 2018-1 No 1mg 500 mg 0-01 tablet 00:00: 00 prednisone 2018-1 No 1mg 20 mg 0-01 tablet 00:00: 00 ipratropium 2018-1 No 1% bromide 0-01 0.02 % 00:00: solution 00 for inhalation meloxicam 2018- No 1mg 15 mg 0-01 tablet 00:00: 00 metformin 2018-1 No 1mg 500 mg 0-01 tablet 00:00: 00 amoxicillin 2018-1 No 1mg 500 mg 0-01 tablet 00:00: 00 prednisone 2018-1 No 1mg 20 mg 0-01 tablet 00:00: 00 ipratropium 2018-1 No 1% bromide 0-01 0.02 % 00:00: solution 00 for inhalation ProAir HFA 2017- No 2mcg/ac 90 0-01 tuation mcg/actuati 00:00: on aerosol 00 inhaler meloxicam 2018-1 No 1mg 15 mg 0-01 tablet 00:00: 00 metformin 2018-1 No 1mg 500 mg 0-01 tablet 00:00: 00 amoxicillin 2018-1 No 1mg 500 mg 0-01 tablet 00:00: 00 prednisone 2018-1 No 1mg 20 mg 0-01 tablet 00:00: 00 ipratropium 2018-1 No 1% bromide 0-01 0.02 % 00:00: solution 00 for inhalation ProAir HFA 2017- No 2mcg/ac 90 0-01 tuation mcg/actuati 00:00: on aerosol 00 inhaler meloxicam 2018-1 No 1mg 15 mg 0-01 tablet 00:00: 00 metformin 2018-1 No 1mg 500 mg 0-01 tablet 00:00: 00 amoxicillin 2018-1 No 1mg 500 mg 0-01 tablet 00:00: 00 prednisone 2018-1 No 1mg 20 mg 0-01 tablet 00:00: 00 ipratropium 2018-1 No 1% bromide 0-01 0.02 % 00:00: solution 00 for inhalation ProAir HFA 2018-0 No 12mcg/a 90 1-11 ctuatio mcg/actuati 00:00: n on aerosol 00 inhaler benzonatate 2018-0 No 12mg 100 mg 1-11 capsule 00:00: 00 ProAir HFA 2018-0 No 12mcg/a 90 1-11 ctuatio mcg/actuati 00:00: n on aerosol 00 inhaler benzonatate 2018-0 No 12mg 100 mg 1-11 capsule 00:00: 00 ProAir HFA 2018-0 No 12mcg/a 90 1-11 ctuatio mcg/actuati 00:00: n on aerosol 00 inhaler benzonatate 2018-0 No 12mg 100 mg 1-11 capsule 00:00: 00 ProAir HFA 2018-0 No 12mcg/a 90 1-11 ctuatio mcg/actuati 00:00: n on aerosol 00 inhaler benzonatate 2018-0 No 12mg 100 mg 1-11 capsule 00:00: 00 ProAir HFA 2018-0 No 12mcg/a 90 1-11 ctuatio mcg/actuati 00:00: n on aerosol 00 inhaler benzonatate 2018-0 No 12mg 100 mg 1-11 capsule 00:00: 00 ProAir HFA 2018-0 No 12mcg/a 90 1-11 ctuatio mcg/actuati 00:00: n on aerosol 00 inhaler benzonatate 2018-0 No 12mg 100 mg 1-11 capsule 00:00: 00 prednisone 2017- No 2mg 20 mg 2-14 tablet 00:00: 00 Singulair 2016-07 No 1mg 10 mg 2-14 tablet 00:00: 00 ProAir HFA 2016-07 No 2mcg/ac 90 2-14 tuation mcg/actuati 00:00: on aerosol 00 inhaler ProAir HFA 2016-1 No 12mcg/a 90 2-14 ctuatio mcg/actuati 00:00: n on aerosol 00 inhaler ipratropium 2017-1 No 1% bromide 2-14 0.02 % 00:00: solution 00 for inhalation prednisone 2016- No 2mg 20 mg 2-14 tablet 00:00: 00 Singulair 2017- No 1mg 10 mg 2-14 tablet 00:00: 00 meloxicam 2016-07 No 1mg 15 mg 2-14 tablet 00:00: 00 metformin 2016-07 No 1mg 500 mg 2-14 tablet 00:00: 00 Cipro 500 2016-07 No 1mg mg tablet 2-14 00:00: 00 prednisone 2016-07 No 1mg 20 mg 2-14 tablet 00:00: 00 albuterol 2016-07 No 1/3 mL sulfate 2.5 2-14 (0.083 mg/3 mL 00:00: %) (0.083 %) 00 solution for nebulizatio n meloxicam 2016-07 No 1mg 15 mg 2-14 tablet 00:00: 00 metformin 2016-07 No 1mg 500 mg 2-14 tablet 00:00: 00 Cipro 500 2016-07 No 1mg mg tablet 2-14 00:00: 00 prednisone 2016-07 No 1mg 20 mg 2-14 tablet 00:00: 00 ProAir HFA 2016-07 No 2mcg/ac 90 2-14 tuation mcg/actuati 00:00: on aerosol 00 inhaler ProAir HFA 2016-07 No 12mcg/a 90 2-14 ctuatio mcg/actuati 00:00: n on aerosol 00 inhaler ipratropium 2016-07 No 1% bromide 2-14 0.02 % 00:00: solution 00 for inhalation prednisone 2016-07 No 2mg 20 mg 2-14 tablet 00:00: 00 Singulair 2016-07 No 1mg 10 mg 2-14 tablet 00:00: 00 meloxicam 2016-07 No 1mg 15 mg 2-14 tablet 00:00: 00 metformin 2016-07 No 1mg 500 mg 2-14 tablet 00:00: 00 Cipro 500 2016-07 No 1mg mg tablet 2-14 00:00: 00 prednisone 2016-07 No 1mg 20 mg 2-14 tablet 00:00: 00 albuterol 2016-07 No 1/3 mL sulfate 2.5 2-14 (0.083 mg/3 mL 00:00: %) (0.083 %) 00 solution for nebulizatio n albuterol 2016-07 No 1/3 mL sulfate 2.5 2-14 (0.083 mg/3 mL 00:00: %) (0.083 %) 00 solution for nebulizatio n ProAir HFA 2016-07 No 2mcg/ac 90 2-14 tuation mcg/actuati 00:00: on aerosol 00 inhaler ProAir HFA 2016-07 No 12mcg/a 90 2-14 ctuatio mcg/actuati 00:00: n on aerosol 00 inhaler ipratropium 2016-07 No 1% bromide 2-14 0.02 % 00:00: solution 00 for inhalation prednisone 2016-07 No 2mg 20 mg 2-14 tablet 00:00: 00 Singulair 2016-07 No 1mg 10 mg 2-14 tablet 00:00: 00 meloxicam 2016-07 No 1mg 15 mg 2-14 tablet 00:00: 00 metformin 2016-07 No 1mg 500 mg 2-14 tablet 00:00: 00 Cipro 500 2016-07 No 1mg mg tablet 2-14 00:00: 00 prednisone 2016-07 No 1mg 20 mg 2-14 tablet 00:00: 00 albuterol 2016-07 No 1/3 mL sulfate 2.5 2-14 (0.083 mg/3 mL 00:00: %) (0.083 %) 00 solution for nebulizatio n ProAir HFA 2016-07 No 2mcg/ac 90 2-14 tuation mcg/actuati 00:00: on aerosol 00 inhaler ProAir HFA 2016-07 No 12mcg/a 90 2-14 ctuatio mcg/actuati 00:00: n on aerosol 00 inhaler ipratropium 2016-07 No 1% bromide 2-14 0.02 % 00:00: solution 00 for inhalation prednisone 2016-07 No 2mg 20 mg 2-14 tablet 00:00: 00 Singulair 2016-07 No 1mg 10 mg 2-14 tablet 00:00: 00 meloxicam 2016-07 No 1mg 15 mg 2-14 tablet 00:00: 00 metformin 2016-07 No 1mg 500 mg 2-14 tablet 00:00: 00 Cipro 500 2016-07 No 1mg mg tablet 2-14 00:00: 00 prednisone 2016-07 No 1mg 20 mg 2-14 tablet 00:00: 00 albuterol 2016-07 No 1/3 mL sulfate 2.5 2-14 (0.083 mg/3 mL 00:00: %) (0.083 %) 00 solution for nebulizatio n ProAir HFA 2016-07 No 2mcg/ac 90 2-14 tuation mcg/actuati 00:00: on aerosol 00 inhaler ProAir HFA 2016-07 No 2mcg/ac 90 2-14 tuation mcg/actuati 00:00: on aerosol 00 inhaler ProAir HFA 2016-07 No 12mcg/a 90 2-14 ctuatio mcg/actuati 00:00: n on aerosol 00 inhaler ipratropium 2016-07 No 1% bromide 2-14 0.02 % 00:00: solution 00 for inhalation prednisone 2016-07 No 2mg 20 mg 2-14 tablet 00:00: 00 Singulair 2016-07 No 1mg 10 mg 2-14 tablet 00:00: 00 meloxicam 2016-07 No 1mg 15 mg 2-14 tablet 00:00: 00 metformin 2016-07 No 1mg 500 mg 2-14 tablet 00:00: 00 Cipro 500 2016-07 No 1mg mg tablet 2-14 00:00: 00 prednisone 2016-07 No 1mg 20 mg 2-14 tablet 00:00: 00 albuterol 2016-07 No 1/3 mL sulfate 2.5 2-14 (0.083 mg/3 mL 00:00: %) (0.083 %) 00 solution for nebulizatio n ProAir HFA 2016-07 No 12mcg/a 90 2-14 ctuatio mcg/actuati 00:00: n on aerosol 00 inhaler ipratropium 2016-07 No 1% bromide 2-14 0.02 % 00:00: solution 00 for inhalation meloxicam 0 No 1mg 15 mg 1-15 tablet 00:00: 00 meloxicam 0 No 1mg 15 mg 1-15 tablet 00:00: 00 meloxicam 0 No 1mg 15 mg 1-15 tablet 00:00: 00 meloxicam 2015-0 No 1mg 15 mg 1-15 tablet 00:00: 00 meloxicam 0 No 1mg 15 mg 1-15 tablet 00:00: 00 meloxicam 0 No 1mg 15 mg 1-15 tablet 00:00: 00 furosemide 2015-0 Yes 40mg Take 40 mg U nivers (LASIX) 40 3-27 by mouth ity o f mg tablet 15:45: daily. [address] metFORMIN 0 Yes 500mg Take 500 Uni vers (GLUCOPHAGE 3-27 mg by ity of ) 500 mg 15:45: mouth 2 [place] tablet 32 (two) Medical times Branch daily with meals. albuterol Yes 2{puff} Inhale 2 U nivers (PROAIR 3-27 Puffs ity of HFA) 90 15:45: every 6 [place] mcg/actuati 32 (six) Medical on inhaler hours as Branc h needed for Wheezing or Shortness of Breath. ALBUTEROL Yes Inhale as Uni vers INHALE 3-27 needed. ity of 15:45: [address] FLUTICASONE Yes Inhale 2 Un gela /SALMETEROL 3-27 (two) ity of (ADVAIR HFA 15:45: times [place] INHALE) 32 daily. Medical Branch furosemide Yes 40mg Take 40 mg U nivers (LASIX) 40 3-27 by mouth ity o f mg tablet 15:45: daily. [address] metFORMIN Yes 500mg Take 500 Uni vers (GLUCOPHAGE 3-27 mg by ity of ) 500 mg 15:45: mouth 2 [place] tablet 32 (two) Medical times Branch daily with meals. albuterol Yes 2{puff} Inhale 2 U nivers (PROAIR 3-27 Puffs ity of HFA) 90 15:45: every 6 [place] mcg/actuati 32 (six) Medical on inhaler hours as Branc h needed for Wheezing or Shortness of Breath. ALBUTEROL Yes Inhale as Uni vers INHALE 3-27 needed. ity of 15:45: [address] FLUTICASONE 0 Yes Inhale 2 Un gela /SALMETEROL 3-27 (two) ity of (ADVAIR HFA 15:45: times [place] INHALE) 32 daily. [facility] Branch Immunizations Ordered Immunization Filled Immunization Date Status Commen ts Source Name Name Jeannie COVID-19 2021-08-06 Completed Vaccine 00:00:00 Moderna COVID-19 2021-08-06 Completed Vaccine 00:00:00 Moderna COVID-19 2021-08-06 Completed Vaccine 00:00:00 Moderna COVID-19 2021-08-06 Completed Vaccine 00:00:00 Moderna COVID-19 2021-08-06 Completed Vaccine 00:00:00 Moderna COVID-19 2021-08-06 Completed Vaccine 00:00:00 Moderna COVID-19 2020-10-02 Completed Vaccine 00:00:00 Moderna COVID-19 2020-10-02 Completed Vaccine 00:00:00 Moderna COVID-19 2020-10-02 Completed Vaccine 00:00:00 Moderna COVID-19 2020-10-02 Completed Vaccine 00:00:00 Moderna COVID-19 2020-10-02 Completed Vaccine 00:00:00 Moderna COVID-19 2020-10-02 Completed Vaccine 00:00:00 Moderna COVID-19 2020-09-03 Completed Vaccine 00:00:00 Moderna COVID-19 2020-09-03 Completed Vaccine 00:00:00 Moderna COVID-19 2020-09-03 Completed Vaccine 00:00:00 Moderna COVID-19 2020-09-03 Completed Vaccine 00:00:00 Moderna COVID-19 2020-09-03 Completed Vaccine 00:00:00 Moderna COVID-19 2020-09-03 Completed Vaccine 00:00:00 Vital Signs Vital Name Observation Time Observation Value Comments Source Heart rate 2022-02-17 15:44:00 77 /min [facility] Respiratory rate 2022-02-17 15:44:00 19 /min [facility] Oxygen saturation in 2022-02-17 15:44:00 97 /min [facility] Arterial blood by [facility] Pulse oximetry Branch Systolic blood 2022-02-17 15:41:00 115 mm[Hg] Univer sity of pressure [facility] Diastolic blood 2022-02-17 15:41:00 76 mm[Hg] Unive [facility] of pressure [facility] Body temperature 2022-02-17 15:22:00 36.39 Teresa [facility] Body height 2022-02-03 18:55:00 172.7 cm [facility] Body weight 2022-02-03 18:55:00 170 kg [facility] BMI 2022-02-03 18:55:00 56.99 kg/m2 [facility] Oxygen saturation in 2022-02-17 13:01:00 98 /min [facility] Arterial blood by [facility] Pulse oximetry Branch Systolic blood 2022-02-17 12:58:00 117 mm[Hg] Univer sity of pressure [facility] Diastolic blood 2022-02-17 12:58:00 76 mm[Hg] Unive rsity of [facility] Heart rate 2022-02-17 12:58:00 83 /min Universi ty [facility] Body temperature 2022-02-17 12:58:00 36.17 [facility] Respiratory rate 2022-02-17 12:58:00 20 /min [facility] Body height 2022-02-03 18:55:00 [facility] Body weight 2022-02-03 18:55:00 170 kg [facility] BMI 2022-02-03 18:55:00 56.99 kg/m2 [facility] BP Systolic 2022-05-11 09:29:00 BP Diastolic 2022-05-11 09:29:00 Weight Measured 2022-05-11 09:29:00 362.00 pounds Height Measured 2022-05-11 09:29:00 68.00 inches Body Temperature 2022-05-11 09:29:00 Heart Rate 2022-05-11 09:29:00 Respiratory Rate 2022-05-11 09:29:00 BP Systolic 2022-04-28 08:11:00 113 mm[Hg] BP Diastolic 2022-04-28 08:11:00 78 mm[Hg] Weight Measured 2022-04-28 08:11:00 362.00 pounds Height Measured 2022-04-28 08:11:00 68.00 inches Body Temperature 2022-04-28 08:11:00 98.00 degrees Heart Rate 2022-04-28 08:11:00 76.00 /min Respiratory Rate 2022-04-28 08:11:00 17.00 /min BP Systolic 2022-03-23 08:45:00 159 mm[Hg] BP Diastolic 2022-03-23 08:45:00 84 mm[Hg] Weight Measured 2022-03-23 08:45:00 356.80 pounds Height Measured 2022-03-23 08:45:00 68.00 inches Body Temperature 2022-03-23 08:45:00 98.10 degrees Heart Rate 2022-03-23 08:45:00 89.00 /min Respiratory Rate 2022-03-23 08:45:00 17.00 /min BP Systolic 2021-10-09 17:00:00 162 mm[Hg] BP Diastolic 2021-10-09 17:00:00 109 mm[Hg] Weight Measured 2021-10-09 17:00:00 379.20 pounds Height Measured 2021-10-09 17:00:00 68.00 inches Body Temperature 2021-10-09 17:00:00 98.10 degrees Heart Rate 2021-10-09 17:00:00 93.00 /min Respiratory Rate 2021-10-09 17:00:00 16.00 /min BP Systolic 2021-09-04 16:00:00 123 mm[Hg] BP Diastolic 2021-09-04 16:00:00 87 mm[Hg] Weight Measured 2021-09-04 16:00:00 389.20 pounds Height Measured 2021-09-04 16:00:00 68.00 inches Body Temperature 2021-09-04 16:00:00 98.60 degrees Heart Rate 2021-09-04 16:00:00 100.00 /min Respiratory Rate 2021-09-04 16:00:00 BP Systolic 2021-01-09 15:05:00 145 mm[Hg] BP Diastolic 2021-01-09 15:05:00 81 mm[Hg] Weight Measured 2021-01-09 15:05:00 389.60 pounds Height Measured 2021-01-09 15:05:00 68.00 inches Body Temperature 2021-01-09 15:05:00 97.90 degrees Heart Rate 2021-01-09 15:05:00 98.00 /min Respiratory Rate 2021-01-09 15:05:00 25.00 /min BP Systolic 2020-10-27 16:31:00 150 mm[Hg] BP Diastolic 2020-10-27 16:31:00 94 mm[Hg] Weight Measured 2020-10-27 16:31:00 389.60 pounds Height Measured 2020-10-27 16:31:00 68.00 inches Body Temperature 2020-10-27 16:31:00 98.80 degrees Heart Rate 2020-10-27 16:31:00 110.00 /min Respiratory Rate 2020-10-27 16:31:00 22.00 /min BP Systolic 2020-08-27 13:42:00 152 mm[Hg] BP Diastolic 2020-08-27 13:42:00 88 mm[Hg] Weight Measured 2020-08-27 13:42:00 384.80 pounds Height Measured 2020-08-27 13:42:00 68.00 inches Body Temperature 2020-08-27 13:42:00 98.40 degrees Heart Rate 2020-08-27 13:42:00 94.00 /min Respiratory Rate 2020-08-27 13:42:00 17.00 /min BP Systolic 2020-07-05 11:23:00 132 mm[Hg] BP Diastolic 2020-07-05 11:23:00 76 mm[Hg] Weight Measured 2020-07-05 11:23:00 383.20 pounds Height Measured 2020-07-05 11:23:00 68.00 inches Body Temperature 2020-07-05 11:23:00 98.30 degrees Heart Rate 2020-07-05 11:23:00 93.00 /min Respiratory Rate 2020-07-05 11:23:00 17.00 /min BP Systolic 2020-05-01 13:19:00 163 mm[Hg] BP Diastolic 2020-05-01 13:19:00 106 mm[Hg] Weight Measured 2020-05-01 13:19:00 374.40 pounds Height Measured 2020-05-01 13:19:00 68.00 inches Body Temperature 2020-05-01 13:19:00 98.50 degrees Heart Rate 2020-05-01 13:19:00 112.00 /min Respiratory Rate 2020-05-01 13:19:00 17.00 /min BP Systolic 2020-05-01 13:18:00 163 mm[Hg] BP Diastolic 2020-05-01 13:18:00 106 mm[Hg] Weight Measured 2020-05-01 13:18:00 374.40 pounds Height Measured 2020-05-01 13:18:00 68.00 inches Body Temperature 2020-05-01 13:18:00 98.50 degrees Heart Rate 2020-05-01 13:18:00 112.00 /min Respiratory Rate 2020-05-01 13:18:00 17.00 /min BP Systolic 2020-02-18 10:49:00 156 mm[Hg] BP Diastolic 2020-02-18 10:49:00 94 mm[Hg] Weight Measured 2020-02-18 10:49:00 384.20 pounds Height Measured 2020-02-18 10:49:00 68.00 inches Body Temperature 2020-02-18 10:49:00 98.00 degrees Heart Rate 2020-02-18 10:49:00 88.00 /min Respiratory Rate 2020-02-18 10:49:00 18.00 /min BP Systolic 2020-01-15 16:04:00 160 mm[Hg] BP Diastolic 2020-01-15 16:04:00 99 mm[Hg] Weight Measured 2020-01-15 16:04:00 390.00 pounds Height Measured 2020-01-15 16:04:00 68.00 inches Body Temperature 2020-01-15 16:04:00 98.00 degrees Heart Rate 2020-01-15 16:04:00 100.00 /min Respiratory Rate 2020-01-15 16:04:00 18.00 /min Procedures Procedure Date / Time Performing Source Performed Clinician PHACOEMULSIFICATION OF 2022-02-17 Mathew Lewis [facility] CATARACT WITH INTRAOCULAR 14:21:00 Medica l Branch LENS IMPLANT POCT GLUCOSE (AUTOMATED) 2022-02-17 Mathew Lewis [facility] 12:55:00 Medical Branch POCT GLUCOSE (AUTOMATED) 2022-02-17 Mathew Lewis [facility] 12:55:00 Medical Branch ASSIGNMENT OF BENEFITS 2022-02-10 Doctor Unassigned, [facility] 15:58:03 [place] [facility] Plan of Care Planned Activity Planned Date Details Comments Source Goal Plan of Care Note [code = 66976-4] Goal Plan of Care Note [code = 11392-9] Goal Plan of Care Note [code = 42732-9] Goal Plan of Care Note [code = 57379-3] Goal Plan of Care Note [code = 22094-7] Goal Plan of Care Note [code = 81422-0] Goal Plan of Care Note [code = 36580-5] Goal Plan of Care Note [code = 80152-0] Goal Plan of Care Note [code = 99906-0] Goal Plan of Care Note [code = 52185-5] Goal Plan of Care Note [code = 89495-5] Goal Plan of Care Note [code = 96957-8] Goal Plan of Care Note [code = 67815-7] Goal Plan of Care Note [code = 65014-0] Goal Plan of Care Note [code = 92475-2] Goal Plan of Care Note [code = 84946-2] Goal Plan of Care Note [code = 54751-2] Goal Plan of Care Note [code = 15163-4] Goal Plan of Care Note [code = 46449-3] Goal Plan of Care Note [code = 94992-0] Goal Plan of Care Note [code = 18699-1] Goal Plan of Care Note [code = 12427-5] Goal Plan of Care Note [code = 37488-5] Goal Plan of Care Note [code = 61495-8] Goal Plan of Care Note [code = 44289-0] Goal Plan of Care Note [code = 60152-7] Goal Plan of Care Note [code = 41048-0] Goal Plan of Care Note [code = 47505-2] Goal Plan of Care Note [code = 97571-7] Goal Plan of Care Note [code = 63050-6] Goal Plan of Care Note [code = 62224-4] Goal Plan of Care Note [code = 90298-0] Goal Plan of Care Note [code = 81984-6] Goal Plan of Care Note [code = 85866-3] Goal Plan of Care Note [code = 65081-9] Goal Plan of Care Note [code = 60429-8] Goal Plan of Care Note [code = 67153-5] Goal Plan of Care Note [code = 74238-2] Goal Plan of Care Note [code = 52857-9] Goal Plan of Care Note [code = 13763-8] Goal Plan of Care Note [code = 14843-4] Goal Plan of Care Note [code = 92211-4] Goal Plan of Care Note [code = 44229-1] Goal Plan of Care Note [code = 79424-8] Goal Plan of Care Note [code = 85767-5] Goal Plan of Care Note [code = 96997-6] Goal Plan of Care Note [code = 36896-8] Goal Plan of Care Note [code = 80814-2] Goal Plan of Care Note [code = 24428-8] Goal Plan of Care Note [code = 18557-6] Goal Plan of Care Note [code = 68552-7] Goal Plan of Care Note [code = 20082-1] Goal Plan of Care Note [code = 13621-6] Goal Plan of Care Note [code = 01155-1] Goal Plan of Care Note [code = 38832-9] Goal Plan of Care Note [code = 29815-2] Goal Plan of Care Note [code = 55040-2] Goal Plan of Care Note [code = 41871-0] Goal Plan of Care Note [code = 38234-6] Goal Plan of Care Note [code = 55874-7] Goal Plan of Care Note [code = 19519-4] Goal Plan of Care Note [code = 01889-3] Goal Plan of Care Note [code = 94466-9] Goal Plan of Care Note [code = 73988-0] Goal Plan of Care Note [code = 09599-7] Goal Plan of Care Note [code = 41057-1] Goal Plan of Care Note [code = 09960-0] Goal Plan of Care Note [code = 05561-6] Goal Plan of Care Note [code = 06877-3] Goal Plan of Care Note [code = 56088-3] Goal Plan of Care Note [code = 82641-8] Goal Plan of Care Note [code = 75088-2] Goal Plan of Care Note [code = 28903-0] Goal Plan of Care Note [code = 88869-2] Goal Plan of Care Note [code = 10452-4] Goal Plan of Care Note [code = 28363-8] Goal Plan of Care Note [code = 40896-8] Goal Plan of Care Note [code = 65337-3] Goal Plan of Care Note [code = 92779-3] Goal Plan of Care Note [code = 73033-6] Goal Plan of Care Note [code = 38475-5] Goal Plan of Care Note [code = 43955-9] Goal Plan of Care Note [code = 00458-1] Goal Plan of Care Note [code = 24154-8] Goal Plan of Care Note [code = 85397-0] Goal Plan of Care Note [code = 05563-1] Goal Plan of Care Note [code = 10401-6] Goal Plan of Care Note [code = 62097-5] Goal Plan of Care Note [code = 27145-9] Goal Plan of Care Note [code = 01693-9] Goal Plan of Care Note [code = 10929-9] Goal Plan of Care Note [code = 49635-2] Goal Plan of Care Note [code = 86223-0] Goal Plan of Care Note [code = 16639-9] Goal Plan of Care Note [code = 38506-1] Goal Plan of Care Note [code = 04814-4] Goal Plan of Care Note [code = 42320-9] Goal Plan of Care Note [code = 80824-8] Goal Plan of Care Note [code = 91941-7] Goal Plan of Care Note [code = 85914-3] Goal Plan of Care Note [code = 33951-0] Goal Plan of Care Note [code = 81105-0] Goal Plan of Care Note [code = 21568-5] Goal Plan of Care Note [code = 67363-6] Goal Plan of Care Note [code = 01370-9] Goal Plan of Care Note [code = 71665-2] Goal Plan of Care Note [code = 91193-3] Goal Plan of Care Note [code = 87912-3] Goal Plan of Care Note [code = 92936-9] Goal Plan of Care Note [code = 49250-0] Goal Plan of Care Note [code = 92288-0] Goal Plan of Care Note [code = 07280-8] Goal Plan of Care Note [code = 91051-9] Goal Plan of Care Note [code = 72432-5] Goal Plan of Care Note [code = 99447-9] Goal Plan of Care Note [code = 42997-5] Goal Plan of Care Note [code = 82325-7] Goal Plan of Care Note [code = 41241-2] Goal Plan of Care Note [code = 71612-5] Goal Plan of Care Note [code = 38794-8] Goal Plan of Care Note [code = 66562-8] Goal Plan of Care Note [code = 09879-2] Goal Plan of Care Note [code = 91883-8] Goal Plan of Care Note [code = 70095-4] Goal Plan of Care Note [code = 66859-1] Goal Plan of Care Note [code = 12292-4] Goal Plan of Care Note [code = 03181-2] Goal Plan of Care Note [code = 45918-7] Goal Plan of Care Note [code = 52714-4] Goal Plan of Care Note [code = 86375-2] Goal Plan of Care Note [code = 70653-2] Goal Plan of Care Note [code = 55100-4] Goal Plan of Care Note [code = 99132-8] Goal Plan of Care Note [code = 45080-2] Goal Plan of Care Note [code = 32762-5] Goal Plan of Care Note [code = 88682-9] Goal Plan of Care Note [code = 25745-3] Goal Plan of Care Note [code = 80801-6] Goal Plan of Care Note [code = 90175-4] Goal Plan of Care Note [code = 78574-0] Goal Plan of Care Note [code = 69162-2] Goal Plan of Care Note [code = 73972-9] Goal Plan of Care Note [code = 68912-2] Goal Plan of Care Note [code = 12095-6] Goal Plan of Care Note [code = 32873-0] Goal Plan of Care Note [code = 51952-7] Goal Plan of Care Note [code = 39106-9] Goal Plan of Care Note [code = 92987-0] Goal Plan of Care Note [code = 58165-0] Goal Plan of Care Note [code = 99883-3] Goal Plan of Care Note [code = 91840-5] Goal Plan of Care Note [code = 63562-5] Goal Plan of Care Note [code = 34322-4] Goal Plan of Care Note [code = 56430-5] Goal Plan of Care Note [code = 88537-6] Goal Plan of Care Note [code = 85848-9] Goal Plan of Care Note [code = 88118-1] Goal Plan of Care Note [code = 99682-2] Goal Plan of Care Note [code = 35848-0] Goal Plan of Care Note [code = 10756-0] Goal Plan of Care Note [code = 34581-9] Goal Plan of Care Note [code = 72554-3] Goal Plan of Care Note [code = 08379-7] Goal Plan of Care Note [code = 46318-6] Goal Plan of Care Note [code = 90895-9] Goal Plan of Care Note [code = 59581-8] Goal Plan of Care Note [code = 54012-0] Goal Plan of Care Note [code = 96888-9] Goal Plan of Care Note [code = 94605-7] Goal Plan of Care Note [code = 81950-3] Goal Plan of Care Note [code = 42310-4] Goal Plan of Care Note [code = 72468-5] Goal Plan of Care Note [code = 02135-7] Goal Plan of Care Note [code = 90706-8] Goal Plan of Care Note [code = 78525-1] Goal Plan of Care Note [code = 23048-9] Goal Plan of Care Note [code = 57339-5] Goal Plan of Care Note [code = 52483-2] Goal Plan of Care Note [code = 59222-2] Goal Plan of Care Note [code = 66480-2] Goal Plan of Care Note [code = 62282-6] Goal Plan of Care Note [code = 46376-2] Goal Plan of Care Note [code = 96920-2] Goal Plan of Care Note [code = 31592-9] Goal Plan of Care Note [code = 19998-7] Goal Plan of Care Note [code = 81481-3] Goal Plan of Care Note [code = 31187-1] Goal Plan of Care Note [code = 95465-5] Goal Plan of Care Note [code = 56310-7] Goal Plan of Care Note [code = 90140-0] Goal Plan of Care Note [code = 96534-8] Goal Plan of Care Note [code = 61213-5] Goal Plan of Care Note [code = 55304-4] Goal Plan of Care Note [code = 53016-3] Goal Plan of Care Note [code = 75296-7] Goal Plan of Care Note [code = 95842-9] Goal Plan of Care Note [code = 97495-9] Goal Plan of Care Note [code = 84012-2] Goal Plan of Care Note [code = 98780-4] Goal Plan of Care Note [code = 08801-1] Goal Plan of Care Note [code = 52828-4] Goal Plan of Care Note [code = 00948-3] Goal Plan of Care Note [code = 49681-5] Goal Plan of Care Note [code = 31657-2] Goal Plan of Care Note [code = 11013-9] Goal Plan of Care Note [code = 89314-9] Goal Plan of Care Note [code = 12377-5] Goal Plan of Care Note [code = 69229-0] Goal Plan of Care Note [code = 30315-8] Goal Plan of Care Note [code = 56418-8] Goal Plan of Care Note [code = 37123-0] Goal Plan of Care Note [code = 02285-0] Goal Plan of Care Note [code = 28922-5] Goal Plan of Care Note [code = 30929-3] Goal Plan of Care Note [code = 46945-6] Goal Plan of Care Note [code = 85138-5] Goal Plan of Care Note [code = 78354-2] Goal Plan of Care Note [code = 18919-2] Goal Plan of Care Note [code = 85465-1] Goal Plan of Care Note [code = 35524-2] Goal Plan of Care Note [code = 80677-7] Goal Plan of Care Note [code = 34988-7] Goal Plan of Care Note [code = 61485-3] Goal Plan of Care Note [code = 18708-8] Goal Plan of Care Note [code = 97688-0] Goal Plan of Care Note [code = 35449-5] Goal Plan of Care Note [code = 02184-9] Goal Plan of Care Note [code = 58708-5] Encounters Start End Encounter Admission Attending Care Care Encounter Source Date/Time Date/Time Type Type Clinicians Facility Department ID 2022-05-11 2022-05-11 Outpatient [id number] 00:00:00 00:00:00 Visit 17n0-9tj8 1l6-5rp2-3 -61n5-3e4 0w5-8u2052 [id number] 2022-04-28 2022-04-28 Outpatient PERRY SFA [id number] Luci Mckinley 08:02:27 08:02:27 1026 F Asher 2022-04-28 2022-04-28 Outpatient [id number] 00:00:00 00:00:00 Visit 1024-44f2 024-44f2-b -c1c2-1t7 5w5-7f9lo7 qt39h8c7k 9f2c1b 2022-03-23 2022-03-23 Outpatient [id number] 00:00:00 00:00:00 Visit x096-4867 820-4099-8 -8916-f09 916-f09dd9 io369rv52 96fa67 2022-02-18 2022-02-18 Outpatient [id number] dy0574-8 00:00:00 00:00:00 Visit 687d-48f9 87d-48f9-8 -4c77-yyj m17-aldpks tokv82406 z46763 2022-02-17 2022-02-17 [facility] [id number] [facility] 07:48:00 10:51:00 Encounter Mathew HAN 350.1.13.10 [facility] [place] [id number] [facility] [address] 2022-02-17 2022-02-17 [facility] [id number] Univers 07:48:00 10:51:00 MATHEW gutierrez [facility] 2022-02-17 2022-02-17 Surgery General acute hospital 12.840.114 [id number] [facility] 08:59:00 09:32:00 Mathew HAN 350.1.13.10 [facility] [place] [id number] [facility] [address] 2022-02-15 2022-02-15 Laboratory Only, Adc Test [facility] 1.2.840. 114 [id number] Univers 13:15:00 13:30:00 Only Mathew Lewis GUILLE 350.1.13.1 0 [facility] [place] [id number] [address] 2022-02-15 2022-02-15 [facility] [id number] Univers 13:15:00 13:15:00 MATHEW [facility] 2022-02-10 2022-02-10 Resource Analyst Angie, Adc Lab Main [facility] 1.2.8 40.114 [id number] Univers 11:00:00 11:15:00 Visit Mathew Lewis GUILLE 350.1.13.1 0 ity [facility] [place] [facility] [id number] [address] 2022-02-10 2022-02-10 Outpatient Marcella [facility] [id number] Univers 11:00:00 11:00:00 MATHEW [facility] 2022-02-10 2022-02-10 Orders Doctor FREDDIE 1.2.840.114 [id number] Univers 00:00:00 00:00:00 Only Unassigned, RUDY 350.1.13.10 ity of [place] [facility] 4.2.7.2.686 [place] [id number] [address] 2022-01-14 2022-01-14 Outpatient [id number] 00:00:00 00:00:00 Visit 9a01-82gu r14-99ip-s -s86p-16f 09a-38cfc3 yp916h0r9 15b9a7 2022-01-01 2022-01-01 Outpatient [id number] 00:00:00 00:00:00 Visit 9420-3119 595-4405-9 -5j1v-425 n3w-782321 8612m33nw 4d00eb Results Test Description Test Time Test Comments Results Result Comments Source HEMOGLOBIN A1c 2022-03-24 08:52:27 Test Item Value Reference Range Interpretation Comme nts HEMOGLOBIN A1c (test code = 7.2 % 4.2-5.6 H [employer] 50601) GUIDELINES FOR HGB A1C: PREDIABETES/INC REASED RISK . . . . . . . 5.7-6.4% DIAGNO SIS OF DIABETES . . . . . . . . . >=6.5% WITH CONFIRMATION OR APPROPRIATE SYM PTOMS NOTE: ASSAY MAY BE AFFECTED BY HEM OGLOBINOPATHIES (SICKLE CELL ANEMIA, S- C DISEASE, OTHERS) OR ARTIFICIALLY LO WERED BY DECREASED RED CELL SURVIVAL ( HEMOLYTIC ANEMIAS, BLOOD LOSS, ETC.). CO NSIDER ALTERNATE TESTING OR LABORATORY C ONSULTATION. CBC W/AUTO DIFF WITH [id number] 07:43:36 Test Item Value Reference Range Interpretation Comments WBC (test code = 10.2 K/UL 3.5-11.0 1001) RBC (test code = 5.28 M/UL 3.80-5.40 1002) HEMOGLOBIN (test code 14.2 G/DL 11.5-15.5 = 1003) HEMATOCRIT (test code 42.2 % 34.0-45.0 = 1004) MCV (test code = 79.9 fL 80.0-99.0 L 1005) MCH (test code = 26.9 PG 25.0-33.0 1006) MCHC (test code = 33.6 G/DL 31.0-36.0 1007) RDW (test code = 15.1 % 11.5-15.0 H 1038) NEUTROPHILS (test 60.0 % code = 1008) LYMPHOCYTES (test 28.6 % code = 1010) MONOCYTES (test code 8.0 % = 1011) EOSINOPHILS (test 2.7 % code = 1012) BASOPHILS (test code 0.4 % = 1013) IMMATURE GRANULOCYTES 0.3 % (test code = 1036) NUCLEATED RBCS (test 0.0 /100 WBC'S See_Comment [Aut omated code = 1065) message] The sy stem which generated this result transmitted reference range : 0.0. The refere nce range was not u sed to interpret th is result as normal/abnormal . PLATELET COUNT (test 398 K/UL 130-400 code = 1015) ABSOLUTE NEUTROPHILS 6.10 K/UL 1.50-7.50 (test code = 1066) ABSOLUTE LYMPHOCYTES 2.90 K/UL 1.00-4.00 (test code = 1067) ABSOLUTE MONOCYTES 0.81 K/UL 0.20-1.00 (test code = 1068) ABSOLUTE EOSINOPHILS 0.27 K/UL 0.00-0.50 (test code = 1040) ABSOLUTE BASOPHILS 0.04 K/UL 0.00-0.20 (test code = 1069) ABS IMMATURE 0.03 K/UL 0.00-0.10 GRANULOCYTES (test code = 1020) ABS NUCLEATED RBCS 0.00 K/UL 0.00-0.11 (test code = 25712) TSH, THIRD [id number] 06:51:16 Test Item Value Reference Range Interpretation Comments TSH, THIRD GENERATION (test code 2.040 UIU/ML 0.400-4.100 = 2821) VITAMIN D, 25 [id number] 06:09:41 Test Item Value Reference Range Interpretation Comments VITAMIN D, 25 OH 29 NG/ML SEE BELOW L NOTE: 25-H YDROXYVITAMIN D (test code = 4958) ASSAY INC LUDES 25-HYDROXYVITAM IN D2 AND D3. METHODOLOGY IS CHEMILUMINESCEN T IMMUNOASSAY. INTERPRETIVE RA NGES PEDIATRIC (<17 YEARS) . . . . . . . . . . . NG/ML 20-100ADULT: IN SUFFICIENT . . . . . . . . . . . . . . NG/ML <20 SUBOP TIMAL . . . . . . . . . . . . . . . NG/ML 20-29 OPT IMAL . . . . . . . . . . . . . . . . . NG/ML 30-100 UN LESS OTHERWISE INDIC ATED, ALL TESTING PERFORM ED [facility], [place]. [address] [facility] [place] [address] LABORATORY DIRE CTOR: Ani TELLO. JENNIFERIA NUMBER [id number] CAP ACCREDITATION N O. [id number] COMPREHENSIVE METABOLIC [id number] 04:57:13 Test Item Value Reference Range Interpretation Comments GLUCOSE (test code = 112 MG/DL 70-99 H 2216) BUN (test code = 14 MG/DL -23 2208) CREATININE (test 1.01 MG/DL 0.60-1.30 code = 221) eGFR (2020 CKD-EPI) 61 ML/MIN/1.73 >60 (test code = 44762) CALC BUN/CREAT (test 14 RATIO 6-28 code = 2235) SODIUM (test code = 141 MEQ/L 624-998 2778) POTASSIUM (test code 3.5 MEQ/L 3.5-5.4 = 2227) CHLORIDE (test code 96 MEQ/L 95-107 = 2214) CARBON DIOXIDE (test 31 MEQ/L 19-31 code = 2205) CALCIUM (test code = 10.7 MG/DL 8.5-10.5 H 2208) PROTEIN, TOTAL (test 7.5 G/DL 6.1-8.3 code = 2228) ALBUMIN (test code = 4.0 G/DL 3.5-5.2 2200) CALC GLOBULIN (test 3.5 G/DL 1.9-3.7 code = 2239) CALC A/G RATIO (test 1.1 RATIO 1.0-2.6 code = 2233) BILIRUBIN, TOTAL 0.4 MG/DL See_Comment [Automated message] (test code = 220) The syste m which generated this result transmit diana reference range : <=1.2. The refe rence range was not u sed to interpret th is result as normal/abnormal . ALKALINE PHOSPHATASE 65 U/L 40-142 (test code = 220) AST (test code = 11 U/L 9-40 2217) ALT (test code = 13 U/L 5-40 2218) LIPID PANEL WITH REFLEX DIRECT [id number] 04:57:13 Test Item Value Reference Range Interpretation Comments CHOLESTEROL (test 202 MG/DL <200 H code = 2210) TRIGLYCERIDES (test 149 MG/DL <150 code = 2232) HDL CHOLESTEROL (test 59 MG/DL >39 code = 2220) CALC LDL CHOL (test 117 MG/DL <100 H NOTE: C ALCULATED LDL code = 2237) IS BASED ON KAYLA-FERNANDEZ METHOD WHICHINCLUDES ADJUSTABLE TRIGLYCERIDE:VL DL CHOLESTEROL RAT IO.THIS FACTOR VARIES B Y MEASURED TRIGLY CERIDE AND NON-HDLCHOL ESTEROL CONCENTRATIONS WITH INCREASED CALCU LATED LDL SEENIN HIGH ER TRIGLYCERIDE OR LOWER NON-HDL SPECIME NS. FOR MOREINFORMATION , SEE CLIENT ANNOUNCE MENT AT [email or web address] RATIO LDL/HDL 1.98 RATIO <3.22 (test code = 2238) CBC W/AUTO [id number] 00:00:00 Test Item Value Reference Range Interpretation Comments WBC (test code = 1001) 10.2 K/UL RBC (test code = 1002) 5.28 M/UL HEMOGLOBIN (test code = 1003) 14.2 G/DL HEMATOCRIT (test code = 1004) 42.2 % MCV (test code = 1005) 79.9 fL MCH (test code = 1006) 26.9 PG MCHC (test code = 1007) 33.6 G/DL RDW (test code = 1038) 15.1 % NEUTROPHILS (test code = 1008) 60.0 % LYMPHOCYTES (test code = 1010) 28.6 % MONOCYTES (test code = 1011) 8.0 % EOSINOPHILS (test code = 1012) 2.7 % BASOPHILS (test code = 1013) 0.4 % IMMATURE GRANULOCYTES (test 0.3 % code = 1036) NUCLEATED RBCS (test code = 0.0 /100WBC'S 1065) PLATELET COUNT (test code = 398 K/UL 1015) ABSOLUTE NEUTROPHILS (test code 6.10 K/UL = 1066) ABSOLUTE LYMPHOCYTES (test code 2.90 K/UL = 1067) ABSOLUTE MONOCYTES (test code = 0.81 K/UL 1068) ABSOLUTE EOSINOPHILS (test code 0.27 K/UL = 1040) ABSOLUTE BASOPHILS (test code = 0.04 K/UL 1069) ABS IMMATURE GRANULOCYTES (test 0.03 K/UL code = 1020) ABS NUCLEATED RBCS (test code = 0.00 K/UL 80763) CBC W/AUTO [id number] 00:00:00 Test Item Value Reference Range Interpretation Comments WBC (test code = 1001) 10.2 K/UL RBC (test code = 1002) 5.28 M/UL HEMOGLOBIN (test code = 1003) 14.2 G/DL HEMATOCRIT (test code = 1004) 42.2 % MCV (test code = 1005) 79.9 fL MCH (test code = 1006) 26.9 PG MCHC (test code = 1007) 33.6 G/DL RDW (test code = 1038) 15.1 % NEUTROPHILS (test code = 1008) 60.0 % LYMPHOCYTES (test code = 1010) 28.6 % MONOCYTES (test code = 1011) 8.0 % EOSINOPHILS (test code = 1012) 2.7 % BASOPHILS (test code = 1013) 0.4 % IMMATURE GRANULOCYTES (test 0.3 % code = 1036) NUCLEATED RBCS (test code = 0.0 /100WBC'S 1065) PLATELET COUNT (test code = 398 K/UL 1015) ABSOLUTE NEUTROPHILS (test code 6.10 K/UL = 1066) ABSOLUTE LYMPHOCYTES (test code 2.90 K/UL = 1067) ABSOLUTE MONOCYTES (test code = 0.81 K/UL 1068) ABSOLUTE EOSINOPHILS (test code 0.27 K/UL = 1040) ABSOLUTE BASOPHILS (test code = 0.04 K/UL 1069) ABS IMMATURE GRANULOCYTES (test 0.03 K/UL code = 1020) ABS NUCLEATED RBCS (test code = 0.00 K/UL 21579) CBC W/AUTO [id number] 00:00:00 Test Item Value Reference Range Interpretation Comments WBC (test code = 1001) 10.2 K/UL RBC (test code = 1002) 5.28 M/UL HEMOGLOBIN (test code = 1003) 14.2 G/DL HEMATOCRIT (test code = 1004) 42.2 % MCV (test code = 1005) 79.9 fL MCH (test code = 1006) 26.9 PG MCHC (test code = 1007) 33.6 G/DL RDW (test code = 1038) 15.1 % NEUTROPHILS (test code = 1008) 60.0 % LYMPHOCYTES (test code = 1010) 28.6 % MONOCYTES (test code = 1011) 8.0 % EOSINOPHILS (test code = 1012) 2.7 % BASOPHILS (test code = 1013) 0.4 % IMMATURE GRANULOCYTES (test 0.3 % code = 1036) NUCLEATED RBCS (test code = 0.0 /100WBC'S 1065) PLATELET COUNT (test code = 398 K/UL 1015) ABSOLUTE NEUTROPHILS (test code 6.10 K/UL = 1066) ABSOLUTE LYMPHOCYTES (test code 2.90 K/UL = 1067) ABSOLUTE MONOCYTES (test code = 0.81 K/UL 1068) ABSOLUTE EOSINOPHILS (test code 0.27 K/UL = 1040) ABSOLUTE BASOPHILS (test code = 0.04 K/UL 1069) ABS IMMATURE GRANULOCYTES (test 0.03 K/UL code = 1020) ABS NUCLEATED RBCS (test code = 0.00 K/UL 02804) COMPREHENSIVE METABOLIC [id number] 00:00:00 Test Item Value Reference Range Interpretation Comments GLUCOSE (test code = 2217) 112 MG/DL BUN (test code = 2208) 14 MG/DL CREATININE (test code = 2214) 1.01 MG/DL eGFR (2020 CKD-EPI) (test code 61 ML/MIN/1.73 = 23281) CALC BUN/CREAT (test code = 14 RATIO 2235) SODIUM (test code = 2231) 141 MEQ/L POTASSIUM (test code = 2228) 3.5 MEQ/L CHLORIDE (test code = 2215) 96 MEQ/L CARBON DIOXIDE (test code = 31 MEQ/L 220) CALCIUM (test code = 2209) 10.7 MG/DL PROTEIN, TOTAL (test code = 7.5 G/DL 2228) ALBUMIN (test code = 2201) 4.0 G/DL CALC GLOBULIN (test code = 3.5 G/DL 2240) CALC A/G RATIO (test code = 1.1 RATIO 2234) BILIRUBIN, TOTAL (test code = 0.4 MG/DL 2206) ALKALINE PHOSPHATASE (test 65 U/L code = 2204) AST (test code = 2218) 11 U/L ALT (test code = 2219) 13 U/L COMPREHENSIVE METABOLIC [id number] 00:00:00 Test Item Value Reference Range Interpretation Comments GLUCOSE (test code = 2217) 112 MG/DL BUN (test code = 2208) 14 MG/DL CREATININE (test code = 2214) 1.01 MG/DL eGFR (2020 CKD-EPI) (test code 61 ML/MIN/1.73 = 80460) CALC BUN/CREAT (test code = 14 RATIO 2235) SODIUM (test code = 2231) 141 MEQ/L POTASSIUM (test code = 2228) 3.5 MEQ/L CHLORIDE (test code = 2215) 96 MEQ/L CARBON DIOXIDE (test code = 31 MEQ/L 220) CALCIUM (test code = 2209) 10.7 MG/DL PROTEIN, TOTAL (test code = 7.5 G/DL 2228) ALBUMIN (test code = 2201) 4.0 G/DL CALC GLOBULIN (test code = 3.5 G/DL 2240) CALC A/G RATIO (test code = 1.1 RATIO 2234) BILIRUBIN, TOTAL (test code = 0.4 MG/DL 2206) ALKALINE PHOSPHATASE (test 65 U/L code = 2204) AST (test code = 2218) 11 U/L ALT (test code = 2219) 13 U/L LIPID PANEL WITH REFLEX DIRECT [id number] 00:00:00 Test Item Value Reference Range Interpretation Comments CHOLESTEROL (test code = 2210) 202 MG/DL TRIGLYCERIDES (test code = 2232) 149 MG/DL HDL CHOLESTEROL (test code = 2220) 59 MG/DL CALC LDL CHOL (test code = 2237) 117 MG/DL RISK RATIO LDL/HDL (test code = 1.98 RATIO 2238) LIPID PANEL WITH REFLEX DIRECT [id number] 00:00:00 Test Item Value Reference Range Interpretation Comments CHOLESTEROL (test code = 2210) 202 MG/DL TRIGLYCERIDES (test code = 2232) 149 MG/DL HDL CHOLESTEROL (test code = 2220) 59 MG/DL CALC LDL CHOL (test code = 2237) 117 MG/DL RISK RATIO LDL/HDL (test code = 1.98 RATIO 2238) TSH, THIRD [id number] 00:00:00 Test Item Value Reference Range Interpretation Comments TSH, THIRD GENERATION (test code 2.040 UIU/ML = 2821) TSH, THIRD [id number] 00:00:00 Test Item Value Reference Range Interpretation Comments TSH, THIRD GENERATION (test code 2.040 UIU/ML = 2821) TSH, THIRD [id number] 00:00:00 Test Item Value Reference Range Interpretation Comments TSH, THIRD GENERATION (test code 2.040 UIU/ML = 2821) HEMOGLOBIN [id number] 00:00:00 Test Item Value Reference Range Interpretation Comments HEMOGLOBIN A1c (test code = 97134) 7.2 % HEMOGLOBIN [id number] 00:00:00 Test Item Value Reference Range Interpretation Comments HEMOGLOBIN A1c (test code = 41567) 7.2 % HEMOGLOBIN [id number] 00:00:00 Test Item Value Reference Range Interpretation Comments HEMOGLOBIN A1c (test code = 35548) 7.2 % VITAMIN D, 25 [id number] 00:00:00 Test Item Value Reference Range Interpretation Comments VITAMIN D, 25 OH (test code = 4958) 29 NG/ML VITAMIN D, 25 [id number] 00:00:00 Test Item Value Reference Range Interpretation Comments VITAMIN D, 25 OH (test code = 4958) 29 NG/ML CBC W/AUTO [id number] 00:00:00 Test Item Value Reference Range Interpretation Comments WBC (test code = 1001) 10.2 K/UL RBC (test code = 1002) 5.28 M/UL HEMOGLOBIN (test code = 1003) 14.2 G/DL HEMATOCRIT (test code = 1004) 42.2 % MCV (test code = 1005) 79.9 fL MCH (test code = 1006) 26.9 PG MCHC (test code = 1007) 33.6 G/DL RDW (test code = 1038) 15.1 % NEUTROPHILS (test code = 1008) 60.0 % LYMPHOCYTES (test code = 1010) 28.6 % MONOCYTES (test code = 1011) 8.0 % EOSINOPHILS (test code = 1012) 2.7 % BASOPHILS (test code = 1013) 0.4 % IMMATURE GRANULOCYTES (test 0.3 % code = 1036) NUCLEATED RBCS (test code = 0.0 /100WBC'S 1065) PLATELET COUNT (test code = 398 K/UL 1015) ABSOLUTE NEUTROPHILS (test code 6.10 K/UL = 1066) ABSOLUTE LYMPHOCYTES (test code 2.90 K/UL = 1067) ABSOLUTE MONOCYTES (test code = 0.81 K/UL 1068) ABSOLUTE EOSINOPHILS (test code 0.27 K/UL = 1040) ABSOLUTE BASOPHILS (test code = 0.04 K/UL 1069) ABS IMMATURE GRANULOCYTES (test 0.03 K/UL code = 1020) ABS NUCLEATED RBCS (test code = 0.00 K/UL 18801) CBC W/AUTO [id number] 00:00:00 Test Item Value Reference Range Interpretation Comments WBC (test code = 1001) 10.2 K/UL RBC (test code = 1002) 5.28 M/UL HEMOGLOBIN (test code = 1003) 14.2 G/DL HEMATOCRIT (test code = 1004) 42.2 % MCV (test code = 1005) 79.9 fL MCH (test code = 1006) 26.9 PG MCHC (test code = 1007) 33.6 G/DL RDW (test code = 1038) 15.1 % NEUTROPHILS (test code = 1008) 60.0 % LYMPHOCYTES (test code = 1010) 28.6 % MONOCYTES (test code = 1011) 8.0 % EOSINOPHILS (test code = 1012) 2.7 % BASOPHILS (test code = 1013) 0.4 % IMMATURE GRANULOCYTES (test 0.3 % code = 1036) NUCLEATED RBCS (test code = 0.0 /100WBC'S 1065) PLATELET COUNT (test code = 398 K/UL 1015) ABSOLUTE NEUTROPHILS (test code 6.10 K/UL = 1066) ABSOLUTE LYMPHOCYTES (test code 2.90 K/UL = 1067) ABSOLUTE MONOCYTES (test code = 0.81 K/UL 1068) ABSOLUTE EOSINOPHILS (test code 0.27 K/UL = 1040) ABSOLUTE BASOPHILS (test code = 0.04 K/UL 1069) ABS IMMATURE GRANULOCYTES (test 0.03 K/UL code = 1020) ABS NUCLEATED RBCS (test code = 0.00 K/UL 58544) CBC W/AUTO [id number] 00:00:00 Test Item Value Reference Range Interpretation Comments WBC (test code = 1001) 10.2 K/UL RBC (test code = 1002) 5.28 M/UL HEMOGLOBIN (test code = 1003) 14.2 G/DL HEMATOCRIT (test code = 1004) 42.2 % MCV (test code = 1005) 79.9 fL MCH (test code = 1006) 26.9 PG MCHC (test code = 1007) 33.6 G/DL RDW (test code = 1038) 15.1 % NEUTROPHILS (test code = 1008) 60.0 % LYMPHOCYTES (test code = 1010) 28.6 % MONOCYTES (test code = 1011) 8.0 % EOSINOPHILS (test code = 1012) 2.7 % BASOPHILS (test code = 1013) 0.4 % IMMATURE GRANULOCYTES (test 0.3 % code = 1036) NUCLEATED RBCS (test code = 0.0 /100WBC'S 1065) PLATELET COUNT (test code = 398 K/UL 1015) ABSOLUTE NEUTROPHILS (test code 6.10 K/UL = 1066) ABSOLUTE LYMPHOCYTES (test code 2.90 K/UL = 1067) ABSOLUTE MONOCYTES (test code = 0.81 K/UL 1068) ABSOLUTE EOSINOPHILS (test code 0.27 K/UL = 1040) ABSOLUTE BASOPHILS (test code = 0.04 K/UL 1069) ABS IMMATURE GRANULOCYTES (test 0.03 K/UL code = 1020) ABS NUCLEATED RBCS (test code = 0.00 K/UL 88207) COMPREHENSIVE METABOLIC [id number] 00:00:00 Test Item Value Reference Range Interpretation Comments GLUCOSE (test code = 2217) 112 MG/DL BUN (test code = 2208) 14 MG/DL CREATININE (test code = 2214) 1.01 MG/DL eGFR (2020 CKD-EPI) (test code 61 ML/MIN/1.73 = 72682) CALC BUN/CREAT (test code = 14 RATIO 2235) SODIUM (test code = 2231) 141 MEQ/L POTASSIUM (test code = 2228) 3.5 MEQ/L CHLORIDE (test code = 2215) 96 MEQ/L CARBON DIOXIDE (test code = 31 MEQ/L 2205) CALCIUM (test code = 2209) 10.7 MG/DL PROTEIN, TOTAL (test code = 7.5 G/DL 2228) ALBUMIN (test code = 2201) 4.0 G/DL CALC GLOBULIN (test code = 3.5 G/DL 2240) CALC A/G RATIO (test code = 1.1 RATIO 2234) BILIRUBIN, TOTAL (test code = 0.4 MG/DL 2206) ALKALINE PHOSPHATASE (test 65 U/L code = 2204) AST (test code = 2218) 11 U/L ALT (test code = 2219) 13 U/L COMPREHENSIVE METABOLIC [id number] 00:00:00 Test Item Value Reference Range Interpretation Comments GLUCOSE (test code = 2217) 112 MG/DL BUN (test code = 2208) 14 MG/DL CREATININE (test code = 2214) 1.01 MG/DL eGFR (2020 CKD-EPI) (test code 61 ML/MIN/1.73 = 49393) CALC BUN/CREAT (test code = 14 RATIO 2235) SODIUM (test code = 2231) 141 MEQ/L POTASSIUM (test code = 2228) 3.5 MEQ/L CHLORIDE (test code = 2215) 96 MEQ/L CARBON DIOXIDE (test code = 31 MEQ/L 2205) CALCIUM (test code = 2209) 10.7 MG/DL PROTEIN, TOTAL (test code = 7.5 G/DL 2228) ALBUMIN (test code = 2201) 4.0 G/DL CALC GLOBULIN (test code = 3.5 G/DL 2240) CALC A/G RATIO (test code = 1.1 RATIO 2234) BILIRUBIN, TOTAL (test code = 0.4 MG/DL 2206) ALKALINE PHOSPHATASE (test 65 U/L code = 2204) AST (test code = 2218) 11 U/L ALT (test code = 2219) 13 U/L LIPID PANEL WITH REFLEX DIRECT [id number] 00:00:00 Test Item Value Reference Range Interpretation Comments CHOLESTEROL (test code = 2210) 202 MG/DL TRIGLYCERIDES (test code = 2232) 149 MG/DL HDL CHOLESTEROL (test code = 2220) 59 MG/DL CALC LDL CHOL (test code = 2237) 117 MG/DL RISK RATIO LDL/HDL (test code = 1.98 RATIO 2238) LIPID PANEL WITH REFLEX DIRECT [id number] 00:00:00 Test Item Value Reference Range Interpretation Comments CHOLESTEROL (test code = 2210) 202 MG/DL TRIGLYCERIDES (test code = 2232) 149 MG/DL HDL CHOLESTEROL (test code = 2220) 59 MG/DL CALC LDL CHOL (test code = 2237) 117 MG/DL RISK RATIO LDL/HDL (test code = 1.98 RATIO 2238) TSH, THIRD [id number] 00:00:00 Test Item Value Reference Range Interpretation Comments TSH, THIRD GENERATION (test code 2.040 UIU/ML = 2821) TSH, THIRD [id number] 00:00:00 Test Item Value Reference Range Interpretation Comments TSH, THIRD GENERATION (test code 2.040 UIU/ML = 2821) TSH, THIRD [id number] 00:00:00 Test Item Value Reference Range Interpretation Comments TSH, THIRD GENERATION (test code 2.040 UIU/ML = 2821) HEMOGLOBIN [id number] 00:00:00 Test Item Value Reference Range Interpretation Comments HEMOGLOBIN A1c (test code = 27295) 7.2 % HEMOGLOBIN [id number] 00:00:00 Test Item Value Reference Range Interpretation Comments HEMOGLOBIN A1c (test code = 35442) 7.2 % HEMOGLOBIN [id number] 00:00:00 Test Item Value Reference Range Interpretation Comments HEMOGLOBIN A1c (test code = 50909) 7.2 % VITAMIN D, 25 [id number] 00:00:00 Test Item Value Reference Range Interpretation Comments VITAMIN D, 25 OH (test code = 4958) 29 NG/ML VITAMIN D, 25 [id number] 00:00:00 Test Item Value Reference Range Interpretation Comments VITAMIN D, 25 OH (test code = 4958) 29 NG/ML CBC W/AUTO [id number] 00:00:00 Test Item Value Reference Range Interpretation Comments WBC (test code = 1001) 10.2 K/UL RBC (test code = 1002) 5.28 M/UL HEMOGLOBIN (test code = 1003) 14.2 G/DL HEMATOCRIT (test code = 1004) 42.2 % MCV (test code = 1005) 79.9 fL MCH (test code = 1006) 26.9 PG MCHC (test code = 1007) 33.6 G/DL RDW (test code = 1038) 15.1 % NEUTROPHILS (test code = 1008) 60.0 % LYMPHOCYTES (test code = 1010) 28.6 % MONOCYTES (test code = 1011) 8.0 % EOSINOPHILS (test code = 1012) 2.7 % BASOPHILS (test code = 1013) 0.4 % IMMATURE GRANULOCYTES (test 0.3 % code = 1036) NUCLEATED RBCS (test code = 0.0 /100WBC'S 1065) PLATELET COUNT (test code = 398 K/UL 1015) ABSOLUTE NEUTROPHILS (test code 6.10 K/UL = 1066) ABSOLUTE LYMPHOCYTES (test code 2.90 K/UL = 1067) ABSOLUTE MONOCYTES (test code = 0.81 K/UL 1068) ABSOLUTE EOSINOPHILS (test code 0.27 K/UL = 1040) ABSOLUTE BASOPHILS (test code = 0.04 K/UL 1069) ABS IMMATURE GRANULOCYTES (test 0.03 K/UL code = 1020) ABS NUCLEATED RBCS (test code = 0.00 K/UL 93689) CBC W/AUTO [id number] 00:00:00 Test Item Value Reference Range Interpretation Comments WBC (test code = 1001) 10.2 K/UL RBC (test code = 1002) 5.28 M/UL HEMOGLOBIN (test code = 1003) 14.2 G/DL HEMATOCRIT (test code = 1004) 42.2 % MCV (test code = 1005) 79.9 fL MCH (test code = 1006) 26.9 PG MCHC (test code = 1007) 33.6 G/DL RDW (test code = 1038) 15.1 % NEUTROPHILS (test code = 1008) 60.0 % LYMPHOCYTES (test code = 1010) 28.6 % MONOCYTES (test code = 1011) 8.0 % EOSINOPHILS (test code = 1012) 2.7 % BASOPHILS (test code = 1013) 0.4 % IMMATURE GRANULOCYTES (test 0.3 % code = 1036) NUCLEATED RBCS (test code = 0.0 /100WBC'S 1065) PLATELET COUNT (test code = 398 K/UL 1015) ABSOLUTE NEUTROPHILS (test code 6.10 K/UL = 1066) ABSOLUTE LYMPHOCYTES (test code 2.90 K/UL = 1067) ABSOLUTE MONOCYTES (test code = 0.81 K/UL 1068) ABSOLUTE EOSINOPHILS (test code 0.27 K/UL = 1040) ABSOLUTE BASOPHILS (test code = 0.04 K/UL 1069) ABS IMMATURE GRANULOCYTES (test 0.03 K/UL code = 1020) ABS NUCLEATED RBCS (test code = 0.00 K/UL 97796) CBC W/AUTO [id number] 00:00:00 Test Item Value Reference Range Interpretation Comments WBC (test code = 1001) 10.2 K/UL RBC (test code = 1002) 5.28 M/UL HEMOGLOBIN (test code = 1003) 14.2 G/DL HEMATOCRIT (test code = 1004) 42.2 % MCV (test code = 1005) 79.9 fL MCH (test code = 1006) 26.9 PG MCHC (test code = 1007) 33.6 G/DL RDW (test code = 1038) 15.1 % NEUTROPHILS (test code = 1008) 60.0 % LYMPHOCYTES (test code = 1010) 28.6 % MONOCYTES (test code = 1011) 8.0 % EOSINOPHILS (test code = 1012) 2.7 % BASOPHILS (test code = 1013) 0.4 % IMMATURE GRANULOCYTES (test 0.3 % code = 1036) NUCLEATED RBCS (test code = 0.0 /100WBC'S 1065) PLATELET COUNT (test code = 398 K/UL 1015) ABSOLUTE NEUTROPHILS (test code 6.10 K/UL = 1066) ABSOLUTE LYMPHOCYTES (test code 2.90 K/UL = 1067) ABSOLUTE MONOCYTES (test code = 0.81 K/UL 1068) ABSOLUTE EOSINOPHILS (test code 0.27 K/UL = 1040) ABSOLUTE BASOPHILS (test code = 0.04 K/UL 1069) ABS IMMATURE GRANULOCYTES (test 0.03 K/UL code = 1020) ABS NUCLEATED RBCS (test code = 0.00 K/UL 05190) COMPREHENSIVE METABOLIC [id number] 00:00:00 Test Item Value Reference Range Interpretation Comments GLUCOSE (test code = 2217) 112 MG/DL BUN (test code = 2208) 14 MG/DL CREATININE (test code = 2214) 1.01 MG/DL eGFR (2020 CKD-EPI) (test code 61 ML/MIN/1.73 = 07060) CALC BUN/CREAT (test code = 14 RATIO 2235) SODIUM (test code = 2231) 141 MEQ/L POTASSIUM (test code = 2228) 3.5 MEQ/L CHLORIDE (test code = 2215) 96 MEQ/L CARBON DIOXIDE (test code = 31 MEQ/L 2206) CALCIUM (test code = 2209) 10.7 MG/DL PROTEIN, TOTAL (test code = 7.5 G/DL 2228) ALBUMIN (test code = 2201) 4.0 G/DL CALC GLOBULIN (test code = 3.5 G/DL 2240) CALC A/G RATIO (test code = 1.1 RATIO 2234) BILIRUBIN, TOTAL (test code = 0.4 MG/DL 2206) ALKALINE PHOSPHATASE (test 65 U/L code = 2204) AST (test code = 2218) 11 U/L ALT (test code = 2219) 13 U/L COMPREHENSIVE METABOLIC [id number] 00:00:00 Test Item Value Reference Range Interpretation Comments GLUCOSE (test code = 2217) 112 MG/DL BUN (test code = 2208) 14 MG/DL CREATININE (test code = 2214) 1.01 MG/DL eGFR (2020 CKD-EPI) (test code 61 ML/MIN/1.73 = 10461) CALC BUN/CREAT (test code = 14 RATIO 2235) SODIUM (test code = 2231) 141 MEQ/L POTASSIUM (test code = 2228) 3.5 MEQ/L CHLORIDE (test code = 2215) 96 MEQ/L CARBON DIOXIDE (test code = 31 MEQ/L 2205) CALCIUM (test code = 2209) 10.7 MG/DL PROTEIN, TOTAL (test code = 7.5 G/DL 2228) ALBUMIN (test code = 2201) 4.0 G/DL CALC GLOBULIN (test code = 3.5 G/DL 2240) CALC A/G RATIO (test code = 1.1 RATIO 2234) BILIRUBIN, TOTAL (test code = 0.4 MG/DL 2206) ALKALINE PHOSPHATASE (test 65 U/L code = 2204) AST (test code = 2218) 11 U/L ALT (test code = 2219) 13 U/L LIPID PANEL WITH REFLEX DIRECT [id number] 00:00:00 Test Item Value Reference Range Interpretation Comments CHOLESTEROL (test code = 2210) 202 MG/DL TRIGLYCERIDES (test code = 2232) 149 MG/DL HDL CHOLESTEROL (test code = 2220) 59 MG/DL CALC LDL CHOL (test code = 2237) 117 MG/DL RISK RATIO LDL/HDL (test code = 1.98 RATIO 2238) LIPID PANEL WITH REFLEX DIRECT [id number] 00:00:00 Test Item Value Reference Range Interpretation Comments CHOLESTEROL (test code = 2210) 202 MG/DL TRIGLYCERIDES (test code = 2232) 149 MG/DL HDL CHOLESTEROL (test code = 2220) 59 MG/DL CALC LDL CHOL (test code = 2237) 117 MG/DL RISK RATIO LDL/HDL (test code = 1.98 RATIO 2238) TSH, THIRD [id number] 00:00:00 Test Item Value Reference Range Interpretation Comments TSH, THIRD GENERATION (test code 2.040 UIU/ML = 2821) TSH, THIRD [id number] 00:00:00 Test Item Value Reference Range Interpretation Comments TSH, THIRD GENERATION (test code 2.040 UIU/ML = 2821) TSH, THIRD [id number] 00:00:00 Test Item Value Reference Range Interpretation Comments TSH, THIRD GENERATION (test code 2.040 UIU/ML = 2821) HEMOGLOBIN [id number] 00:00:00 Test Item Value Reference Range Interpretation Comments HEMOGLOBIN A1c (test code = 20523) 7.2 % HEMOGLOBIN [id number] 00:00:00 Test Item Value Reference Range Interpretation Comments HEMOGLOBIN A1c (test code = 83531) 7.2 % HEMOGLOBIN [id number] 00:00:00 Test Item Value Reference Range Interpretation Comments HEMOGLOBIN A1c (test code = 92967) 7.2 % VITAMIN D, 25 [id number] 00:00:00 Test Item Value Reference Range Interpretation Comments VITAMIN D, 25 OH (test code = 4958) 29 NG/ML VITAMIN D, 25 [id number] 00:00:00 Test Item Value Reference Range Interpretation Comments VITAMIN D, 25 OH (test code = 4958) 29 NG/ML CBC W/AUTO [id number] 00:00:00 Test Item Value Reference Range Interpretation Comments WBC (test code = 1001) 10.2 K/UL RBC (test code = 1002) 5.28 M/UL HEMOGLOBIN (test code = 1003) 14.2 G/DL HEMATOCRIT (test code = 1004) 42.2 % MCV (test code = 1005) 79.9 fL MCH (test code = 1006) 26.9 PG MCHC (test code = 1007) 33.6 G/DL RDW (test code = 1038) 15.1 % NEUTROPHILS (test code = 1008) 60.0 % LYMPHOCYTES (test code = 1010) 28.6 % MONOCYTES (test code = 1011) 8.0 % EOSINOPHILS (test code = 1012) 2.7 % BASOPHILS (test code = 1013) 0.4 % IMMATURE GRANULOCYTES (test 0.3 % code = 1036) NUCLEATED RBCS (test code = 0.0 /100WBC'S 1065) PLATELET COUNT (test code = 398 K/UL 1015) ABSOLUTE NEUTROPHILS (test code 6.10 K/UL = 1066) ABSOLUTE LYMPHOCYTES (test code 2.90 K/UL = 1067) ABSOLUTE MONOCYTES (test code = 0.81 K/UL 1068) ABSOLUTE EOSINOPHILS (test code 0.27 K/UL = 1040) ABSOLUTE BASOPHILS (test code = 0.04 K/UL 1069) ABS IMMATURE GRANULOCYTES (test 0.03 K/UL code = 1020) ABS NUCLEATED RBCS (test code = 0.00 K/UL 52833) CBC W/AUTO [id number] 00:00:00 Test Item Value Reference Range Interpretation Comments WBC (test code = 1001) 10.2 K/UL RBC (test code = 1002) 5.28 M/UL HEMOGLOBIN (test code = 1003) 14.2 G/DL HEMATOCRIT (test code = 1004) 42.2 % MCV (test code = 1005) 79.9 fL MCH (test code = 1006) 26.9 PG MCHC (test code = 1007) 33.6 G/DL RDW (test code = 1038) 15.1 % NEUTROPHILS (test code = 1008) 60.0 % LYMPHOCYTES (test code = 1010) 28.6 % MONOCYTES (test code = 1011) 8.0 % EOSINOPHILS (test code = 1012) 2.7 % BASOPHILS (test code = 1013) 0.4 % IMMATURE GRANULOCYTES (test 0.3 % code = 1036) NUCLEATED RBCS (test code = 0.0 /100WBC'S 1065) PLATELET COUNT (test code = 398 K/UL 1015) ABSOLUTE NEUTROPHILS (test code 6.10 K/UL = 1066) ABSOLUTE LYMPHOCYTES (test code 2.90 K/UL = 1067) ABSOLUTE MONOCYTES (test code = 0.81 K/UL 1068) ABSOLUTE EOSINOPHILS (test code 0.27 K/UL = 1040) ABSOLUTE BASOPHILS (test code = 0.04 K/UL 1069) ABS IMMATURE GRANULOCYTES (test 0.03 K/UL code = 1020) ABS NUCLEATED RBCS (test code = 0.00 K/UL 44455) CBC W/AUTO [id number] 00:00:00 Test Item Value Reference Range Interpretation Comments WBC (test code = 1001) 10.2 K/UL RBC (test code = 1002) 5.28 M/UL HEMOGLOBIN (test code = 1003) 14.2 G/DL HEMATOCRIT (test code = 1004) 42.2 % MCV (test code = 1005) 79.9 fL MCH (test code = 1006) 26.9 PG MCHC (test code = 1007) 33.6 G/DL RDW (test code = 1038) 15.1 % NEUTROPHILS (test code = 1008) 60.0 % LYMPHOCYTES (test code = 1010) 28.6 % MONOCYTES (test code = 1011) 8.0 % EOSINOPHILS (test code = 1012) 2.7 % BASOPHILS (test code = 1013) 0.4 % IMMATURE GRANULOCYTES (test 0.3 % code = 1036) NUCLEATED RBCS (test code = 0.0 /100WBC'S 1065) PLATELET COUNT (test code = 398 K/UL 1015) ABSOLUTE NEUTROPHILS (test code 6.10 K/UL = 1066) ABSOLUTE LYMPHOCYTES (test code 2.90 K/UL = 1067) ABSOLUTE MONOCYTES (test code = 0.81 K/UL 1068) ABSOLUTE EOSINOPHILS (test code 0.27 K/UL = 1040) ABSOLUTE BASOPHILS (test code = 0.04 K/UL 1069) ABS IMMATURE GRANULOCYTES (test 0.03 K/UL code = 1020) ABS NUCLEATED RBCS (test code = 0.00 K/UL 53808) COMPREHENSIVE METABOLIC [id number] 00:00:00 Test Item Value Reference Range Interpretation Comments GLUCOSE (test code = 2217) 112 MG/DL BUN (test code = 2208) 14 MG/DL CREATININE (test code = 2214) 1.01 MG/DL eGFR (2020 CKD-EPI) (test code 61 ML/MIN/1.73 = 48668) CALC BUN/CREAT (test code = 14 RATIO 2235) SODIUM (test code = 2231) 141 MEQ/L POTASSIUM (test code = 2228) 3.5 MEQ/L CHLORIDE (test code = 2215) 96 MEQ/L CARBON DIOXIDE (test code = 31 MEQ/L 220) CALCIUM (test code = 2209) 10.7 MG/DL PROTEIN, TOTAL (test code = 7.5 G/DL 2228) ALBUMIN (test code = 2201) 4.0 G/DL CALC GLOBULIN (test code = 3.5 G/DL 2240) CALC A/G RATIO (test code = 1.1 RATIO 2234) BILIRUBIN, TOTAL (test code = 0.4 MG/DL 2206) ALKALINE PHOSPHATASE (test 65 U/L code = 2204) AST (test code = 2218) 11 U/L ALT (test code = 2219) 13 U/L COMPREHENSIVE METABOLIC [id number] 00:00:00 Test Item Value Reference Range Interpretation Comments GLUCOSE (test code = 2217) 112 MG/DL BUN (test code = 2208) 14 MG/DL CREATININE (test code = 2214) 1.01 MG/DL eGFR (2020 CKD-EPI) (test code 61 ML/MIN/1.73 = 61225) CALC BUN/CREAT (test code = 14 RATIO 2235) SODIUM (test code = 2231) 141 MEQ/L POTASSIUM (test code = 2228) 3.5 MEQ/L CHLORIDE (test code = 2215) 96 MEQ/L CARBON DIOXIDE (test code = 31 MEQ/L 2205) CALCIUM (test code = 2209) 10.7 MG/DL PROTEIN, TOTAL (test code = 7.5 G/DL 2228) ALBUMIN (test code = 2201) 4.0 G/DL CALC GLOBULIN (test code = 3.5 G/DL 2239) CALC A/G RATIO (test code = 1.1 RATIO 2233) BILIRUBIN, TOTAL (test code = 0.4 MG/DL 2206) ALKALINE PHOSPHATASE (test 65 U/L code = 2204) AST (test code = 2218) 11 U/L ALT (test code = 2219) 13 U/L LIPID PANEL WITH REFLEX DIRECT [id number] 00:00:00 Test Item Value Reference Range Interpretation Comments CHOLESTEROL (test code = 2210) 202 MG/DL TRIGLYCERIDES (test code = 2232) 149 MG/DL HDL CHOLESTEROL (test code = 2220) 59 MG/DL CALC LDL CHOL (test code = 2237) 117 MG/DL RISK RATIO LDL/HDL (test code = 1.98 RATIO 2238) LIPID PANEL WITH REFLEX DIRECT [id number] 00:00:00 Test Item Value Reference Range Interpretation Comments CHOLESTEROL (test code = 2210) 202 MG/DL TRIGLYCERIDES (test code = 2232) 149 MG/DL HDL CHOLESTEROL (test code = 2220) 59 MG/DL CALC LDL CHOL (test code = 2237) 117 MG/DL RISK RATIO LDL/HDL (test code = 1.98 RATIO 2238) TSH, THIRD [id number] 00:00:00 Test Item Value Reference Range Interpretation Comments TSH, THIRD GENERATION (test code 2.040 UIU/ML = 2821) TSH, THIRD [id number] 00:00:00 Test Item Value Reference Range Interpretation Comments TSH, THIRD GENERATION (test code 2.040 UIU/ML = 2821) TSH, THIRD [id number] 00:00:00 Test Item Value Reference Range Interpretation Comments TSH, THIRD GENERATION (test code 2.040 UIU/ML = 2821) HEMOGLOBIN [id number] 00:00:00 Test Item Value Reference Range Interpretation Comments HEMOGLOBIN A1c (test code = 71756) 7.2 % HEMOGLOBIN [id number] 00:00:00 Test Item Value Reference Range Interpretation Comments HEMOGLOBIN A1c (test code = 79009) 7.2 % HEMOGLOBIN [id number] 00:00:00 Test Item Value Reference Range Interpretation Comments HEMOGLOBIN A1c (test code = 00380) 7.2 % VITAMIN D, 25 [id number] 00:00:00 Test Item Value Reference Range Interpretation Comments VITAMIN D, 25 OH (test code = 4958) 29 NG/ML VITAMIN D, 25 [id number] 00:00:00 Test Item Value Reference Range Interpretation Comments VITAMIN D, 25 OH (test code = 4958) 29 NG/ML POCT GLUCOSE (AUTOMATED)2022-02-17 13:32:36 Test Item Value Reference Range Interpretation Comments POCT GLU (test code = 4645601865) 110 mg/dL 70-110 Lab Interpretation (test code = Normal 92804-1) [facility] 13:32:36 Test Item Value Reference Range Interpretation Comments POCT GLU (test code = 9115633607) 110 mg/dL 70-110 Lab Interpretation (test code = Normal 81336-1) [facility] [id number] 02:45:51 Test Item Value Reference Range Interpretation Comments CHOLESTEROL (test 180 MG/DL <200 code = 2210) TRIGLYCERIDES (test 108 MG/DL <150 code = 2232) HDL CHOLESTEROL (test 62 MG/DL >39 code = 2220) CALC LDL CHOL (test 98 MG/DL <100 NOTE: C ALCULATED LDL code = 2237) IS BASED ON KAYLA-FERNANDEZ METHOD WHICHINCLUDES ADJUSTABLE TRIGLYCERIDE:VL DL CHOLESTEROL RAT IO.THIS FACTOR VARIES B Y MEASURED TRIGLY CERIDE AND NON-HDLCHOL ESTEROL CONCENTRATIONS WITH INCREASED CALCU LATED LDL SEENIN HIGH ER TRIGLYCERIDE OR LOWER NON-HDL SPECIME NS. FOR MOREINFORMATION , SEE CLIENT ANNOUNCE MENT AT [email or web address] RISK RATIO LDL/HDL 1.58 RATIO <3.22 (test code = 2238) COMPREHENSIVE METABOLIC [id number] 02:45:51 Test Item Value Reference Range Interpretation Comments GLUCOSE (test code = 145 MG/DL 70-99 H 2216) BUN (test code = 14 MG/DL 8-23 2207) CREATININE (test 0.91 MG/DL 0.60-1.30 code = 221) eGFR (2020 CKD-EPI) 69 ML/MIN/1.73 >60 (test code = 83741) CALC BUN/CREAT (test 15 RATIO 6-28 code = 2235) SODIUM (test code = 141 MEQ/L 883-140 2037) POTASSIUM (test code 4.3 MEQ/L 3.5-5.4 = 2227) CHLORIDE (test code 101 MEQ/L 95-107 = 2214) CARBON DIOXIDE (test 25 MEQ/L 19-31 code = 2205) CALCIUM (test code = 9.9 MG/DL 8.5-10.5 2208) PROTEIN, TOTAL (test 7.5 G/DL 6.1-8.3 code = 2228) ALBUMIN (test code = 4.2 G/DL 3.5-5.2 2200) CALC GLOBULIN (test 3.3 G/DL 1.9-3.7 code = 2240) CALC A/G RATIO (test 1.3 RATIO 1.0-2.6 code = 2234) BILIRUBIN, TOTAL 0.2 MG/DL See_Comment [Automated message] (test code = 220) The syste m which generated this result transmit diana reference range : <=1.2. The refe rence range was not u sed to interpret th is result as normal/abnormal . ALKALINE PHOSPHATASE 69 U/L 40-142 (test code = 220) AST (test code = 14 U/L 9-40 2217) ALT (test code = 11 U/L 5-40 2218) [id number] 01:49:05 Test Item Value Reference Range Interpretation Comments NT-proBNP 68 PG/ML SEE BELOW If NT-ProBNP i s less than 300 (test code = PG/ML, heart fa ilure is unlikely 11167) for allages. Age............ .....Heart Failure Likely <50 Years.......... .>=450 PG/ML 50-75 Years.... .....>=900 PG/ML > 75 Years..... .....>=1800 PG/ML Methodology: Ro henri Roberto Carlos Electrochemilum inescense Immunoassay UNL ESS OTHERWISE INDICATED, ALL TESTING PERFORMED [facility], [facility]. [address] [place] [address] 4 [employer] MARKETING SPECIALIST: Kieran TELLOBREE CUEVAS Marcella [id number] CAP ACCREDITATION N O. [id number] LIPID [id number] 00:00:00 Test Item Value Reference Range Interpretation Comments CHOLESTEROL (test code = 2210) 180 MG/DL TRIGLYCERIDES (test code = 2232) 108 MG/DL HDL CHOLESTEROL (test code = 2220) 62 MG/DL CALC LDL CHOL (test code = 2237) 98 MG/DL RISK RATIO LDL/HDL (test code = 1.58 RATIO 2238) LIPID [id number] 00:00:00 Test Item Value Reference Range Interpretation Comments CHOLESTEROL (test code = 2210) 180 MG/DL TRIGLYCERIDES (test code = 2232) 108 MG/DL HDL CHOLESTEROL (test code = 2220) 62 MG/DL CALC LDL CHOL (test code = 2237) 98 MG/DL RISK RATIO LDL/HDL (test code = 1.58 RATIO 2238) COMPREHENSIVE METABOLIC [id number] 00:00:00 Test Item Value Reference Range Interpretation Comments GLUCOSE (test code = 2217) 145 MG/DL BUN (test code = 2208) 14 MG/DL CREATININE (test code = 2214) 0.91 MG/DL eGFR (2020 CKD-EPI) (test code 69 ML/MIN/1.73 = 65447) CALC BUN/CREAT (test code = 15 RATIO 2235) SODIUM (test code = 2231) 141 MEQ/L POTASSIUM (test code = 2228) 4.3 MEQ/L CHLORIDE (test code = 2215) 101 MEQ/L CARBON DIOXIDE (test code = 25 MEQ/L 2205) CALCIUM (test code = 2209) 9.9 MG/DL PROTEIN, TOTAL (test code = 7.5 G/DL 2228) ALBUMIN (test code = 2201) 4.2 G/DL CALC GLOBULIN (test code = 3.3 G/DL 2240) CALC A/G RATIO (test code = 1.3 RATIO 2234) BILIRUBIN, TOTAL (test code = 0.2 MG/DL 2206) ALKALINE PHOSPHATASE (test 69 U/L code = 2204) AST (test code = 2218) 14 U/L ALT (test code = 2219) 11 U/L COMPREHENSIVE METABOLIC [id number] 00:00:00 Test Item Value Reference Range Interpretation Comments GLUCOSE (test code = 2217) 145 MG/DL BUN (test code = 2208) 14 MG/DL CREATININE (test code = 2214) 0.91 MG/DL eGFR (2020 CKD-EPI) (test code 69 ML/MIN/1.73 = 43445) CALC BUN/CREAT (test code = 15 RATIO 2235) SODIUM (test code = 2231) 141 MEQ/L POTASSIUM (test code = 2228) 4.3 MEQ/L CHLORIDE (test code = 2215) 101 MEQ/L CARBON DIOXIDE (test code = 25 MEQ/L 2205) CALCIUM (test code = 2209) 9.9 MG/DL PROTEIN, TOTAL (test code = 7.5 G/DL 2228) ALBUMIN (test code = 2201) 4.2 G/DL CALC GLOBULIN (test code = 3.3 G/DL 2240) CALC A/G RATIO (test code = 1.3 RATIO 2234) BILIRUBIN, TOTAL (test code = 0.2 MG/DL 2206) ALKALINE PHOSPHATASE (test 69 U/L code = 2204) AST (test code = 2218) 14 U/L ALT (test code = 2219) 11 U/L [id number] 00:00:00 Test Item Value Reference Range Interpretation Comments NT-proBNP (test code = 55678) 68 PG/ML [id number] 00:00:00 Test Item Value Reference Range Interpretation Comments NT-proBNP (test code = 07708) 68 PG/ML [id number] 00:00:00 Test Item Value Reference Range Interpretation Comments NT-proBNP (test code = 65678) 68 PG/ML LIPID [id number] 00:00:00 Test Item Value Reference Range Interpretation Comments CHOLESTEROL (test code = 2210) 180 MG/DL TRIGLYCERIDES (test code = 2232) 108 MG/DL HDL CHOLESTEROL (test code = 2220) 62 MG/DL CALC LDL CHOL (test code = 2237) 98 MG/DL RISK RATIO LDL/HDL (test code = 1.58 RATIO 2238) LIPID [id number] 00:00:00 Test Item Value Reference Range Interpretation Comments CHOLESTEROL (test code = 2210) 180 MG/DL TRIGLYCERIDES (test code = 2232) 108 MG/DL HDL CHOLESTEROL (test code = 2220) 62 MG/DL CALC LDL CHOL (test code = 2237) 98 MG/DL RISK RATIO LDL/HDL (test code = 1.58 RATIO 2238) COMPREHENSIVE METABOLIC [id number] 00:00:00 Test Item Value Reference Range Interpretation Comments GLUCOSE (test code = 2217) 145 MG/DL BUN (test code = 2208) 14 MG/DL CREATININE (test code = 2214) 0.91 MG/DL eGFR (2020 CKD-EPI) (test code 69 ML/MIN/1.73 = 33840) CALC BUN/CREAT (test code = 15 RATIO 2235) SODIUM (test code = 2231) 141 MEQ/L POTASSIUM (test code = 2228) 4.3 MEQ/L CHLORIDE (test code = 2215) 101 MEQ/L CARBON DIOXIDE (test code = 25 MEQ/L 2205) CALCIUM (test code = 2209) 9.9 MG/DL PROTEIN, TOTAL (test code = 7.5 G/DL 2228) ALBUMIN (test code = 2201) 4.2 G/DL CALC GLOBULIN (test code = 3.3 G/DL 2240) CALC A/G RATIO (test code = 1.3 RATIO 2234) BILIRUBIN, TOTAL (test code = 0.2 MG/DL 2206) ALKALINE PHOSPHATASE (test 69 U/L code = 2204) AST (test code = 2218) 14 U/L ALT (test code = 2219) 11 U/L COMPREHENSIVE METABOLIC [id number] 00:00:00 Test Item Value Reference Range Interpretation Comments GLUCOSE (test code = 2217) 145 MG/DL BUN (test code = 2208) 14 MG/DL CREATININE (test code = 2214) 0.91 MG/DL eGFR (2020 CKD-EPI) (test code 69 ML/MIN/1.73 = 14042) CALC BUN/CREAT (test code = 15 RATIO 2235) SODIUM (test code = 2231) 141 MEQ/L POTASSIUM (test code = 2228) 4.3 MEQ/L CHLORIDE (test code = 2215) 101 MEQ/L CARBON DIOXIDE (test code = 25 MEQ/L 2205) CALCIUM (test code = 2209) 9.9 MG/DL PROTEIN, TOTAL (test code = 7.5 G/DL 2228) ALBUMIN (test code = 2201) 4.2 G/DL CALC GLOBULIN (test code = 3.3 G/DL 2239) CALC A/G RATIO (test code = 1.3 RATIO 223) BILIRUBIN, TOTAL (test code = 0.2 MG/DL 2206) ALKALINE PHOSPHATASE (test 69 U/L code = 2204) AST (test code = 2218) 14 U/L ALT (test code = 2219) 11 U/L [id number] 00:00:00 Test Item Value Reference Range Interpretation Comments NT-proBNP (test code = 41888) 68 PG/ML [id number] 00:00:00 Test Item Value Reference Range Interpretation Comments NT-proBNP (test code = 41147) 68 PG/ML [id number] 00:00:00 Test Item Value Reference Range Interpretation Comments NT-proBNP (test code = 30999) 68 PG/ML LIPID [id number] 00:00:00 Test Item Value Reference Range Interpretation Comments CHOLESTEROL (test code = 2210) 180 MG/DL TRIGLYCERIDES (test code = 2232) 108 MG/DL HDL CHOLESTEROL (test code = 2220) 62 MG/DL CALC LDL CHOL (test code = 2237) 98 MG/DL RISK RATIO LDL/HDL (test code = 1.58 RATIO 2238) LIPID [id number] 00:00:00 Test Item Value Reference Range Interpretation Comments CHOLESTEROL (test code = 2210) 180 MG/DL TRIGLYCERIDES (test code = 2232) 108 MG/DL HDL CHOLESTEROL (test code = 2220) 62 MG/DL CALC LDL CHOL (test code = 2237) 98 MG/DL RISK RATIO LDL/HDL (test code = 1.58 RATIO 2238) COMPREHENSIVE METABOLIC [id number] 00:00:00 Test Item Value Reference Range Interpretation Comments GLUCOSE (test code = 2217) 145 MG/DL BUN (test code = 2208) 14 MG/DL CREATININE (test code = 2214) 0.91 MG/DL eGFR (2020 CKD-EPI) (test code 69 ML/MIN/1.73 = 48092) CALC BUN/CREAT (test code = 15 RATIO 2235) SODIUM (test code = 2231) 141 MEQ/L POTASSIUM (test code = 2228) 4.3 MEQ/L CHLORIDE (test code = 2215) 101 MEQ/L CARBON DIOXIDE (test code = 25 MEQ/L 2206) CALCIUM (test code = 2209) 9.9 MG/DL PROTEIN, TOTAL (test code = 7.5 G/DL 2228) ALBUMIN (test code = 2201) 4.2 G/DL CALC GLOBULIN (test code = 3.3 G/DL 2240) CALC A/G RATIO (test code = 1.3 RATIO 2234) BILIRUBIN, TOTAL (test code = 0.2 MG/DL 2206) ALKALINE PHOSPHATASE (test 69 U/L code = 2204) AST (test code = 2218) 14 U/L ALT (test code = 2219) 11 U/L COMPREHENSIVE METABOLIC [id number] 00:00:00 Test Item Value Reference Range Interpretation Comments GLUCOSE (test code = 2217) 145 MG/DL BUN (test code = 2208) 14 MG/DL CREATININE (test code = 2214) 0.91 MG/DL eGFR (2020 CKD-EPI) (test code 69 ML/MIN/1.73 = 64543) CALC BUN/CREAT (test code = 15 RATIO 2235) SODIUM (test code = 2231) 141 MEQ/L POTASSIUM (test code = 2228) 4.3 MEQ/L CHLORIDE (test code = 2215) 101 MEQ/L CARBON DIOXIDE (test code = 25 MEQ/L 2205) CALCIUM (test code = 2209) 9.9 MG/DL PROTEIN, TOTAL (test code = 7.5 G/DL 2228) ALBUMIN (test code = 2201) 4.2 G/DL CALC GLOBULIN (test code = 3.3 G/DL 2240) CALC A/G RATIO (test code = 1.3 RATIO 2234) BILIRUBIN, TOTAL (test code = 0.2 MG/DL 2206) ALKALINE PHOSPHATASE (test 69 U/L code = 2204) AST (test code = 2218) 14 U/L ALT (test code = 2219) 11 U/L [id number] 00:00:00 Test Item Value Reference Range Interpretation Comments NT-proBNP (test code = 77915) 68 PG/ML [id number] 00:00:00 Test Item Value Reference Range Interpretation Comments NT-proBNP (test code = 70771) 68 PG/ML [id number] 00:00:00 Test Item Value Reference Range Interpretation Comments NT-proBNP (test code = 15341) 68 PG/ML LIPID [id number] 00:00:00 Test Item Value Reference Range Interpretation Comments CHOLESTEROL (test code = 2210) 180 MG/DL TRIGLYCERIDES (test code = 2232) 108 MG/DL HDL CHOLESTEROL (test code = 2220) 62 MG/DL CALC LDL CHOL (test code = 2237) 98 MG/DL RISK RATIO LDL/HDL (test code = 1.58 RATIO 2238) LIPID [id number] 00:00:00 Test Item Value Reference Range Interpretation Comments CHOLESTEROL (test code = 2210) 180 MG/DL TRIGLYCERIDES (test code = 2232) 108 MG/DL HDL CHOLESTEROL (test code = 2220) 62 MG/DL CALC LDL CHOL (test code = 2237) 98 MG/DL RISK RATIO LDL/HDL (test code = 1.58 RATIO 2238) COMPREHENSIVE METABOLIC [id number] 00:00:00 Test Item Value Reference Range Interpretation Comments GLUCOSE (test code = 2217) 145 MG/DL BUN (test code = 2208) 14 MG/DL CREATININE (test code = 2214) 0.91 MG/DL eGFR (2020 CKD-EPI) (test code 69 ML/MIN/1.73 = 22677) CALC BUN/CREAT (test code = 15 RATIO 2235) SODIUM (test code = 2231) 141 MEQ/L POTASSIUM (test code = 2228) 4.3 MEQ/L CHLORIDE (test code = 2215) 101 MEQ/L CARBON DIOXIDE (test code = 25 MEQ/L 2205) CALCIUM (test code = 2209) 9.9 MG/DL PROTEIN, TOTAL (test code = 7.5 G/DL 2228) ALBUMIN (test code = 2201) 4.2 G/DL CALC GLOBULIN (test code = 3.3 G/DL 2239) CALC A/G RATIO (test code = 1.3 RATIO 2234) BILIRUBIN, TOTAL (test code = 0.2 MG/DL 2206) ALKALINE PHOSPHATASE (test 69 U/L code = 2204) AST (test code = 2218) 14 U/L ALT (test code = 2219) 11 U/L COMPREHENSIVE METABOLIC [id number] 00:00:00 Test Item Value Reference Range Interpretation Comments GLUCOSE (test code = 2217) 145 MG/DL BUN (test code = 2208) 14 MG/DL CREATININE (test code = 2214) 0.91 MG/DL eGFR (2020 CKD-EPI) (test code 69 ML/MIN/1.73 = 41688) CALC BUN/CREAT (test code = 15 RATIO 2235) SODIUM (test code = 2231) 141 MEQ/L POTASSIUM (test code = 2228) 4.3 MEQ/L CHLORIDE (test code = 2215) 101 MEQ/L CARBON DIOXIDE (test code = 25 MEQ/L 2205) CALCIUM (test code = 2209) 9.9 MG/DL PROTEIN, TOTAL (test code = 7.5 G/DL 2228) ALBUMIN (test code = 2201) 4.2 G/DL CALC GLOBULIN (test code = 3.3 G/DL 2239) CALC A/G RATIO (test code = 1.3 RATIO 2234) BILIRUBIN, TOTAL (test code = 0.2 MG/DL 2206) ALKALINE PHOSPHATASE (test 69 U/L code = 2204) AST (test code = 2218) 14 U/L ALT (test code = 2219) 11 U/L [id number] 00:00:00 Test Item Value Reference Range Interpretation Comments NT-proBNP (test code = 19133) 68 PG/ML [id number] 00:00:00 Test Item Value Reference Range Interpretation Comments NT-proBNP (test code = 93671) 68 PG/ML [id number] 00:00:00 Test Item Value Reference Range Interpretation Comments NT-proBNP (test code = 06784) 68 PG/ML LIPID [id number] 00:00:00 Test Item Value Reference Range Interpretation Comments CHOLESTEROL (test code = 2210) 180 MG/DL TRIGLYCERIDES (test code = 2232) 108 MG/DL HDL CHOLESTEROL (test code = 2220) 62 MG/DL CALC LDL CHOL (test code = 2237) 98 MG/DL RISK RATIO LDL/HDL (test code = 1.58 RATIO 2238) COMPREHENSIVE METABOLIC [id number] 00:00:00 Test Item Value Reference Range Interpretation Comments GLUCOSE (test code = 2217) 145 MG/DL BUN (test code = 2208) 14 MG/DL CREATININE (test code = 2214) 0.91 MG/DL eGFR (2020 CKD-EPI) (test code 69 ML/MIN/1.73 = 85198) CALC BUN/CREAT (test code = 15 RATIO 2235) SODIUM (test code = 2231) 141 MEQ/L POTASSIUM (test code = 2228) 4.3 MEQ/L CHLORIDE (test code = 2215) 101 MEQ/L CARBON DIOXIDE (test code = 25 MEQ/L 2205) CALCIUM (test code = 2209) 9.9 MG/DL PROTEIN, TOTAL (test code = 7.5 G/DL 2228) ALBUMIN (test code = 2201) 4.2 G/DL CALC GLOBULIN (test code = 3.3 G/DL 2239) CALC A/G RATIO (test code = 1.3 RATIO 4) BILIRUBIN, TOTAL (test code = 0.2 MG/DL 2206) ALKALINE PHOSPHATASE (test 69 U/L code = 2204) AST (test code = 2218) 14 U/L ALT (test code = 2219) 11 U/L [id number] 00:00:00 Test Item Value Reference Range Interpretation Comments NT-proBNP (test code = 35129) 68 PG/ML [id number] 00:00:00 Test Item Value Reference Range Interpretation Comments NT-proBNP (test code = 28857) 68 PG/ML LIPID [id number] 00:00:00 Test Item Value Reference Range Interpretation Comments CHOLESTEROL (test code = 2210) 180 MG/DL TRIGLYCERIDES (test code = 2232) 108 MG/DL HDL CHOLESTEROL (test code = 2220) 62 MG/DL CALC LDL CHOL (test code = 2237) 98 MG/DL RISK RATIO LDL/HDL (test code = 1.58 RATIO 2238) LIPID [id number] 00:00:00 Test Item Value Reference Range Interpretation Comments CHOLESTEROL (test code = 2210) 180 MG/DL TRIGLYCERIDES (test code = 2232) 108 MG/DL HDL CHOLESTEROL (test code = 2220) 62 MG/DL CALC LDL CHOL (test code = 2237) 98 MG/DL RISK RATIO LDL/HDL (test code = 1.58 RATIO 2238) COMPREHENSIVE METABOLIC [id number] 00:00:00 Test Item Value Reference Range Interpretation Comments GLUCOSE (test code = 2217) 145 MG/DL BUN (test code = 2208) 14 MG/DL CREATININE (test code = 2214) 0.91 MG/DL eGFR (2020 CKD-EPI) (test code 69 ML/MIN/1.73 = 34036) CALC BUN/CREAT (test code = 15 RATIO 2235) SODIUM (test code = 2231) 141 MEQ/L POTASSIUM (test code = 2228) 4.3 MEQ/L CHLORIDE (test code = 2215) 101 MEQ/L CARBON DIOXIDE (test code = 25 MEQ/L 2205) CALCIUM (test code = 2209) 9.9 MG/DL PROTEIN, TOTAL (test code = 7.5 G/DL 2228) ALBUMIN (test code = 2201) 4.2 G/DL CALC GLOBULIN (test code = 3.3 G/DL 224) CALC A/G RATIO (test code = 1.3 RATIO 2233) BILIRUBIN, TOTAL (test code = 0.2 MG/DL 2206) ALKALINE PHOSPHATASE (test 69 U/L code = 2204) AST (test code = 2218) 14 U/L ALT (test code = 2219) 11 U/L COMPREHENSIVE METABOLIC [id number] 00:00:00 Test Item Value Reference Range Interpretation Comments GLUCOSE (test code = 2217) 145 MG/DL BUN (test code = 2208) 14 MG/DL CREATININE (test code = 2214) 0.91 MG/DL eGFR (2020 CKD-EPI) (test code 69 ML/MIN/1.73 = 81331) CALC BUN/CREAT (test code = 15 RATIO 2235) SODIUM (test code = 2231) 141 MEQ/L POTASSIUM (test code = 2228) 4.3 MEQ/L CHLORIDE (test code = 2215) 101 MEQ/L CARBON DIOXIDE (test code = 25 MEQ/L 2205) CALCIUM (test code = 2209) 9.9 MG/DL PROTEIN, TOTAL (test code = 7.5 G/DL 2228) ALBUMIN (test code = 2201) 4.2 G/DL CALC GLOBULIN (test code = 3.3 G/DL 2240) CALC A/G RATIO (test code = 1.3 RATIO 2234) BILIRUBIN, TOTAL (test code = 0.2 MG/DL 2207) ALKALINE PHOSPHATASE (test 69 U/L code = 2204) AST (test code = 2218) 14 U/L ALT (test code = 2219) 11 U/L [id number] 00:00:00 Test Item Value Reference Range Interpretation Comments NT-proBNP (test code = 93568) 68 PG/ML [id number] 00:00:00 Test Item Value Reference Range Interpretation Comments NT-proBNP (test code = 99968) 68 PG/ML [id number] 00:00:00 Test Item Value Reference Range Interpretation Comments NT-proBNP (test code = 11916) 68 PG/ML CBC W/AUTO DIFF WITH [id number] 02:53:27 Test Item Value Reference Range Interpretation Comments WBC (test code = 10.7 K/UL 3.5-11.0 1001) RBC (test code = 4.87 M/UL 3.80-5.40 1002) HEMOGLOBIN (test code 12.7 G/DL 11.5-15.5 = 1003) HEMATOCRIT (test code 39.3 % 34.0-45.0 = 1004) MCV (test code = 80.7 fL 80.0-99.0 1005) MCH (test code = 26.1 PG 25.0-33.0 1006) MCHC (test code = 32.3 G/DL 31.0-36.0 1007) RDW (test code = 16.0 % 11.5-15.0 H 1038) NEUTROPHILS (test 79.7 % code = 1008) LYMPHOCYTES (test 14.1 % code = 1010) MONOCYTES (test code 4.5 % = 1011) EOSINOPHILS (test 0.9 % code = 1012) BASOPHILS (test code 0.4 % = 1013) IMMATURE GRANULOCYTES 0.4 % (test code = 1036) NUCLEATED RBCS (test 0.0 /100 WBC'S See_Comment [Aut omated code = 1065) message] The sy stem which generated this result transmitted reference range : 0.0. The refere nce range was not u sed to interpret th is result as normal/abnormal . PLATELET COUNT (test 437 K/UL 130-400 H code = 1015) ABSOLUTE NEUTROPHILS 8.57 K/UL 1.50-7.50 H (test code = 1066) ABSOLUTE LYMPHOCYTES 1.51 K/UL 1.00-4.00 (test code = 1067) ABSOLUTE MONOCYTES 0.48 K/UL 0.20-1.00 (test code = 1068) ABSOLUTE EOSINOPHILS 0.10 K/UL 0.00-0.50 (test code = 1040) ABSOLUTE BASOPHILS 0.04 K/UL 0.00-0.20 (test code = 1069) ABS IMMATURE 0.04 K/UL 0.00-0.10 GRANULOCYTES (test code = 1020) ABS NUCLEATED RBCS 0.00 K/UL 0.00-0.11 (test code = 90381) CBC W/AUTO [id number] 00:00:00 Test Item Value Reference Range Interpretation Comments WBC (test code = 1001) 10.7 K/UL RBC (test code = 1002) 4.87 M/UL HEMOGLOBIN (test code = 1003) 12.7 G/DL HEMATOCRIT (test code = 1004) 39.3 % MCV (test code = 1005) 80.7 fL MCH (test code = 1006) 26.1 PG MCHC (test code = 1007) 32.3 G/DL RDW (test code = 1038) 16.0 % NEUTROPHILS (test code = 1008) 79.7 % LYMPHOCYTES (test code = 1010) 14.1 % MONOCYTES (test code = 1011) 4.5 % EOSINOPHILS (test code = 1012) 0.9 % BASOPHILS (test code = 1013) 0.4 % IMMATURE GRANULOCYTES (test 0.4 % code = 1036) NUCLEATED RBCS (test code = 0.0 /100WBC'S 1065) PLATELET COUNT (test code = 437 K/UL 1015) ABSOLUTE NEUTROPHILS (test code 8.57 K/UL = 1066) ABSOLUTE LYMPHOCYTES (test code 1.51 K/UL = 1067) ABSOLUTE MONOCYTES (test code = 0.48 K/UL 1068) ABSOLUTE EOSINOPHILS (test code 0.10 K/UL = 1040) ABSOLUTE BASOPHILS (test code = 0.04 K/UL 1069) ABS IMMATURE GRANULOCYTES (test 0.04 K/UL code = 1020) ABS NUCLEATED RBCS (test code = 0.00 K/UL 48957) CBC W/AUTO [id number] 00:00:00 Test Item Value Reference Range Interpretation Comments WBC (test code = 1001) 10.7 K/UL RBC (test code = 1002) 4.87 M/UL HEMOGLOBIN (test code = 1003) 12.7 G/DL HEMATOCRIT (test code = 1004) 39.3 % MCV (test code = 1005) 80.7 fL MCH (test code = 1006) 26.1 PG MCHC (test code = 1007) 32.3 G/DL RDW (test code = 1038) 16.0 % NEUTROPHILS (test code = 1008) 79.7 % LYMPHOCYTES (test code = 1010) 14.1 % MONOCYTES (test code = 1011) 4.5 % EOSINOPHILS (test code = 1012) 0.9 % BASOPHILS (test code = 1013) 0.4 % IMMATURE GRANULOCYTES (test 0.4 % code = 1036) NUCLEATED RBCS (test code = 0.0 /100WBC'S 1065) PLATELET COUNT (test code = 437 K/UL 1015) ABSOLUTE NEUTROPHILS (test code 8.57 K/UL = 1066) ABSOLUTE LYMPHOCYTES (test code 1.51 K/UL = 1067) ABSOLUTE MONOCYTES (test code = 0.48 K/UL 1068) ABSOLUTE EOSINOPHILS (test code 0.10 K/UL = 1040) ABSOLUTE BASOPHILS (test code = 0.04 K/UL 1069) ABS IMMATURE GRANULOCYTES (test 0.04 K/UL code = 1020) ABS NUCLEATED RBCS (test code = 0.00 K/UL 95772) CBC W/AUTO [id number] 00:00:00 Test Item Value Reference Range Interpretation Comments WBC (test code = 1001) 10.7 K/UL RBC (test code = 1002) 4.87 M/UL HEMOGLOBIN (test code = 1003) 12.7 G/DL HEMATOCRIT (test code = 1004) 39.3 % MCV (test code = 1005) 80.7 fL MCH (test code = 1006) 26.1 PG MCHC (test code = 1007) 32.3 G/DL RDW (test code = 1038) 16.0 % NEUTROPHILS (test code = 1008) 79.7 % LYMPHOCYTES (test code = 1010) 14.1 % MONOCYTES (test code = 1011) 4.5 % EOSINOPHILS (test code = 1012) 0.9 % BASOPHILS (test code = 1013) 0.4 % IMMATURE GRANULOCYTES (test 0.4 % code = 1036) NUCLEATED RBCS (test code = 0.0 /100WBC'S 1065) PLATELET COUNT (test code = 437 K/UL 1015) ABSOLUTE NEUTROPHILS (test code 8.57 K/UL = 1066) ABSOLUTE LYMPHOCYTES (test code 1.51 K/UL = 1067) ABSOLUTE MONOCYTES (test code = 0.48 K/UL 1068) ABSOLUTE EOSINOPHILS (test code 0.10 K/UL = 1040) ABSOLUTE BASOPHILS (test code = 0.04 K/UL 1069) ABS IMMATURE GRANULOCYTES (test 0.04 K/UL code = 1020) ABS NUCLEATED RBCS (test code = 0.00 K/UL 91642) CBC W/AUTO [id number] 00:00:00 Test Item Value Reference Range Interpretation Comments WBC (test code = 1001) 10.7 K/UL RBC (test code = 1002) 4.87 M/UL HEMOGLOBIN (test code = 1003) 12.7 G/DL HEMATOCRIT (test code = 1004) 39.3 % MCV (test code = 1005) 80.7 fL MCH (test code = 1006) 26.1 PG MCHC (test code = 1007) 32.3 G/DL RDW (test code = 1038) 16.0 % NEUTROPHILS (test code = 1008) 79.7 % LYMPHOCYTES (test code = 1010) 14.1 % MONOCYTES (test code = 1011) 4.5 % EOSINOPHILS (test code = 1012) 0.9 % BASOPHILS (test code = 1013) 0.4 % IMMATURE GRANULOCYTES (test 0.4 % code = 1036) NUCLEATED RBCS (test code = 0.0 /100WBC'S 1065) PLATELET COUNT (test code = 437 K/UL 1015) ABSOLUTE NEUTROPHILS (test code 8.57 K/UL = 1066) ABSOLUTE LYMPHOCYTES (test code 1.51 K/UL = 1067) ABSOLUTE MONOCYTES (test code = 0.48 K/UL 1068) ABSOLUTE EOSINOPHILS (test code 0.10 K/UL = 1040) ABSOLUTE BASOPHILS (test code = 0.04 K/UL 1069) ABS IMMATURE GRANULOCYTES (test 0.04 K/UL code = 1020) ABS NUCLEATED RBCS (test code = 0.00 K/UL 81388) CBC W/AUTO [id number] 00:00:00 Test Item Value Reference Range Interpretation Comments WBC (test code = 1001) 10.7 K/UL RBC (test code = 1002) 4.87 M/UL HEMOGLOBIN (test code = 1003) 12.7 G/DL HEMATOCRIT (test code = 1004) 39.3 % MCV (test code = 1005) 80.7 fL MCH (test code = 1006) 26.1 PG MCHC (test code = 1007) 32.3 G/DL RDW (test code = 1038) 16.0 % NEUTROPHILS (test code = 1008) 79.7 % LYMPHOCYTES (test code = 1010) 14.1 % MONOCYTES (test code = 1011) 4.5 % EOSINOPHILS (test code = 1012) 0.9 % BASOPHILS (test code = 1013) 0.4 % IMMATURE GRANULOCYTES (test 0.4 % code = 1036) NUCLEATED RBCS (test code = 0.0 /100WBC'S 1065) PLATELET COUNT (test code = 437 K/UL 1015) ABSOLUTE NEUTROPHILS (test code 8.57 K/UL = 1066) ABSOLUTE LYMPHOCYTES (test code 1.51 K/UL = 1067) ABSOLUTE MONOCYTES (test code = 0.48 K/UL 1068) ABSOLUTE EOSINOPHILS (test code 0.10 K/UL = 1040) ABSOLUTE BASOPHILS (test code = 0.04 K/UL 1069) ABS IMMATURE GRANULOCYTES (test 0.04 K/UL code = 1020) ABS NUCLEATED RBCS (test code = 0.00 K/UL 48556) CBC W/AUTO [id number] 00:00:00 Test Item Value Reference Range Interpretation Comments WBC (test code = 1001) 10.7 K/UL RBC (test code = 1002) 4.87 M/UL HEMOGLOBIN (test code = 1003) 12.7 G/DL HEMATOCRIT (test code = 1004) 39.3 % MCV (test code = 1005) 80.7 fL MCH (test code = 1006) 26.1 PG MCHC (test code = 1007) 32.3 G/DL RDW (test code = 1038) 16.0 % NEUTROPHILS (test code = 1008) 79.7 % LYMPHOCYTES (test code = 1010) 14.1 % MONOCYTES (test code = 1011) 4.5 % EOSINOPHILS (test code = 1012) 0.9 % BASOPHILS (test code = 1013) 0.4 % IMMATURE GRANULOCYTES (test 0.4 % code = 1036) NUCLEATED RBCS (test code = 0.0 /100WBC'S 1065) PLATELET COUNT (test code = 437 K/UL 1015) ABSOLUTE NEUTROPHILS (test code 8.57 K/UL = 1066) ABSOLUTE LYMPHOCYTES (test code 1.51 K/UL = 1067) ABSOLUTE MONOCYTES (test code = 0.48 K/UL 1068) ABSOLUTE EOSINOPHILS (test code 0.10 K/UL = 1040) ABSOLUTE BASOPHILS (test code = 0.04 K/UL 1069) ABS IMMATURE GRANULOCYTES (test 0.04 K/UL code = 1020) ABS NUCLEATED RBCS (test code = 0.00 K/UL 76659) CBC W/AUTO [id number] 00:00:00 Test Item Value Reference Range Interpretation Comments WBC (test code = 1001) 10.7 K/UL RBC (test code = 1002) 4.87 M/UL HEMOGLOBIN (test code = 1003) 12.7 G/DL HEMATOCRIT (test code = 1004) 39.3 % MCV (test code = 1005) 80.7 fL MCH (test code = 1006) 26.1 PG MCHC (test code = 1007) 32.3 G/DL RDW (test code = 1038) 16.0 % NEUTROPHILS (test code = 1008) 79.7 % LYMPHOCYTES (test code = 1010) 14.1 % MONOCYTES (test code = 1011) 4.5 % EOSINOPHILS (test code = 1012) 0.9 % BASOPHILS (test code = 1013) 0.4 % IMMATURE GRANULOCYTES (test 0.4 % code = 1036) NUCLEATED RBCS (test code = 0.0 /100WBC'S 1065) PLATELET COUNT (test code = 437 K/UL 1015) ABSOLUTE NEUTROPHILS (test code 8.57 K/UL = 1066) ABSOLUTE LYMPHOCYTES (test code 1.51 K/UL = 1067) ABSOLUTE MONOCYTES (test code = 0.48 K/UL 1068) ABSOLUTE EOSINOPHILS (test code 0.10 K/UL = 1040) ABSOLUTE BASOPHILS (test code = 0.04 K/UL 1069) ABS IMMATURE GRANULOCYTES (test 0.04 K/UL code = 1020) ABS NUCLEATED RBCS (test code = 0.00 K/UL 60506) CBC W/AUTO [id number] 00:00:00 Test Item Value Reference Range Interpretation Comments WBC (test code = 1001) 10.7 K/UL RBC (test code = 1002) 4.87 M/UL HEMOGLOBIN (test code = 1003) 12.7 G/DL HEMATOCRIT (test code = 1004) 39.3 % MCV (test code = 1005) 80.7 fL MCH (test code = 1006) 26.1 PG MCHC (test code = 1007) 32.3 G/DL RDW (test code = 1038) 16.0 % NEUTROPHILS (test code = 1008) 79.7 % LYMPHOCYTES (test code = 1010) 14.1 % MONOCYTES (test code = 1011) 4.5 % EOSINOPHILS (test code = 1012) 0.9 % BASOPHILS (test code = 1013) 0.4 % IMMATURE GRANULOCYTES (test 0.4 % code = 1036) NUCLEATED RBCS (test code = 0.0 /100WBC'S 1065) PLATELET COUNT (test code = 437 K/UL 1015) ABSOLUTE NEUTROPHILS (test code 8.57 K/UL = 1066) ABSOLUTE LYMPHOCYTES (test code 1.51 K/UL = 1067) ABSOLUTE MONOCYTES (test code = 0.48 K/UL 1068) ABSOLUTE EOSINOPHILS (test code 0.10 K/UL = 1040) ABSOLUTE BASOPHILS (test code = 0.04 K/UL 1069) ABS IMMATURE GRANULOCYTES (test 0.04 K/UL code = 1020) ABS NUCLEATED RBCS (test code = 0.00 K/UL 20192) CBC W/AUTO [id number] 00:00:00 Test Item Value Reference Range Interpretation Comments WBC (test code = 1001) 10.7 K/UL RBC (test code = 1002) 4.87 M/UL HEMOGLOBIN (test code = 1003) 12.7 G/DL HEMATOCRIT (test code = 1004) 39.3 % MCV (test code = 1005) 80.7 fL MCH (test code = 1006) 26.1 PG MCHC (test code = 1007) 32.3 G/DL RDW (test code = 1038) 16.0 % NEUTROPHILS (test code = 1008) 79.7 % LYMPHOCYTES (test code = 1010) 14.1 % MONOCYTES (test code = 1011) 4.5 % EOSINOPHILS (test code = 1012) 0.9 % BASOPHILS (test code = 1013) 0.4 % IMMATURE GRANULOCYTES (test 0.4 % code = 1036) NUCLEATED RBCS (test code = 0.0 /100WBC'S 1065) PLATELET COUNT (test code = 437 K/UL 1015) ABSOLUTE NEUTROPHILS (test code 8.57 K/UL = 1066) ABSOLUTE LYMPHOCYTES (test code 1.51 K/UL = 1067) ABSOLUTE MONOCYTES (test code = 0.48 K/UL 1068) ABSOLUTE EOSINOPHILS (test code 0.10 K/UL = 1040) ABSOLUTE BASOPHILS (test code = 0.04 K/UL 1069) ABS IMMATURE GRANULOCYTES (test 0.04 K/UL code = 1020) ABS NUCLEATED RBCS (test code = 0.00 K/UL 09977) CBC W/AUTO [id number] 00:00:00 Test Item Value Reference Range Interpretation Comments WBC (test code = 1001) 10.7 K/UL RBC (test code = 1002) 4.87 M/UL HEMOGLOBIN (test code = 1003) 12.7 G/DL HEMATOCRIT (test code = 1004) 39.3 % MCV (test code = 1005) 80.7 fL MCH (test code = 1006) 26.1 PG MCHC (test code = 1007) 32.3 G/DL RDW (test code = 1038) 16.0 % NEUTROPHILS (test code = 1008) 79.7 % LYMPHOCYTES (test code = 1010) 14.1 % MONOCYTES (test code = 1011) 4.5 % EOSINOPHILS (test code = 1012) 0.9 % BASOPHILS (test code = 1013) 0.4 % IMMATURE GRANULOCYTES (test 0.4 % code = 1036) NUCLEATED RBCS (test code = 0.0 /100WBC'S 1065) PLATELET COUNT (test code = 437 K/UL 1015) ABSOLUTE NEUTROPHILS (test code 8.57 K/UL = 1066) ABSOLUTE LYMPHOCYTES (test code 1.51 K/UL = 1067) ABSOLUTE MONOCYTES (test code = 0.48 K/UL 1068) ABSOLUTE EOSINOPHILS (test code 0.10 K/UL = 1040) ABSOLUTE BASOPHILS (test code = 0.04 K/UL 1069) ABS IMMATURE GRANULOCYTES (test 0.04 K/UL code = 1020) ABS NUCLEATED RBCS (test code = 0.00 K/UL 12669) CBC W/AUTO [id number] 00:00:00 Test Item Value Reference Range Interpretation Comments WBC (test code = 1001) 10.7 K/UL RBC (test code = 1002) 4.87 M/UL HEMOGLOBIN (test code = 1003) 12.7 G/DL HEMATOCRIT (test code = 1004) 39.3 % MCV (test code = 1005) 80.7 fL MCH (test code = 1006) 26.1 PG MCHC (test code = 1007) 32.3 G/DL RDW (test code = 1038) 16.0 % NEUTROPHILS (test code = 1008) 79.7 % LYMPHOCYTES (test code = 1010) 14.1 % MONOCYTES (test code = 1011) 4.5 % EOSINOPHILS (test code = 1012) 0.9 % BASOPHILS (test code = 1013) 0.4 % IMMATURE GRANULOCYTES (test 0.4 % code = 1036) NUCLEATED RBCS (test code = 0.0 /100WBC'S 1065) PLATELET COUNT (test code = 437 K/UL 1015) ABSOLUTE NEUTROPHILS (test code 8.57 K/UL = 1066) ABSOLUTE LYMPHOCYTES (test code 1.51 K/UL = 1067) ABSOLUTE MONOCYTES (test code = 0.48 K/UL 1068) ABSOLUTE EOSINOPHILS (test code 0.10 K/UL = 1040) ABSOLUTE BASOPHILS (test code = 0.04 K/UL 1069) ABS IMMATURE GRANULOCYTES (test 0.04 K/UL code = 1020) ABS NUCLEATED RBCS (test code = 0.00 K/UL 62055) CBC W/AUTO [id number] 00:00:00 Test Item Value Reference Range Interpretation Comments WBC (test code = 1001) 10.7 K/UL RBC (test code = 1002) 4.87 M/UL HEMOGLOBIN (test code = 1003) 12.7 G/DL HEMATOCRIT (test code = 1004) 39.3 % MCV (test code = 1005) 80.7 fL MCH (test code = 1006) 26.1 PG MCHC (test code = 1007) 32.3 G/DL RDW (test code = 1038) 16.0 % NEUTROPHILS (test code = 1008) 79.7 % LYMPHOCYTES (test code = 1010) 14.1 % MONOCYTES (test code = 1011) 4.5 % EOSINOPHILS (test code = 1012) 0.9 % BASOPHILS (test code = 1013) 0.4 % IMMATURE GRANULOCYTES (test 0.4 % code = 1036) NUCLEATED RBCS (test code = 0.0 /100WBC'S 1065) PLATELET COUNT (test code = 437 K/UL 1015) ABSOLUTE NEUTROPHILS (test code 8.57 K/UL = 1066) ABSOLUTE LYMPHOCYTES (test code 1.51 K/UL = 1067) ABSOLUTE MONOCYTES (test code = 0.48 K/UL 1068) ABSOLUTE EOSINOPHILS (test code 0.10 K/UL = 1040) ABSOLUTE BASOPHILS (test code = 0.04 K/UL 1069) ABS IMMATURE GRANULOCYTES (test 0.04 K/UL code = 1020) ABS NUCLEATED RBCS (test code = 0.00 K/UL 20109) CBC W/AUTO [id number] 00:00:00 Test Item Value Reference Range Interpretation Comments WBC (test code = 1001) 10.7 K/UL RBC (test code = 1002) 4.87 M/UL HEMOGLOBIN (test code = 1003) 12.7 G/DL HEMATOCRIT (test code = 1004) 39.3 % MCV (test code = 1005) 80.7 fL MCH (test code = 1006) 26.1 PG MCHC (test code = 1007) 32.3 G/DL RDW (test code = 1038) 16.0 % NEUTROPHILS (test code = 1008) 79.7 % LYMPHOCYTES (test code = 1010) 14.1 % MONOCYTES (test code = 1011) 4.5 % EOSINOPHILS (test code = 1012) 0.9 % BASOPHILS (test code = 1013) 0.4 % IMMATURE GRANULOCYTES (test 0.4 % code = 1036) NUCLEATED RBCS (test code = 0.0 /100WBC'S 1065) PLATELET COUNT (test code = 437 K/UL 1015) ABSOLUTE NEUTROPHILS (test code 8.57 K/UL = 1066) ABSOLUTE LYMPHOCYTES (test code 1.51 K/UL = 1067) ABSOLUTE MONOCYTES (test code = 0.48 K/UL 1068) ABSOLUTE EOSINOPHILS (test code 0.10 K/UL = 1040) ABSOLUTE BASOPHILS (test code = 0.04 K/UL 1069) ABS IMMATURE GRANULOCYTES (test 0.04 K/UL code = 1020) ABS NUCLEATED RBCS (test code = 0.00 K/UL 43901) CBC W/AUTO [id number] 00:00:00 Test Item Value Reference Range Interpretation Comments WBC (test code = 1001) 10.7 K/UL RBC (test code = 1002) 4.87 M/UL HEMOGLOBIN (test code = 1003) 12.7 G/DL HEMATOCRIT (test code = 1004) 39.3 % MCV (test code = 1005) 80.7 fL MCH (test code = 1006) 26.1 PG MCHC (test code = 1007) 32.3 G/DL RDW (test code = 1038) 16.0 % NEUTROPHILS (test code = 1008) 79.7 % LYMPHOCYTES (test code = 1010) 14.1 % MONOCYTES (test code = 1011) 4.5 % EOSINOPHILS (test code = 1012) 0.9 % BASOPHILS (test code = 1013) 0.4 % IMMATURE GRANULOCYTES (test 0.4 % code = 1036) NUCLEATED RBCS (test code = 0.0 /100WBC'S 1065) PLATELET COUNT (test code = 437 K/UL 1015) ABSOLUTE NEUTROPHILS (test code 8.57 K/UL = 1066) ABSOLUTE LYMPHOCYTES (test code 1.51 K/UL = 1067) ABSOLUTE MONOCYTES (test code = 0.48 K/UL 1068) ABSOLUTE EOSINOPHILS (test code 0.10 K/UL = 1040) ABSOLUTE BASOPHILS (test code = 0.04 K/UL 1069) ABS IMMATURE GRANULOCYTES (test 0.04 K/UL code = 1020) ABS NUCLEATED RBCS (test code = 0.00 K/UL 27825) CBC W/AUTO [id number] 00:00:00 Test Item Value Reference Range Interpretation Comments WBC (test code = 1001) 10.7 K/UL RBC (test code = 1002) 4.87 M/UL HEMOGLOBIN (test code = 1003) 12.7 G/DL HEMATOCRIT (test code = 1004) 39.3 % MCV (test code = 1005) 80.7 fL MCH (test code = 1006) 26.1 PG MCHC (test code = 1007) 32.3 G/DL RDW (test code = 1038) 16.0 % NEUTROPHILS (test code = 1008) 79.7 % LYMPHOCYTES (test code = 1010) 14.1 % MONOCYTES (test code = 1011) 4.5 % EOSINOPHILS (test code = 1012) 0.9 % BASOPHILS (test code = 1013) 0.4 % IMMATURE GRANULOCYTES (test 0.4 % code = 1036) NUCLEATED RBCS (test code = 0.0 /100WBC'S 1065) PLATELET COUNT (test code = 437 K/UL 1015) ABSOLUTE NEUTROPHILS (test code 8.57 K/UL = 1066) ABSOLUTE LYMPHOCYTES (test code 1.51 K/UL = 1067) ABSOLUTE MONOCYTES (test code = 0.48 K/UL 1068) ABSOLUTE EOSINOPHILS (test code 0.10 K/UL = 1040) ABSOLUTE BASOPHILS (test code = 0.04 K/UL 1069) ABS IMMATURE GRANULOCYTES (test 0.04 K/UL code = 1020) ABS NUCLEATED RBCS (test code = 0.00 K/UL 17471) CBC W/AUTO [id number] 00:00:00 Test Item Value Reference Range Interpretation Comments WBC (test code = 1001) 10.7 K/UL RBC (test code = 1002) 4.87 M/UL HEMOGLOBIN (test code = 1003) 12.7 G/DL HEMATOCRIT (test code = 1004) 39.3 % MCV (test code = 1005) 80.7 fL MCH (test code = 1006) 26.1 PG MCHC (test code = 1007) 32.3 G/DL RDW (test code = 1038) 16.0 % NEUTROPHILS (test code = 1008) 79.7 % LYMPHOCYTES (test code = 1010) 14.1 % MONOCYTES (test code = 1011) 4.5 % EOSINOPHILS (test code = 1012) 0.9 % BASOPHILS (test code = 1013) 0.4 % IMMATURE GRANULOCYTES (test 0.4 % code = 1036) NUCLEATED RBCS (test code = 0.0 /100WBC'S 1065) PLATELET COUNT (test code = 437 K/UL 1015) ABSOLUTE NEUTROPHILS (test code 8.57 K/UL = 1066) ABSOLUTE LYMPHOCYTES (test code 1.51 K/UL = 1067) ABSOLUTE MONOCYTES (test code = 0.48 K/UL 1068) ABSOLUTE EOSINOPHILS (test code 0.10 K/UL = 1040) ABSOLUTE BASOPHILS (test code = 0.04 K/UL 1069) ABS IMMATURE GRANULOCYTES (test 0.04 K/UL code = 1020) ABS NUCLEATED RBCS (test code = 0.00 K/UL 90011) CBC W/AUTO [id number] 00:00:00 Test Item Value Reference Range Interpretation Comments WBC (test code = 1001) 10.7 K/UL RBC (test code = 1002) 4.87 M/UL HEMOGLOBIN (test code = 1003) 12.7 G/DL HEMATOCRIT (test code = 1004) 39.3 % MCV (test code = 1005) 80.7 fL MCH (test code = 1006) 26.1 PG MCHC (test code = 1007) 32.3 G/DL RDW (test code = 1038) 16.0 % NEUTROPHILS (test code = 1008) 79.7 % LYMPHOCYTES (test code = 1010) 14.1 % MONOCYTES (test code = 1011) 4.5 % EOSINOPHILS (test code = 1012) 0.9 % BASOPHILS (test code = 1013) 0.4 % IMMATURE GRANULOCYTES (test 0.4 % code = 1036) NUCLEATED RBCS (test code = 0.0 /100WBC'S 1065) PLATELET COUNT (test code = 437 K/UL 1015) ABSOLUTE NEUTROPHILS (test code 8.57 K/UL = 1066) ABSOLUTE LYMPHOCYTES (test code 1.51 K/UL = 1067) ABSOLUTE MONOCYTES (test code = 0.48 K/UL 1068) ABSOLUTE EOSINOPHILS (test code 0.10 K/UL = 1040) ABSOLUTE BASOPHILS (test code = 0.04 K/UL 1069) ABS IMMATURE GRANULOCYTES (test 0.04 K/UL code = 1020) ABS NUCLEATED RBCS (test code = 0.00 K/UL 55081) HEMOGLOBIN [id number] 05:03:38 Test Item Value Reference Range Interpretation Comments HEMOGLOBIN A1c (test 7.3 % 4.2-5.6 H [employer] AN DIABETES code = 72768) ASSOCIATION IDELINES FOR HGB A1C: PREDIABETES/INC REASED RISK . . . . . . . 5.7 -6.4% DIAGNOSIS OF DI ABETES . . . . . . . . . >=6 .5% WITH CONFIRMATION OR APPROPRIATE SYMPTOMS NOTE: ASSAY MAY BE AFFECTED BY HEMOGLOBINOPATH IES (SICKLE CELL ANEMIA, S- C DISEASE, OTHERS) OR PAKO FICIALLY LOWERED BY DECR EASED RED CELL SURVIVAL ( HEMOLYTIC ANEMIAS, BLOOD LOSS, ETC.). CONSIDER ALTERN ATE TESTING OR LABORATORY C ONSULTATION. UNLESS OTHERWIS E INDICATED, ALL TESTING PER FORMED ATCLINICAL PATH [facility], [place]. [phone] [id number] LABORATORY DIRE CTOR: MARCI SOTO M.D. [place] NUMBER [id number] [facility] [place]. [id number] HEMOGLOBIN [id number] 00:00:00 Test Item Value Reference Range Interpretation Comments HEMOGLOBIN A1c (test code = 25992) 7.3 % HEMOGLOBIN [id number] 00:00:00 Test Item Value Reference Range Interpretation Comments HEMOGLOBIN A1c (test code = 52122) 7.3 % HEMOGLOBIN [id number] 00:00:00 Test Item Value Reference Range Interpretation Comments HEMOGLOBIN A1c (test code = 26023) 7.3 % HEMOGLOBIN [id number] 00:00:00 Test Item Value Reference Range Interpretation Comments HEMOGLOBIN A1c (test code = 56150) 7.3 % HEMOGLOBIN [id number] 00:00:00 Test Item Value Reference Range Interpretation Comments HEMOGLOBIN A1c (test code = 92739) 7.3 % HEMOGLOBIN [id number] 00:00:00 Test Item Value Reference Range Interpretation Comments HEMOGLOBIN A1c (test code = 52274) 7.3 % HEMOGLOBIN [id number] 00:00:00 Test Item Value Reference Range Interpretation Comments HEMOGLOBIN A1c (test code = 09800) 7.3 % HEMOGLOBIN [id number] 00:00:00 Test Item Value Reference Range Interpretation Comments HEMOGLOBIN A1c (test code = 08082) 7.3 % HEMOGLOBIN [id number] 00:00:00 Test Item Value Reference Range Interpretation Comments HEMOGLOBIN A1c (test code = 16055) 7.3 % HEMOGLOBIN [id number] 00:00:00 Test Item Value Reference Range Interpretation Comments HEMOGLOBIN A1c (test code = 41215) 7.3 % HEMOGLOBIN [id number] 00:00:00 Test Item Value Reference Range Interpretation Comments HEMOGLOBIN A1c (test code = 73189) 7.3 % HEMOGLOBIN [id number] 00:00:00 Test Item Value Reference Range Interpretation Comments HEMOGLOBIN A1c (test code = 00778) 7.3 % HEMOGLOBIN [id number] 00:00:00 Test Item Value Reference Range Interpretation Comments HEMOGLOBIN A1c (test code = 24531) 7.3 % HEMOGLOBIN [id number] 00:00:00 Test Item Value Reference Range Interpretation Comments HEMOGLOBIN A1c (test code = 48659) 7.3 % HEMOGLOBIN [id number] 00:00:00 Test Item Value Reference Range Interpretation Comments HEMOGLOBIN A1c (test code = 74829) 7.3 % HEMOGLOBIN [id number] 00:00:00 Test Item Value Reference Range Interpretation Comments HEMOGLOBIN A1c (test code = 48245) 7.3 % HEMOGLOBIN [id number] 00:00:00 Test Item Value Reference Range Interpretation Comments HEMOGLOBIN A1c (test code = 62413) 7.3 % CBC W/AUTO [id number] 00:00:00 Test Item Value Reference Range Interpretation Comments WBC (test code = 1001) 11.7 K/UL RBC (test code = 1002) 4.69 M/UL HEMOGLOBIN (test code = 1003) 12.3 G/DL HEMATOCRIT (test code = 1004) 38.2 % MCV (test code = 1005) 81.4 fL MCH (test code = 1006) 26.2 PG MCHC (test code = 1007) 32.2 G/DL RDW (test code = 1038) 15.7 % NEUTROPHILS (test code = 1008) 59.2 % LYMPHOCYTES (test code = 1010) 29.1 % MONOCYTES (test code = 1011) 7.5 % EOSINOPHILS (test code = 1012) 3.3 % BASOPHILS (test code = 1013) 0.3 % IMMATURE GRANULOCYTES (test 0.6 % code = 1036) NUCLEATED RBCS (test code = 0.0 /100WBC'S 1065) PLATELET COUNT (test code = 356 K/UL 1015) ABSOLUTE NEUTROPHILS (test code 6.93 K/UL = 1066) ABSOLUTE LYMPHOCYTES (test code 3.41 K/UL = 1067) ABSOLUTE MONOCYTES (test code = 0.88 K/UL 1068) ABSOLUTE EOSINOPHILS (test code 0.39 K/UL = 1040) ABSOLUTE BASOPHILS (test code = 0.04 K/UL 1069) ABS IMMATURE GRANULOCYTES (test 0.07 K/UL code = 1020) ABS NUCLEATED RBCS (test code = 0.00 K/UL 51313) CBC W/AUTO [id number] 00:00:00 Test Item Value Reference Range Interpretation Comments WBC (test code = 1001) 11.7 K/UL RBC (test code = 1002) 4.69 M/UL HEMOGLOBIN (test code = 1003) 12.3 G/DL HEMATOCRIT (test code = 1004) 38.2 % MCV (test code = 1005) 81.4 fL MCH (test code = 1006) 26.2 PG MCHC (test code = 1007) 32.2 G/DL RDW (test code = 1038) 15.7 % NEUTROPHILS (test code = 1008) 59.2 % LYMPHOCYTES (test code = 1010) 29.1 % MONOCYTES (test code = 1011) 7.5 % EOSINOPHILS (test code = 1012) 3.3 % BASOPHILS (test code = 1013) 0.3 % IMMATURE GRANULOCYTES (test 0.6 % code = 1036) NUCLEATED RBCS (test code = 0.0 /100WBC'S 1065) PLATELET COUNT (test code = 356 K/UL 1015) ABSOLUTE NEUTROPHILS (test code 6.93 K/UL = 1066) ABSOLUTE LYMPHOCYTES (test code 3.41 K/UL = 1067) ABSOLUTE MONOCYTES (test code = 0.88 K/UL 1068) ABSOLUTE EOSINOPHILS (test code 0.39 K/UL = 1040) ABSOLUTE BASOPHILS (test code = 0.04 K/UL 1069) ABS IMMATURE GRANULOCYTES (test 0.07 K/UL code = 1020) ABS NUCLEATED RBCS (test code = 0.00 K/UL 73417) CBC W/AUTO [id number] 00:00:00 Test Item Value Reference Range Interpretation Comments WBC (test code = 1001) 11.7 K/UL RBC (test code = 1002) 4.69 M/UL HEMOGLOBIN (test code = 1003) 12.3 G/DL HEMATOCRIT (test code = 1004) 38.2 % MCV (test code = 1005) 81.4 fL MCH (test code = 1006) 26.2 PG MCHC (test code = 1007) 32.2 G/DL RDW (test code = 1038) 15.7 % NEUTROPHILS (test code = 1008) 59.2 % LYMPHOCYTES (test code = 1010) 29.1 % MONOCYTES (test code = 1011) 7.5 % EOSINOPHILS (test code = 1012) 3.3 % BASOPHILS (test code = 1013) 0.3 % IMMATURE GRANULOCYTES (test 0.6 % code = 1036) NUCLEATED RBCS (test code = 0.0 /100WBC'S 1065) PLATELET COUNT (test code = 356 K/UL 1015) ABSOLUTE NEUTROPHILS (test code 6.93 K/UL = 1066) ABSOLUTE LYMPHOCYTES (test code 3.41 K/UL = 1067) ABSOLUTE MONOCYTES (test code = 0.88 K/UL 1068) ABSOLUTE EOSINOPHILS (test code 0.39 K/UL = 1040) ABSOLUTE BASOPHILS (test code = 0.04 K/UL 1069) ABS IMMATURE GRANULOCYTES (test 0.07 K/UL code = 1020) ABS NUCLEATED RBCS (test code = 0.00 K/UL 51640) COMPREHENSIVE METABOLIC [id number] 00:00:00 Test Item Value Reference Range Interpretation Comments GLUCOSE (test code = 2217) 77 MG/DL BUN (test code = 2208) 14 MG/DL CREATININE (test code = 2214) 0.96 MG/DL eGFR AMER. (test code 71 ML/MIN/1.73 = 49900) eGFR NON- AMER. (test 62 ML/MIN/1.73 code = 05852) CALC BUN/CREAT (test code = 15 RATIO 2235) SODIUM (test code = 2231) 145 MEQ/L POTASSIUM (test code = 2228) 3.8 MEQ/L CHLORIDE (test code = 2215) 103 MEQ/L CARBON DIOXIDE (test code = 29 MEQ/L 2205) CALCIUM (test code = 2209) 9.4 MG/DL PROTEIN, TOTAL (test code = 7.1 G/DL 2228) ALBUMIN (test code = 2201) 3.8 G/DL CALC GLOBULIN (test code = 3.3 G/DL 2240) CALC A/G RATIO (test code = 1.2 RATIO 2234) BILIRUBIN, TOTAL (test code = <0.2 MG/DL 2206) ALKALINE PHOSPHATASE (test 75 U/L code = 2204) AST (test code = 2218) 13 U/L ALT (test code = 2219) 10 U/L COMPREHENSIVE METABOLIC [id number] 00:00:00 Test Item Value Reference Range Interpretation Comments GLUCOSE (test code = 2217) 77 MG/DL BUN (test code = 2208) 14 MG/DL CREATININE (test code = 2214) 0.96 MG/DL eGFR AMER. (test code 71 ML/MIN/1.73 = 79830) eGFR NON- AMER. (test 62 ML/MIN/1.73 code = 23525) CALC BUN/CREAT (test code = 15 RATIO 2235) SODIUM (test code = 2231) 145 MEQ/L POTASSIUM (test code = 2228) 3.8 MEQ/L CHLORIDE (test code = 2215) 103 MEQ/L CARBON DIOXIDE (test code = 29 MEQ/L 2205) CALCIUM (test code = 2209) 9.4 MG/DL PROTEIN, TOTAL (test code = 7.1 G/DL 2228) ALBUMIN (test code = 2201) 3.8 G/DL CALC GLOBULIN (test code = 3.3 G/DL 2239) CALC A/G RATIO (test code = 1.2 RATIO 2233) BILIRUBIN, TOTAL (test code = <0.2 MG/DL 2206) ALKALINE PHOSPHATASE (test 75 U/L code = 2204) AST (test code = 2218) 13 U/L ALT (test code = 2219) 10 U/L CBC W/AUTO [id number] 00:00:00 Test Item Value Reference Range Interpretation Comments WBC (test code = 1001) 11.7 K/UL RBC (test code = 1002) 4.69 M/UL HEMOGLOBIN (test code = 1003) 12.3 G/DL HEMATOCRIT (test code = 1004) 38.2 % MCV (test code = 1005) 81.4 fL MCH (test code = 1006) 26.2 PG MCHC (test code = 1007) 32.2 G/DL RDW (test code = 1038) 15.7 % NEUTROPHILS (test code = 1008) 59.2 % LYMPHOCYTES (test code = 1010) 29.1 % MONOCYTES (test code = 1011) 7.5 % EOSINOPHILS (test code = 1012) 3.3 % BASOPHILS (test code = 1013) 0.3 % IMMATURE GRANULOCYTES (test 0.6 % code = 1036) NUCLEATED RBCS (test code = 0.0 /100WBC'S 1065) PLATELET COUNT (test code = 356 K/UL 1015) ABSOLUTE NEUTROPHILS (test code 6.93 K/UL = 1066) ABSOLUTE LYMPHOCYTES (test code 3.41 K/UL = 1067) ABSOLUTE MONOCYTES (test code = 0.88 K/UL 1068) ABSOLUTE EOSINOPHILS (test code 0.39 K/UL = 1040) ABSOLUTE BASOPHILS (test code = 0.04 K/UL 1069) ABS IMMATURE GRANULOCYTES (test 0.07 K/UL code = 1020) ABS NUCLEATED RBCS (test code = 0.00 K/UL 08790) CBC W/AUTO [id number] 00:00:00 Test Item Value Reference Range Interpretation Comments WBC (test code = 1001) 11.7 K/UL RBC (test code = 1002) 4.69 M/UL HEMOGLOBIN (test code = 1003) 12.3 G/DL HEMATOCRIT (test code = 1004) 38.2 % MCV (test code = 1005) 81.4 fL MCH (test code = 1006) 26.2 PG MCHC (test code = 1007) 32.2 G/DL RDW (test code = 1038) 15.7 % NEUTROPHILS (test code = 1008) 59.2 % LYMPHOCYTES (test code = 1010) 29.1 % MONOCYTES (test code = 1011) 7.5 % EOSINOPHILS (test code = 1012) 3.3 % BASOPHILS (test code = 1013) 0.3 % IMMATURE GRANULOCYTES (test 0.6 % code = 1036) NUCLEATED RBCS (test code = 0.0 /100WBC'S 1065) PLATELET COUNT (test code = 356 K/UL 1015) ABSOLUTE NEUTROPHILS (test code 6.93 K/UL = 1066) ABSOLUTE LYMPHOCYTES (test code 3.41 K/UL = 1067) ABSOLUTE MONOCYTES (test code = 0.88 K/UL 1068) ABSOLUTE EOSINOPHILS (test code 0.39 K/UL = 1040) ABSOLUTE BASOPHILS (test code = 0.04 K/UL 1069) ABS IMMATURE GRANULOCYTES (test 0.07 K/UL code = 1020) ABS NUCLEATED RBCS (test code = 0.00 K/UL 93903) CBC W/AUTO [id number] 00:00:00 Test Item Value Reference Range Interpretation Comments WBC (test code = 1001) 11.7 K/UL RBC (test code = 1002) 4.69 M/UL HEMOGLOBIN (test code = 1003) 12.3 G/DL HEMATOCRIT (test code = 1004) 38.2 % MCV (test code = 1005) 81.4 fL MCH (test code = 1006) 26.2 PG MCHC (test code = 1007) 32.2 G/DL RDW (test code = 1038) 15.7 % NEUTROPHILS (test code = 1008) 59.2 % LYMPHOCYTES (test code = 1010) 29.1 % MONOCYTES (test code = 1011) 7.5 % EOSINOPHILS (test code = 1012) 3.3 % BASOPHILS (test code = 1013) 0.3 % IMMATURE GRANULOCYTES (test 0.6 % code = 1036) NUCLEATED RBCS (test code = 0.0 /100WBC'S 1065) PLATELET COUNT (test code = 356 K/UL 1015) ABSOLUTE NEUTROPHILS (test code 6.93 K/UL = 1066) ABSOLUTE LYMPHOCYTES (test code 3.41 K/UL = 1067) ABSOLUTE MONOCYTES (test code = 0.88 K/UL 1068) ABSOLUTE EOSINOPHILS (test code 0.39 K/UL = 1040) ABSOLUTE BASOPHILS (test code = 0.04 K/UL 1069) ABS IMMATURE GRANULOCYTES (test 0.07 K/UL code = 1020) ABS NUCLEATED RBCS (test code = 0.00 K/UL 48018) COMPREHENSIVE METABOLIC [id number] 00:00:00 Test Item Value Reference Range Interpretation Comments GLUCOSE (test code = 2217) 77 MG/DL BUN (test code = 2208) 14 MG/DL CREATININE (test code = 2214) 0.96 MG/DL eGFR AMER. (test code 71 ML/MIN/1.73 = 67326) eGFR NON- AMER. (test 62 ML/MIN/1.73 code = 23791) CALC BUN/CREAT (test code = 15 RATIO 2235) SODIUM (test code = 2231) 145 MEQ/L POTASSIUM (test code = 2228) 3.8 MEQ/L CHLORIDE (test code = 2215) 103 MEQ/L CARBON DIOXIDE (test code = 29 MEQ/L 2206) CALCIUM (test code = 2209) 9.4 MG/DL PROTEIN, TOTAL (test code = 7.1 G/DL 2228) ALBUMIN (test code = 2201) 3.8 G/DL CALC GLOBULIN (test code = 3.3 G/DL 2240) CALC A/G RATIO (test code = 1.2 RATIO 2234) BILIRUBIN, TOTAL (test code = <0.2 MG/DL 2206) ALKALINE PHOSPHATASE (test 75 U/L code = 2204) AST (test code = 2218) 13 U/L ALT (test code = 2219) 10 U/L COMPREHENSIVE METABOLIC [id number] 00:00:00 Test Item Value Reference Range Interpretation Comments GLUCOSE (test code = 2217) 77 MG/DL BUN (test code = 2208) 14 MG/DL CREATININE (test code = 2214) 0.96 MG/DL eGFR AMER. (test code 71 ML/MIN/1.73 = 85360) eGFR NON- AMER. (test 62 ML/MIN/1.73 code = 19563) CALC BUN/CREAT (test code = 15 RATIO 2235) SODIUM (test code = 2231) 145 MEQ/L POTASSIUM (test code = 2228) 3.8 MEQ/L CHLORIDE (test code = 2215) 103 MEQ/L CARBON DIOXIDE (test code = 29 MEQ/L 2205) CALCIUM (test code = 2209) 9.4 MG/DL PROTEIN, TOTAL (test code = 7.1 G/DL 2228) ALBUMIN (test code = 2201) 3.8 G/DL CALC GLOBULIN (test code = 3.3 G/DL 2240) CALC A/G RATIO (test code = 1.2 RATIO 2234) BILIRUBIN, TOTAL (test code = <0.2 MG/DL 2206) ALKALINE PHOSPHATASE (test 75 U/L code = 2204) AST (test code = 2218) 13 U/L ALT (test code = 2219) 10 U/L CBC W/AUTO [id number] 00:00:00 Test Item Value Reference Range Interpretation Comments WBC (test code = 1001) 11.7 K/UL RBC (test code = 1002) 4.69 M/UL HEMOGLOBIN (test code = 1003) 12.3 G/DL HEMATOCRIT (test code = 1004) 38.2 % MCV (test code = 1005) 81.4 fL MCH (test code = 1006) 26.2 PG MCHC (test code = 1007) 32.2 G/DL RDW (test code = 1038) 15.7 % NEUTROPHILS (test code = 1008) 59.2 % LYMPHOCYTES (test code = 1010) 29.1 % MONOCYTES (test code = 1011) 7.5 % EOSINOPHILS (test code = 1012) 3.3 % BASOPHILS (test code = 1013) 0.3 % IMMATURE GRANULOCYTES (test 0.6 % code = 1036) NUCLEATED RBCS (test code = 0.0 /100WBC'S 1065) PLATELET COUNT (test code = 356 K/UL 1015) ABSOLUTE NEUTROPHILS (test code 6.93 K/UL = 1066) ABSOLUTE LYMPHOCYTES (test code 3.41 K/UL = 1067) ABSOLUTE MONOCYTES (test code = 0.88 K/UL 1068) ABSOLUTE EOSINOPHILS (test code 0.39 K/UL = 1040) ABSOLUTE BASOPHILS (test code = 0.04 K/UL 1069) ABS IMMATURE GRANULOCYTES (test 0.07 K/UL code = 1020) ABS NUCLEATED RBCS (test code = 0.00 K/UL 59616) CBC W/AUTO [id number] 00:00:00 Test Item Value Reference Range Interpretation Comments WBC (test code = 1001) 11.7 K/UL RBC (test code = 1002) 4.69 M/UL HEMOGLOBIN (test code = 1003) 12.3 G/DL HEMATOCRIT (test code = 1004) 38.2 % MCV (test code = 1005) 81.4 fL MCH (test code = 1006) 26.2 PG MCHC (test code = 1007) 32.2 G/DL RDW (test code = 1038) 15.7 % NEUTROPHILS (test code = 1008) 59.2 % LYMPHOCYTES (test code = 1010) 29.1 % MONOCYTES (test code = 1011) 7.5 % EOSINOPHILS (test code = 1012) 3.3 % BASOPHILS (test code = 1013) 0.3 % IMMATURE GRANULOCYTES (test 0.6 % code = 1036) NUCLEATED RBCS (test code = 0.0 /100WBC'S 1065) PLATELET COUNT (test code = 356 K/UL 1015) ABSOLUTE NEUTROPHILS (test code 6.93 K/UL = 1066) ABSOLUTE LYMPHOCYTES (test code 3.41 K/UL = 1067) ABSOLUTE MONOCYTES (test code = 0.88 K/UL 1068) ABSOLUTE EOSINOPHILS (test code 0.39 K/UL = 1040) ABSOLUTE BASOPHILS (test code = 0.04 K/UL 1069) ABS IMMATURE GRANULOCYTES (test 0.07 K/UL code = 1020) ABS NUCLEATED RBCS (test code = 0.00 K/UL 21058) CBC W/AUTO [id number] 00:00:00 Test Item Value Reference Range Interpretation Comments WBC (test code = 1001) 11.7 K/UL RBC (test code = 1002) 4.69 M/UL HEMOGLOBIN (test code = 1003) 12.3 G/DL HEMATOCRIT (test code = 1004) 38.2 % MCV (test code = 1005) 81.4 fL MCH (test code = 1006) 26.2 PG MCHC (test code = 1007) 32.2 G/DL RDW (test code = 1038) 15.7 % NEUTROPHILS (test code = 1008) 59.2 % LYMPHOCYTES (test code = 1010) 29.1 % MONOCYTES (test code = 1011) 7.5 % EOSINOPHILS (test code = 1012) 3.3 % BASOPHILS (test code = 1013) 0.3 % IMMATURE GRANULOCYTES (test 0.6 % code = 1036) NUCLEATED RBCS (test code = 0.0 /100WBC'S 1065) PLATELET COUNT (test code = 356 K/UL 1015) ABSOLUTE NEUTROPHILS (test code 6.93 K/UL = 1066) ABSOLUTE LYMPHOCYTES (test code 3.41 K/UL = 1067) ABSOLUTE MONOCYTES (test code = 0.88 K/UL 1068) ABSOLUTE EOSINOPHILS (test code 0.39 K/UL = 1040) ABSOLUTE BASOPHILS (test code = 0.04 K/UL 1069) ABS IMMATURE GRANULOCYTES (test 0.07 K/UL code = 1020) ABS NUCLEATED RBCS (test code = 0.00 K/UL 30161) COMPREHENSIVE METABOLIC [id number] 00:00:00 Test Item Value Reference Range Interpretation Comments GLUCOSE (test code = 2217) 77 MG/DL BUN (test code = 2208) 14 MG/DL CREATININE (test code = 2214) 0.96 MG/DL eGFR AMER. (test code 71 ML/MIN/1.73 = 46864) eGFR NON- AMER. (test 62 ML/MIN/1.73 code = 43506) CALC BUN/CREAT (test code = 15 RATIO 2235) SODIUM (test code = 2231) 145 MEQ/L POTASSIUM (test code = 2228) 3.8 MEQ/L CHLORIDE (test code = 2215) 103 MEQ/L CARBON DIOXIDE (test code = 29 MEQ/L 2205) CALCIUM (test code = 2209) 9.4 MG/DL PROTEIN, TOTAL (test code = 7.1 G/DL 222) ALBUMIN (test code = 2201) 3.8 G/DL CALC GLOBULIN (test code = 3.3 G/DL 2240) CALC A/G RATIO (test code = 1.2 RATIO 2234) BILIRUBIN, TOTAL (test code = <0.2 MG/DL 2206) ALKALINE PHOSPHATASE (test 75 U/L code = 2204) AST (test code = 2218) 13 U/L ALT (test code = 2219) 10 U/L COMPREHENSIVE METABOLIC [id number] 00:00:00 Test Item Value Reference Range Interpretation Comments GLUCOSE (test code = 2217) 77 MG/DL BUN (test code = 2208) 14 MG/DL CREATININE (test code = 2214) 0.96 MG/DL eGFR AMER. (test code 71 ML/MIN/1.73 = 85994) eGFR NON- AMER. (test 62 ML/MIN/1.73 code = 87038) CALC BUN/CREAT (test code = 15 RATIO 2235) SODIUM (test code = 2231) 145 MEQ/L POTASSIUM (test code = 2228) 3.8 MEQ/L CHLORIDE (test code = 2215) 103 MEQ/L CARBON DIOXIDE (test code = 29 MEQ/L 2205) CALCIUM (test code = 2209) 9.4 MG/DL PROTEIN, TOTAL (test code = 7.1 G/DL 2228) ALBUMIN (test code = 2201) 3.8 G/DL CALC GLOBULIN (test code = 3.3 G/DL 2240) CALC A/G RATIO (test code = 1.2 RATIO 2234) BILIRUBIN, TOTAL (test code = <0.2 MG/DL 2206) ALKALINE PHOSPHATASE (test 75 U/L code = 2204) AST (test code = 2218) 13 U/L ALT (test code = 2219) 10 U/L CBC W/AUTO [id number] 00:00:00 Test Item Value Reference Range Interpretation Comments WBC (test code = 1001) 11.7 K/UL RBC (test code = 1002) 4.69 M/UL HEMOGLOBIN (test code = 1003) 12.3 G/DL HEMATOCRIT (test code = 1004) 38.2 % MCV (test code = 1005) 81.4 fL MCH (test code = 1006) 26.2 PG MCHC (test code = 1007) 32.2 G/DL RDW (test code = 1038) 15.7 % NEUTROPHILS (test code = 1008) 59.2 % LYMPHOCYTES (test code = 1010) 29.1 % MONOCYTES (test code = 1011) 7.5 % EOSINOPHILS (test code = 1012) 3.3 % BASOPHILS (test code = 1013) 0.3 % IMMATURE GRANULOCYTES (test 0.6 % code = 1036) NUCLEATED RBCS (test code = 0.0 /100WBC'S 1065) PLATELET COUNT (test code = 356 K/UL 1015) ABSOLUTE NEUTROPHILS (test code 6.93 K/UL = 1066) ABSOLUTE LYMPHOCYTES (test code 3.41 K/UL = 1067) ABSOLUTE MONOCYTES (test code = 0.88 K/UL 1068) ABSOLUTE EOSINOPHILS (test code 0.39 K/UL = 1040) ABSOLUTE BASOPHILS (test code = 0.04 K/UL 1069) ABS IMMATURE GRANULOCYTES (test 0.07 K/UL code = 1020) ABS NUCLEATED RBCS (test code = 0.00 K/UL 70606) CBC W/AUTO [id number] 00:00:00 Test Item Value Reference Range Interpretation Comments WBC (test code = 1001) 11.7 K/UL RBC (test code = 1002) 4.69 M/UL HEMOGLOBIN (test code = 1003) 12.3 G/DL HEMATOCRIT (test code = 1004) 38.2 % MCV (test code = 1005) 81.4 fL MCH (test code = 1006) 26.2 PG MCHC (test code = 1007) 32.2 G/DL RDW (test code = 1038) 15.7 % NEUTROPHILS (test code = 1008) 59.2 % LYMPHOCYTES (test code = 1010) 29.1 % MONOCYTES (test code = 1011) 7.5 % EOSINOPHILS (test code = 1012) 3.3 % BASOPHILS (test code = 1013) 0.3 % IMMATURE GRANULOCYTES (test 0.6 % code = 1036) NUCLEATED RBCS (test code = 0.0 /100WBC'S 1065) PLATELET COUNT (test code = 356 K/UL 1015) ABSOLUTE NEUTROPHILS (test code 6.93 K/UL = 1066) ABSOLUTE LYMPHOCYTES (test code 3.41 K/UL = 1067) ABSOLUTE MONOCYTES (test code = 0.88 K/UL 1068) ABSOLUTE EOSINOPHILS (test code 0.39 K/UL = 1040) ABSOLUTE BASOPHILS (test code = 0.04 K/UL 1069) ABS IMMATURE GRANULOCYTES (test 0.07 K/UL code = 1020) ABS NUCLEATED RBCS (test code = 0.00 K/UL 06678) CBC W/AUTO [id number] 00:00:00 Test Item Value Reference Range Interpretation Comments WBC (test code = 1001) 11.7 K/UL RBC (test code = 1002) 4.69 M/UL HEMOGLOBIN (test code = 1003) 12.3 G/DL HEMATOCRIT (test code = 1004) 38.2 % MCV (test code = 1005) 81.4 fL MCH (test code = 1006) 26.2 PG MCHC (test code = 1007) 32.2 G/DL RDW (test code = 1038) 15.7 % NEUTROPHILS (test code = 1008) 59.2 % LYMPHOCYTES (test code = 1010) 29.1 % MONOCYTES (test code = 1011) 7.5 % EOSINOPHILS (test code = 1012) 3.3 % BASOPHILS (test code = 1013) 0.3 % IMMATURE GRANULOCYTES (test 0.6 % code = 1036) NUCLEATED RBCS (test code = 0.0 /100WBC'S 1065) PLATELET COUNT (test code = 356 K/UL 1015) ABSOLUTE NEUTROPHILS (test code 6.93 K/UL = 1066) ABSOLUTE LYMPHOCYTES (test code 3.41 K/UL = 1067) ABSOLUTE MONOCYTES (test code = 0.88 K/UL 1068) ABSOLUTE EOSINOPHILS (test code 0.39 K/UL = 1040) ABSOLUTE BASOPHILS (test code = 0.04 K/UL 1069) ABS IMMATURE GRANULOCYTES (test 0.07 K/UL code = 1020) ABS NUCLEATED RBCS (test code = 0.00 K/UL 77131) COMPREHENSIVE METABOLIC [id number] 00:00:00 Test Item Value Reference Range Interpretation Comments GLUCOSE (test code = 2217) 77 MG/DL BUN (test code = 2208) 14 MG/DL CREATININE (test code = 2214) 0.96 MG/DL eGFR AMER. (test code 71 ML/MIN/1.73 = 68140) eGFR NON- AMER. (test 62 ML/MIN/1.73 code = 97933) CALC BUN/CREAT (test code = 15 RATIO 2235) SODIUM (test code = 2231) 145 MEQ/L POTASSIUM (test code = 2228) 3.8 MEQ/L CHLORIDE (test code = 2215) 103 MEQ/L CARBON DIOXIDE (test code = 29 MEQ/L 220) CALCIUM (test code = 2209) 9.4 MG/DL PROTEIN, TOTAL (test code = 7.1 G/DL 2228) ALBUMIN (test code = 2201) 3.8 G/DL CALC GLOBULIN (test code = 3.3 G/DL 2240) CALC A/G RATIO (test code = 1.2 RATIO 2234) BILIRUBIN, TOTAL (test code = <0.2 MG/DL 2206) ALKALINE PHOSPHATASE (test 75 U/L code = 2204) AST (test code = 2218) 13 U/L ALT (test code = 2219) 10 U/L COMPREHENSIVE METABOLIC [id number] 00:00:00 Test Item Value Reference Range Interpretation Comments GLUCOSE (test code = 2217) 77 MG/DL BUN (test code = 2208) 14 MG/DL CREATININE (test code = 2214) 0.96 MG/DL eGFR AMER. (test code 71 ML/MIN/1.73 = 88848) eGFR NON- AMER. (test 62 ML/MIN/1.73 code = 33839) CALC BUN/CREAT (test code = 15 RATIO 2235) SODIUM (test code = 2231) 145 MEQ/L POTASSIUM (test code = 2228) 3.8 MEQ/L CHLORIDE (test code = 2215) 103 MEQ/L CARBON DIOXIDE (test code = 29 MEQ/L 220) CALCIUM (test code = 2209) 9.4 MG/DL PROTEIN, TOTAL (test code = 7.1 G/DL 2228) ALBUMIN (test code = 2201) 3.8 G/DL CALC GLOBULIN (test code = 3.3 G/DL 2240) CALC A/G RATIO (test code = 1.2 RATIO 2234) BILIRUBIN, TOTAL (test code = <0.2 MG/DL 2207) ALKALINE PHOSPHATASE (test 75 U/L code = 2204) AST (test code = 2218) 13 U/L ALT (test code = 2219) 10 U/L CBC W/AUTO [id number] 00:00:00 Test Item Value Reference Range Interpretation Comments WBC (test code = 1001) 11.7 K/UL RBC (test code = 1002) 4.69 M/UL HEMOGLOBIN (test code = 1003) 12.3 G/DL HEMATOCRIT (test code = 1004) 38.2 % MCV (test code = 1005) 81.4 fL MCH (test code = 1006) 26.2 PG MCHC (test code = 1007) 32.2 G/DL RDW (test code = 1038) 15.7 % NEUTROPHILS (test code = 1008) 59.2 % LYMPHOCYTES (test code = 1010) 29.1 % MONOCYTES (test code = 1011) 7.5 % EOSINOPHILS (test code = 1012) 3.3 % BASOPHILS (test code = 1013) 0.3 % IMMATURE GRANULOCYTES (test 0.6 % code = 1036) NUCLEATED RBCS (test code = 0.0 /100WBC'S 1065) PLATELET COUNT (test code = 356 K/UL 1015) ABSOLUTE NEUTROPHILS (test code 6.93 K/UL = 1066) ABSOLUTE LYMPHOCYTES (test code 3.41 K/UL = 1067) ABSOLUTE MONOCYTES (test code = 0.88 K/UL 1068) ABSOLUTE EOSINOPHILS (test code 0.39 K/UL = 1040) ABSOLUTE BASOPHILS (test code = 0.04 K/UL 1069) ABS IMMATURE GRANULOCYTES (test 0.07 K/UL code = 1020) ABS NUCLEATED RBCS (test code = 0.00 K/UL 59807) CBC W/AUTO [id number] 00:00:00 Test Item Value Reference Range Interpretation Comments WBC (test code = 1001) 11.7 K/UL RBC (test code = 1002) 4.69 M/UL HEMOGLOBIN (test code = 1003) 12.3 G/DL HEMATOCRIT (test code = 1004) 38.2 % MCV (test code = 1005) 81.4 fL MCH (test code = 1006) 26.2 PG MCHC (test code = 1007) 32.2 G/DL RDW (test code = 1038) 15.7 % NEUTROPHILS (test code = 1008) 59.2 % LYMPHOCYTES (test code = 1010) 29.1 % MONOCYTES (test code = 1011) 7.5 % EOSINOPHILS (test code = 1012) 3.3 % BASOPHILS (test code = 1013) 0.3 % IMMATURE GRANULOCYTES (test 0.6 % code = 1036) NUCLEATED RBCS (test code = 0.0 /100WBC'S 1065) PLATELET COUNT (test code = 356 K/UL 1015) ABSOLUTE NEUTROPHILS (test code 6.93 K/UL = 1066) ABSOLUTE LYMPHOCYTES (test code 3.41 K/UL = 1067) ABSOLUTE MONOCYTES (test code = 0.88 K/UL 1068) ABSOLUTE EOSINOPHILS (test code 0.39 K/UL = 1040) ABSOLUTE BASOPHILS (test code = 0.04 K/UL 1069) ABS IMMATURE GRANULOCYTES (test 0.07 K/UL code = 1020) ABS NUCLEATED RBCS (test code = 0.00 K/UL 45298) COMPREHENSIVE METABOLIC [id number] 00:00:00 Test Item Value Reference Range Interpretation Comments GLUCOSE (test code = 2217) 77 MG/DL BUN (test code = 2208) 14 MG/DL CREATININE (test code = 2214) 0.96 MG/DL eGFR AMER. (test code 71 ML/MIN/1.73 = 23112) eGFR NON- AMER. (test 62 ML/MIN/1.73 code = 98494) CALC BUN/CREAT (test code = 15 RATIO 2235) SODIUM (test code = 2231) 145 MEQ/L POTASSIUM (test code = 2228) 3.8 MEQ/L CHLORIDE (test code = 2215) 103 MEQ/L CARBON DIOXIDE (test code = 29 MEQ/L 220) CALCIUM (test code = 2209) 9.4 MG/DL PROTEIN, TOTAL (test code = 7.1 G/DL 2228) ALBUMIN (test code = 2201) 3.8 G/DL CALC GLOBULIN (test code = 3.3 G/DL 2240) CALC A/G RATIO (test code = 1.2 RATIO 2234) BILIRUBIN, TOTAL (test code = <0.2 MG/DL 2207) ALKALINE PHOSPHATASE (test 75 U/L code = 2204) AST (test code = 2218) 13 U/L ALT (test code = 2219) 10 U/L CBC W/AUTO [id number] 00:00:00 Test Item Value Reference Range Interpretation Comments WBC (test code = 1001) 11.7 K/UL RBC (test code = 1002) 4.69 M/UL HEMOGLOBIN (test code = 1003) 12.3 G/DL HEMATOCRIT (test code = 1004) 38.2 % MCV (test code = 1005) 81.4 fL MCH (test code = 1006) 26.2 PG MCHC (test code = 1007) 32.2 G/DL RDW (test code = 1038) 15.7 % NEUTROPHILS (test code = 1008) 59.2 % LYMPHOCYTES (test code = 1010) 29.1 % MONOCYTES (test code = 1011) 7.5 % EOSINOPHILS (test code = 1012) 3.3 % BASOPHILS (test code = 1013) 0.3 % IMMATURE GRANULOCYTES (test 0.6 % code = 1036) NUCLEATED RBCS (test code = 0.0 /100WBC'S 1065) PLATELET COUNT (test code = 356 K/UL 1015) ABSOLUTE NEUTROPHILS (test code 6.93 K/UL = 1066) ABSOLUTE LYMPHOCYTES (test code 3.41 K/UL = 1067) ABSOLUTE MONOCYTES (test code = 0.88 K/UL 1068) ABSOLUTE EOSINOPHILS (test code 0.39 K/UL = 1040) ABSOLUTE BASOPHILS (test code = 0.04 K/UL 1069) ABS IMMATURE GRANULOCYTES (test 0.07 K/UL code = 1020) ABS NUCLEATED RBCS (test code = 0.00 K/UL 74357) CBC W/AUTO [id number] 00:00:00 Test Item Value Reference Range Interpretation Comments WBC (test code = 1001) 11.7 K/UL RBC (test code = 1002) 4.69 M/UL HEMOGLOBIN (test code = 1003) 12.3 G/DL HEMATOCRIT (test code = 1004) 38.2 % MCV (test code = 1005) 81.4 fL MCH (test code = 1006) 26.2 PG MCHC (test code = 1007) 32.2 G/DL RDW (test code = 1038) 15.7 % NEUTROPHILS (test code = 1008) 59.2 % LYMPHOCYTES (test code = 1010) 29.1 % MONOCYTES (test code = 1011) 7.5 % EOSINOPHILS (test code = 1012) 3.3 % BASOPHILS (test code = 1013) 0.3 % IMMATURE GRANULOCYTES (test 0.6 % code = 1036) NUCLEATED RBCS (test code = 0.0 /100WBC'S 1065) PLATELET COUNT (test code = 356 K/UL 1015) ABSOLUTE NEUTROPHILS (test code 6.93 K/UL = 1066) ABSOLUTE LYMPHOCYTES (test code 3.41 K/UL = 1067) ABSOLUTE MONOCYTES (test code = 0.88 K/UL 1068) ABSOLUTE EOSINOPHILS (test code 0.39 K/UL = 1040) ABSOLUTE BASOPHILS (test code = 0.04 K/UL 1069) ABS IMMATURE GRANULOCYTES (test 0.07 K/UL code = 1020) ABS NUCLEATED RBCS (test code = 0.00 K/UL 05522) CBC W/AUTO [id number] 00:00:00 Test Item Value Reference Range Interpretation Comments WBC (test code = 1001) 11.7 K/UL RBC (test code = 1002) 4.69 M/UL HEMOGLOBIN (test code = 1003) 12.3 G/DL HEMATOCRIT (test code = 1004) 38.2 % MCV (test code = 1005) 81.4 fL MCH (test code = 1006) 26.2 PG MCHC (test code = 1007) 32.2 G/DL RDW (test code = 1038) 15.7 % NEUTROPHILS (test code = 1008) 59.2 % LYMPHOCYTES (test code = 1010) 29.1 % MONOCYTES (test code = 1011) 7.5 % EOSINOPHILS (test code = 1012) 3.3 % BASOPHILS (test code = 1013) 0.3 % IMMATURE GRANULOCYTES (test 0.6 % code = 1036) NUCLEATED RBCS (test code = 0.0 /100WBC'S 1065) PLATELET COUNT (test code = 356 K/UL 1015) ABSOLUTE NEUTROPHILS (test code 6.93 K/UL = 1066) ABSOLUTE LYMPHOCYTES (test code 3.41 K/UL = 1067) ABSOLUTE MONOCYTES (test code = 0.88 K/UL 1068) ABSOLUTE EOSINOPHILS (test code 0.39 K/UL = 1040) ABSOLUTE BASOPHILS (test code = 0.04 K/UL 1069) ABS IMMATURE GRANULOCYTES (test 0.07 K/UL code = 1020) ABS NUCLEATED RBCS (test code = 0.00 K/UL 93063) COMPREHENSIVE METABOLIC [id number] 00:00:00 Test Item Value Reference Range Interpretation Comments GLUCOSE (test code = 2217) 77 MG/DL BUN (test code = 2208) 14 MG/DL CREATININE (test code = 2214) 0.96 MG/DL eGFR AMER. (test code 71 ML/MIN/1.73 = 71206) eGFR NON- AMER. (test 62 ML/MIN/1.73 code = 82436) CALC BUN/CREAT (test code = 15 RATIO 2235) SODIUM (test code = 2231) 145 MEQ/L POTASSIUM (test code = 2228) 3.8 MEQ/L CHLORIDE (test code = 2215) 103 MEQ/L CARBON DIOXIDE (test code = 29 MEQ/L 2205) CALCIUM (test code = 2209) 9.4 MG/DL PROTEIN, TOTAL (test code = 7.1 G/DL 2228) ALBUMIN (test code = 2201) 3.8 G/DL CALC GLOBULIN (test code = 3.3 G/DL 2240) CALC A/G RATIO (test code = 1.2 RATIO 2234) BILIRUBIN, TOTAL (test code = <0.2 MG/DL 220) ALKALINE PHOSPHATASE (test 75 U/L code = 2204) AST (test code = 2218) 13 U/L ALT (test code = 2219) 10 U/L COMPREHENSIVE METABOLIC [id number] 00:00:00 Test Item Value Reference Range Interpretation Comments GLUCOSE (test code = 2217) 77 MG/DL BUN (test code = 2208) 14 MG/DL CREATININE (test code = 2214) 0.96 MG/DL eGFR AMER. (test code 71 ML/MIN/1.73 = 88761) eGFR NON- AMER. (test 62 ML/MIN/1.73 code = 48535) CALC BUN/CREAT (test code = 15 RATIO 2235) SODIUM (test code = 2231) 145 MEQ/L POTASSIUM (test code = 2228) 3.8 MEQ/L CHLORIDE (test code = 2215) 103 MEQ/L CARBON DIOXIDE (test code = 29 MEQ/L 2205) CALCIUM (test code = 2209) 9.4 MG/DL PROTEIN, TOTAL (test code = 7.1 G/DL 2228) ALBUMIN (test code = 2201) 3.8 G/DL CALC GLOBULIN (test code = 3.3 G/DL 2239) CALC A/G RATIO (test code = 1.2 RATIO 2234) BILIRUBIN, TOTAL (test code = <0.2 MG/DL 2206) ALKALINE PHOSPHATASE (test 75 U/L code = 2204) AST (test code = 2218) 13 U/L ALT (test code = 2219) 10 U/L LIPID [id number] 00:00:00 Test Item Value Reference Range Interpretation Comments CHOLESTEROL (test code = 2210) 205 MG/DL TRIGLYCERIDES (test code = 2232) 92 MG/DL HDL CHOLESTEROL (test code = 2220) 61 MG/DL CALC LDL CHOL (test code = 2237) 126 MG/DL RISK RATIO LDL/HDL (test code = 2.06 RATIO 2238) LIPID [id number] 00:00:00 Test Item Value Reference Range Interpretation Comments CHOLESTEROL (test code = 2210) 205 MG/DL TRIGLYCERIDES (test code = 2232) 92 MG/DL HDL CHOLESTEROL (test code = 2220) 61 MG/DL CALC LDL CHOL (test code = 2237) 126 MG/DL RISK RATIO LDL/HDL (test code = 2.06 RATIO 2238) HEMOGLOBIN [id number] 00:00:00 Test Item Value Reference Range Interpretation Comments HEMOGLOBIN A1c (test code = 68534) 6.2 % HEMOGLOBIN [id number] 00:00:00 Test Item Value Reference Range Interpretation Comments HEMOGLOBIN A1c (test code = 26707) 6.2 % HEMOGLOBIN [id number] 00:00:00 Test Item Value Reference Range Interpretation Comments HEMOGLOBIN A1c (test code = 43672) 6.2 % CBC W/AUTO [id number] 00:00:00 Test Item Value Reference Range Interpretation Comments WBC (test code = 1001) 8.5 K/UL RBC (test code = 1002) 5.50 M/UL HEMOGLOBIN (test code = 1003) 14.4 G/DL HEMATOCRIT (test code = 1004) 43.6 % MCV (test code = 1005) 79.3 fL MCH (test code = 1006) 26.2 PG MCHC (test code = 1007) 33.0 G/DL RDW (test code = 1038) 15.2 % NEUTROPHILS (test code = 1008) 66.6 % LYMPHOCYTES (test code = 1010) 21.4 % MONOCYTES (test code = 1011) 8.0 % EOSINOPHILS (test code = 1012) 3.5 % BASOPHILS (test code = 1013) 0.5 % PLATELET COUNT (test code = 1015) 362 K/UL CBC W/AUTO [id number] 00:00:00 Test Item Value Reference Range Interpretation Comments WBC (test code = 1001) 8.5 K/UL RBC (test code = 1002) 5.50 M/UL HEMOGLOBIN (test code = 1003) 14.4 G/DL HEMATOCRIT (test code = 1004) 43.6 % MCV (test code = 1005) 79.3 fL MCH (test code = 1006) 26.2 PG MCHC (test code = 1007) 33.0 G/DL RDW (test code = 1038) 15.2 % NEUTROPHILS (test code = 1008) 66.6 % LYMPHOCYTES (test code = 1010) 21.4 % MONOCYTES (test code = 1011) 8.0 % EOSINOPHILS (test code = 1012) 3.5 % BASOPHILS (test code = 1013) 0.5 % PLATELET COUNT (test code = 1015) 362 K/UL CBC W/AUTO [id number] 00:00:00 Test Item Value Reference Range Interpretation Comments WBC (test code = 1001) 8.5 K/UL RBC (test code = 1002) 5.50 M/UL HEMOGLOBIN (test code = 1003) 14.4 G/DL HEMATOCRIT (test code = 1004) 43.6 % MCV (test code = 1005) 79.3 fL MCH (test code = 1006) 26.2 PG MCHC (test code = 1007) 33.0 G/DL RDW (test code = 1038) 15.2 % NEUTROPHILS (test code = 1008) 66.6 % LYMPHOCYTES (test code = 1010) 21.4 % MONOCYTES (test code = 1011) 8.0 % EOSINOPHILS (test code = 1012) 3.5 % BASOPHILS (test code = 1013) 0.5 % PLATELET COUNT (test code = 1015) 362 K/UL COMPREHENSIVE METABOLIC [id number] 00:00:00 Test Item Value Reference Range Interpretation Comments GLUCOSE (test code = 2217) 111 MG/DL BUN (test code = 2208) 16 MG/DL CREATININE (test code = 2214) 0.96 MG/DL eGFR AMER. (test code 72 ML/MIN/1.73 = 65913) eGFR NON- AMER. (test 62 ML/MIN/1.73 code = 47921) CALC BUN/CREAT (test code = 17 RATIO 2235) SODIUM (test code = 2231) 142 MEQ/L POTASSIUM (test code = 2228) 4.4 MEQ/L CHLORIDE (test code = 2215) 100 MEQ/L CARBON DIOXIDE (test code = 27 MEQ/L 220) CALCIUM (test code = 2209) 10.3 MG/DL PROTEIN, TOTAL (test code = 7.8 G/DL 2228) ALBUMIN (test code = 2201) 4.4 G/DL CALC GLOBULIN (test code = 3.4 G/DL 2240) CALC A/G RATIO (test code = 1.3 RATIO 2234) BILIRUBIN, TOTAL (test code = 0.4 MG/DL 2206) ALKALINE PHOSPHATASE (test 83 U/L code = 2204) AST (test code = 2218) 12 U/L ALT (test code = 2219) 6 U/L COMPREHENSIVE METABOLIC [id number] 00:00:00 Test Item Value Reference Range Interpretation Comments GLUCOSE (test code = 2217) 111 MG/DL BUN (test code = 2208) 16 MG/DL CREATININE (test code = 2214) 0.96 MG/DL eGFR AMER. (test code 72 ML/MIN/1.73 = 97330) eGFR NON- AMER. (test 62 ML/MIN/1.73 code = 52606) CALC BUN/CREAT (test code = 17 RATIO 2235) SODIUM (test code = 2231) 142 MEQ/L POTASSIUM (test code = 2228) 4.4 MEQ/L CHLORIDE (test code = 2215) 100 MEQ/L CARBON DIOXIDE (test code = 27 MEQ/L 2206) CALCIUM (test code = 2209) 10.3 MG/DL PROTEIN, TOTAL (test code = 7.8 G/DL 2228) ALBUMIN (test code = 2201) 4.4 G/DL CALC GLOBULIN (test code = 3.4 G/DL 2239) CALC A/G RATIO (test code = 1.3 RATIO 2234) BILIRUBIN, TOTAL (test code = 0.4 MG/DL 2206) ALKALINE PHOSPHATASE (test 83 U/L code = 2204) AST (test code = 2218) 12 U/L ALT (test code = 2219) 6 U/L [id number] 00:00:00 Test Item Value Reference Range Interpretation Comments TSH, THIRD GENERATION (test code 1.430 UIU/ML = 2821) [id number] 00:00:00 Test Item Value Reference Range Interpretation Comments TSH, THIRD GENERATION (test code 1.430 UIU/ML = 2821) [id number] 00:00:00 Test Item Value Reference Range Interpretation Comments TSH, THIRD GENERATION (test code 1.430 UIU/ML = 2821) VITAMIN D, 25 [id number] 00:00:00 Test Item Value Reference Range Interpretation Comments VITAMIN D, 25 OH (test code = 4958) 31 NG/ML VITAMIN D, 25 [id number] 00:00:00 Test Item Value Reference Range Interpretation Comments VITAMIN D, 25 OH (test code = 4958) 31 NG/ML VITAMIN B 12 AND FOLIC [id number] 00:00:00 Test Item Value Reference Range Interpretation Comments VITAMIN B-12 (test code = 2840) 590 PG/ML FOLIC ACID (test code = 2695) 15.3 UG/L VITAMIN B 12 AND FOLIC [id number] 00:00:00 Test Item Value Reference Range Interpretation Comments VITAMIN B-12 (test code = 2840) 590 PG/ML FOLIC ACID (test code = 2695) 15.3 UG/L LIPID [id number] 00:00:00 Test Item Value Reference Range Interpretation Comments CHOLESTEROL (test code = 2210) 205 MG/DL TRIGLYCERIDES (test code = 2232) 92 MG/DL HDL CHOLESTEROL (test code = 2220) 61 MG/DL CALC LDL CHOL (test code = 2237) 126 MG/DL RISK RATIO LDL/HDL (test code = 2.06 RATIO 8) LIPID [id number] 00:00:00 Test Item Value Reference Range Interpretation Comments CHOLESTEROL (test code = 2210) 205 MG/DL TRIGLYCERIDES (test code = 2232) 92 MG/DL HDL CHOLESTEROL (test code = 2220) 61 MG/DL CALC LDL CHOL (test code = 2237) 126 MG/DL RISK RATIO LDL/HDL (test code = 2.06 RATIO 2238) HEMOGLOBIN [id number] 00:00:00 Test Item Value Reference Range Interpretation Comments HEMOGLOBIN A1c (test code = 64759) 6.2 % HEMOGLOBIN [id number] 00:00:00 Test Item Value Reference Range Interpretation Comments HEMOGLOBIN A1c (test code = 89003) 6.2 % HEMOGLOBIN [id number] 00:00:00 Test Item Value Reference Range Interpretation Comments HEMOGLOBIN A1c (test code = 08714) 6.2 % CBC W/AUTO [id number] 00:00:00 Test Item Value Reference Range Interpretation Comments WBC (test code = 1001) 8.5 K/UL RBC (test code = 1002) 5.50 M/UL HEMOGLOBIN (test code = 1003) 14.4 G/DL HEMATOCRIT (test code = 1004) 43.6 % MCV (test code = 1005) 79.3 fL MCH (test code = 1006) 26.2 PG MCHC (test code = 1007) 33.0 G/DL RDW (test code = 1038) 15.2 % NEUTROPHILS (test code = 1008) 66.6 % LYMPHOCYTES (test code = 1010) 21.4 % MONOCYTES (test code = 1011) 8.0 % EOSINOPHILS (test code = 1012) 3.5 % BASOPHILS (test code = 1013) 0.5 % PLATELET COUNT (test code = 1015) 362 K/UL CBC W/AUTO [id number] 00:00:00 Test Item Value Reference Range Interpretation Comments WBC (test code = 1001) 8.5 K/UL RBC (test code = 1002) 5.50 M/UL HEMOGLOBIN (test code = 1003) 14.4 G/DL HEMATOCRIT (test code = 1004) 43.6 % MCV (test code = 1005) 79.3 fL MCH (test code = 1006) 26.2 PG MCHC (test code = 1007) 33.0 G/DL RDW (test code = 1038) 15.2 % NEUTROPHILS (test code = 1008) 66.6 % LYMPHOCYTES (test code = 1010) 21.4 % MONOCYTES (test code = 1011) 8.0 % EOSINOPHILS (test code = 1012) 3.5 % BASOPHILS (test code = 1013) 0.5 % PLATELET COUNT (test code = 1015) 362 K/UL CBC W/AUTO [id number] 00:00:00 Test Item Value Reference Range Interpretation Comments WBC (test code = 1001) 8.5 K/UL RBC (test code = 1002) 5.50 M/UL HEMOGLOBIN (test code = 1003) 14.4 G/DL HEMATOCRIT (test code = 1004) 43.6 % MCV (test code = 1005) 79.3 fL MCH (test code = 1006) 26.2 PG MCHC (test code = 1007) 33.0 G/DL RDW (test code = 1038) 15.2 % NEUTROPHILS (test code = 1008) 66.6 % LYMPHOCYTES (test code = 1010) 21.4 % MONOCYTES (test code = 1011) 8.0 % EOSINOPHILS (test code = 1012) 3.5 % BASOPHILS (test code = 1013) 0.5 % PLATELET COUNT (test code = 1015) 362 K/UL COMPREHENSIVE METABOLIC [id number] 00:00:00 Test Item Value Reference Range Interpretation Comments GLUCOSE (test code = 2217) 111 MG/DL BUN (test code = 2208) 16 MG/DL CREATININE (test code = 2214) 0.96 MG/DL eGFR AMER. (test code 72 ML/MIN/1.73 = 89320) eGFR NON- AMER. (test 62 ML/MIN/1.73 code = 59939) CALC BUN/CREAT (test code = 17 RATIO 2235) SODIUM (test code = 2231) 142 MEQ/L POTASSIUM (test code = 2228) 4.4 MEQ/L CHLORIDE (test code = 2215) 100 MEQ/L CARBON DIOXIDE (test code = 27 MEQ/L 220) CALCIUM (test code = 2209) 10.3 MG/DL PROTEIN, TOTAL (test code = 7.8 G/DL 2228) ALBUMIN (test code = 2201) 4.4 G/DL CALC GLOBULIN (test code = 3.4 G/DL 2240) CALC A/G RATIO (test code = 1.3 RATIO 2234) BILIRUBIN, TOTAL (test code = 0.4 MG/DL 2207) ALKALINE PHOSPHATASE (test 83 U/L code = 2204) AST (test code = 2218) 12 U/L ALT (test code = 2219) 6 U/L COMPREHENSIVE METABOLIC [id number] 00:00:00 Test Item Value Reference Range Interpretation Comments GLUCOSE (test code = 2217) 111 MG/DL BUN (test code = 2208) 16 MG/DL CREATININE (test code = 2214) 0.96 MG/DL eGFR AMER. (test code 72 ML/MIN/1.73 = 49043) eGFR NON- AMER. (test 62 ML/MIN/1.73 code = 50242) CALC BUN/CREAT (test code = 17 RATIO 2235) SODIUM (test code = 2231) 142 MEQ/L POTASSIUM (test code = 2228) 4.4 MEQ/L CHLORIDE (test code = 2215) 100 MEQ/L CARBON DIOXIDE (test code = 27 MEQ/L 6) CALCIUM (test code = 2209) 10.3 MG/DL PROTEIN, TOTAL (test code = 7.8 G/DL 2228) ALBUMIN (test code = 2201) 4.4 G/DL CALC GLOBULIN (test code = 3.4 G/DL 2240) CALC A/G RATIO (test code = 1.3 RATIO 2234) BILIRUBIN, TOTAL (test code = 0.4 MG/DL 2206) ALKALINE PHOSPHATASE (test 83 U/L code = 2204) AST (test code = 2218) 12 U/L ALT (test code = 2219) 6 U/L [id number] 00:00:00 Test Item Value Reference Range Interpretation Comments TSH, THIRD GENERATION (test code 1.430 UIU/ML = 2821) [id number] 00:00:00 Test Item Value Reference Range Interpretation Comments TSH, THIRD GENERATION (test code 1.430 UIU/ML = 2821) [id number] 00:00:00 Test Item Value Reference Range Interpretation Comments TSH, THIRD GENERATION (test code 1.430 UIU/ML = 2821) VITAMIN D, 25 [id number] 00:00:00 Test Item Value Reference Range Interpretation Comments VITAMIN D, 25 OH (test code = 4958) 31 NG/ML VITAMIN D, 25 [id number] 00:00:00 Test Item Value Reference Range Interpretation Comments VITAMIN D, 25 OH (test code = 4958) 31 NG/ML VITAMIN B 12 AND FOLIC [id number] 00:00:00 Test Item Value Reference Range Interpretation Comments VITAMIN B-12 (test code = 2840) 590 PG/ML FOLIC ACID (test code = 2695) 15.3 UG/L VITAMIN B 12 AND FOLIC [id number] 00:00:00 Test Item Value Reference Range Interpretation Comments VITAMIN B-12 (test code = 2840) 590 PG/ML FOLIC ACID (test code = 2695) 15.3 UG/L LIPID [id number] 00:00:00 Test Item Value Reference Range Interpretation Comments CHOLESTEROL (test code = 2210) 205 MG/DL TRIGLYCERIDES (test code = 2232) 92 MG/DL HDL CHOLESTEROL (test code = 2220) 61 MG/DL CALC LDL CHOL (test code = 2237) 126 MG/DL RISK RATIO LDL/HDL (test code = 2.06 RATIO 2238) LIPID [id number] 00:00:00 Test Item Value Reference Range Interpretation Comments CHOLESTEROL (test code = 2210) 205 MG/DL TRIGLYCERIDES (test code = 2232) 92 MG/DL HDL CHOLESTEROL (test code = 2220) 61 MG/DL CALC LDL CHOL (test code = 2237) 126 MG/DL RISK RATIO LDL/HDL (test code = 2.06 RATIO 2238) HEMOGLOBIN [id number] 00:00:00 Test Item Value Reference Range Interpretation Comments HEMOGLOBIN A1c (test code = 90881) 6.2 % HEMOGLOBIN [id number] 00:00:00 Test Item Value Reference Range Interpretation Comments HEMOGLOBIN A1c (test code = 68955) 6.2 % HEMOGLOBIN [id number] 00:00:00 Test Item Value Reference Range Interpretation Comments HEMOGLOBIN A1c (test code = 44603) 6.2 % CBC W/AUTO [id number] 00:00:00 Test Item Value Reference Range Interpretation Comments WBC (test code = 1001) 8.5 K/UL RBC (test code = 1002) 5.50 M/UL HEMOGLOBIN (test code = 1003) 14.4 G/DL HEMATOCRIT (test code = 1004) 43.6 % MCV (test code = 1005) 79.3 fL MCH (test code = 1006) 26.2 PG MCHC (test code = 1007) 33.0 G/DL RDW (test code = 1038) 15.2 % NEUTROPHILS (test code = 1008) 66.6 % LYMPHOCYTES (test code = 1010) 21.4 % MONOCYTES (test code = 1011) 8.0 % EOSINOPHILS (test code = 1012) 3.5 % BASOPHILS (test code = 1013) 0.5 % PLATELET COUNT (test code = 1015) 362 K/UL CBC W/AUTO [id number] 00:00:00 Test Item Value Reference Range Interpretation Comments WBC (test code = 1001) 8.5 K/UL RBC (test code = 1002) 5.50 M/UL HEMOGLOBIN (test code = 1003) 14.4 G/DL HEMATOCRIT (test code = 1004) 43.6 % MCV (test code = 1005) 79.3 fL MCH (test code = 1006) 26.2 PG MCHC (test code = 1007) 33.0 G/DL RDW (test code = 1038) 15.2 % NEUTROPHILS (test code = 1008) 66.6 % LYMPHOCYTES (test code = 1010) 21.4 % MONOCYTES (test code = 1011) 8.0 % EOSINOPHILS (test code = 1012) 3.5 % BASOPHILS (test code = 1013) 0.5 % PLATELET COUNT (test code = 1015) 362 K/UL CBC W/AUTO [id number] 00:00:00 Test Item Value Reference Range Interpretation Comments WBC (test code = 1001) 8.5 K/UL RBC (test code = 1002) 5.50 M/UL HEMOGLOBIN (test code = 1003) 14.4 G/DL HEMATOCRIT (test code = 1004) 43.6 % MCV (test code = 1005) 79.3 fL MCH (test code = 1006) 26.2 PG MCHC (test code = 1007) 33.0 G/DL RDW (test code = 1038) 15.2 % NEUTROPHILS (test code = 1008) 66.6 % LYMPHOCYTES (test code = 1010) 21.4 % MONOCYTES (test code = 1011) 8.0 % EOSINOPHILS (test code = 1012) 3.5 % BASOPHILS (test code = 1013) 0.5 % PLATELET COUNT (test code = 1015) 362 K/UL COMPREHENSIVE METABOLIC [id number] 00:00:00 Test Item Value Reference Range Interpretation Comments GLUCOSE (test code = 2217) 111 MG/DL BUN (test code = 2208) 16 MG/DL CREATININE (test code = 2214) 0.96 MG/DL eGFR AMER. (test code 72 ML/MIN/1.73 = 74458) eGFR NON- AMER. (test 62 ML/MIN/1.73 code = 47493) CALC BUN/CREAT (test code = 17 RATIO 2235) SODIUM (test code = 2231) 142 MEQ/L POTASSIUM (test code = 2228) 4.4 MEQ/L CHLORIDE (test code = 2215) 100 MEQ/L CARBON DIOXIDE (test code = 27 MEQ/L 2206) CALCIUM (test code = 2209) 10.3 MG/DL PROTEIN, TOTAL (test code = 7.8 G/DL 2228) ALBUMIN (test code = 2201) 4.4 G/DL CALC GLOBULIN (test code = 3.4 G/DL 2240) CALC A/G RATIO (test code = 1.3 RATIO 2234) BILIRUBIN, TOTAL (test code = 0.4 MG/DL 2206) ALKALINE PHOSPHATASE (test 83 U/L code = 2204) AST (test code = 2218) 12 U/L ALT (test code = 2219) 6 U/L COMPREHENSIVE METABOLIC [id number] 00:00:00 Test Item Value Reference Range Interpretation Comments GLUCOSE (test code = 2217) 111 MG/DL BUN (test code = 2208) 16 MG/DL CREATININE (test code = 2214) 0.96 MG/DL eGFR AMER. (test code 72 ML/MIN/1.73 = 33003) eGFR NON- AMER. (test 62 ML/MIN/1.73 code = 62825) CALC BUN/CREAT (test code = 17 RATIO 2235) SODIUM (test code = 2231) 142 MEQ/L POTASSIUM (test code = 2228) 4.4 MEQ/L CHLORIDE (test code = 2215) 100 MEQ/L CARBON DIOXIDE (test code = 27 MEQ/L 2206) CALCIUM (test code = 2209) 10.3 MG/DL PROTEIN, TOTAL (test code = 7.8 G/DL 2228) ALBUMIN (test code = 2201) 4.4 G/DL CALC GLOBULIN (test code = 3.4 G/DL 2239) CALC A/G RATIO (test code = 1.3 RATIO 2233) BILIRUBIN, TOTAL (test code = 0.4 MG/DL 2206) ALKALINE PHOSPHATASE (test 83 U/L code = 2204) AST (test code = 2218) 12 U/L ALT (test code = 2219) 6 U/L [id number] 00:00:00 Test Item Value Reference Range Interpretation Comments TSH, THIRD GENERATION (test code 1.430 UIU/ML = 2821) [id number] 00:00:00 Test Item Value Reference Range Interpretation Comments TSH, THIRD GENERATION (test code 1.430 UIU/ML = 2821) [id number] 00:00:00 Test Item Value Reference Range Interpretation Comments TSH, THIRD GENERATION (test code 1.430 UIU/ML = 2821) VITAMIN D, 25 [id number] 00:00:00 Test Item Value Reference Range Interpretation Comments VITAMIN D, 25 OH (test code = 4958) 31 NG/ML VITAMIN D, 25 [id number] 00:00:00 Test Item Value Reference Range Interpretation Comments VITAMIN D, 25 OH (test code = 4958) 31 NG/ML VITAMIN B 12 AND FOLIC [id number] 00:00:00 Test Item Value Reference Range Interpretation Comments VITAMIN B-12 (test code = 2840) 590 PG/ML FOLIC ACID (test code = 2695) 15.3 UG/L VITAMIN B 12 AND FOLIC [id number] 00:00:00 Test Item Value Reference Range Interpretation Comments VITAMIN B-12 (test code = 2840) 590 PG/ML FOLIC ACID (test code = 2695) 15.3 UG/L LIPID [id number] 00:00:00 Test Item Value Reference Range Interpretation Comments CHOLESTEROL (test code = 2210) 205 MG/DL TRIGLYCERIDES (test code = 2232) 92 MG/DL HDL CHOLESTEROL (test code = 2220) 61 MG/DL CALC LDL CHOL (test code = 2237) 126 MG/DL RISK RATIO LDL/HDL (test code = 2.06 RATIO 2238) LIPID [id number] 00:00:00 Test Item Value Reference Range Interpretation Comments CHOLESTEROL (test code = 2210) 205 MG/DL TRIGLYCERIDES (test code = 2232) 92 MG/DL HDL CHOLESTEROL (test code = 2220) 61 MG/DL CALC LDL CHOL (test code = 2237) 126 MG/DL RISK RATIO LDL/HDL (test code = 2.06 RATIO 2238) HEMOGLOBIN [id number] 00:00:00 Test Item Value Reference Range Interpretation Comments HEMOGLOBIN A1c (test code = 31140) 6.2 % HEMOGLOBIN [id number] 00:00:00 Test Item Value Reference Range Interpretation Comments HEMOGLOBIN A1c (test code = 45018) 6.2 % HEMOGLOBIN [id number] 00:00:00 Test Item Value Reference Range Interpretation Comments HEMOGLOBIN A1c (test code = 38094) 6.2 % CBC W/AUTO [id number] 00:00:00 Test Item Value Reference Range Interpretation Comments WBC (test code = 1001) 8.5 K/UL RBC (test code = 1002) 5.50 M/UL HEMOGLOBIN (test code = 1003) 14.4 G/DL HEMATOCRIT (test code = 1004) 43.6 % MCV (test code = 1005) 79.3 fL MCH (test code = 1006) 26.2 PG MCHC (test code = 1007) 33.0 G/DL RDW (test code = 1038) 15.2 % NEUTROPHILS (test code = 1008) 66.6 % LYMPHOCYTES (test code = 1010) 21.4 % MONOCYTES (test code = 1011) 8.0 % EOSINOPHILS (test code = 1012) 3.5 % BASOPHILS (test code = 1013) 0.5 % PLATELET COUNT (test code = 1015) 362 K/UL CBC W/AUTO [id number] 00:00:00 Test Item Value Reference Range Interpretation Comments WBC (test code = 1001) 8.5 K/UL RBC (test code = 1002) 5.50 M/UL HEMOGLOBIN (test code = 1003) 14.4 G/DL HEMATOCRIT (test code = 1004) 43.6 % MCV (test code = 1005) 79.3 fL MCH (test code = 1006) 26.2 PG MCHC (test code = 1007) 33.0 G/DL RDW (test code = 1038) 15.2 % NEUTROPHILS (test code = 1008) 66.6 % LYMPHOCYTES (test code = 1010) 21.4 % MONOCYTES (test code = 1011) 8.0 % EOSINOPHILS (test code = 1012) 3.5 % BASOPHILS (test code = 1013) 0.5 % PLATELET COUNT (test code = 1015) 362 K/UL CBC W/AUTO [id number] 00:00:00 Test Item Value Reference Range Interpretation Comments WBC (test code = 1001) 8.5 K/UL RBC (test code = 1002) 5.50 M/UL HEMOGLOBIN (test code = 1003) 14.4 G/DL HEMATOCRIT (test code = 1004) 43.6 % MCV (test code = 1005) 79.3 fL MCH (test code = 1006) 26.2 PG MCHC (test code = 1007) 33.0 G/DL RDW (test code = 1038) 15.2 % NEUTROPHILS (test code = 1008) 66.6 % LYMPHOCYTES (test code = 1010) 21.4 % MONOCYTES (test code = 1011) 8.0 % EOSINOPHILS (test code = 1012) 3.5 % BASOPHILS (test code = 1013) 0.5 % PLATELET COUNT (test code = 1015) 362 K/UL COMPREHENSIVE METABOLIC [id number] 00:00:00 Test Item Value Reference Range Interpretation Comments GLUCOSE (test code = 2217) 111 MG/DL BUN (test code = 2208) 16 MG/DL CREATININE (test code = 2214) 0.96 MG/DL eGFR AMER. (test code 72 ML/MIN/1.73 = 10267) eGFR NON- AMER. (test 62 ML/MIN/1.73 code = 17247) CALC BUN/CREAT (test code = 17 RATIO 2235) SODIUM (test code = 2231) 142 MEQ/L POTASSIUM (test code = 2228) 4.4 MEQ/L CHLORIDE (test code = 2215) 100 MEQ/L CARBON DIOXIDE (test code = 27 MEQ/L 2206) CALCIUM (test code = 2209) 10.3 MG/DL PROTEIN, TOTAL (test code = 7.8 G/DL 2228) ALBUMIN (test code = 2201) 4.4 G/DL CALC GLOBULIN (test code = 3.4 G/DL 2240) CALC A/G RATIO (test code = 1.3 RATIO 2234) BILIRUBIN, TOTAL (test code = 0.4 MG/DL 220) ALKALINE PHOSPHATASE (test 83 U/L code = 2204) AST (test code = 2218) 12 U/L ALT (test code = 2219) 6 U/L COMPREHENSIVE METABOLIC [id number] 00:00:00 Test Item Value Reference Range Interpretation Comments GLUCOSE (test code = 2217) 111 MG/DL BUN (test code = 2208) 16 MG/DL CREATININE (test code = 2214) 0.96 MG/DL eGFR AMER. (test code 72 ML/MIN/1.73 = 34789) eGFR NON- AMER. (test 62 ML/MIN/1.73 code = 14616) CALC BUN/CREAT (test code = 17 RATIO 2235) SODIUM (test code = 2231) 142 MEQ/L POTASSIUM (test code = 2228) 4.4 MEQ/L CHLORIDE (test code = 2215) 100 MEQ/L CARBON DIOXIDE (test code = 27 MEQ/L 2206) CALCIUM (test code = 2209) 10.3 MG/DL PROTEIN, TOTAL (test code = 7.8 G/DL 222) ALBUMIN (test code = 2201) 4.4 G/DL CALC GLOBULIN (test code = 3.4 G/DL 2240) CALC A/G RATIO (test code = 1.3 RATIO 2234) BILIRUBIN, TOTAL (test code = 0.4 MG/DL 2207) ALKALINE PHOSPHATASE (test 83 U/L code = 2204) AST (test code = 2218) 12 U/L ALT (test code = 2219) 6 U/L [id number] 00:00:00 Test Item Value Reference Range Interpretation Comments TSH, THIRD GENERATION (test code 1.430 UIU/ML = 2821) [id number] 00:00:00 Test Item Value Reference Range Interpretation Comments TSH, THIRD GENERATION (test code 1.430 UIU/ML = 2821) [id number] 00:00:00 Test Item Value Reference Range Interpretation Comments TSH, THIRD GENERATION (test code 1.430 UIU/ML = 2821) VITAMIN D, 25 [id number] 00:00:00 Test Item Value Reference Range Interpretation Comments VITAMIN D, 25 OH (test code = 4958) 31 NG/ML VITAMIN D, 25 [id number] 00:00:00 Test Item Value Reference Range Interpretation Comments VITAMIN D, 25 OH (test code = 4958) 31 NG/ML VITAMIN B 12 AND FOLIC [id number] 00:00:00 Test Item Value Reference Range Interpretation Comments VITAMIN B-12 (test code = 2840) 590 PG/ML FOLIC ACID (test code = 2695) 15.3 UG/L VITAMIN B 12 AND FOLIC [id number] 00:00:00 Test Item Value Reference Range Interpretation Comments VITAMIN B-12 (test code = 2840) 590 PG/ML FOLIC ACID (test code = 2695) 15.3 UG/L LIPID [id number] 00:00:00 Test Item Value Reference Range Interpretation Comments CHOLESTEROL (test code = 2210) 205 MG/DL TRIGLYCERIDES (test code = 2232) 92 MG/DL HDL CHOLESTEROL (test code = 2220) 61 MG/DL CALC LDL CHOL (test code = 2237) 126 MG/DL RISK RATIO LDL/HDL (test code = 2.06 RATIO 2238) HEMOGLOBIN [id number] 00:00:00 Test Item Value Reference Range Interpretation Comments HEMOGLOBIN A1c (test code = 51647) 6.2 % HEMOGLOBIN [id number] 00:00:00 Test Item Value Reference Range Interpretation Comments HEMOGLOBIN A1c (test code = 64215) 6.2 % CBC W/AUTO [id number] 00:00:00 Test Item Value Reference Range Interpretation Comments WBC (test code = 1001) 8.5 K/UL RBC (test code = 1002) 5.50 M/UL HEMOGLOBIN (test code = 1003) 14.4 G/DL HEMATOCRIT (test code = 1004) 43.6 % MCV (test code = 1005) 79.3 fL MCH (test code = 1006) 26.2 PG MCHC (test code = 1007) 33.0 G/DL RDW (test code = 1038) 15.2 % NEUTROPHILS (test code = 1008) 66.6 % LYMPHOCYTES (test code = 1010) 21.4 % MONOCYTES (test code = 1011) 8.0 % EOSINOPHILS (test code = 1012) 3.5 % BASOPHILS (test code = 1013) 0.5 % PLATELET COUNT (test code = 1015) 362 K/UL CBC W/AUTO [id number] 00:00:00 Test Item Value Reference Range Interpretation Comments WBC (test code = 1001) 8.5 K/UL RBC (test code = 1002) 5.50 M/UL HEMOGLOBIN (test code = 1003) 14.4 G/DL HEMATOCRIT (test code = 1004) 43.6 % MCV (test code = 1005) 79.3 fL MCH (test code = 1006) 26.2 PG MCHC (test code = 1007) 33.0 G/DL RDW (test code = 1038) 15.2 % NEUTROPHILS (test code = 1008) 66.6 % LYMPHOCYTES (test code = 1010) 21.4 % MONOCYTES (test code = 1011) 8.0 % EOSINOPHILS (test code = 1012) 3.5 % BASOPHILS (test code = 1013) 0.5 % PLATELET COUNT (test code = 1015) 362 K/UL COMPREHENSIVE METABOLIC [id number] 00:00:00 Test Item Value Reference Range Interpretation Comments GLUCOSE (test code = 2217) 111 MG/DL BUN (test code = 2208) 16 MG/DL CREATININE (test code = 2214) 0.96 MG/DL eGFR AMER. (test code 72 ML/MIN/1.73 = 07483) eGFR NON- AMER. (test 62 ML/MIN/1.73 code = 69051) CALC BUN/CREAT (test code = 17 RATIO 2235) SODIUM (test code = 2231) 142 MEQ/L POTASSIUM (test code = 2228) 4.4 MEQ/L CHLORIDE (test code = 2215) 100 MEQ/L CARBON DIOXIDE (test code = 27 MEQ/L 2206) CALCIUM (test code = 2209) 10.3 MG/DL PROTEIN, TOTAL (test code = 7.8 G/DL 2228) ALBUMIN (test code = 2201) 4.4 G/DL CALC GLOBULIN (test code = 3.4 G/DL 2240) CALC A/G RATIO (test code = 1.3 RATIO 2234) BILIRUBIN, TOTAL (test code = 0.4 MG/DL 2206) ALKALINE PHOSPHATASE (test 83 U/L code = 2204) AST (test code = 2218) 12 U/L ALT (test code = 2219) 6 U/L [id number] 00:00:00 Test Item Value Reference Range Interpretation Comments TSH, THIRD GENERATION (test code 1.430 UIU/ML = 2821) [id number] 00:00:00 Test Item Value Reference Range Interpretation Comments TSH, THIRD GENERATION (test code 1.430 UIU/ML = 2821) VITAMIN D, 25 [id number] 00:00:00 Test Item Value Reference Range Interpretation Comments VITAMIN D, 25 OH (test code = 4958) 31 NG/ML VITAMIN B 12 AND FOLIC [id number] 00:00:00 Test Item Value Reference Range Interpretation Comments VITAMIN B-12 (test code = 2840) 590 PG/ML FOLIC ACID (test code = 2695) 15.3 UG/L LIPID [id number] 00:00:00 Test Item Value Reference Range Interpretation Comments CHOLESTEROL (test code = 2210) 205 MG/DL TRIGLYCERIDES (test code = 2232) 92 MG/DL HDL CHOLESTEROL (test code = 2220) 61 MG/DL CALC LDL CHOL (test code = 2237) 126 MG/DL RISK RATIO LDL/HDL (test code = 2.06 RATIO 2238) LIPID [id number] 00:00:00 Test Item Value Reference Range Interpretation Comments CHOLESTEROL (test code = 2210) 205 MG/DL TRIGLYCERIDES (test code = 2232) 92 MG/DL HDL CHOLESTEROL (test code = 2220) 61 MG/DL CALC LDL CHOL (test code = 2237) 126 MG/DL RISK RATIO LDL/HDL (test code = 2.06 RATIO 2238) HEMOGLOBIN [id number] 00:00:00 Test Item Value Reference Range Interpretation Comments HEMOGLOBIN A1c (test code = 36641) 6.2 % HEMOGLOBIN [id number] 00:00:00 Test Item Value Reference Range Interpretation Comments HEMOGLOBIN A1c (test code = 84378) 6.2 % HEMOGLOBIN [id number] 00:00:00 Test Item Value Reference Range Interpretation Comments HEMOGLOBIN A1c (test code = 11835) 6.2 % CBC W/AUTO [id number] 00:00:00 Test Item Value Reference Range Interpretation Comments WBC (test code = 1001) 8.5 K/UL RBC (test code = 1002) 5.50 M/UL HEMOGLOBIN (test code = 1003) 14.4 G/DL HEMATOCRIT (test code = 1004) 43.6 % MCV (test code = 1005) 79.3 fL MCH (test code = 1006) 26.2 PG MCHC (test code = 1007) 33.0 G/DL RDW (test code = 1038) 15.2 % NEUTROPHILS (test code = 1008) 66.6 % LYMPHOCYTES (test code = 1010) 21.4 % MONOCYTES (test code = 1011) 8.0 % EOSINOPHILS (test code = 1012) 3.5 % BASOPHILS (test code = 1013) 0.5 % PLATELET COUNT (test code = 1015) 362 K/UL CBC W/AUTO [id number] 00:00:00 Test Item Value Reference Range Interpretation Comments WBC (test code = 1001) 8.5 K/UL RBC (test code = 1002) 5.50 M/UL HEMOGLOBIN (test code = 1003) 14.4 G/DL HEMATOCRIT (test code = 1004) 43.6 % MCV (test code = 1005) 79.3 fL MCH (test code = 1006) 26.2 PG MCHC (test code = 1007) 33.0 G/DL RDW (test code = 1038) 15.2 % NEUTROPHILS (test code = 1008) 66.6 % LYMPHOCYTES (test code = 1010) 21.4 % MONOCYTES (test code = 1011) 8.0 % EOSINOPHILS (test code = 1012) 3.5 % BASOPHILS (test code = 1013) 0.5 % PLATELET COUNT (test code = 1015) 362 K/UL CBC W/AUTO [id number] 00:00:00 Test Item Value Reference Range Interpretation Comments WBC (test code = 1001) 8.5 K/UL RBC (test code = 1002) 5.50 M/UL HEMOGLOBIN (test code = 1003) 14.4 G/DL HEMATOCRIT (test code = 1004) 43.6 % MCV (test code = 1005) 79.3 fL MCH (test code = 1006) 26.2 PG MCHC (test code = 1007) 33.0 G/DL RDW (test code = 1038) 15.2 % NEUTROPHILS (test code = 1008) 66.6 % LYMPHOCYTES (test code = 1010) 21.4 % MONOCYTES (test code = 1011) 8.0 % EOSINOPHILS (test code = 1012) 3.5 % BASOPHILS (test code = 1013) 0.5 % PLATELET COUNT (test code = 1015) 362 K/UL COMPREHENSIVE METABOLIC [id number] 00:00:00 Test Item Value Reference Range Interpretation Comments GLUCOSE (test code = 2217) 111 MG/DL BUN (test code = 2208) 16 MG/DL CREATININE (test code = 2214) 0.96 MG/DL eGFR AMER. (test code 72 ML/MIN/1.73 = 53733) eGFR NON- AMER. (test 62 ML/MIN/1.73 code = 34487) CALC BUN/CREAT (test code = 17 RATIO 2235) SODIUM (test code = 2231) 142 MEQ/L POTASSIUM (test code = 2228) 4.4 MEQ/L CHLORIDE (test code = 2215) 100 MEQ/L CARBON DIOXIDE (test code = 27 MEQ/L 2205) CALCIUM (test code = 2209) 10.3 MG/DL PROTEIN, TOTAL (test code = 7.8 G/DL 2228) ALBUMIN (test code = 2201) 4.4 G/DL CALC GLOBULIN (test code = 3.4 G/DL 2240) CALC A/G RATIO (test code = 1.3 RATIO 4) BILIRUBIN, TOTAL (test code = 0.4 MG/DL 2206) ALKALINE PHOSPHATASE (test 83 U/L code = 2204) AST (test code = 2218) 12 U/L ALT (test code = 2219) 6 U/L COMPREHENSIVE METABOLIC [id number] 00:00:00 Test Item Value Reference Range Interpretation Comments GLUCOSE (test code = 2217) 111 MG/DL BUN (test code = 2208) 16 MG/DL CREATININE (test code = 2214) 0.96 MG/DL eGFR AMER. (test code 72 ML/MIN/1.73 = 75616) eGFR NON- AMER. (test 62 ML/MIN/1.73 code = 54132) CALC BUN/CREAT (test code = 17 RATIO 2235) SODIUM (test code = 2231) 142 MEQ/L POTASSIUM (test code = 2228) 4.4 MEQ/L CHLORIDE (test code = 2215) 100 MEQ/L CARBON DIOXIDE (test code = 27 MEQ/L 2205) CALCIUM (test code = 2209) 10.3 MG/DL PROTEIN, TOTAL (test code = 7.8 G/DL 2228) ALBUMIN (test code = 2201) 4.4 G/DL CALC GLOBULIN (test code = 3.4 G/DL 2240) CALC A/G RATIO (test code = 1.3 RATIO 2233) BILIRUBIN, TOTAL (test code = 0.4 MG/DL 2206) ALKALINE PHOSPHATASE (test 83 U/L code = 2204) AST (test code = 2218) 12 U/L ALT (test code = 2219) 6 U/L [id number] 00:00:00 Test Item Value Reference Range Interpretation Comments TSH, THIRD GENERATION (test code 1.430 UIU/ML = 2821) [id number] 00:00:00 Test Item Value Reference Range Interpretation Comments TSH, THIRD GENERATION (test code 1.430 UIU/ML = 2821) [id number] 00:00:00 Test Item Value Reference Range Interpretation Comments TSH, THIRD GENERATION (test code 1.430 UIU/ML = 2821) VITAMIN D, 25 [id number] 00:00:00 Test Item Value Reference Range Interpretation Comments VITAMIN D, 25 OH (test code = 4958) 31 NG/ML VITAMIN D, 25 [id number] 00:00:00 Test Item Value Reference Range Interpretation Comments VITAMIN D, 25 OH (test code = 4958) 31 NG/ML VITAMIN B 12 AND FOLIC [id number] 00:00:00 Test Item Value Reference Range Interpretation Comments VITAMIN B-12 (test code = 2840) 590 PG/ML FOLIC ACID (test code = 2695) 15.3 UG/L VITAMIN B 12 AND FOLIC [id number] 00:00:00 Test Item Value Reference Range Interpretation Comments VITAMIN B-12 (test code = 2840) 590 PG/ML FOLIC ACID (test code = 2695) 15.3 UG/L BLOOD [id number] 08:01:00 Test Item Value Reference Range Interpretation Comments CULTURE (BEAKER) (test No growth in 5 days code = 1095) BLOOD [id number] 08:01:00 Test Item Value Reference Range Interpretation Comments CULTURE (BEAKER) (test No growth in 5 days code = 1095) POCT-GLUCOSE [id number] 08:05:00 Test Item Value Reference Range Interpretation Comments POC-GLUCOSE METER 109 mg/dL 70-110 TESTED AT [facility] [address] (BEAKER) (test code = [place] 1538) [address] COMPREHENSIVE METABOLIC [id number] 05:49:00 Test Item Value Reference Range Interpretation [...] ATED GFR. CBC W/PLT COUNT & AUTO [id number] 05:12:00 Test Item Value Reference Range Interpretation [...] PERCENT (BEAKER) (test code = 2801) POCT-GLUCOSE [id number] 21:39:00 Test Item Value Reference Range Interpretation Comments POC-GLUCOSE METER 171 mg/dL 70-110 H TESTED AT [facility] [address] (BEAKER) (test code = [place] 1538) [address] POCT-GLUCOSE [id number] 20:41:00 Test Item Value Reference Range Interpretation Comments POC-GLUCOSE METER 124 mg/dL 70-110 H TESTED AT [facility] 67[address] (BEAKER) (test code = [place] 1538) [address] COMPREHENSIVE METABOLIC [id number] 13:25:00 Test Item Value Reference Range Interpretation [...] ATED GFR. CBC W/PLT COUNT & AUTO [id number] 13:01:00 Test Item Value Reference Range Interpretation [...] PERCENT (BEAKER) (test code = 2801) POCT-GLUCOSE [id number] 12:43:00 Test Item Value Reference Range Interpretation Comments POC-GLUCOSE METER 180 mg/dL 70-110 H TESTED AT [facility] [address] [facility] (test code = [facility] [place] 1538) [address] POCT-GLUCOSE [id number] 05:58:00 Test Item Value Reference Range Interpretation Comments POC-GLUCOSE METER 146 mg/dL 70-110 H TESTED AT [facility] 67[address] ([facility] (test code = [facility] 1538) [address] [id number] 02:30:00 Test Item Value Reference Range Interpretation Comments LIPASE (BEAKER) (test code = 749) > U/L 8-78 H COMPREHENSIVE METABOLIC [id number] 01:56:00 Test Item Value Reference Range Interpretation [...] DATA T O CALCULATE ESTIM ATED GFR. [id number] 01:54:00 Test Item Value Reference Range Interpretation Comments MAGNESIUM (BEAKER) (test code = 1.7 mg/dL 1.6-2.6 627) CBC W/PLT COUNT & AUTO [id number] 01:46:00 Test Item Value Reference Range Interpretation [...] (BEAKER) (test code = 2801) POCT-LACTIC ACID, [id number] 00:32:00 Test Item Value Reference Range Interpretation Comments POC-LACTIC ACID, 1.2 mmol/L 0.9-1.7 TESTED AT [place] [address] [address] ([facility]) (test [place]IE [place] [facility] code = 2805) [address] POCT-GLUCOSE [id number] 23:15:00 Test Item Value Reference Range Interpretation Comments POC-GLUCOSE METER 122 mg/dL 70-110 H TESTED AT [place] [address] ([facility]) (test code = [facility] [place] [facility] 1538) [address] [place], LANDSCAPING SPECIALIST IN OR/30 MINUTE [id number] 22:34:00Intra-op ImagingReason for exam:->ERCPFINAL REPORT Examination: ERCP 3 fluoroscopic spot views were obtained during the procedure by the ordering service. Images are nondiagnostic as no radiologist was present at the time of imaging. Fluoroscopic time was 70.6 seconds. Please see the procedure report for details. Signed: Zach Torres MDReport Verified Date/Time: 10/24/2018 22:34:56 Reading Location: [address] Reading Room POCT-GLUCOSE [id number] 18:27:00 Test Item Value Reference Range Interpretation Comments POC-GLUCOSE METER 99 mg/dL 70-110 TESTED AT [place] [address] ([facility]) (test code = [place] [facility] [address] 1538) POCT-GLUCOSE [id number] 13:55:00 Test Item Value Reference Range Interpretation Comments POC-GLUCOSE METER 86 mg/dL 70-110 TESTED AT [facility] [address] ([facility] (test code = [place] [facility] [address] 1538) COMPREHENSIVE METABOLIC [id number] 09:57:00 Test Item Value Reference Range Interpretation [...] ATED GFR. CBC W/PLT COUNT & AUTO [id number] 09:36:00 Test Item Value Reference Range Interpretation [...] SEGMENTED WITH DOHLE BODIES AND VACUOLES PRESENTPOCT-GLUCOSE [id number] 09:16:00 Test Item Value Reference Range Interpretation Comments POC-GLUCOSE METER 99 mg/dL 70-110 TESTED AT [facility] 67[address] (BEAKER) (test code = [place] [address] 1538) [id number] 09:12:00 Test Item Value Reference Range Interpretation Comments MAGNESIUM (BEAKER) (test code = 1.7 mg/dL 1.6-2.6 627) PROTHROMBIN [id number] 09:05:00 Test Item Value Reference Range Interpretation Comments PROTIME (BEAKER) (test code = 15.0 seconds 11.7-14.7 H 759) INR (JACOBAKER) (test code = 370) 1.2 <=5.9 RECOMMENDED COUMADIN/WARFARIN INR THERAPY RANGESSTANDARD DOSE: 2.0 - 3.0 Includes: PROPHYLAXIS for [...] mammographic images were evaluated by either a [employer] M-Vu or a [employer] CAD (computer aided detection system). Comparison is made to exam dated 07/29/2016 mammogram - [facility]-Radiology File Room. The tissue of both breasts is predominantly fatty. There is a benign calcification in both breasts. There also are stable masses in the left breast. No suspicious mass, architectural di stortion, malignant type calcification, or lymph node abnormality detected. Breast architecture is stable compared to prior exams.IMPRESSION: INCOMPLETE ASSESSMENT: ADDITIONAL IMAGING EVALUATION RECOMMENDEDThere is no mammographic evidence of malignancy. Resume annual screening mammography in one year. Yakov Belcher M.D. et/:09/19/2018 09:08:55 Entry: cc - 09/20/2018 16:06:25Attending Technologist: Mel Pritchard MM, [facility] MammographyImaging Technologist: Virgie Kuo MM, [facility] [place] [facility] Mammographyletter sent: Additional Imaging Mammogram BI-RADS: 0 IndeterminateLIPID [id number] 00:00:00 Test Item Value Reference Range Interpretation Comments CHOLESTEROL (test code = 2210) 174 MG/DL TRIGLYCERIDES (test code = 2232) 116 MG/DL HDL CHOLESTEROL (test code = 2220) 58 MG/DL CALC LDL CHOL (test code = 2237) 93 MG/DL RISK RATIO LDL/HDL (test code = 1.60 RATIO 2238) LIPID [id number] 00:00:00 Test Item Value Reference Range Interpretation Comments CHOLESTEROL (test code = 2210) 174 MG/DL TRIGLYCERIDES (test code = 2232) 116 MG/DL HDL CHOLESTEROL (test code = 2220) 58 MG/DL CALC LDL CHOL (test code = 2237) 93 MG/DL RISK RATIO LDL/HDL (test code = 1.60 RATIO 2238) COMPREHENSIVE METABOLIC [id number] 00:00:00 Test Item Value Reference Range Interpretation Comments GLUCOSE (test code = 2217) 106 MG/DL BUN (test code = 2208) 12 MG/DL CREATININE (test code = 2214) 0.92 MG/DL eGFR AMER. (test code 76 ML/MIN/1.73 = 33540) eGFR NON- AMER. (test 66 ML/MIN/1.73 code = 17802) CALC BUN/CREAT (test code = 13 RATIO 2235) SODIUM (test code = 2231) 144 MEQ/L POTASSIUM (test code = 2228) 4.4 MEQ/L CHLORIDE (test code = 2215) 100 MEQ/L CARBON DIOXIDE (test code = 32 MEQ/L 2205) CALCIUM (test code = 2209) 10.4 MG/DL PROTEIN, TOTAL (test code = 7.8 G/DL 2228) ALBUMIN (test code = 2201) 4.4 G/DL CALC GLOBULIN (test code = 3.4 G/DL 0) CALC A/G RATIO (test code = 1.3 RATIO 2233) BILIRUBIN, TOTAL (test code = 0.3 MG/DL 2206) ALKALINE PHOSPHATASE (test 65 U/L code = 2204) AST (test code = 2218) 15 U/L ALT (test code = 2219) 14 U/L COMPREHENSIVE METABOLIC [id number] 00:00:00 Test Item Value Reference Range Interpretation Comments GLUCOSE (test code = 2217) 106 MG/DL BUN (test code = 2208) 12 MG/DL CREATININE (test code = 2214) 0.92 MG/DL eGFR AMER. (test code 76 ML/MIN/1.73 = 53646) eGFR NON- AMER. (test 66 ML/MIN/1.73 code = 45420) CALC BUN/CREAT (test code = 13 RATIO 2235) SODIUM (test code = 2231) 144 MEQ/L POTASSIUM (test code = 2228) 4.4 MEQ/L CHLORIDE (test code = 2215) 100 MEQ/L CARBON DIOXIDE (test code = 32 MEQ/L 2205) CALCIUM (test code = 2209) 10.4 MG/DL PROTEIN, TOTAL (test code = 7.8 G/DL 2228) ALBUMIN (test code = 2201) 4.4 G/DL CALC GLOBULIN (test code = 3.4 G/DL 2240) CALC A/G RATIO (test code = 1.3 RATIO 2234) BILIRUBIN, TOTAL (test code = 0.3 MG/DL 2206) ALKALINE PHOSPHATASE (test 65 U/L code = 2204) AST (test code = 2218) 15 U/L ALT (test code = 2219) 14 U/L LIPID [id number] 00:00:00 Test Item Value Reference Range Interpretation Comments CHOLESTEROL (test code = 2210) 174 MG/DL TRIGLYCERIDES (test code = 2232) 116 MG/DL HDL CHOLESTEROL (test code = 2220) 58 MG/DL CALC LDL CHOL (test code = 2237) 93 MG/DL RISK RATIO LDL/HDL (test code = 1.60 RATIO 2238) LIPID [id number] 00:00:00 Test Item Value Reference Range Interpretation Comments CHOLESTEROL (test code = 2210) 174 MG/DL TRIGLYCERIDES (test code = 2232) 116 MG/DL HDL CHOLESTEROL (test code = 2220) 58 MG/DL CALC LDL CHOL (test code = 2237) 93 MG/DL RISK RATIO LDL/HDL (test code = 1.60 RATIO 2238) COMPREHENSIVE METABOLIC [id number] 00:00:00 Test Item Value Reference Range Interpretation Comments GLUCOSE (test code = 2217) 106 MG/DL BUN (test code = 2208) 12 MG/DL CREATININE (test code = 2214) 0.92 MG/DL eGFR AMER. (test code 76 ML/MIN/1.73 = 13700) eGFR NON- AMER. (test 66 ML/MIN/1.73 code = 12365) CALC BUN/CREAT (test code = 13 RATIO 2235) SODIUM (test code = 2231) 144 MEQ/L POTASSIUM (test code = 2228) 4.4 MEQ/L CHLORIDE (test code = 2215) 100 MEQ/L CARBON DIOXIDE (test code = 32 MEQ/L 2205) CALCIUM (test code = 2209) 10.4 MG/DL PROTEIN, TOTAL (test code = 7.8 G/DL 222) ALBUMIN (test code = 2201) 4.4 G/DL CALC GLOBULIN (test code = 3.4 G/DL 2240) CALC A/G RATIO (test code = 1.3 RATIO 2234) BILIRUBIN, TOTAL (test code = 0.3 MG/DL 220) ALKALINE PHOSPHATASE (test 65 U/L code = 2204) AST (test code = 2218) 15 U/L ALT (test code = 2219) 14 U/L COMPREHENSIVE METABOLIC [id number] 00:00:00 Test Item Value Reference Range Interpretation Comments GLUCOSE (test code = 2217) 106 MG/DL BUN (test code = 2208) 12 MG/DL CREATININE (test code = 2214) 0.92 MG/DL eGFR AMER. (test code 76 ML/MIN/1.73 = 52055) eGFR NON- AMER. (test 66 ML/MIN/1.73 code = 67215) CALC BUN/CREAT (test code = 13 RATIO 2235) SODIUM (test code = 2231) 144 MEQ/L POTASSIUM (test code = 2228) 4.4 MEQ/L CHLORIDE (test code = 2215) 100 MEQ/L CARBON DIOXIDE (test code = 32 MEQ/L 2206) CALCIUM (test code = 2209) 10.4 MG/DL PROTEIN, TOTAL (test code = 7.8 G/DL 2228) ALBUMIN (test code = 2201) 4.4 G/DL CALC GLOBULIN (test code = 3.4 G/DL 2240) CALC A/G RATIO (test code = 1.3 RATIO 2234) BILIRUBIN, TOTAL (test code = 0.3 MG/DL 7) ALKALINE PHOSPHATASE (test 65 U/L code = 2204) AST (test code = 2218) 15 U/L ALT (test code = 2219) 14 U/L LIPID [id number] 00:00:00 Test Item Value Reference Range Interpretation Comments CHOLESTEROL (test code = 2210) 174 MG/DL TRIGLYCERIDES (test code = 2232) 116 MG/DL HDL CHOLESTEROL (test code = 2220) 58 MG/DL CALC LDL CHOL (test code = 2237) 93 MG/DL RISK RATIO LDL/HDL (test code = 1.60 RATIO 2238) LIPID [id number] 00:00:00 Test Item Value Reference Range Interpretation Comments CHOLESTEROL (test code = 2210) 174 MG/DL TRIGLYCERIDES (test code = 2232) 116 MG/DL HDL CHOLESTEROL (test code = 2220) 58 MG/DL CALC LDL CHOL (test code = 2237) 93 MG/DL RISK RATIO LDL/HDL (test code = 1.60 RATIO 2238) COMPREHENSIVE METABOLIC [id number] 00:00:00 Test Item Value Reference Range Interpretation Comments GLUCOSE (test code = 2217) 106 MG/DL BUN (test code = 2208) 12 MG/DL CREATININE (test code = 2214) 0.92 MG/DL eGFR AMER. (test code 76 ML/MIN/1.73 = 53059) eGFR NON- AMER. (test 66 ML/MIN/1.73 code = 86977) CALC BUN/CREAT (test code = 13 RATIO 2235) SODIUM (test code = 2231) 144 MEQ/L POTASSIUM (test code = 2228) 4.4 MEQ/L CHLORIDE (test code = 2215) 100 MEQ/L CARBON DIOXIDE (test code = 32 MEQ/L 2205) CALCIUM (test code = 2209) 10.4 MG/DL PROTEIN, TOTAL (test code = 7.8 G/DL 222) ALBUMIN (test code = 2201) 4.4 G/DL CALC GLOBULIN (test code = 3.4 G/DL 2240) CALC A/G RATIO (test code = 1.3 RATIO 2234) BILIRUBIN, TOTAL (test code = 0.3 MG/DL 220) ALKALINE PHOSPHATASE (test 65 U/L code = 2204) AST (test code = 2218) 15 U/L ALT (test code = 2219) 14 U/L COMPREHENSIVE METABOLIC [id number] 00:00:00 Test Item Value Reference Range Interpretation Comments GLUCOSE (test code = 2217) 106 MG/DL BUN (test code = 2208) 12 MG/DL CREATININE (test code = 2214) 0.92 MG/DL eGFR AMER. (test code 76 ML/MIN/1.73 = 31470) eGFR NON- AMER. (test 66 ML/MIN/1.73 code = 89050) CALC BUN/CREAT (test code = 13 RATIO 2235) SODIUM (test code = 2231) 144 MEQ/L POTASSIUM (test code = 2228) 4.4 MEQ/L CHLORIDE (test code = 2215) 100 MEQ/L CARBON DIOXIDE (test code = 32 MEQ/L 2205) CALCIUM (test code = 2209) 10.4 MG/DL PROTEIN, TOTAL (test code = 7.8 G/DL 2228) ALBUMIN (test code = 2201) 4.4 G/DL CALC GLOBULIN (test code = 3.4 G/DL 2240) CALC A/G RATIO (test code = 1.3 RATIO 2234) BILIRUBIN, TOTAL (test code = 0.3 MG/DL 2206) ALKALINE PHOSPHATASE (test 65 U/L code = 2204) AST (test code = 2218) 15 U/L ALT (test code = 2219) 14 U/L LIPID [id number] 00:00:00 Test Item Value Reference Range Interpretation Comments CHOLESTEROL (test code = 2210) 174 MG/DL TRIGLYCERIDES (test code = 2232) 116 MG/DL HDL CHOLESTEROL (test code = 2220) 58 MG/DL CALC LDL CHOL (test code = 2237) 93 MG/DL RISK RATIO LDL/HDL (test code = 1.60 RATIO 2238) LIPID [id number] 00:00:00 Test Item Value Reference Range Interpretation Comments CHOLESTEROL (test code = 2210) 174 MG/DL TRIGLYCERIDES (test code = 2232) 116 MG/DL HDL CHOLESTEROL (test code = 2220) 58 MG/DL CALC LDL CHOL (test code = 2237) 93 MG/DL RISK RATIO LDL/HDL (test code = 1.60 RATIO 2238) COMPREHENSIVE METABOLIC [id number] 00:00:00 Test Item Value Reference Range Interpretation Comments GLUCOSE (test code = 2217) 106 MG/DL BUN (test code = 2208) 12 MG/DL CREATININE (test code = 2214) 0.92 MG/DL eGFR AMER. (test code 76 ML/MIN/1.73 = 50107) eGFR NON- AMER. (test 66 ML/MIN/1.73 code = 51000) CALC BUN/CREAT (test code = 13 RATIO 2235) SODIUM (test code = 2231) 144 MEQ/L POTASSIUM (test code = 2228) 4.4 MEQ/L CHLORIDE (test code = 2215) 100 MEQ/L CARBON DIOXIDE (test code = 32 MEQ/L 2206) CALCIUM (test code = 2209) 10.4 MG/DL PROTEIN, TOTAL (test code = 7.8 G/DL 222) ALBUMIN (test code = 2201) 4.4 G/DL CALC GLOBULIN (test code = 3.4 G/DL 2240) CALC A/G RATIO (test code = 1.3 RATIO 2234) BILIRUBIN, TOTAL (test code = 0.3 MG/DL 220) ALKALINE PHOSPHATASE (test 65 U/L code = 2204) AST (test code = 2218) 15 U/L ALT (test code = 2219) 14 U/L COMPREHENSIVE METABOLIC [id number] 00:00:00 Test Item Value Reference Range Interpretation Comments GLUCOSE (test code = 2217) 106 MG/DL BUN (test code = 2208) 12 MG/DL CREATININE (test code = 2214) 0.92 MG/DL eGFR AMER. (test code 76 ML/MIN/1.73 = 88322) eGFR NON- AMER. (test 66 ML/MIN/1.73 code = 31868) CALC BUN/CREAT (test code = 13 RATIO 2235) SODIUM (test code = 2231) 144 MEQ/L POTASSIUM (test code = 2228) 4.4 MEQ/L CHLORIDE (test code = 2215) 100 MEQ/L CARBON DIOXIDE (test code = 32 MEQ/L 2205) CALCIUM (test code = 2209) 10.4 MG/DL PROTEIN, TOTAL (test code = 7.8 G/DL 2228) ALBUMIN (test code = 2201) 4.4 G/DL CALC GLOBULIN (test code = 3.4 G/DL 2240) CALC A/G RATIO (test code = 1.3 RATIO 2234) BILIRUBIN, TOTAL (test code = 0.3 MG/DL 2206) ALKALINE PHOSPHATASE (test 65 U/L code = 2204) AST (test code = 2218) 15 U/L ALT (test code = 2219) 14 U/L LIPID [id number] 00:00:00 Test Item Value Reference Range Interpretation Comments CHOLESTEROL (test code = 2210) 174 MG/DL TRIGLYCERIDES (test code = 2232) 116 MG/DL HDL CHOLESTEROL (test code = 2220) 58 MG/DL CALC LDL CHOL (test code = 2237) 93 MG/DL RISK RATIO LDL/HDL (test code = 1.60 RATIO 2238) COMPREHENSIVE METABOLIC [id number] 00:00:00 Test Item Value Reference Range Interpretation Comments GLUCOSE (test code = 2217) 106 MG/DL BUN (test code = 2208) 12 MG/DL CREATININE (test code = 2214) 0.92 MG/DL eGFR AMER. (test code 76 ML/MIN/1.73 = 85836) eGFR NON- AMER. (test 66 ML/MIN/1.73 code = 43359) CALC BUN/CREAT (test code = 13 RATIO 2235) SODIUM (test code = 2231) 144 MEQ/L POTASSIUM (test code = 2228) 4.4 MEQ/L CHLORIDE (test code = 2215) 100 MEQ/L CARBON DIOXIDE (test code = 32 MEQ/L 2205) CALCIUM (test code = 2209) 10.4 MG/DL PROTEIN, TOTAL (test code = 7.8 G/DL 2228) ALBUMIN (test code = 2201) 4.4 G/DL CALC GLOBULIN (test code = 3.4 G/DL 2240) CALC A/G RATIO (test code = 1.3 RATIO 2234) BILIRUBIN, TOTAL (test code = 0.3 MG/DL 2206) ALKALINE PHOSPHATASE (test 65 U/L code = 2204) AST (test code = 2218) 15 U/L ALT (test code = 2219) 14 U/L LIPID [id number] 00:00:00 Test Item Value Reference Range Interpretation Comments CHOLESTEROL (test code = 2210) 174 MG/DL TRIGLYCERIDES (test code = 2232) 116 MG/DL HDL CHOLESTEROL (test code = 2220) 58 MG/DL CALC LDL CHOL (test code = 2237) 93 MG/DL RISK RATIO LDL/HDL (test code = 1.60 RATIO 2238) LIPID [id number] 00:00:00 Test Item Value Reference Range Interpretation Comments CHOLESTEROL (test code = 2210) 174 MG/DL TRIGLYCERIDES (test code = 2232) 116 MG/DL HDL CHOLESTEROL (test code = 2220) 58 MG/DL CALC LDL CHOL (test code = 2237) 93 MG/DL RISK RATIO LDL/HDL (test code = 1.60 RATIO 2238) COMPREHENSIVE METABOLIC [id number] 00:00:00 Test Item Value Reference Range Interpretation Comments GLUCOSE (test code = 2217) 106 MG/DL BUN (test code = 2208) 12 MG/DL CREATININE (test code = 2214) 0.92 MG/DL eGFR AMER. (test code 76 ML/MIN/1.73 = 81684) eGFR NON- AMER. (test 66 ML/MIN/1.73 code = 33846) CALC BUN/CREAT (test code = 13 RATIO 2235) SODIUM (test code = 2231) 144 MEQ/L POTASSIUM (test code = 2228) 4.4 MEQ/L CHLORIDE (test code = 2215) 100 MEQ/L CARBON DIOXIDE (test code = 32 MEQ/L 220) CALCIUM (test code = 2209) 10.4 MG/DL PROTEIN, TOTAL (test code = 7.8 G/DL 2228) ALBUMIN (test code = 2201) 4.4 G/DL CALC GLOBULIN (test code = 3.4 G/DL 2240) CALC A/G RATIO (test code = 1.3 RATIO 2233) BILIRUBIN, TOTAL (test code = 0.3 MG/DL 2206) ALKALINE PHOSPHATASE (test 65 U/L code = 2204) AST (test code = 2218) 15 U/L ALT (test code = 2219) 14 U/L COMPREHENSIVE METABOLIC [id number] 00:00:00 Test Item Value Reference Range Interpretation Comments GLUCOSE (test code = 2217) 106 MG/DL BUN (test code = 2208) 12 MG/DL CREATININE (test code = 2214) 0.92 MG/DL eGFR AMER. (test code 76 ML/MIN/1.73 = 91696) eGFR NON- AMER. (test 66 ML/MIN/1.73 code = 23000) CALC BUN/CREAT (test code = 13 RATIO 2235) SODIUM (test code = 2231) 144 MEQ/L POTASSIUM (test code = 2228) 4.4 MEQ/L CHLORIDE (test code = 2215) 100 MEQ/L CARBON DIOXIDE (test code = 32 MEQ/L 220) CALCIUM (test code = 2209) 10.4 MG/DL PROTEIN, TOTAL (test code = 7.8 G/DL 2228) ALBUMIN (test code = 2201) 4.4 G/DL CALC GLOBULIN (test code = 3.4 G/DL 2240) CALC A/G RATIO (test code = 1.3 RATIO 2233) BILIRUBIN, TOTAL (test code = 0.3 MG/DL 2206) ALKALINE PHOSPHATASE (test 65 U/L code = 2203) AST (test code = 2218) 15 U/L ALT (test code = 2219) 14 U/L
[2022-05-22] MEDS ORDERED: CYCLOBENZAPRINE 10 MG TAB ONE (12:37)
[2022-05-22] MEDS ORDERED: HYDROCODONE/APAP 7.5/325 MG TAB ONE (12:38)
[2022-05-22] MEDS ORDERED: KETOROLAC 30 MG/ML INJ ONE (12:38)
--- NOTE | 2022-05-22 13:42 | RAD REPORT ---
EXAM DESCRIPTION: RAD - Foot Right 3 View - 05/22/2022 1:29 pm CLINICAL HISTORY: Right foot pain FINDINGS: No fracture or dislocation is seen A large plantar calcaneal spur Hallux valgus deformity
--- NOTE | 2022-05-22 13:54 | EDPHYS ---
Physician Documentation [facility] Name: Bailey Zavala Age: 67 yrs Sex: Female : 1955 Arrival Date: 05/22/2022 Time: 11:26 Bed 10 Private MD: ED Physician Gopal Starks HPI: 05/22 12:15 This 67 yrs old Black Female presents to ER via Wheelchair with complaints of Foot Pain.jh7 12:15 The patient presents with pain, that is chronic. The complaints affect the left foot jh7 and right foot. Onset: The symptoms/episode began/occurred 1 month(s) ago. Patient reports bilateral foot pain x1 month with worse pain on the right foot.. Historical: - Allergies: 12:13 Iodine (Hives); hb 12:13 toothpaste; hb - Home Meds: 14:39 Albuterol Inhl [Active]; Pro Air [Active]; trulicity [Active]; eh3 - PMHx: 12:13 Arthritis; Asthma; Diabetes - NIDDM; right eye surgery; hb - Immunization history:: Adult Immunizations up to date. - Social history:: Smoking status: Patient denies any tobacco usage or history of. ROS: 12:15 Constitutional: Negative for fever, chills, and weight loss, Neck: Negative for injury, jh7 pain, and swelling, Cardiovascular: Negative for chest pain, palpitations, and edema, Respiratory: Negative for shortness of breath, cough, wheezing, and pleuritic chest pain, Back: Negative for injury and pain, Skin: Negative for injury, rash, and discoloration, Neuro: Negative for headache, weakness, numbness, tingling, and seizure. 12:15 MS/extremity: Positive for pain, Negative for injury or acute deformity. 12:15 All other systems are negative. Exam: 12:15 Constitutional: This is a well developed, well nourished patient who is awake, alert, jh7 and in no acute distress. Neck: Trachea midline, no thyromegaly or masses palpated, and no cervical lymphadenopathy. Supple, full range of motion without nuchal rigidity, or vertebral point tenderness. No Meningismus. Cardiovascular: Regular rate and rhythm with a normal S1 and S2. No gallops, murmurs, or rubs. Normal PMI, no JVD. No pulse deficits. Respiratory: Lungs have equal breath sounds bilaterally, clear to auscultation and percussion. No rales, rhonchi or wheezes noted. No increased work of breathing, no retractions or nasal flaring. Back: No spinal tenderness. No costovertebral tenderness. Full range of motion. Skin: Warm, dry with normal turgor. Normal color with no rashes, no lesions, and no evidence of cellulitis. Neuro: Awake and alert, GCS 15, oriented to person, place, time, and situation. Motor strength 5/5 in all extremities. Sensory grossly intact. Normal gait. 12:15 Musculoskeletal/extremity: ROM: intact in all extremities, Circulation is intact in all extremities. Sensation intact. DVT Exam: no pain, no swelling, no tenderness, negative Homans' sign noted on exam, no appreciated bluish discoloration, no erythema, no increased warmth. Vital Signs: 12:12 BP 110 / 69; Pulse 88; Resp 16; Temp 98.3; Pulse Ox 100% on R/A; Weight 165.56 kg; hb Height 5 ft. 8 in. (172.72 cm); Pain 10/10; 13:30 BP 100 / 61; Pulse 78; Resp 16; Pulse Ox 99% on R/A; eh3 12:12 Body Mass Index 55.50 (165.56 kg, 172.72 cm) hb MDM: 12:05 Patient medically screened. [facility] 13:55 Differential diagnosis: tendonitis, Plantar fasciitis. Data reviewed: vital signs, [facility] nurses notes, radiologic studies, plain films. Data interpreted: Pulse oximetry: is 99 %. Interpretation: normal. Counseling: I had a detailed discussion with the patient and/or guardian regarding: the historical points, exam findings, and any diagnostic results supporting the discharge/admit diagnosis, the need for outpatient follow up, a lpn instructor, to return to the emergency department if symptoms worsen or persist or if there are any questions or concerns that arise at home, Elevating feet at night, weight loss, podiatry follow-up. 05/22 12:05 Order name: XRAY Foot RIGHT 3 View; Complete Time: 13:50 [facility] Administered Medications: 13:00 Drug: Ketorolac 60 mg Route: IM; Site: right ventrogluteal; eh3 14:16 Follow up: Response: Pain is decreased eh3 13:00 Drug: [place] (HYDROcodone-acetaminophen) (7.5 mg-325 mg) 1 tabs Route: PO; eh3 14:16 Follow up: Response: Pain is decreased eh3 13:00 Drug: Flexeril (cyclobenzaprine) 10 mg Route: PO; eh3 14:16 Follow up: Response: Pain is decreased eh3 Disposition: 15:44 Co-signature as Attending Physician, Gopal Starks MD I agree with the assessment and rt plan of care. Disposition Summary: 05/22/22 13:53 Discharge Ordered Location: Home jh7 Problem: chronic jh7 Symptoms: have improved jh7 Condition: Stable jh7 Diagnosis - Pain in right foot jh7 - Pain in left foot jh7 Followup: 7 - With: Private Physician - When: 2 - 3 days - Reason: Recheck today's complaints Discharge Instructions: - Discharge Summary Sheet jh7 - Musculoskeletal Pain jh7 - Pain Without a Known Cause jh7 - Foot Pain jh7 Forms: - Medication Reconciliation Form 7 - Thank You Letter [facility] Prescriptions: - Naprosyn 500 mg Oral Tablet - take 1 tablet by ORAL route 2 times per day take with food; 30 tablet; Refills: jh7 0, Product Selection Permitted - Zanaflex 4 mg Oral Tablet - take 1 tablet by ORAL route every 8 hours As needed; 20 tablet; Refills: 0, jh7 Product Selection Permitted Signatures: Dispatcher [employer] Velma Clinton RN RN Maria E Zavala RN RN 3 Yumiko Baker, COLLECTION TEAM LEAD COLLECTION TEAM LEAD 7 Gopal Starks MD MD rt Corrections: (The following items were deleted from the chart) 14:19 12:15 This 67 yrs old Black Female presents to ER via Wheelchair with complaints of jh7 Foot Pain. jh7
--- NOTE | 2022-05-22 13:54 | ER ---
Nurse's Notes [facility] Name: Bailey Zavala Age: 67 yrs Sex: Female : 1955 Arrival Date: 05/22/2022 Time: 11:26 Bed 10 Private MD: Diagnosis: Pain in right foot;Pain in left foot Presentation: 05/22 12:12 Chief complaint: Bilateral foot pain x 1 month, worse today. Coronavirus screen: At this time, the client does not indicate any symptoms associated with coronavirus-19. Ebola Screen: No symptoms or risks identified at this time. Initial Sepsis Screen: Does the patient meet any 2 criteria? No. Patient's initial sepsis screen is negative. Does the patient have a suspected source of infection? No. Patient's initial sepsis screen is negative. Risk Assessment: Do you want to hurt yourself or someone else? Patient reports no desire to harm self or others. Onset of symptoms was May 22, 2022. 12:12 Method Of Arrival: Wheelchair 12:12 Acuity: GURPREET 4 hb Triage Assessment: 12:30 General: Appears in no apparent distress. uncomfortable, Behavior is calm, cooperative, eh3 appropriate for age. Pain: Complains of pain in right foot and left foot Pain does not radiate. Pain currently is 10 out of 10 on a pain scale. Quality of pain is described as aching, sharp. EENT: No signs and/or symptoms were reported regarding the EENT system. Neuro: Level of Consciousness is awake, alert, obeys commands, Oriented to person, place, time, situation. Cardiovascular: Capillary refill < 3 seconds Patient's skin is warm and dry. Respiratory: Airway is patent Respiratory effort is even, unlabored, Respiratory pattern is regular, symmetrical. GI: No signs and/or symptoms were reported involving the gastrointestinal system. : No signs and/or symptoms were reported regarding the genitourinary system. Derm: No signs and/or symptoms reported regarding the dermatologic system. Musculoskeletal: Circulation, motion, and sensation intact. Range of motion: limited in left ankle and right ankle. Historical: - Allergies: 12:13 Iodine (Hives); hb 12:13 toothpaste; hb - Home Meds: 14:39 Albuterol Inhl [Active]; Pro Air [Active]; trulicity [Active]; eh3 - PMHx: 12:13 Arthritis; Asthma; Diabetes - NIDDM; right eye surgery; hb - Immunization history:: Adult Immunizations up to date. - Social history:: Smoking status: Patient denies any tobacco usage or history of. Screenin:30 Abuse screen: Denies threats or abuse. Denies injuries from another. Nutritional eh3 screening: No deficits noted. Tuberculosis screening: No symptoms or risk factors identified. Fall Risk Gait- Impaired (20 pts.). Total Valenzuela Fall Scale indicates No Risk (0-24 pts). Assessment: 12:30 Reassessment: No changes from previously documented assessment. See triage assessment. eh3 13:30 Reassessment: Patient and/or family updated on plan of care and expected duration. Pain eh3 level reassessed. Patient is alert, oriented x 3, equal unlabored respirations, skin warm/dry/pink. Patient states symptoms have improved. Pain: Pain currently is 4 out of 10 on a pain scale. 13:30 Neuro: Peña Agitation-Sedation Scale (RASS): 0 - Alert and Calm. eh3 Vital Signs: 12:12 BP 110 / 69; Pulse 88; Resp 16; Temp 98.3; Pulse Ox 100% on R/A; Weight 165.56 kg; hb Height 5 ft. 8 in. (172.72 cm); Pain 10/10; 13:30 BP 100 / 61; Pulse 78; Resp 16; Pulse Ox 99% on R/A; eh3 12:12 Body Mass Index 55.50 (165.56 kg, 172.72 cm) hb ED Course: 11:26 Patient arrived in ED. rg4 12:05 Yumiko Baker FNP is PHCP. jh7 12:05 Gopal Starks MD is Attending Physician. jh7 12:13 Triage completed. hb 12:13 Arm band placed on. hb 12:30 Patient has correct armband on for positive identification. Bed in low position. Call eh3 light in reach. Side rails up X2. Pulse ox on. NIBP on. Door closed. Noise minimized. Warm blanket given. 12:34 Maria E Zavala, RN is Primary Nurse. eh3 13:30 XRAY Foot RIGHT 3 View In Process Unspecified. EDMS 14:39 No provider procedures requiring assistance completed. Patient did not have IV access eh3 during this emergency room visit. Administered Medications: 13:00 Drug: Ketorolac 60 mg Route: IM; Site: right ventrogluteal; 3 14:16 Follow up: Response: Pain is decreased 3 13:00 Drug: [place] (HYDROcodone-acetaminophen) (7.5 mg-325 mg) 1 tabs Route: PO; eh3 14:16 Follow up: Response: Pain is decreased 3 13:00 Drug: Flexeril (cyclobenzaprine) 10 mg Route: PO; eh3 14:16 Follow up: Response: Pain is decreased 3 Medication: 14:40 VIS not applicable for this client. 3 Outcome: 13:53 Discharge ordered by . 7 14:40 Discharged to home via wheelchair, with family. 3 14:40 Condition: stable 14:40 Discharge instructions given to patient, family, Instructed on discharge instructions, follow up and referral plans. medication usage, Demonstrated understanding of instructions, follow-up care, medications, Prescriptions given X 2. 14:40 Patient left the ED. 3 Signatures: Dispatcher [employer] EDMS Velma Chacon RN RN Leila Alcaraz rg4 Maria E Zavala, AMARILYS RN 3 Yumiko Baker, TELEPHONIC CASE MANAGER TELEPHONIC CASE MANAGER 7 Corrections: (The following items were deleted from the chart) 12:14 12:12 Chief complaint: Bilateral foot pain and swelling x 1 month, worse today. hb hb 12:14 12:12 Acuity: GURPREET 3 hb hb
[2022-05-22 14:52] VITALS: TEMP 98.3
[2022-05-22 14:53] VITALS: BP 100/61; O2SAT 99
== END 2022-05-22 14:40 | disposition home or self-care (01) ==
LOC: ER 11:21
DX: M79.671 Pain in right foot (principal); M79.672 Pain in left foot
CPT/HCPCS: 96372; 99284

== ENCOUNTER 2023-12-03 16:42 | Observation (INO) | payer OTHER ==
[2023-12-03 17:33] LABS: Absolute Basophils 0.1 K/uL (0-0.5); Absolute Eosinophils 0.4 K/uL (0-0.5); Absolute Lymphocytes (CBC) 1.9 K/uL (0.7-4.9); Absolute Monocytes 1.2 K/uL (0.1-1.3); Absolute Neutrophil 11.4 K/uL (1.8-8.0); Basophils % 0.3 % (0-1.3); Eosinophils % 2.8 % (0-4.4); Hematocrit 38.6 % (36.0-45.0); Hemoglobin 12.2 g/dL (12.0-15.0); Lymphocytes % 12.7 % (15.3-44.8); MCH 24.8 pg (27.0-35.0); MCHC 31.6 g/dL (32.0-36.0); MCV 78.3 fL (80-100); MPV 7.7 fL (7.6-11.3); Neutrophils % 76.2 % (41.7-73.7); Platelets 377 thou/uL (152-406); RBC Red Blood Cell Count 4.93 M/uL (3.86-4.86); Red Cell Distribution Width 17.1 % (12.1-15.2)
[2023-12-03 17:41] LABS: PT Prothrombin Time 14.1 SECONDS (9.5-12.5); Protime INR 1.29
[2023-12-03] MEDS ORDERED: NA CHLORIDE 0.9% 1,000 ML ONE (17:47)
[2023-12-03 17:50] LABS: Albumin/Globulin Ratio 0.6 (1.1-1.8); Alkaline Phosphatase 71 U/L (45-117); Anion Gap 8.4 mEq/L (5.0-15.0); BUN Blood Urea Nitrogen 15 mg/dL (7-18); Bicarbonate 29 mEq/L (21-32); Bilirubin Total 0.4 mg/dL (0.2-1.0); Globulin 4.8 g/dL (2.3-3.5); Glomerular Filtration Rate 45 ml/min (=/>90); Glucose Level 117 mg/dL (74-106); Lipase 27 U/L (13-75); Magnesium 1.6 mg/dL (1.6-2.4); NT PRO-BNP 147 pg/mL (<125); Potassium 3.4 mEq/L (3.5-5.1); Protein, Total 7.8 g/dL (6.4-8.2); Sodium Level 135 mEq/L (136-145)
--- NOTE | 2023-12-03 17:56 | RAD REPORT ---
EXAM DESCRIPTION: RAD - Chest Single View - 12/03/2023 5:47 pm CLINICAL HISTORY: COUGH COMPARISON: Chest Single View dated 01/05/2021; Chest Single View dated 10/04/2020; Chest Pa And Lat (2 Views) dated 04/12/2020; Chest Single View dated 10/31/2018 FINDINGS: Lines: None. Lungs: Diffuse prominence of the pulmonary interstitium. This is increased from prior. Pleural: No significant pleural effusions or pneumothorax. Cardiac: Cardiomegaly. Mediastinum: Within normal limits. Bones: No acute fractures. Other: None IMPRESSION: Increased prominence of the pulmonary interstitium favored to represent edema.
[2023-12-03 17:57] LABS: ALT/SGPT < 14 U/L (13-56); AST/SGOT < 10 U/L (15-37); Bilirubin Direct < 0.2 mg/dL (0-0.2); Bilirubin Indirect, Calculated 0.2 mg/dL (0.2-0.8)
--- NOTE | 2023-12-03 18:27 | RAD REPORT ---
EXAM DESCRIPTION: US - Extrem Venous W Compress Mendel - 12/03/2023 6:20 pm CLINICAL HISTORY: Pain;Swelling COMPARISON: EXT VENOUS W COMPRESSION MENDEL dated 09/06/2014 TECHNIQUE: Real-time sonographic evaluation of the lower extremity deep venous systems was performed using color Doppler, grayscale, and compression. FINDINGS: Bilateral lower extremities. Normal compressibility, flow augmentation, phasic flow and spontaneous flow is identified in both the left and right lower extremity deep venous systems. No intraluminal filling defects seen. IMPRESSION: No DVT in either lower extremity.
--- NOTE | 2023-12-03 18:29 | EDPHYS ---
Physician Documentation [facility] Name: Bailey Zavala Age: 68 yrs Sex: Female : 1955 Arrival Date: 12/03/2023 Time: 16:42 Bed 18 Private MD: ED Physician Brandon Goyal HPI: 12/02 18:22 This 68 yrs old Black Female presents to ER via Wheelchair with complaints of Feet ashvin Swelling - Pain. 18:22 The patient presents with decreased range of motion, pain, that is acute, swelling. The ashvin complaints affect the right leg and left leg. Context: resulted from an unknown cause. Onset: The symptoms/episode began/occurred 3 day(s) ago. Modifying factors: The symptoms are alleviated by nothing. the symptoms are aggravated by nothing. Associated signs and symptoms: Pertinent positives: calf tenderness. Treatment prior to arrival includes: no previous treatment. Severity of symptoms: At their worst the symptoms were mild, moderate, in the emergency department the symptoms are unchanged. The patient has experienced similar episodes in the past, a few times. Historical: - Allergies: 17:00 Iodine (Hives); cm10 17:00 toothpaste; cm10 - PMHx: 17:00 Arthritis; Asthma; Diabetes - NIDDM; right eye surgery; cm10 - Immunization history:: Adult Immunizations up to date. - Infectious Disease History:: Denies. - Social history:: Smoking status: Patient denies any tobacco usage or history of. - Family history:: not pertinent. ROS: 18:22 Constitutional: Negative for fever, chills, and weight loss, Eyes: Negative for injury, ashvin pain, redness, and discharge, ENT: Negative for injury, pain, and discharge, Neck: Negative for injury, pain, and swelling, Cardiovascular: Negative for chest pain, palpitations, and edema, Respiratory: Negative for shortness of breath, cough, wheezing, and pleuritic chest pain, Abdomen/GI: Negative for abdominal pain, nausea, vomiting, diarrhea, and constipation, Back: Negative for injury and pain, : Negative for injury, bleeding, discharge, and swelling, Skin: Negative for injury, rash, and discoloration, Neuro: Negative for headache, weakness, numbness, tingling, and seizure, Psych: Negative for depression, anxiety, suicide ideation, homicidal ideation, and hallucinations, Allergy/Immunology: Negative for hives, rash, and allergies, Endocrine: Negative for neck swelling, polydipsia, polyuria, polyphagia, and marked weight changes, Hematologic/Lymphatic: Negative for swollen nodes, abnormal bleeding, and unusual bruising, 18:22 Cardiovascular: Positive for palpitations, 18:22 MS/extremity: Positive for pain, swelling, tenderness, of the right leg and left leg, Exam: 18:22 Constitutional: This is a well developed, well nourished patient who is awake, alert, ashvin and in no acute distress. Head/Face: Normocephalic, atraumatic. Eyes: Pupils equal round and reactive to light, extra-ocular motions intact. Lids and lashes normal. Conjunctiva and sclera are non-icteric and not injected. Cornea within normal limits. Periorbital areas with no swelling, redness, or edema. ENT: Nares patent. No nasal discharge, no septal abnormalities noted. Tympanic membranes are normal and external auditory canals are clear. Oropharynx with no redness, swelling, or masses, exudates, or evidence of obstruction, uvula midline. Mucous membranes moist. Neck: Trachea midline, no thyromegaly or masses palpated, and no cervical lymphadenopathy. Supple, full range of motion without nuchal rigidity, or vertebral point tenderness. No Meningismus. Chest/axilla: Normal chest wall appearance and motion. Nontender with no deformity. No lesions are appreciated. Respiratory: Lungs have equal breath sounds bilaterally, clear to auscultation and percussion. No rales, rhonchi or wheezes noted. No increased work of breathing, no retractions or nasal flaring. Abdomen/GI: Soft, non-tender, with normal bowel sounds. No distension or tympany. No guarding or rebound. No evidence of tenderness throughout. Back: No spinal tenderness. No costovertebral tenderness. Full range of motion. Female : Normal external genitalia. Skin: Warm, dry with normal turgor. Normal color with no rashes, no lesions, and no evidence of cellulitis. 18:22 Cardiovascular: Rate: tachycardic, actual rate is 114 bpm, 18:22 ECG was reviewed by the Attending Physician. 18:22 Musculoskeletal/extremity: Circulation is intact in all extremities. Sensation intact. Compartment Syndrome exam of affected extremity: is normal. Weight bearing: able to fully bear weight, without difficulty, DVT Exam: no tenderness, negative Homans' sign noted on exam, no appreciated bluish discoloration, no erythema, no increased warmth, pain, swelling, 18:51 ECG was reviewed by the Attending Physician. [facility] Vital Signs: 16:59 BP 131 / 71; Pulse 114; Resp 18; Temp 98; Pulse Ox 95% ; Weight 161.03 kg; Height 5 ft. cm10 7 in. ; Pain 10/10; 18:00 BP 143 / 78; Pulse 91; Resp 16; Pulse Ox 98% on R/A; me1 19:00 BP 139 / 77; Pulse 98; Resp 18; Pulse Ox 98% on R/A; me1 20:00 BP 122 / 73; Pulse 96; Resp 18; Pulse Ox 96% on R/A; me1 20:30 BP 125 / 80; Pulse 95; Resp 16; Pulse Ox 96% on R/A; me1 16:59 Body Mass Index 55.60 (161.03 kg, 170.18 cm) cm10 16:59 Pain Scale: Adult cm10 [place] Coma Score: 18:22 Eye Response: spontaneous(4). Motor Response: obeys commands(6). Verbal Response: ashvin oriented(5). Total: 15. MDM: 16:58 Patient medically screened. [facility] 18:26 Differential diagnosis: contusion, tendonitis. Data reviewed: vital signs, nurses [facility] notes, lab test result(s), EKG, radiologic studies, doppler, plain films. Consideration of Admission/Observation Escalation of care including admission/observation considered. I considered the following discharge prescriptions or medication management in the emergency department Medications were administered in the Emergency Department. See MAR. Independent interpretation of the following test(s) in the Emergency Department EKG: See my EKG interpretation above. Test considered but Not performed: CT: no ct chest. Historians other than the Patient: pt well informed. Care significantly affected by the following chronic conditions: Diabetes, Obesity, oa, right eye surgery. 12/02 16:59 Order name: Basic Metabolic Panel; Complete Time: 18:13 [facility] 12/02 16:59 Order name: CBC with Diff; Complete Time: 18:13 [facility] 12/02 16:59 Order name: LFT's; Complete Time: 18:13 [facility] 12/02 16:59 Order name: Magnesium; Complete Time: 18:13 ashvin 12/02 16:59 Order name: NT PRO-BNP; Complete Time: 18:13 ashvin 12/02 16:59 Order name: PT-INR; Complete Time: 18:13 ashvin 12/02 16:59 Order name: Troponin HS; Complete Time: 18:13 ashvin 12/02 16:59 Order name: Urinalysis w/ reflexes ashvin 12/02 16:59 Order name: Lipase; Complete Time: 18:13 ashvin 12/02 18:58 Order name: Urinalysis w/ reflexes EDMS 12/02 18:58 Order name: CBC with Automated Diff EDMS 12/02 18:58 Order name: CBC with Automated Diff EDMS 12/02 18:58 Order name: Comprehensive Metabolic Panel EDMS 12/02 18:58 Order name: Comprehensive Metabolic Panel EDMS 12/02 18:58 Order name: Troponin High Sensitivity EDMS 12/02 18:58 Order name: Troponin High Sensitivity EDMS 12/02 18:58 Order name: Troponin High Sensitivity EDMS 12/02 18:58 Order name: Troponin High Sensitivity EDMS 12/02 16:59 Order name: XRAY Chest (1 view); Complete Time: 18:13 ashvin 12/02 16:59 Order name: US Extremity Venous W Compression Mendel; Complete Time: 18:28 ashvin 12/02 18:48 Order name: XRAY Foot LEFT 3 View; Complete Time: 19:33 12/02 16:59 Order name: EKG; Complete Time: 16:59 [facility] 12/02 16:59 Order name: Cardiac monitoring [facility] 12/02 16:59 Order name: EKG - Nurse/Tech; Complete Time: 18:49 [facility] 12/02 16:59 Order name: IV Saline Lock; Complete Time: 17:15 [facility] 12/02 16:59 Order name: Labs collected and sent; Complete Time: 17:15 ashvin 12/02 16:59 Order name: O2 Per Protocol; Complete Time: 17:15 ashvin 12/02 16:59 Order name: O2 Sat Monitoring; Complete Time: 17:15 [facility] EC:51 Rate is 66 beats/min. Rhythm is regular. QRS [place] is Normal. MD interval is normal. QRS ashvin interval is normal. QT interval is normal. No Q waves. T waves are Normal. No ST changes noted. Clinical impression: Normal ECG and No evidence of ischemia. Interpreted by me. Reviewed by me. Administered Medications: 17:49 Drug: NS 0.9% IV 1000 ml IV at 125 ml/hr continuous Route: IV; Rate: 125 ml/hr; Site: [facility] [place] right antecubital; 20:03 Follow up: IV Status: Infusion continued upon admission me1 19:01 Drug: Potassium PO Effervescent Tablet 25 mEq PO once; dissolve in 4 ounces of water or me1 juice Route: PO; 20:02 Follow up: Response: No adverse reaction me1 19:01 Drug: Potassium PO Effervescent Tablet 25 mEq PO once; dissolve in 4 ounces of water or me1 juice Route: PO; 20:03 Follow up: Response: No adverse reaction me1 19:36 CANCELLED (dose changed by Dr Carver): [id number] mg Sub-Q once me1 19:36 Drug: Lovenox Sub-Q 40 mg Sub-Q once Route: Sub-Q; Site: left lower abdomen; vt1 20:03 Follow up: Response: No adverse reaction me1 Disposition Summary: 12/03/23 18:28 Hospitalization Ordered Notes: Hospitalization Status: Observation ashvin Provider: Leroy Rao cha Location: Telemetry/MedSurg (observation) ashvin Condition: Fair ashvin Problem: new ashvin Symptoms: have improved ashvin Bed/Room Type: Standard [facility] Room Assignment: 211(12/03/23 19:43) lg3 Diagnosis - Obesity, unspecified ashvin - Edema, unspecified ashvin - Tachycardia, unspecified ashvin - Elevated white blood cell count ashvin - Hypokalemia ashvin - Chronic combined systolic (congestive) and diastolic (congestive) heart failure ashvin - Pain in left foot ashvin Forms: - Medication Reconciliation Form ashvin - SBAR form ashvin - Leadership Thank You Letter ashvin Signatures: Dispatcher [employer] Brandon Dewey MD MD cha Able, Lacie, RN RN lg3 Letty Bajwa RN RN cm10 Trena Escalear RN RN me1 Corrections: (The following items were deleted from the chart) 16:59 16:59 BASIC METABOLIC PANEL+C.LAB.BRZ ordered. EDMS EDMS 16:59 16:59 CBC+H.LAB.BRZ ordered. EDMS EDMS 16:59 16:59 HEPATIC FUNCTION+C.LAB.BRZ ordered. EDMS EDMS 16:59 16:59 MAGNESIUM+C.LAB.BRZ ordered. EDMS EDMS 16:59 16:59 PROBNP+C.LAB.BRZ ordered. EDMS EDMS 16:59 16:59 PROTIME (+INR)+COAG.LAB.BRZ ordered. EDMS EDMS 16:59 16:59 Troponin High Sensitivity+C.LAB.BRZ ordered. EDMS EDMS 16:59 16:59 Urinalysis+U.LAB.BRZ ordered. EDMS EDMS 16:59 16:59 LIPASE+C.LAB.BRZ ordered. EDMS EDMS 19:36 18:29 Enoxaparin Sub-Q 100 mg Sub-Q once ordered. ashvin me1 19:36 19:31 Enoxaparin Sub-Q 100 mg Sub-Q once given. me1 me1 19:36 19:36 Enoxaparin Sub-Q 100 mg Sub-Q once ordered. me1 me1 19:43 18:28 ashvin lg3
--- NOTE | 2023-12-03 18:29 | ER ---
Nurse's Notes [facility] Name: Bailey Zavala Age: 68 yrs Sex: Female : 1955 Arrival Date: 12/03/2023 Time: 16:42 Bed 18 Private MD: Diagnosis: Obesity, unspecified;Edema, unspecified;Tachycardia, unspecified;Elevated white blood cell count;Hypokalemia;Chronic combined systolic (congestive) and diastolic (congestive) heart failure;Pain in left foot Presentation: 12/02 16:59 Chief complaint: Patient states: Bilateral feet pain and swelling onset 2 days ago. Pt cm10 has noted swelling to her bilateral feet. Coronavirus screen: Client denies travel out of the [place] in the last 14 days. At this time, the client does not indicate any symptoms associated with coronavirus-19. Ebola Screen: Patient denies travel to an Ebola-affected area in the 21 days before illness onset. No symptoms or risks identified at this time. Initial Sepsis Screen: Does the patient meet any 2 criteria? HR > 90 bpm. Does the patient have a suspected source of infection? No. Patient's initial sepsis screen is negative. Risk Assessment: Do you want to hurt yourself or someone else? Patient reports no desire to harm self or others. Onset of symptoms was December 03, 2023. 16:59 Method Of Arrival: Wheelchair cm10 16:59 Acuity: GURPREET 3 cm10 Historical: - Allergies: 17:00 Iodine (Hives); cm10 17:00 toothpaste; cm10 - PMHx: 17:00 Arthritis; Asthma; Diabetes - NIDDM; right eye surgery; cm10 - Immunization history:: Adult Immunizations up to date. - Infectious Disease History:: Denies. - Social history:: Smoking status: Patient denies any tobacco usage or history of. - Family history:: not pertinent. Screenin:00 [facility] ED Fall Risk Assessment (Adult) History of falling in the last 3 months, me1 including since admission No falls in past 3 months (0 pts) Confusion or Disorientation No (0 pts) Intoxicated or Sedated No (0 pts) Impaired Gait Yes (1 pt) Mobility Assist Device Used Yes (1 pt) Altered Elimination No (0 pt) Score/Fall Risk Level 0 - 2 = Low Risk Maintained a safe environment, Provided non-skid footwear, Hourly rounding (assess needs \T\ fall precautionary measures) done. Abuse screen: Denies threats or abuse. Nutritional screening: No deficits noted. Tuberculosis screening: No symptoms or risk factors identified. Assessment: 17:00 General: Appears uncomfortable, obese, well groomed, well developed, Behavior is calm, me1 cooperative, appropriate for age, Reports bilateral feet swelling and pain x 2 days. Pain: Complains of pain in right foot and left foot Pain does not radiate. Pain currently is 10 out of 10 on a pain scale. Quality of pain is described as sharp, Pain began gradually, 2-3 days ago. Is continuous. Neuro: Level of Consciousness is awake, alert, obeys commands, Oriented to person, place, time, situation, Appropriate for age. Cardiovascular: Patient's skin is warm and dry. Respiratory: Airway is patent Respiratory effort is even, unlabored, Respiratory pattern is regular, symmetrical. GI: No signs and/or symptoms were reported involving the gastrointestinal system. : No signs and/or symptoms were reported regarding the genitourinary system. EENT: No signs and/or symptoms were reported regarding the EENT system. Derm: Skin is intact, is healthy with good turgor, Skin is pink, warm \T\ dry. Musculoskeletal: Swelling present in right foot and left foot. 20:02 General: report faxed, receipt confirmed with Pennie. . me1 Vital Signs: 16:59 BP 131 / 71; Pulse 114; Resp 18; Temp 98; Pulse Ox 95% ; Weight 161.03 kg; Height 5 ft. cm10 7 in. ; Pain 10/10; 18:00 BP 143 / 78; Pulse 91; Resp 16; Pulse Ox 98% on R/A; me1 19:00 BP 139 / 77; Pulse 98; Resp 18; Pulse Ox 98% on R/A; me1 20:00 BP 122 / 73; Pulse 96; Resp 18; Pulse Ox 96% on R/A; me1 20:30 BP 125 / 80; Pulse 95; Resp 16; Pulse Ox 96% on R/A; me1 16:59 Body Mass Index 55.60 (161.03 kg, 170.18 cm) cm10 16:59 Pain Scale: Adult cm10 Anish Coma Score: 18:22 Eye Response: spontaneous(4). Motor Response: obeys commands(6). Verbal Response: ashvin oriented(5). Total: 15. ED Course: 16:45 Patient arrived in ED. ra3 16:58 Brandon Goyal MD is Attending Physician. ashvin 17:00 Trena Escalera, AMARILYS is Primary Nurse. ct1 17:00 Triage completed. cm10 17:00 Arm band placed on Patient placed in an exam room, on a stretcher, on pulse oximetry. cm10 17:00 Patient has correct armband on for positive identification. Bed in low position. Call [facility] light in reach. Side rails up X 1. Provided Education on: POC. Verbalized understanding. . Client placed on continuous cardiac and pulse oximetry monitoring. NIBP monitoring applied. quality assurance monitor chassis on. Pulse ox on. NIBP on. 17:00 No provider procedures requiring assistance completed. ct1 17:15 Initial lab(s) drawn, by ct, sent to lab. Inserted saline lock: 22 gauge in right [facility] antecubital area, using aseptic technique. 17:15 Basic Metabolic Panel Sent. ct1 17:15 CBC with Diff Sent. ct1 17:15 LFT's Sent. ct1 17:15 Magnesium Sent. ct1 17:15 NT PRO-BNP Sent. ct1 17:15 PT-INR Sent. ct1 17:15 Troponin HS Sent. ct1 17:15 Lipase Sent. ct1 17:49 XRAY Chest (1 view) In Process Unspecified. EDMS 18:22 US Extremity Venous W Compression Mendel In Process Unspecified. EDMS 18:27 Leroy Rao MD is Hospitalizing Provider. [facility] 19:14 XRAY Foot LEFT 3 View In Process Unspecified. EDMS 20:52 Patient admitted, IV remains in place. [facility] Administered Medications: 17:49 Drug: NS 0.9% IV 1000 ml IV at 125 ml/hr continuous Route: IV; Rate: 125 ml/hr; Site: [facility] right antecubital; 20:03 Follow up: IV Status: Infusion continued upon admission [facility] 19:01 Drug: Potassium PO Effervescent Tablet 25 mEq PO once; dissolve in 4 ounces of water or ct1 juice Route: PO; 20:02 Follow up: Response: No adverse reaction [facility] 19:01 Drug: Potassium PO Effervescent Tablet 25 mEq PO once; dissolve in 4 ounces of water or me1 juice Route: PO; 20:03 Follow up: Response: No adverse reaction me1 19:36 CANCELLED (dose changed by Dr Carver): [id number] mg Sub-Q once me1 19:36 Drug: Lovenox Sub-Q 40 mg Sub-Q once Route: Sub-Q; Site: left lower abdomen; me1 20:03 Follow up: Response: No adverse reaction me1 Medication: 17:00 VIS not applicable for this client. me1 Outcome: 18:28 Decision to Hospitalize by Provider. ashvin 20:52 Admitted to Med/surg accompanied by tech, via wheelchair, room 211, with chart, Report me1 called to faxed. 20:52 Condition: stable 20:52 Instructed on the need for admit, 20:52 Patient left the ED. me1 Signatures: Dispatcher [employer] EDBrandon Gil MD MD cha Martinez, Clarissa, RN RN cm10 Trena Escalera RN RN ct1 Seble Sainz ra3 Corrections: (The following items were deleted from the chart) 19:03 19:02 IV Status: Completed infusion me1 me1 19:36 19:31 Enoxaparin Sub-Q 100 mg Sub-Q in abdomen me1 me1
[2023-12-03] MEDS ORDERED: ONDANSETRON 4 MG/2 ML VIAL IV PRN (18:53)
[2023-12-03] MEDS ORDERED: POTASSIUM 25 MEQ EFFERV TAB ONE (18:53)
[2023-12-03] MEDS ORDERED: ENOXAPARIN 100 MG/ML SYR SQ ONE (18:53)
[2023-12-03] MEDS ORDERED: ACETAMINOPHEN 325 MG TABLET PO PRN (18:53)
--- NOTE | 2023-12-03 18:54 | P.HP ---
Certification for Inpatient Patient admitted to: Observation With expected LOS: <2 Midnights Practitioner: I am a practitioner with admitting privileges, knowledge of patient current condition, hospital course, and medical plan of care. Services: Services provided to patient in accordance with Admission requirements found in Title 42 Section 412.3 of the Code of Federal Regulations Patient History Date of Service: 12/03/23 Reason for admission: Lower extremity swelling History of Present Illness: 68 yrs old Female with past medical history of asthma, arthritis, diabetes who came in with pain and swelling of the ankle and bilateral lower extremity . Denies any trauma. No fever or chills. Pain and swelling got worsened over the last 3 days and was brought to the ER. She presents with decreased range of motion, pain, that is acute, swelling. Denies any trauma. No nausea vomiting or diarrhea. Denies any cough. Patient was assessed in the ER and was admitted for further management of arthritis and CHF exacerbation Allergies iodine [Iodine] Allergy (Verified 12/21/11 07:08) Nausea/Vomiting Iodine-Iodine Containing Allergy (Uncoded 10/20/14 11:47) Unknown IODINE; IODINE CONTAINING Allergy (Uncoded 11/24/13 11:55) Unknown Home medications list reviewed: Yes Home Medications: Albuterol Neb [Proventil 0.083% Neb Soln] 2.5 mg IH TID PRN 12/21/11 Albuterol Sulfate [Proair Hfa] 2 puff IH QID PRN 12/21/11 Furosemide [Lasix] 40 mg PO DAILY PRN 12/21/11 Metformin HCl [Glucophage XR OR ER] 500 mg PO BID 12/21/11 Potassium Chloride [Klor-Con M10] 20 meq PO DAILY 10/21/14 Fluticasone/Vilanterol [Breo Ellipta 200-25 Mcg Inhalr] 1 each IH DAILY 08/23/16 Montelukast [Singulair*] 10 mg PO DAILY 10/31/18 Azithromycin Tab [Zithromax*] 250 mg PO DAILY #4 tab 11/01/18 Cefuroxime Axetil [Cefuroxime] 500 mg PO BID #8 tab 11/01/18 lisinopriL [Prinivil*] 10 mg PO DAILY #30 tab 11/01/18 - Past Medical/Surgical History Diabetic: Yes Past Medical History: Reviewed- Non-Contributory -: NIDDM -: Asthma -: Hypothyroidism -: Acute bronchitis -: Acute asthma exacerbation -: pneumonia Past Surgical History: Reviewed- Non-Contributory -: right eye cone/vision repair -: endoscopy - Family History Family History: Reviewed- Non-Contributory - Family History Mother -: Heart disease, Diabetes, Other (see notes) Notes: asthma Father -: Diabetes Brother -: Diabetes, Other (see notes) Notes: asthma - Social History Smoking Status: Never smoker Alcohol use: No CD- Drugs: No Caffeine use: No Review of Systems 10-point ROS is otherwise unremarkable Physical Examination - Vital Signs Temperature: 98.4 F Blood Pressure: 130/68 Pulse: 78 Respirations: 18 Pulse Ox (%): 94 - Physical Exam General: Alert, In no apparent distress, Oriented x3, Obese HEENT: Atraumatic, Normocephalic Neck: Supple, 2+ carotid pulse no bruit Respiratory: Clear to auscultation bilaterally, Normal air movement Cardiovascular: Regular rate/rhythm, Normal S1 S2 Capillary refill: <2 Seconds Gastrointestinal: Soft and benign, W/out hepatosplenomegaly Musculoskeletal: No clubbing, Swelling, Tenderness, Warmth Integumentary: No rashes, No breakdown Neurological: Normal speech, Normal strength at 5/5 x4 extr, Cranial nerves 3-12 intact, Normal reflexes 2+ Lymphatics: No axilla or inguinal lymphadenopathy - Studies Laboratory Data (last 24 hrs) 12/03/23 12/03/23 12/03/23 17:12 17:12 17:12 WBC 15.00 H Hgb 12.2 Hct 38.6 Plt Count 377 PT 14.1 H INR 1.29 Sodium 135 L Potassium 3.4 L BUN 15 Creatinine 1.30 H Glucose 117 H Magnesium 1.6 Total Bilirubin 0.4 AST < 10 L ALT < 14 Alkaline Phosphatase 71 Lipase 27 Assessment and Plan - Problems (Diagnosis) (1) Leukocytosis Onset Date: 10/21/14 Current Visit: No Status: Acute Plan: Bilateral Lower extremity swelling Pulmonary Vascular Congestion in Xray Started on Diuresis Will get an echocardiogram Monitor closely on telemetry Leukocytosis Possible inflammatory arthritis Will get an ESR and CRP Started on empirical antibiotics Will obtain cultures as well X-ray not showing any fracture Will get a uric acid level as well Asthma Bronchodilators coontinued Hypokalemia Hyponatremia Acute kidney injury Renal parameters monitored Electrolytes monitor and replace accordingly Hypertension Antihypertensives titrated Continue home medications and titrate as needed GI/DVT prophylaxis Advanced directive full code Discharge Plan: Home - Advance Directives Does patient have a Living Will: Yes Does patient have a Durable POA for Healthcare: Yes Time Spent Managing Pts Care (In Minutes): 48
--- NOTE | 2023-12-03 19:32 | RAD REPORT ---
EXAM DESCRIPTION: RAD - Foot Left 3 View - 12/03/2023 7:12 pm CLINICAL HISTORY: PAIN COMPARISON: No comparisons FINDINGS/IMPRESSION: No definite acute fracture. Lucency through the medial aspect of the great toe proximal phalanx near the MTP joint is probably projectional. Correlate with site of pain. No malalig nment. Plantar aspect calcaneal spurs. Mild to moderate midfoot degenerative changes.
[2023-12-03] MEDS ORDERED: ALBUTEROL 2.5 MG/3 ML NEB SOL IH PRN (21:24)
[2023-12-03] MEDS ORDERED: GLUCAGON 1 MG/VIAL IM PRN (21:25)
[2023-12-03] MEDS ORDERED: D50W 25 GM/50 ML SYRINGE IV PRN (21:25)
[2023-12-03] MEDS: FUROSEMIDE 40 MG/4 ML VIAL IV SCH (21:51)
[2023-12-03 22:07] VITALS: BMI 55.7
[2023-12-03 22:14] LABS: Specific Gravity 1.012 (1.005-1.030); Urine Bacteria None Seen /HPF (<20); Urine Bilirubin NEGATIVE (Negative); Urine Blood 1+ (Negative); Urine Clarity Extremely Turbid (Clear); Urine Color Light-Yellow (Yellow); Urine Culture Reflex Order NOT NEEDED; Urine Glucose NEGATIVE (Negative); Urine Ketones NEGATIVE (Negative); Urine Microscopic Reflex YN NO UMIC; Urine Mucus Slight /HPF (None Seen); Urine Nitrite NEGATIVE (Negative); Urine Protein NEGATIVE (Negative); Urine Urobilinogen 1+ (Normal); Urine WBC <5 /HPF (<5); Urine pH 5.5 (5.0-7.0)
[2023-12-04 03:25] LABS: Absolute Basophils 0.1 K/uL (0-0.5); Absolute Eosinophils 0.5 K/uL (0-0.5); Absolute Lymphocytes (CBC) 2.3 K/uL (0.7-4.9); Absolute Neutrophil 10.3 K/uL (1.8-8.0); Basophils % 0.5 % (0-1.3); Eosinophils % 3.2 % (0-4.4); Hematocrit 35.3 % (36.0-45.0); Hemoglobin 11.2 g/dL (12.0-15.0); Lymphocytes % 16.3 % (15.3-44.8); MCH 24.6 pg (27.0-35.0); MCHC 31.7 g/dL (32.0-36.0); MCV 77.6 fL (80-100); MPV 8.1 fL (7.6-11.3); Monocytes % 6.8 % (3.3-12.3); Neutrophils % 73.2 % (41.7-73.7); Platelets 331 thou/uL (152-406); RBC Red Blood Cell Count 4.54 M/uL (3.86-4.86); Red Cell Distribution Width 17.2 % (12.1-15.2)
[2023-12-04 03:49] LABS: Albumin 2.6 g/dL (3.4-5.0); Albumin/Globulin Ratio 0.6 (1.1-1.8); Alkaline Phosphatase 77 U/L (45-117); Anion Gap 4.5 mEq/L (5.0-15.0); BUN Blood Urea Nitrogen 17 mg/dL (7-18); Bicarbonate 32 mEq/L (21-32); Bilirubin Total 0.4 mg/dL (0.2-1.0); Globulin 4.1 g/dL (2.3-3.5); Glomerular Filtration Rate 55 ml/min (=/>90); Glucose Level 138 mg/dL (74-106); Potassium 3.5 mEq/L (3.5-5.1); Protein, Total 6.7 g/dL (6.4-8.2); Sodium Level 138 mEq/L (136-145); Troponin High Sensitivity 13.2 pg/mL (<58.9)
[2023-12-04 03:56] LABS: ALT/SGPT < 14 U/L (13-56); AST/SGOT < 10 U/L (15-37)
[2023-12-04] MEDS: INSULIN REGULAR (HUMAN) 100 UNIT/ML SQ SCH (07:30)
--- NOTE | 2023-12-04 08:11 | RAD REPORT ---
EXAM DESCRIPTION: RAD - Ankle Right 3 View - 12/04/2023 6:28 am CLINICAL HISTORY: Right ankle pain FINDINGS: No fracture or dislocation is seen. Anteromedial soft tissue ulceration. Cortical irregularity of the medial malleolus may indicate osteo myelitis and should be correlated clinically
[2023-12-04] MEDS: POTASSIUM CL SA 10 MEQ TAB PO SCH ×2 (08:38→20:14)
[2023-12-04 08:39] LABS: C-Reactive Protein 92.3 mg/L (<3.00); Uric Acid 8.5 mg/dL (2.6-6.0)
[2023-12-04] MEDS: DOXYCYCLINE 100 MG CAP PO SCH (08:39)
[2023-12-04] MEDS: ENOXAPARIN 40 MG/0.4 ML SQ SCH (08:39)
[2023-12-04] MEDS: CEFTRIAXONE 1,000 MG in NA CHLORIDE 0.9% 50 ML IVPB SCH (08:39)
[2023-12-04] MEDS: KETOROLAC 30 MG/ML INJ IM ONE (09:24)
[2023-12-04] MEDS: GABAPENTIN 300 MG CAP PO SCH (09:27)
--- NOTE | 2023-12-04 10:04 | P.PN ---
Subjective Date of Service: 12/04/23 Chief Complaint: Left foot and ankle pain She still complains of significant amount of pain in her left ankle and foot time she is also had discomfort in her right foot and is able to bear weight and able to walk has happened before Review of Systems 10-point ROS is otherwise unremarkable Physical Examination - Vital Signs Temperature: 97.8 F Blood Pressure: 111/57 Pulse: 94 Respirations: 20 Pulse Ox (%): 98 - Physical Exam General: Alert, In no apparent distress, Oriented x3 Respiratory: Clear to auscultation bilaterally Gastrointestinal: Normal bowel sounds, Soft and benign Musculoskeletal: Other (Left foot appears to have some tenderness but no obvious swelling or edema) - Studies Laboratory Data (last 24 hrs) 12/03/23 12/03/23 12/03/23 17:12 17:12 17:12 WBC 15.00 H Hgb 12.2 Hct 38.6 Plt Count 377 PT 14.1 H INR 1.29 Sodium 135 L Potassium 3.4 L BUN 15 Creatinine 1.30 H Glucose 117 H Magnesium 1.6 Total Bilirubin 0.4 AST < 10 L ALT < 14 Alkaline Phosphatase 71 Lipase 27 Assessment And Plan - Current Problems (Diagnosis) (1) Left foot pain Current Visit: Yes Status: Acute Plan: Patient has been complaining of pain in her left foot the past few days x-ray of the ankle is abnormal is a mention of osteomyelitis will do an MRI white count is mildly elevated changed to p.o. levofloxacin (2) Hypokalemia Current Visit: Yes Status: Acute Plan: I suspect is from diuretic use hold diuretics for now replace potassium (3) Asthma Current Visit: Yes Status: Acute Plan: Patient has a history of asthma seems to be well-controlled start on Dulera Qualifiers: Asthma complication type: unspecified Discharge Plan: Home Plan to discharge in: 24 Hours
[2023-12-04] MEDS: levoFLOXacin 750 MG TAB PO SCH (10:36)
[2023-12-04] MEDS: DULERA 200/5 (MOMETASONE/FORMOTEROL) INHALER IH SCH (10:36)
[2023-12-04] MEDS: Oxycodone HCl/Acetaminophen 5/325 MG TAB PO PRN (20:13)
[2023-12-04 20:48] VITALS: O2SAT 95
[2023-12-05 05:27] LABS: Anion Gap 6.9 mEq/L (5.0-15.0); Potassium 3.9 mEq/L (3.5-5.1)
[2023-12-05 09:03] LABS: Hematocrit 34.4 % (36.0-45.0); Hemoglobin 10.6 g/dL (12.0-15.0); MCH 24.3 pg (27.0-35.0); MCHC 30.8 g/dL (32.0-36.0); MCV 78.7 fL (80-100); Platelets 315 thou/uL (152-406); RBC Red Blood Cell Count 4.37 M/uL (3.86-4.86); Red Cell Distribution Width 17.1 % (12.1-15.2)
--- NOTE | 2023-12-05 12:04 | RAD REPORT ---
EXAM DESCRIPTION: MRI - Foot Left Wo Cont - 12/05/2023 11:53 am CLINICAL HISTORY: Ro Osteo Pain and swelling COMPARISON: Foot Left 3 View dated 12/03/2023 FINDINGS: Moderate soft tissue swelling and edema is seen along the dorsum of the mid and forefoot. Moderate tenosynovitis is seen of the flexor hallucis tendon. Small posterior and plantar calcaneal s purs. No fracture or significant malalignment seen. Slight degenerative cystic changes seen medial first metatarsal head with metatarsus primus adductus and hallux valgus noted. No MR evidence of osteomyelitis seen. IMPRESSION: No finding to suspect osteomyelitis.
--- NOTE | 2023-12-05 12:48 | P.DS ---
Admission Date: 12/03/23 Discharge Date: 12/05/23 Disposition: DC HOME/HOME HEALTH CARE Discharge Condition: FAIR Reason for Admission: Left foot and ankle pain - Problems (1) Left foot pain Current Visit: Yes Status: Acute (2) Hypokalemia Current Visit: Yes Status: Acute (3) Asthma Current Visit: Yes Status: Acute Qualifiers: Asthma complication type: unspecified Brief History of Present Illness: Pt admitted with left foot pain Hospital Course: MRI CLINICAL HISTORY: Ro Osteo Pain and swelling COMPARISON: Foot Left 3 View dated 12/03/2023 FINDINGS: Moderate soft tissue swelling and edema is seen along the dorsum of the mid and forefoot. Moderate tenosynovitis is seen of the flexor hallucis tendon. Small posterior and plantar calcaneal spurs. No fracture or significant malalignment seen. Slight degenerative cystic changes seen medial first metatarsal head with metatarsus primus adductus and hallux valgus noted. No MR evidence of osteomyelitis seen. IMPRESSION: No finding to suspect osteomyelitis. Dictated By: Jamie Frias MD 12/05/23 1203 Signed By: Jamie Frias MD 12/05/23 1204 Pt to f/u with Orthopedics/ OTC pain chacha doxy faxed. WBC elevated OA Vital Signs/Physical Exam: Temp Pulse Resp BP Pulse Ox 97.8 F 89 17 130/77 100 12/05/23 08:00 12/05/23 08:00 12/05/23 12:45 12/05/23 08:00 12/05/23 12:45 Laboratory Data at Discharge: WBC 13.10 thou/uL (4.3-10.9) H 12/05/23 04:57 Hgb 10.6 g/dL (12.0-15.0) L 12/05/23 04:57 Hct 34.4 % (36.0-45.0) L 12/05/23 04:57 Plt Count 315 thou/uL (152-406) 12/05/23 04:57 PT 14.1 SECONDS (9.5-12.5) H 12/03/23 17:12 INR 1.29 12/03/23 17:12 Sodium Cancelled 12/05/23 Unknown Potassium Cancelled 12/05/23 Unknown BUN Cancelled 12/05/23 Unknown Creatinine Cancelled 12/05/23 Unknown Glucose Cancelled 12/05/23 Unknown Uric Acid 8.5 mg/dL (2.6-6.0) H 12/04/23 07:55 Magnesium 1.6 mg/dL (1.6-2.4) 12/03/23 17:12 Total Bilirubin Cancelled 12/04/23 03:00 AST Cancelled 12/04/23 03:00 ALT Cancelled 12/04/23 03:00 Alkaline Phosphatase Cancelled 12/04/23 03:00 Lipase 27 U/L (13-75) 12/03/23 17:12 Home Medications: Albuterol Neb [Proventil 0.083% Neb Soln] 2.5 mg IH TID PRN 12/21/11 Albuterol Sulfate [Proair Hfa] 2 puff IH QID PRN 12/21/11 Metformin HCl [Glucophage XR OR ER] 500 mg PO BID 12/21/11 Montelukast [Singulair*] 10 mg PO DAILY 10/31/18 lisinopriL [Prinivil*] 10 mg PO DAILY #30 tab 11/01/18 Albuterol Inhaler [Ventolin Inhaler*] 2 puff IH Q6H PRN 30 Days #1 aero 12/05/23 Doxycycline Hyclate 100 mg PO BID 7 Days #14 tab 12/05/23 Fluticasone/Umeclidin/Vilanter [Trelegy Ellipta 200-62.5-25] 1 each IH DAILY 30 Days #30 aero 12/05/23 Spironolactone 25 mg PO DAILY 30 Days #30 tab 12/05/23 predniSONE [Deltasone*] 10 mg PO DAILY PRN 30 Days #30 tab 12/05/23 New Medications: predniSONE [Deltasone*] 10 mg PO DAILY PRN 30 Days #30 tab PRN Reason: swelling Doxycycline Hyclate 100 mg PO BID 7 Days #14 tab Spironolactone 25 mg PO DAILY 30 Days #30 tab Fluticasone/Umeclidin/Vilanter [Trelegy Ellipta 200-62.5-25] 1 each IH DAILY 30 Days #30 aero Albuterol Inhaler [Ventolin Inhaler*] 2 puff IH Q6H PRN 30 Days #1 aero PRN Reason: Shortness Of Breath Physician Discharge Instructions: Stop frusemide and potassium. Replaced with sprionolactone. Pred as needed. To f/u with orthopedics for foot arthritis/ Pres faxed to pharmacy MRI fo foot CLINICAL HISTORY: Ro Osteo Pain and swelling COMPARISON: Foot Left 3 View dated 12/03/2023 FINDINGS: Moderate soft tissue swelling and edema is seen along the dorsum of the mid and forefoot. Moderate tenosynovitis is seen of the flexor hallucis te ndon. Small posterior and plantar calcaneal spurs. No fracture or significant malalignment seen. Slight degenerative cystic changes seen medial first metatarsal head with metatarsus primus adductus and hallux valgus noted. No MR evidence of osteomyelitis seen. IMPRESSION: No finding to suspect osteomyelitis. Dictated By: Jamie Frias MD 12/05/23 1203 Signed By: Jamie Frias MD 12/05/23 1204 Followup: Julius Leyva MD [Primary Care Provider] - 1-2 Weeks
[2023-12-05 13:10] VITALS: BP 110/70; TEMP 98.4
--- NOTE | 2023-12-05 14:10 | EKG ---
Test Date: 2023-12-03 Test Time: 18:36:28 Bumboater: MARY BETH MEASUREMENT RESULTS: Intervals: Rate: 96 VT: 178 QRSD: 88 QT: 368 QTc: 464 [place]: P: 54 VT: 178 QRS: -13 T: 50 INTERPRETIVE STATEMENTS: Normal sinus rhythm Normal ECG Compared to ECG 10/04/2020 12:43:51 No significant changes Electronically Signed On 12-05-23 14:05:31 CDT by Elder Dennis
== END 2023-12-05 15:33 | disposition home health service (06) ==
LOC: ER 16:42 → ERHOLD 18:53 → 2ND 20:41
PROVIDERS: ADMIT Family Medicine; ATTEND Internal Medicine Sleep Medicine
DX: M25.572 Pain in left ankle and joints of left foot (principal); M79.671 Pain in right foot; J45.909 Unspecified asthma, uncomplicated; E11.9 Type 2 diabetes mellitus without complications; M19.90 Unspecified osteoarthritis, unspecified site; D72.829 Elevated white blood cell count, unspecified; E87.6 Hypokalemia; E87.1 Hypo-osmolality and hyponatremia; N17.9 Acute kidney failure, unspecified; I10 Essential (primary) hypertension; Z88.8 Allergy status to other drugs, medicaments and biological substances
CPT/HCPCS: 96361; 93005; 85025 ×2; 80048 ×2; 36415 ×2; 83735; 85610; 82947 ×7; 80076; 84550; 81003; 85027; 84484 ×4; 83690; 80053; 86038; 83880; 86140; 71045; 73630; 73610; 93970; 73718; 94760; 96360; 96372; 99285; J3535; J1940 ×2; J1650 ×3; J7030; J0696; G0378